=== PATIENT | female | born 1960 | race Caucasian/White ===

== ENCOUNTER → 2017-05-04 12:39 | Outpatient (CLI) | payer OTHER, SELFPAY ==
[2017-05-04 14:07] LABS: CRP 6.34 mg/L (0.0-3.0)
[2017-05-05 16:10] LABS: Endomysial Antibody IgA Negative (Negative); Immunoglobulin A 85 mg/dL (87-352)
[2017-05-06 08:13] LABS: t-Transglutaminase IgA <2 U/mL (0-3)
== END ==
PROVIDERS: Family Provider Family Medicine; PCP Family Medicine; Visit Provider Internal Medicine Gastroenterology
DX: R19.7 Diarrhea, unspecified (principal)
CPT/HCPCS: 36415; 82784; 83516; 86140; 86255

== ENCOUNTER → 2017-06-01 11:55 | Outpatient (CLI) | payer OTHER, SELFPAY ==
[2017-06-02 16:09] LABS: Endomysial Antibody IgA Negative (Negative)
[2017-06-03 11:29] LABS: Deamidated Gliadin IgA 2 units (0-19); Deamidated Gliadin IgG 2 units (0-19); Immunoglobulin A 77 mg/dL (87-352); t-Transglutaminase IgA <2 U/mL (0-3)
== END ==
PROVIDERS: Family Provider Family Medicine; PCP Family Medicine; Visit Provider Internal Medicine Gastroenterology
DX: K58.0 Irritable bowel syndrome with diarrhea (principal)
CPT/HCPCS: 36415; 82784; 83516; 86255

== ENCOUNTER → 2018-05-10 08:43 | Outpatient (CLI) | payer OTHER, SELFPAY ==
[2015-01-29 09:06] VITALS: BMI 43.9
[2018-05-10 10:11] LABS: Absolute Lymphocyte Count 1.01 X10^3/ul (0.83-4.51); Absolute Neutrophil Count 2.1 X10^3/uL (2.0-7.7); Basophil# 0.02 X10^3/uL; Basophil% 0.6 % (0-1); Eosinophil# 0.09 X10^3/uL; Eosinophils% 2.5 % (0-5); Hematocrit 44.6 % (37-47); Hemoglobin 14.2 g/dl (12.0-15.0); Lymphocyte # 1.01 X10^3/ul (4.0); Lymphocyte % 28.6 % (19-41); Mean Corp Hgb Conc 31.8 g/gl (32-36); Mean Corpuscular Hgb 26.7 pg (27.0-32.0); Mean Platelet Vol. 9.7 fl (6.2-12.0); Monocyte# 0.28 X10^3/uL; Monocyte% 7.9 % (0-10); Neutrophil # 2.13 X10^3/uL (2.7-7.7); Neutrophil % 60.4 % (47-70); Platelet Count 165 K/mm3 (150-450); RBC Distribution Width CV 13.2 % (11.6-14.6); RBC Distribution Width SD 39.8 fl (35.1-43.9); Red Blood Count 5.31 M/mm3 (4.2-5.4); White Blood Count 3.5 K/mm3 (4.4-11.0)
[2018-05-10 10:13] LABS: POSITIVE COUNT NO; POSITIVE DIFFERENTIAL NO; POSITIVE MORPHOLOGY NO
[2018-05-10 10:33] LABS: ALB/GLOB Ratio 1.2 RATIO (0.9-2.4); AST(SGOT) 28 U/L (15-37); Alanine Aminotransfer ALT/SGPT 20 U/L (13-56); Albumin, Serum 3.6 g/dL (3.2-5.0); Alkaline Phosphatase 111 U/L (45-117); Anion Gap 6 (5-15); BUN 13 mg/dL (7-18); BUN/Creat Ratio 17.9 RATIO (10-20); Calcium,Total 9.1 mg/dL (8.5-10.1); Chloride 105 mmol/L (98-107); Creatinine, Serum 0.73 mg/dL (0.55-1.02); EST Glomerular Filtration Rate 88 mL/min (>60); Est Glom Filt Rate - Afr Amer 107 mL/min (>60); Globulin 3.1 g/dL (2.2-4.2); Glucose 91 mg/dL (74-106); Potassium 4.1 mmol/L (3.5-5.1); Protein, Total 6.7 g/dL (6.4-8.2); Sodium Level 140 mmol/L (136-145)
== END ==
PROVIDERS: Family Provider Family Medicine; PCP Family Medicine; Referring Provider Internal Medicine Rheumatology; Visit Provider Internal Medicine Rheumatology
DX: M06.4 Inflammatory polyarthropathy (principal); M19.049 Primary osteoarthritis, unspecified hand; M47.897 Other spondylosis, lumbosacral region; K58.0 Irritable bowel syndrome with diarrhea; M79.7 Fibromyalgia; G47.00 Insomnia, unspecified; Z79.899 Other long term (current) drug therapy
CPT/HCPCS: 36415; 80053; 85025

== ENCOUNTER → 2018-09-20 07:23 | Outpatient (CLI) | payer OTHER, SELFPAY ==
[2018-09-05 07:35] VITALS: BMI 38.8
--- NOTE | 2018-09-20 07:25 | ECHOD_ITS ---
Reason For Study: Dyspnea/SOB Procedure This was a 2D Doppler, Color Flow transthoracic echocardiogram. Contrast injection was performed. Exam performed in department. Left Ventricle Normal size and thickness. The estimated ejection fraction is 65 %. Stage 1 diastolic dysfunction. No regional wall motion abnormalities noted. Right Ventricle Normal size and thickness. Normal systolic function. Atria Normal left atrium. Normal right atrium. Normal atrial septum. Mitral Valve The mitral valve is structurally normal. No prolapse or stenosis seen. Trivial mitral valve insufficiency. Tricuspid Valve Normal tricuspid valve. Trivial tricuspid valve insufficiency. Right ventricular systolic pressure estimated to be 25 mmHg. Aortic Valve Trisinus/trileaflet aortic valve. Pulmonic Valve Normal pulmonic valve. Trivial pulmonic valve insufficiency. Great Vessels Normal aortic root. Normal arch. Normal inferior vena cava. Inferior vena cava collapse with sniff. Pericardium/Pleural No pericardial effusion. Medication 22 gauge I.V. with prn adaptor inserted into right arm. Performed a rapid injection of agitated mix of 9 cc saline and 1cc air to assess for atrial septal defect. MMode/2D Measurements & Calculations LVIDd: 4.2 cm IVSd: 1.1 cm Ao root diam: 3.1 cm LVIDs: 2.7 cm LVPWd: 1.2 cm LA dimension: 3.8 cm FS: 36.5 % LAV(MOD-bp): 51.1 ml LA A4 area: 18.6 cm2 RA A4 area: 10.9 cm2 LAV(MOD-bp) Indexed: 24.2 ml/m2 LAV(MOD-sp2): 51.4 ml LAV(MOD-sp4): 51.7 ml Time Measurements MV dec time: 0.24 sec Doppler Measurements & Calculations MV E max walter: 77.1 cm/sec Lat Peak E' Walter: 11.3 cm/sec Med Peak E' Walter: 7.6 cm/sec MV A max walter: 92.7 cm/sec E/E' lat: 6.8 E/E' med: 10.1 MV E/A: 0.83 MV V2 max: 89.9 cm/sec MV P1/2t max walter: 71.2 cm/sec Ao V2 max: 140.2 cm/sec MV max P.2 mmHg MV P1/2t: 101.6 msec Ao max P.9 mmHg MV V2 mean: 46.2 cm/sec MV dec slope: 205.2 cm/sec2 Ao V2 mean: 87.9 cm/sec MV mean P.99 mmHg Ao mean P.6 mmHg MV V2 VTI: 26.5 cm MVA(P1/2t): 2.2 cm2 Ao V2 VTI: 30.8 cm LV V1 max: 94.6 cm/sec PA V2 max: 99.2 cm/sec PI dec slope: 199.3 cm/sec2 LV V1 max P.6 mmHg LV V1 mean P.5 mmHg LV V1 mean: 54.9 cm/sec LV V1 VTI: 22.7 cm TR max walter: 225.1 cm/sec TR max P.3 mmHg Interpretation Summary The estimated ejection fraction is 65 %. Stage 1 diastolic dysfunction. Trivial mitral valve insufficiency. Trivial tricuspid valve insufficiency. Right ventricular systolic pressure estimated to be 25 mmHg. There is no comparison study available. Ordering Physician: Carlos Chan Referring Physician: Carlos Chan Performed By: Abdirizak Garg RCS
[2018-09-20 09:35] VITALS: PULSE 103; PULSE 106; PULSE 61; PULSE 68; PULSE 93; PULSE 96; O2SAT 97; O2SAT 98
--- NOTE | 2018-09-20 12:46 | PCM.PSN.6M ---
PSN 6 Minute Walk Test - 6 Minute Walk Test 6 Minute Walk Test: 6 Minute Walk Test PSN:6-Minute Walk Test Start: 09/20/18 09:34 Freq: Status: Active Protocol: [id number].6MINW Document 09/20/18 09:35 SARITHA (Rec: 09/20/18 09:36 SARITHA [id number]) 6 Minute Walk Test Date Performed 09/20/18 Time Performed 09:00 Height 5 ft 5 in Weight: 232 lb Weight in Pounds 232.[address]: Carlos Chan Assistive device used: None Pre-test Oxygen Delivery Method Room Air Pulse Ox (%) 98 Pulse Rate (60-100 beats/min) 61 Dyspnea Noris Scale (0-10) 0 Exertion Noris Scale (6-20) 6 1st minute Oxygen Delivery Method Room Air Pulse Ox (%) 98 Pulse Rate (60-100 beats/min) 93 2nd minute Oxygen Delivery Method Room Air Pulse Ox (%) 97 Pulse Rate (60-100 beats/min) 96 3rd minute Oxygen Delivery Method Room Air Pulse Ox (%) 97 Pulse Rate (60-100 beats/min) 96 4th minute Oxygen Delivery Method Room Air Pulse Ox (%) 97 Pulse Rate (60-100 beats/min) 96 5th minute Oxygen Delivery Method Room Air Pulse Ox (%) 98 Pulse Rate (60-100 beats/min) 106 H 6th minute Oxygen Delivery Method Room Air Pulse Ox (%) 98 Pulse Rate (60-100 beats/min) 103 H Dyspnea Noris Scale (0-10) 2 Exertion Noris Scale (6-20) 12 Post-test Oxygen Delivery Method Room Air Pulse Ox (%) 98 Pulse Rate (60-100 beats/min) 68 Full Laps Walked 17 Partial Lap, Number of Tiles Walked 12 Total Distance Walked (ft) 1015 - Interpretation Interpretation: The patient ambulated 1015 feet over the course of 6 minutes beginning on room air without assistive devices or breaks. Pretesting oxygen saturation was noted to be 98% on room air. With ambulation, the horacio oxygen saturation was 97%. There was no significant exertional oxygen desaturation. - Recommendations Recommendations: There is no indication for the use of supplemental oxygen at this time.
== END ==
PROVIDERS: Family Provider Family Medicine; PCP Family Medicine; Referring Provider Internal Medicine Critical Care Medicine; Visit Provider Internal Medicine Critical Care Medicine
DX: R06.09 Other forms of dyspnea (principal)
CPT/HCPCS: 93306; 94618; A4216

== ENCOUNTER → 2018-10-24 06:47 | Outpatient (CLI) | payer OTHER, SELFPAY ==
[2018-09-05 07:35] VITALS: BMI 38.8
[2018-10-24 07:36] LABS: Absolute Lymphocyte Count 1.44 X10^3/uL (0.83-4.51); Basophil# 0.03 X10^3/uL; Basophil% 0.7 % (0-1); Eosinophils% 4.9 % (0-5); Hematocrit 43.5 % (37-47); Hemoglobin 14.4 g/dL (12.0-15.0); Lymphocyte # 1.44 X10^3/ul (4.0); Lymphocyte % 35.5 % (19-41); Mean Corp Hgb Conc 33.1 g/dL (32-36); Mean Corpuscular Hgb 27.6 pg (27.0-32.0); Mean Corpuscular Volume 83.5 fL (81-99); Monocyte# 0.37 X10^3/uL; Monocyte% 9.1 % (0-10); NRBC Flagged by Analyzer 0 % (0-5); Neutrophil # 2.01 X10^3/uL (2.7-7.7); Neutrophil % 49.6 % (47-70); Platelet Count 167 K/mm3 (150-450); RBC Distribution Width CV 13.2 % (11.6-14.6); RBC Distribution Width SD 39.8 fl (35.1-43.9); Red Blood Count 5.21 M/mm3 (4.2-5.4); White Blood Count 4.1 K/mm3 (4.4-11.0)
[2018-10-24 08:12] LABS: ALB/GLOB Ratio 1.1 RATIO (0.9-2.4); AST(SGOT) 27 U/L (15-37); Alanine Aminotransfer ALT/SGPT 28 U/L (13-56); Albumin, Serum 3.3 g/dL (3.2-5.0); Alkaline Phosphatase 92 U/L (45-117); Anion Gap 5 (5-15); BUN 14 mg/dL (7-18); BUN/Creat Ratio 21.7 RATIO (10-20); Calcium,Total 8.8 mg/dL (8.5-10.1); Chloride 108 mmol/L (98-107); Creatinine, Serum 0.64 mg/dL (0.55-1.02); EST Glomerular Filtration Rate 101 mL/min (>60); Est Glom Filt Rate - Afr Amer 122 mL/min (>60); Glucose 94 mg/dL (74-106); Potassium 3.8 mmol/L (3.5-5.1); Protein, Total 6.3 g/dL (6.4-8.2); Sodium Level 144 mmol/L (136-145)
--- NOTE | 2018-10-24 13:45 | BRONCHALL ---
Bronchoprovocation Challenge - Bronchoprovocation Challenge Bronchoprovocation Challenge: BRONCHOPROVOCATION STUDY INTERPRETATION Brief HPI: Patient is a 58 year old female, currently under the care of myself, who presents to [facility] for a bronchoprovocation study secondary to diagnosis of cough and dyspnea. Respiratory therapist reports good effort and reproducible results. Interpretation: Initial spirometry showed no large airways obstructive ventilatory defect. The patient was then given increasingly concentrated doses of methacholine in a stepwise fashion, using a modified ATS protocol. The patient?s maximum reduction in FEV1 was 11 percent predicted. Impression: Negative Bronchoprovocation study. This is NOT consistent with the diagnosis of asthma.
== END ==
PROVIDERS: Internal Medicine Rheumatology; Family Provider Family Medicine; PCP Family Medicine; Referring Provider Internal Medicine Critical Care Medicine; Visit Provider Internal Medicine Critical Care Medicine
DX: M06.4 Inflammatory polyarthropathy (principal); M79.7 Fibromyalgia; M19.049 Primary osteoarthritis, unspecified hand; M47.897 Other spondylosis, lumbosacral region; R06.09 Other forms of dyspnea; G47.00 Insomnia, unspecified; K58.0 Irritable bowel syndrome with diarrhea; Z79.899 Other long term (current) drug therapy
CPT/HCPCS: 36415; 80053; 85025; 94070; 95070; J3490; J7674

== ENCOUNTER → 2019-01-02 20:00 | Outpatient (CLI) | payer OTHER, SELFPAY ==
[2018-11-29 05:58] VITALS: BMI 40.1
[2019-01-02] MEDS: Zolpidem Tartrate 5 MG Tablet PO (21:20)
== END ==
PROVIDERS: Family Provider Family Medicine; PCP Family Medicine; Referring Provider Internal Medicine Critical Care Medicine; Visit Provider Internal Medicine Critical Care Medicine
DX: G47.10 Hypersomnia, unspecified (principal)
CPT/HCPCS: 95810

== ENCOUNTER → 2019-01-24 09:16 | Outpatient (CLI) | payer OTHER, SELFPAY ==
[2019-01-24 07:44] VITALS: BMI 39.7
== END ==
PROVIDERS: Family Provider Family Medicine; PCP Family Medicine; Referring Provider Nurse Practitioner Acute Care; Visit Provider Nurse Practitioner Acute Care
DX: R05 Cough (principal)
CPT/HCPCS: 87070; 87205

== ENCOUNTER → 2019-04-11 10:04 | Outpatient (CLI) | payer OTHER, SELFPAY ==
[2019-03-07 07:45] VITALS: BMI 39.7
[2019-04-13 14:08] LABS: Red Blood Cell Count Test/G6PD 5.07 x10E6/uL (3.77-5.28)
[2019-04-13 15:20] LABS: G6PD Quant Test 296 (146-376)
== END ==
PROVIDERS: PCP Family Medicine; Referring Provider Internal Medicine Rheumatology; Visit Provider Internal Medicine Rheumatology
DX: M06.4 Inflammatory polyarthropathy (principal); Z79.899 Other long term (current) drug therapy; M79.7 Fibromyalgia; M19.042 Primary osteoarthritis, left hand; M19.041 Primary osteoarthritis, right hand; M47.897 Other spondylosis, lumbosacral region; G47.00 Insomnia, unspecified; K58.0 Irritable bowel syndrome with diarrhea
CPT/HCPCS: 36415; 82955

== ENCOUNTER → 2019-08-15 10:32 | Outpatient (CLI) | payer OTHER, SELFPAY ==
[2019-03-07 07:45] VITALS: BMI 39.7
[2019-08-17 20:07] LABS: Red Blood Cell Count Test/G6PD 4.66 x10E6/uL (3.77-5.28)
[2019-08-17 21:50] LABS: G6PD Quant Test 271 (146-376)
== END ==
PROVIDERS: PCP Family Medicine; Referring Provider Internal Medicine Rheumatology; Visit Provider Internal Medicine Rheumatology
DX: M06.4 Inflammatory polyarthropathy (principal); M79.7 Fibromyalgia; M19.049 Primary osteoarthritis, unspecified hand; M47.897 Other spondylosis, lumbosacral region; G47.00 Insomnia, unspecified; K58.0 Irritable bowel syndrome with diarrhea; Z79.899 Other long term (current) drug therapy
CPT/HCPCS: 36415; 82955

== ENCOUNTER → 2020-11-26 09:35 | Outpatient (CLI) | payer OTHER, SELFPAY ==
[2020-11-26 10:12] LABS: Absolute Lymphocyte Count 1.09 X10^3/uL (0.83-4.51); Absolute Neutrophil Count 1.8 X10^3/uL (2.0-7.7); Basophil# 0.03 X10^3/uL; Basophil% 0.9 % (0-1); Hematocrit 42.1 % (37-47); Hemoglobin 13.8 g/dL (12.0-15.0); Lymphocyte # 1.09 X10^3/ul (0.83-4.51); Lymphocyte % 32.8 % (19-41); Mean Corp Hgb Conc 32.8 g/dL (32-36); Mean Corpuscular Hgb 27.7 pg (27.0-32.0); Mean Corpuscular Volume 84.4 fL (81-99); Mean Platelet Vol. 9.8 fl (6.2-12.0); NRBC Flagged by Analyzer 0 % (0-5); Neutrophil % 54.3 % (47-70); Platelet Count 156 K/mm3 (150-450); RBC Distribution Width CV 13.3 % (11.6-14.6); RBC Distribution Width SD 41.1 fl (35.1-43.9); Red Blood Count 4.99 M/mm3 (4.2-5.4); White Blood Count 3.3 K/mm3 (4.4-11.0)
[2020-11-26 11:01] LABS: ALB/GLOB Ratio 1.1 RATIO (0.9-2.4); AST(SGOT) 18 U/L (15-37); Alanine Aminotransfer ALT/SGPT 22 U/L (13-56); Albumin, Serum 3.4 g/dL (3.2-5.0); Alkaline Phosphatase 68 U/L (45-117); Anion Gap 6 (5-15); BUN 16 mg/dL (7-18); BUN/Creat Ratio 26.7 RATIO (10-20); Chloride 107 mmol/L (98-107); EST Glomerular Filtration Rate 109 mL/min (>60); Est Glom Filt Rate - Afr Amer 132 mL/min (>60); Globulin 3.1 g/dL (2.2-4.2); Glucose 99 mg/dL (74-106); Potassium 4.1 mmol/L (3.5-5.1); Protein, Total 6.5 g/dL (6.4-8.2); Sodium Level 143 mmol/L (136-145)
== END ==
PROVIDERS: PCP Family Medicine; Referring Provider Internal Medicine Rheumatology; Visit Provider Internal Medicine Rheumatology
DX: M06.4 Inflammatory polyarthropathy (principal); M79.7 Fibromyalgia; M19.049 Primary osteoarthritis, unspecified hand; M47.897 Other spondylosis, lumbosacral region; G47.00 Insomnia, unspecified; K58.0 Irritable bowel syndrome with diarrhea; Z79.899 Other long term (current) drug therapy
CPT/HCPCS: 36415; 80053; 85025

== ENCOUNTER 2021-03-24 09:19 | Outpatient (CLI) | payer MEDICAID, SELFPAY ==
[2021-03-24 12:25] LABS: Absolute Lymphocyte Count 1.16 X10^3/uL (0.83-4.51); Basophil# 0.02 X10^3/uL; Basophil% 0.5 % (0-1); Eosinophil# 0.12 X10^3/uL; Eosinophils% 3.2 % (0-5); Hematocrit 39.7 % (37-47); Hemoglobin 13.1 g/dL (12.0-15.0); Lymphocyte # 1.16 X10^3/ul (0.83-4.51); Lymphocyte % 31.4 % (19-41); Mean Corpuscular Hgb 27.7 pg (27.0-32.0); Mean Corpuscular Volume 83.9 fL (81-99); Mean Platelet Vol. 9.5 fl (6.2-12.0); Monocyte# 0.36 X10^3/uL; Monocyte% 9.7 % (0-10); NRBC Flagged by Analyzer 0 % (0-5); Neutrophil # 2.03 X10^3/uL (2.7-7.7); Neutrophil % 54.9 % (47-70); Platelet Count 171 K/mm3 (150-450); RBC Distribution Width CV 13.2 % (11.6-14.6); RBC Distribution Width SD 40.6 fl (35.1-43.9); Red Blood Count 4.73 M/mm3 (4.2-5.4); White Blood Count 3.7 K/mm3 (4.4-11.0)
[2021-03-24 13:00] LABS: ALB/GLOB Ratio 1.2 RATIO (0.9-2.4); AST(SGOT) 20 U/L (15-37); Alanine Aminotransfer ALT/SGPT 32 U/L (13-56); Albumin, Serum 3.5 g/dL (3.2-5.0); Alkaline Phosphatase 71 U/L (45-117); Anion Gap 3 (5-15); BUN 20 mg/dL (7-18); BUN/Creat Ratio 31.4 RATIO (10-20); Calcium,Total 8.8 mg/dL (8.5-10.1); Chloride 109 mmol/L (98-107); Cholesterol 221 mg/dL (200); Creatinine, Serum 0.64 mg/dL (0.55-1.02); EST Glomerular Filtration Rate 102 mL/min (>60); Est Glom Filt Rate - Afr Amer 123 mL/min (>60); Glucose 83 mg/dL (74-106); High Density Lipoprotein 73 mg/dL; Potassium 3.7 mmol/L (3.5-5.1); Protein, Total 6.5 g/dL (6.4-8.2); Sodium Level 141 mmol/L (136-145); Triglycerides 91 mg/dL; Very Low Density Lipoprotein 18 mg/dL (5-40)
[2021-03-24 18:18] LABS: Vitamin B12 1109 pg/mL (211-911)
[2021-03-27 16:15] LABS: Vitamin D 1,25-Dihydroxy 39.4 pg/mL (19.9-79.3)
== END 2021-03-24 23:59 | disposition short-term general hospital (02) ==
PROVIDERS: Nurse Practitioner Adult Health; PCP Family Medicine; Referring Provider Internal Medicine Rheumatology; Visit Provider Internal Medicine Rheumatology
DX: M06.4 Inflammatory polyarthropathy (principal); M79.7 Fibromyalgia; M19.049 Primary osteoarthritis, unspecified hand; M47.897 Other spondylosis, lumbosacral region; G47.00 Insomnia, unspecified; K58.0 Irritable bowel syndrome with diarrhea; Z79.899 Other long term (current) drug therapy; I10 Essential (primary) hypertension; E53.9 Vitamin B deficiency, unspecified
CPT/HCPCS: 36415; 80053; 80061; 82607; 82652; 84443; 85025

== ENCOUNTER → 2021-09-07 | Outpatient (CLI) | payer MEDICAID, SELFPAY ==
[2021-09-07 17:32] LABS: Absolute Lymphocyte Count 1.21 X10^3/uL (0.83-4.51); Absolute Neutrophil Count 1.6 X10^3/uL (2.0-7.7); Basophil# 0.02 X10^3/uL; Basophil% 0.6 % (0-1); Eosinophil# 0.09 X10^3/uL; Eosinophils% 2.8 % (0-5); Hematocrit 38.8 % (37-47); Hemoglobin 12.7 g/dL (12.0-15.0); Lymphocyte # 1.21 X10^3/ul (0.83-4.51); Lymphocyte % 37.3 % (19-41); Mean Corp Hgb Conc 32.7 g/dL (32-36); Mean Corpuscular Hgb 27.3 pg (27.0-32.0); Mean Corpuscular Volume 83.3 fL (81-99); Mean Platelet Vol. 9.5 fl (6.2-12.0); Monocyte# 0.29 X10^3/uL; NRBC Flagged by Analyzer 0 % (0-5); Neutrophil # 1.63 X10^3/uL (2.7-7.7); Neutrophil % 50.3 % (47-70); Platelet Count 142 K/mm3 (150-450); RBC Distribution Width CV 13.2 % (11.6-14.6); Red Blood Count 4.66 M/mm3 (4.2-5.4); White Blood Count 3.2 K/mm3 (4.4-11.0)
[2021-09-07 18:01] LABS: ALB/GLOB Ratio 1.4 RATIO (0.9-2.4); AST(SGOT) 24 U/L (15-37); Alanine Aminotransfer ALT/SGPT 27 U/L (13-56); Albumin, Serum 3.4 g/dL (3.2-5.0); Alkaline Phosphatase 69 U/L (45-117); Anion Gap 8 (5-15); BUN 14 mg/dL (7-18); BUN/Creat Ratio 14.2 RATIO (10-20); Calcium,Total 9.2 mg/dL (8.5-10.1); Chloride 105 mmol/L (98-107); Creatinine, Serum 0.98 mg/dL (0.55-1.02); EST Glomerular Filtration Rate 61 mL/min (>60); Est Glom Filt Rate - Afr Amer 74 mL/min (>60); Globulin 2.5 g/dL (2.2-4.2); Glucose 107 mg/dL (74-106); Protein, Total 5.9 g/dL (6.4-8.2); Sodium Level 140 mmol/L (136-145)
== END | disposition home or self-care (01) ==
LOC: MTLAB 15:12
PROVIDERS: PCP Physician Assistant; Referring Provider Internal Medicine Rheumatology; Visit Provider Internal Medicine Rheumatology
DX: M06.4 Inflammatory polyarthropathy (principal); M79.7 Fibromyalgia; M19.049 Primary osteoarthritis, unspecified hand; M47.897 Other spondylosis, lumbosacral region; G47.00 Insomnia, unspecified; K58.0 Irritable bowel syndrome with diarrhea; Z79.899 Other long term (current) drug therapy
CPT/HCPCS: 36415; 80053; 85025

== ENCOUNTER → 2022-01-11 | Outpatient (CLI) | payer MEDICAID, SELFPAY ==
[2022-01-11 12:49] LABS: Vitamin B12 489 pg/mL (211-911)
[2022-01-11 12:58] LABS: Cholesterol 231 mg/dL (200); High Density Lipoprotein 72 mg/dL; Triglycerides 118 mg/dL; Very Low Density Lipoprotein 24 mg/dL (5-40)
== END | disposition home or self-care (01) ==
PROVIDERS: PCP Physician Assistant; Referring Provider Physician Assistant; Visit Provider Physician Assistant
DX: E78.5 Hyperlipidemia, unspecified (principal); E53.8 Deficiency of other specified B group vitamins
CPT/HCPCS: 36415; 80061; 82607

== ENCOUNTER → 2022-01-11 | Outpatient (CLI) | payer MEDICAID, SELFPAY ==
--- NOTE | 2022-01-11 12:14 | BI_ITS ---
MAMMOGRAPHY - BILATERAL SCREENING REASON FOR EXAM: Female, 61 years old. Routine annual screening examination. PERTINENT HISTORY: Non-contributory. TECHNIQUE: Digital bilateral breast kari (3D mammographic acquisition) in the CC and MLO projections. 2-D mediolateral oblique (MLO) and craniocaudad (CC) views of both breasts were obtained. CAD: Full Field Digital Mammography with Computer Added Detection was performed. COMPARISON: Comparison mammogram from outside hospital from 10/29/2020, 07/13/2019, 06/08/2018. FINDINGS: Breast Composition: There are scattered areas of fibroglandular density. There are no dominant masses or suspicious calcifications. No other significant abnormalities are identified. There has been no significant change since the prior study. BI/SCRN MAMM (CAD)W/KARI BILAT IMPRESSION: Stable bilateral screening mammogram. Yearly follow-up mammogram recommended. (A) ASSESSMENT CATEGORY: BIRADS Category 1: Negative. A letter regarding these results will be sent to the patient by the facility within 30 days. Approximately 10% of breast cancers are not detected by mammography. A normal mammogram should not delay biopsy of a clinically suspicious abnormality. Electronically Signed: Mathew Carlson, at 10:17 EST ,
== END | disposition home or self-care (01) ==
LOC: OPBI 12:12
PROVIDERS: PCP Physician Assistant; Referring Provider Physician Assistant; Visit Provider Physician Assistant
DX: Z12.31 Encounter for screening mammogram for malignant neoplasm of breast (principal)
CPT/HCPCS: 77063; 77067

== ENCOUNTER → 2022-03-09 | Outpatient (CLI) | payer OTHER, SELFPAY ==
[2022-03-09 12:09] LABS: Absolute Lymphocyte Count 1.21 X10^3/uL (0.83-4.51); Absolute Neutrophil Count 1.9 X10^3/uL (2.0-7.7); Basophil# 0.02 X10^3/uL; Basophil% 0.6 % (0-1); Eosinophils% 2.8 % (0-5); Hematocrit 42.9 % (37-47); Hemoglobin 13.8 g/dL (12.0-15.0); Lymphocyte # 1.21 X10^3/ul (0.83-4.51); Lymphocyte % 33.5 % (19-41); Mean Corp Hgb Conc 32.2 g/dL (32-36); Mean Corpuscular Hgb 26.8 pg (27.0-32.0); Mean Corpuscular Volume 83.5 fL (81-99); Mean Platelet Vol. 9.8 fl (6.2-12.0); Monocyte# 0.34 X10^3/uL; Monocyte% 9.4 % (0-10); NRBC Flagged by Analyzer 0 % (0-5); Neutrophil # 1.93 X10^3/uL (2.7-7.7); Neutrophil % 53.4 % (47-70); Platelet Count 155 K/mm3 (150-450); RBC Distribution Width CV 13.1 % (11.6-14.6); RBC Distribution Width SD 39.8 fl (35.1-43.9); Red Blood Count 5.14 M/mm3 (4.2-5.4); White Blood Count 3.6 K/mm3 (4.4-11.0)
[2022-03-09 12:47] LABS: ALB/GLOB Ratio 1.5 RATIO (0.9-2.4); AST(SGOT) 23 U/L (15-37); Alanine Aminotransfer ALT/SGPT 23 U/L (13-56); Albumin, Serum 3.7 g/dL (3.2-5.0); Alkaline Phosphatase 76 U/L (45-117); Anion Gap 5 (5-15); BUN 19 mg/dL (7-18); BUN/Creat Ratio 31.4 RATIO (10-20); Calcium,Total 8.8 mg/dL (8.5-10.1); Chloride 107 mmol/L (98-107); Creatinine, Serum 0.61 mg/dL (0.55-1.02); EST Glomerular Filtration Rate 107 mL/min (>60); Est Glom Filt Rate - Afr Amer 130 mL/min (>60); Globulin 2.4 g/dL (2.2-4.2); Glucose 102 mg/dL (74-106); Potassium 4.3 mmol/L (3.5-5.1); Protein, Total 6.1 g/dL (6.4-8.2); Sodium Level 140 mmol/L (136-145)
== END | disposition home or self-care (01) ==
LOC: MTLAB 09:59
PROVIDERS: PCP Physician Assistant; Referring Provider Internal Medicine Rheumatology; Visit Provider Internal Medicine Rheumatology
DX: M06.4 Inflammatory polyarthropathy (principal); M79.7 Fibromyalgia; M19.049 Primary osteoarthritis, unspecified hand; M47.897 Other spondylosis, lumbosacral region; G47.00 Insomnia, unspecified; K58.0 Irritable bowel syndrome with diarrhea; Z79.899 Other long term (current) drug therapy
CPT/HCPCS: 36415; 80053; 85025

== ENCOUNTER → 2022-08-28 | Outpatient (CLI) | payer OTHER, SELFPAY ==
[2022-08-28 09:45] LABS: Absolute Lymphocyte Count 1.31 X10^3/uL (0.83-4.51); Absolute Neutrophil Count 2.2 X10^3/uL (2.0-7.7); Basophil# 0.02 X10^3/uL; Basophil% 0.5 % (0-1); Eosinophil# 0.15 X10^3/uL; Eosinophils% 3.7 % (0-5); Hematocrit 43.7 % (37-47); Hemoglobin 14.5 g/dL (12.0-15.0); Lymphocyte # 1.31 X10^3/ul (0.83-4.51); Lymphocyte % 32.4 % (19-41); Mean Corp Hgb Conc 33.2 g/dL (32-36); Mean Corpuscular Hgb 27.7 pg (27.0-32.0); Mean Corpuscular Volume 83.4 fL (81-99); Mean Platelet Vol. 8.9 fl (6.2-12.0); Monocyte# 0.36 X10^3/uL; Monocyte% 8.9 % (0-10); NRBC Flagged by Analyzer 0 % (0-5); Neutrophil % 54.5 % (47-70); Platelet Count 168 K/mm3 (150-450); RBC Distribution Width CV 13.4 % (11.6-14.6); RBC Distribution Width SD 40.9 fl (35.1-43.9); Red Blood Count 5.24 M/mm3 (4.2-5.4)
[2022-08-28 10:37] LABS: ALB/GLOB Ratio 1.2 RATIO (0.9-2.4); AST(SGOT) 23 U/L (15-37); Alanine Aminotransfer ALT/SGPT 28 U/L (13-56); Albumin, Serum 3.6 g/dL (3.2-5.0); Alkaline Phosphatase 81 U/L (45-117); Anion Gap 3 (5-15); BUN 14 mg/dL (7-18); BUN/Creat Ratio 20.2 RATIO (10-20); Calcium,Total 9.2 mg/dL (8.5-10.1); Chloride 109 mmol/L (98-107); Creatinine, Serum 0.69 mg/dL (0.55-1.02); EST Glomerular Filtration Rate 92 mL/min (>60); Est Glom Filt Rate - Afr Amer 111 mL/min (>60); Globulin 3.1 g/dL (2.2-4.2); Glucose 98 mg/dL (74-106); Potassium 4.2 mmol/L (3.5-5.1); Protein, Total 6.7 g/dL (6.4-8.2); Sodium Level 140 mmol/L (136-145)
== END | disposition home or self-care (01) ==
PROVIDERS: PCP Family Medicine; Referring Provider Internal Medicine Rheumatology; Visit Provider Internal Medicine Rheumatology
DX: M06.4 Inflammatory polyarthropathy (principal); M79.7 Fibromyalgia; M18.11 Unilateral primary osteoarthritis of first carpometacarpal joint, right hand; M47.897 Other spondylosis, lumbosacral region; G47.00 Insomnia, unspecified; K58.0 Irritable bowel syndrome with diarrhea; Z79.899 Other long term (current) drug therapy
CPT/HCPCS: 36415; 80053; 85025

== ENCOUNTER → 2022-10-04 | Outpatient (CLI) | payer OTHER, SELFPAY ==
--- NOTE | 2022-10-04 11:10 | RAD_ITS ---
INDICATION: FALL AT HOME, INITIAL ENCOUNTER, RT SIDED CHEST PAIN EXAMINATION/TECHNIQUE: X-RAY - XR Ribs 4 Views W/ PA Chest Bilateral COMPARISON: None. FINDINGS: LINES/DEVICES: Bilateral humeral tendon anchor.. LUNGS: No consolidation, edema or effusion. No pneumothorax. MEDIASTINUM AND CARDIOVASCULAR STRUCTURES: Cardiac silhouette not enlarged. Central airways and mediastinal contour are unremarkable. RIBS AND OSSEOUS STRUCTURES: Minimally displaced right anterolateral third and fourth rib fractures. Widened right acromioclavicular space without elevation. RAD/Ribs Rk Min 4V w/PA Chest IMPRESSION: Minimally displaced right anterolateral third and fourth rib fractures. Widened right acromioclavicular space without elevation which can be due to chronic osteolysis or age-indeterminate grade 1 shoulder separation. Electronically Signed: Calos Meyer MD at 6:53 EDT ,
--- NOTE | 2022-10-04 11:10 | RAD_ITS ---
INDICATION: PAIN EXAMINATION/TECHNIQUE: X-RAY - RIGHT XR Scapula : 2 view COMPARISON: ]Right rib radiograph on same day FINDINGS: SOFT TISSUES: No soft tissue swelling or gas. No radiopaque foreign body. Right humeral tendon anchor noted. BONES/JOINTS: No acute fracture.. Normal alignment. Normal glenohumeral alignment. Mild right acromioclavicular space widening without abnormal elevation. No sclerotic or destructive changes observed. RAD/Scapula IMPRESSION: No acute osseous finding. Widened right acromioclavicular space without abnormal elevation which could represent osteolysis or age-indeterminate grade 1 acromioclavicular shoulder separation. Prior right humeral tendon anchor. Electronically Signed: Calos Meyer MD at 6:47 EDT ,
--- NOTE | 2022-10-04 11:10 | RAD_ITS ---
STUDY: X-RAY - RIGHT SHOULDER REASON FOR EXAM: Female, 62 years old. Pain after fall at home. TECHNIQUE: 5 view(s) of the shoulder. COMPARISON: None. FINDINGS: Osteopenia. Mild arthrosis of the glenohumeral joint. Widening of the AC joint, likely secondary to resection of the distal clavicle. Normal acromion. Postsurgical changes in the humeral head with minimal sclerosis and cystic changes. Normal soft tissues. Normal visualized pulmonary apex. RAD/Shoulder min 2 Views IMPRESSION: Osteopenia with osteoarthritic and postsurgical changes. No acute abnormality or erosive changes. Electronically Signed: Saud Fitzgerald MD at 9:22 EDT ,
== END | disposition home or self-care (01) ==
LOC: RAD 11:02
PROVIDERS: PCP Family Medicine; Referring Provider Family Medicine; Visit Provider Family Medicine
DX: M89.8X1 Other specified disorders of bone, shoulder (principal); M25.511 Pain in right shoulder; R07.89 Other chest pain; W19.XXXA Unspecified fall, initial encounter
CPT/HCPCS: 71111; 73010; 73030

== ENCOUNTER 2022-10-29 15:51 | Emergency (ER) | payer OTHER, SELFPAY ==
[2022-10-29 15:52] VITALS: BP 165/68; PULSE 72; RESP 18; TEMP 35.9; O2SAT 100; BMI 37.5
--- NOTE | 2022-10-29 16:58 | CT_ITS ---
STUDY: CT BRAIN WITHOUT CONTRAST REASON FOR EXAM: Female, 62 years old. headache RADIATION DOSAGE (If Supplied By Facility): CTDIvol = ( 44.99 ) mGy, DLP = ( 796.11 ) mGycm TECHNIQUE: Transaxial CT imaging of the brain was performed without administration of intravenous contrast material. Individualized dose optimization techniques were used for this CT. COMPARISON: No relevant priors. FINDINGS: Normal soft tissue structures. Normal calvarium. Normal size ventricles and extra-axial spaces for the patient''s age. Normal white matter tracts of the cerebral hemispheres. Normal basal ganglia and thalami. Normal brainstem. Normal cerebellum. There is no intracranial hemorrhage. There are no findings of an acute ischemic infarction. Normal visualized paranasal sinuses. CT/Brain/Head without Contrast IMPRESSION: Normal unenhanced CT scan of the brain. Electronically Signed: Jalen Ulrich MD at 17:27 EDT ,
[2022-10-29] MEDS: Acetaminophen 500 MG Tablet 1000 MG PO (17:06)
[2022-10-29] MEDS: Ondansetron 4 MG/2 ML Vial IV (17:06)
[2022-10-29 18:18] VITALS: RESP 16
--- NOTE | 2022-10-29 21:14 | EX.ED.GENINJ ---
HPI History of Present Illness Chief Complaint: Head Injury Narrative Narrative: 62-year-old female presenting with headache and nausea. Patient states that she stood up a couple of days ago and hit her head on the underside of a counter and hit the right side of her forehead. She did not get knocked out but she did develop nausea and then vomited. She states that over the course the next day she started feeling better she was nauseous and having a little bit of dizziness. Today she states she was hanging a mirror and it fell and struck her in the head right in the same place where she was hit the last time and she still complains of headache and nausea. No neck pain. No LOC. Patient not on blood thinners [facility] Medical History Acute bronchitis Anxiety Asthma BMI 39.0-39.9,adult Chronic diarrhea Chronic headaches Cough, persistent Essential (primary) hypertension GERD (gastroesophageal reflux disease) Hyperlipidemia Hypersomnia Insomnia MABEL (obstructive sleep apnea) Reactive airway disease SOB (shortness of breath) Home Medications alprazolam 0.5 mg tablet (Xanax) 0.5 mg PO BID 09/04/18 [History Last Taken Unknown] metoprolol succinate 50 mg tablet,extended release 24 hr (Toprol XL) 50 mg PO DAILY #90 tabs 02/28/19 [Rx Last Taken Unknown] tramadol 50 mg tablet 50 mg PO DAILY PRN pain 02/28/19 [History Last Taken Unknown] ropinirole 0.5 mg tablet 0.5 mg PO DAILY #60 tabs 03/07/19 [Rx Last Taken Unknown] ondansetron 4 mg disintegrating tablet 4 mg PO Q8H PRN PRN Nausea #20 tabs 10/29/22 [Rx Last Taken Unknown] Allergy/AdvReac Type Severity Reaction Status Date / Time moxifloxacin HCl Allergy Swelling Verified 10/29/22 15:52 [From Avelox] morphine AdvReac Severe Nausea/VOMI Verified 10/29/22 15:52 TTING Family History Mother , metastasis to brain Lung cancer Father CAD (coronary artery disease) Grandfather CAD (coronary artery disease) Asthma Grandfather CAD (coronary artery disease) Sister Cystic fibrosis Surgical History H/O: hysterectomy History of cholecystectomy History of left heart catheterization (05/25/10) History of tonsillectomy Social History Smoking Status: Never smoker ROS ROS ED Constitutional Constitutional ED: Denies chills, fever(s) or sweats Eyes Eyes: Denies blurry vision or change in vision ENT ENT ED: Denies ear pain or sore throat Cardiovascular Cardiovascular: Denies chest pain, palpitations or racing heartbeat Respiratory/Chest Respiratory/Chest: Denies cough, dyspnea or sputum Gastrointestinal Gastrointestinal: Reports nausea and vomiting; Denies abdominal pain, constipation or diarrhea Genitourinary Genitourinary ED: Denies dysuria, hematuria or urinary frequency Musculoskeletal Musculoskeletal: Denies arthralgias, myalgias or neck pain Integumentary Denies abscess, Abrasions or rash Neurologic Neurologic: Reports headache(s); Denies paresthesias or weakness Psychiatric Psychiatric: Denies anxiety, depression, suicidal ideation or suicidal thoughts Endocrine Endocrinology: Denies polydipsia or polyuria EXAM Physical Exam Const Vital Signs: 10/29/22 15:52 10/29/22 16:19 10/29/22 18:18 Temperature 96.6 F L Temperature Source Temporal Pulse Rate 72 Respiratory Rate 18 16 Respiratory Effort Normal Respiratory Depth Normal Respiratory Pattern Normal Blood Pressure 165/68 H Blood Pressure Mean 100 Pulse Ox 100 Oxygen Delivery Method Room Air Room Air Positive well nourished General Appearance ED: NAD HEENT Reports TM's clear atraumatic Tympanic Membrane ED: Yes TM's clear bilateral Eyes PERRL and EOMs intact bilaterally Resp normal respiratory effort Cardio regular rhythm Rate: regular rate Extremity normal to inspection Neuro oriented x3, CN's II-XII intact bilaterally, moves all extremities, no focal motor deficits and no sensory deficits noted Sensorium / Orientation: alert Motor Exam: strength 5/5 throughout Psych mental status grossly normal Skin no rashes or lesions noted and no wounds MDM MDM MDM Narrative Medical decision making narrative: Patient with headache and nausea and vomiting after head injury. She had an incidental second head injury and this is now worse. I obtained a CT of the brain and this is negative for acute findings. Patient medicated with Tylenol and Zofran and feels improved. Patient likely has a concussion. She was given concussion instructions. Return precautions were discussed. I gave her prescription for Zofran for home. Impression: 1. Closed head injury 2. Concussion 3. Nausea/vomiting Radiography Diagnostic Testing: Clinical Impression(s) from Imaging Studies Brain CT 10/29/22 16:58 IMPRESSION: Normal unenhanced CT scan of the brain. Electronically Signed: Jalen Ulrich MD at 17:27 EDT , Discharge Plan Triage Chief Complaint: Head Injury ED Provider: Benjamin Romero Dx/Rx/DC Orders Instructions: ED Concussion Prescriptions: New ondansetron 4 mg tablet,disintegrating 4 mg PO Q8H PRN PRN (Reason: Nausea) Qty: 20 0RF No Action alprazolam [Xanax] 0.5 mg tablet 0.5 mg PO BID ropinirole 0.5 mg tablet 0.5 mg PO DAILY Qty: 60 11RF Rx Instructions: 1 tab 1-3 hours before bed, on 4th night may increase to 2 tabs tramadol 50 mg tablet 50 mg PO DAILY PRN (Reason: pain) Patient Comments: TAKE 1 TABLET BY MOUTH THREE TIMES DAILY NEEDED metoprolol succinate [Toprol XL] 50 mg tablet extended release 24 hr 50 mg PO DAILY Qty: 90 3RF Primary Care Provider: Charla Armstrong Referrals: Charla Armstrong PA-C [Primary Care Provider] - Disposition Disposition: Home, Self Care Discharge Date/Time: 10/29/22 18:19
== END 2022-10-29 18:19 | disposition home or self-care (01) ==
PROVIDERS: Emergency Provider Student in an Organized Health Care Education/Training Program; PCP Family Medicine; Visit Provider Student in an Organized Health Care Education/Training Program
DX: S06.0X0A Concussion without loss of consciousness, initial encounter (principal); W22.09XA Striking against other stationary object, initial encounter; I10 Essential (primary) hypertension; E78.5 Hyperlipidemia, unspecified; G47.33 Obstructive sleep apnea (adult) (pediatric); Z79.899 Other long term (current) drug therapy
CPT/HCPCS: 70450; 96374; 99283; A4216; J2405

== ENCOUNTER → 2023-01-20 | Outpatient (CLI) | payer OTHER, SELFPAY ==
--- NOTE | 2023-01-20 08:46 | BI_ITS ---
MAMMOGRAPHY - BILATERAL SCREENING REASON FOR EXAM: Female, 62 years old. Routine annual screening examination. PERTINENT HISTORY: Non-contributory. TECHNIQUE: Digital bilateral breast kari (3D mammographic acquisition) in the CC and MLO projections. 2-D mediolateral oblique (MLO) and craniocaudad (CC) views of both breasts were obtained. CAD: Full Field Digital Mammography with Computer Added Detection was performed. COMPARISON: Comparison is made with prior study in January 11, 2022. FINDINGS: Breast Composition: The breasts are almost entirely fatty. There are no dominant masses or suspicious calcifications. Stable benign-appearing bilateral axillary lymph nodes. No other significant abnormalities are identified. There has been no significant change since the prior study. BI/SCRN MAMM (CAD)W/KARI BILAT IMPRESSION: Stable bilateral screening mammogram. Yearly follow-up mammogram recommended. (A) ASSESSMENT CATEGORY: BIRADS Category 2: Benign. A letter regarding these results will be sent to the patient by the facility within 30 days. Approximately 10% of breast cancers are not detected by mammography. A normal mammogram should not delay biopsy of a clinically suspicious abnormality. [id number] Electronically Signed: Augustin Mott MD at 12:27 EST ,
== END | disposition home or self-care (01) ==
LOC: OPBI 08:45
PROVIDERS: PCP Family Medicine; Referring Provider Family Medicine; Visit Provider Family Medicine
DX: Z12.31 Encounter for screening mammogram for malignant neoplasm of breast (principal)
CPT/HCPCS: 77063; 77067

== ENCOUNTER → 2023-02-22 | Outpatient (CLI) | payer OTHER, SELFPAY ==
--- OUTSIDE RECORDS SUMMARY | 2023-02-22 10:52 | XMS RPT_ITS | CCD ---
Author Name Unknown Address [address] [place] [address] Organization [facility] Care Team Providers Care Breakdown Mill Operator Name Role Phone COLLEEN FRY Unavailable Unavailable DALLAS, RICCARDO Admitting Unavailable DALLAS, RICCARDO Attending Unavailable DALLAS, RICCARDO Primary Care Unavailable HAETHER QUINTERO Consulting Unavailable PROVIDER, UNKNOWN Consulting Unavailable DALLAS, RICCARDO Admitting Unavailable DALLAS, RICCARDO Attending Unavailable DALLAS, RICCARDO Primary Care Unavailable HEATHER QUINTERO Consulting Unavailable PROVIDER, UNKNOWN Consulting Unavailable Allergies Allergy Classification Reported Allergen(s) Allergy Type Date of Onset Reaction(s) Facility (1 source) Amoxicillin Drug Allergy [facility] Repository (1 source) Morphine Drug Allergy [facility] Repository (1 source) moxifloxacin Drug Allergy [facility] Repository Problems Problem Classification Problem Date Documented Da te Episodic/Chronic Cardiac dysrhythmias (1 source) Palpitations; Translations: [Palpitations] Onset: 04-05-2022 Episodic Other gastrointestinal disorders (2 sources) Diarrhea, unspecified; Translations: [Diarrhea, unspecified] Onset: 05-17-2017 Episodic Results Test Name Value Interpretation Reference Range Facil ity Encounters Encounter Date Encounter Type Care Provider Facility Start: 04-07-2022 ambulatory [facility] Start: 04-05-2022 End: 04-05-2022 ambulatory [facility] Start: 05-17-2017 End: 05-22-2017 Ambulatory COLLEEN FRY Facility:[facility] Payers Date Payer Category Payer Unknown [id number] 1960 Unknown [id number] Unknown [id number] Progress note 10-29-2020 Note Date & Type Note Facility 10-29-2020 Note HNO ID: [id number] Author: Mira Akhtar Service: ? Author Type: Tail Board Man Type: Progress Notes Filed: 10/29/2020 10:43 AM Note Text: Radiology Service Progress Note PATIENT NAME: Chloe Choudhary DATE OF SERVICE: October 29, 2020 TIME: 10:43 AM PATIENT IDENTITY VERIFICATION COMPLETED USING TWO (2) IDENTIFIERS: Name and Date of confirmed by patient verbally. FALL SCREENING: Has the patient had 2 falls in the last year or 1 fall with injury or currently using an Ambulatory Assistive Device (Walker, Cane, Wheelchair, Crutches, etc.)? No PATIENT GENDER DATA: Female. status: : No status: NO. PATIENT RELEVANT IMPLANT DATA REVIEWED: Not Applicable RADIOLOGY DEPARTMENT: Mammography PERIPHERAL IV DATA: Not applicable SIGNED BY: Mira Akhtar October 29, 2020 10:43 AM [facility] Progress note 10-29-2020 Note Date & Type Note Facility 10-29-2020 Note HNO ID: [id number] Author: Lorna Smith APRN.POUCH MAKING MACHINE OPERATOR Service: ? Author Type: Nurse Practitioner Type: Progress Notes Filed: 10/29/2020 11:04 AM Note Text: Theresa is a 60 year old who presents for an annual gynecologic exam without complaints. Retired 11/2019 and loving it - working outside and gardening. Has lost 10 lbs. 18 grandchildren ages to 17 yo. Postmenopausal:?TVH 2007, removal of ovaries in 2004 HRT use:?Yes,?oral estradiol??How lon years - discontinued use 2017 Last Pap:?2010?normal??vag vault HPV:?2010?negative Last mammogram:?today History of abnormal mammogram:?No Sexually active:?Yes Patient concerns for STD exposure:?No. Time with current partner:?7?years Pain with intercourse:?No Postcoital bleeding:?No Hot flashes:?occasional Night sweats:?occasional Vaginal dryness:?Yes, occasional uses lubricant Documentation from previous visit of 07/13/2019 was copied and pasted, documentation has been reviewed and edited as necessary for today's visit. OB History T4 L4 SAB1 TAB0 Ectopic0 Multiple0 Live Births0 Comment: Pt also has 4 Grandchildren. PAST MEDICAL HISTORY Diagnosis Date - Osteoarthritis inflammatory - Osteoarthrosis, unspecified whether generalized or localized, other specified sites back AND several area's throughout her body - Other specified gastritis PAST SURGICAL HISTORY Procedure Laterality Date - COLONOSCOP W/ OR W/O BRSH SPEC 01/25/13 05/10/2017 Colonoscopy - L'SCOPE REM ADNEX W/PART/TOT OOPH/SALP 02/20/09 RSO w/ DENNY - LAPAROSCOPIC CHOLEYCYSTECTOMY 01/29/15 normal IOC - LIGATE FALLOPIAN TUBE 03/1988 Tubal ligation - LIGATE FALLOPIAN TUBE 08/1988 Tubal ligation - PAST SURGICAL HISTORY OF 2002 thermachoice - REMOVAL OF OVARY(S) 2004 Oophorectomy, left - REPAIR ROTATOR CUFF,ACUTE 07/2012 Rotator cuff repair left - REPAIR ROTATOR CUFF,ACUTE Left 11/05/2016 - VAGINAL HYSTERECTOMY 02/07/07 TVH w/ modified Marcelina's FAMILY HISTORY Problem Relation Age of Onset - Cancer Mother lung-smoker - Arthritis Mother - Lipids Mother - Coronary Artery Disease Father - Diabetes Father - Arthritis Father - Hypertension Father - Lipids Father - Stroke Father - Arthritis Maternal Grandmother - Hypertension Maternal Grandmother - Stroke Maternal Grandmother - Diabetes Maternal Grandfather - Hypertension Paternal Grandmother - Stroke Paternal Grandmother - Arthritis Paternal Grandmother Rheumatoid-Greatgrandmother - Diabetes Paternal Grandfather - Cancer Paternal Aunt liver - Arthritis Paternal Aunt SOCIAL HISTORY Social History Tobacco Use - Smoking status: Never Smoker - Smokeless tobacco: Never Used Vaping Use - Vaping Use: Never used Substance Use Topics - Alcohol use: Yes Comment: rare - Drug use: No REVIEW OF SYSTEMS Abdomen: No abdominal pain, nausea, vomiting, diarrhea, or constipation. No bloating, early satiety, indigestion, or increased flatulence. Bladder: No dysuria, gross hematuria, urinary frequency, urinary urgency, or incontinence Breast: No breast lumps, nipple d/c, overlying skin changes, redness or skin retraction Allergies and current medication updated:Yes EXAM: BP 100/66 Ht 5' 4.96 (1.65m) Wt 217 lb (98.4kg) LMP 12/18/2006 BMI 36.15 kg/(m2). GENERAL: pleasant, female in no apparent distress HEENT: Normocephalic, atraumatic, mucus membranes moist and no lesions NECK: Supple, full range of motion, no adenopathy and thyroid normal DERMATOLOGY: Normal, without lesions, non-icteric and non-hirsute BREAST: soft, non-tender, symmetric, no dominant mass, normal nipple-areolar complex, no lymphadenopathy and no nipple discharge CHEST: Normal inspiratory effort ABDOMEN: soft, non-tender and no masses PELVIC: external genitalia normal, normal Bartholin's glands, urethra, [place]'s glands, no vulvar lesions, physiologic discharge present, normal appearing perineal body and perianal region, cervix surgically absent BIMANUAL: no adnexal masses, non-tender and uterus surgically absent RECTOVAGINAL: deferred. NEURO: alert and oriented x3,exam grossly non-focal EXTREMITIES: normal ASSESSMENT/PLAN: 1) Health maintenance: Pap/HPV screening no longer needed Mammogram ordered Mammogram up to date Nutrition, exercise and routine health maintenance exams reviewed. Calcium/Vitamin D supplementation information provided. Colon cancer screening: up to date with screening 2) Follow up one year or sooner as needed Lorna Smith APRN.[facility] Summary Purpose Family History No Family History Records FoundNo Family History Records FoundNo Family History Records FoundNo Family History Records FoundNo Family History Records Found Advance Directives No Advanced Directives Records FoundNo Advanced Directives Records FoundNo Advanced Directives Records FoundNo Advanced Directives Records FoundNo Advanced Directives Records Found Additional Source Comments INFORMATION SOURCE (unrecogn ized section and content) DATE CREATED AUTHOR AUTHOR'S ORGANIZ ATION 05/21/[address] [facility] DATE CREATED AUTHOR AUTHOR'S ORGANIZ ATION 01/31/2021 [facility] DATE CREATED AUTHOR AUTHOR'S ORGANIZ ATION 03/20/2021 [facility] DATE CREATED AUTHOR AUTHOR'S ORGANIZ ATION 04/12/2022 [facility] FOR RECORDS PERTAINING TO PATIENTS WHO ARE OR HAVE BEEN ENROLLED IN A CHEMICAL DEPENDENCY/SUBSTANCEABUSE PROGRAM, SOME INFORMATION MAY BE OMITTED. This clinical summary was aggregated from multiple sources. Caution should be exercised in using it in the provision of clinical care. This summary normalizes information from multiple sources, and as a consequence, information in this document may materially change the coding, format and clinical context of patient data. In addition, data may be omitted in some cases. CLINICAL DECISIONS SHOULD BE BASED ON THE PRIMARY CLINICAL RECORDS. [employer] [facility] provides no warranty or guarantee of the accuracy or completeness of information in this document.
[2023-02-22 12:20] LABS: Absolute Lymphocyte Count 1.13 X10^3/uL (0.83-4.51); Absolute Neutrophil Count 1.7 X10^3/uL (2.0-7.7); Basophil# 0.02 X10^3/uL; Basophil% 0.6 % (0-1); Eosinophil# 0.13 X10^3/uL; Hematocrit 41.8 % (37-47); Hemoglobin 13.4 g/dL (12.0-15.0); Lymphocyte # 1.13 X10^3/ul (0.83-4.51); Lymphocyte % 34.3 % (19-41); Mean Corp Hgb Conc 32.1 g/dL (32-36); Mean Corpuscular Hgb 27.1 pg (27.0-32.0); Mean Corpuscular Volume 84.6 fL (81-99); Mean Platelet Vol. 9.1 fl (6.2-12.0); Monocyte# 0.31 X10^3/uL; Monocyte% 9.4 % (0-10); NRBC Flagged by Analyzer 0 % (0-5); Neutrophil % 51.7 % (47-70); Platelet Count 155 K/mm3 (150-450); RBC Distribution Width CV 13.2 % (11.6-14.6); RBC Distribution Width SD 40.5 fl (35.1-43.9); Red Blood Count 4.94 M/mm3 (4.2-5.4); White Blood Count 3.3 K/mm3 (4.4-11.0)
[2023-02-22 12:45] LABS: ALB/GLOB Ratio 1.1 RATIO (0.9-2.4); AST(SGOT) 20 U/L (15-37); Alanine Aminotransfer ALT/SGPT 25 U/L (13-56); Albumin, Serum 3.2 g/dL (3.2-5.0); Alkaline Phosphatase 67 U/L (45-117); Anion Gap 3 (5-15); BUN 16 mg/dL (7-18); BUN/Creat Ratio 25.1 RATIO (10-20); Calcium,Total 9.3 mg/dL (8.5-10.1); Chloride 111 mmol/L (98-107); Creatinine, Serum 0.64 mg/dL (0.55-1.02); EST Glomerular Filtration Rate 101 mL/min (>60); Est Glom Filt Rate - Afr Amer 122 mL/min (>60); Globulin 2.9 g/dL (2.2-4.2); Glucose 76 mg/dL (74-106); Protein, Total 6.1 g/dL (6.4-8.2); Sodium Level 143 mmol/L (136-145)
== END | disposition home or self-care (01) ==
LOC: MTLAB 10:03
PROVIDERS: PCP Family Medicine; Referring Provider Internal Medicine Rheumatology; Visit Provider Internal Medicine Rheumatology
DX: M06.4 Inflammatory polyarthropathy (principal); M79.7 Fibromyalgia; Z79.899 Other long term (current) drug therapy
CPT/HCPCS: 36415; 80053; 85025

== ENCOUNTER → 2023-05-10 | Outpatient (CLI) | payer OTHER, SELFPAY ==
--- NOTE | 2023-05-10 09:15 | RAD_ITS ---
STUDY: X-RAY - LEFT KNEE REASON FOR EXAM: Female, 63 years old. Injury TECHNIQUE: 4 view(s) of the knee. COMPARISON: None. FINDINGS: Normal visualized distal femur. Normal visualized proximal tibia and fibula. Normal proximal tibiofibular articulation. Normal medial femorotibial compartment. Normal lateral femorotibial compartment. Normal patellofemoral articulation. Prepatellar soft tissue swelling. RAD/Knee 4 or More Views IMPRESSION: Prepatellar soft tissue swelling. Electronically Signed: Augustin Mott MD at 9:48 EDT ,
== END | disposition home or self-care (01) ==
LOC: MTRAD 09:15
PROVIDERS: PCP Family Medicine; Referring Provider Physician Assistant; Visit Provider Physician Assistant
DX: S89.82XA Other specified injuries of left lower leg, initial encounter (principal); X58.XXXA Exposure to other specified factors, initial encounter
CPT/HCPCS: 73564

== ENCOUNTER 2023-05-11 08:03 | Outpatient (RCR) | payer OTHER, SELFPAY ==
--- NOTE | 2023-05-11 15:02 | HP.PTEVAL_ITS ---
Patient's Visit Information Visit Information Visit Information: CHLOE RODRIGUEZ is a 63 year old F referred to Physical Therapy by SUSHIL Hutson with a diagnosis of CONTUSION OF L KNEE. Date of Evaluation: 05/11/23 Physical Therapist: Candida Stern, PT, Cert MDT Visit Plan Frequency: 2-3x /Week Duration: 4-6 Weeks Plan: AQUATIC AND LAND PT TO DECREASE L KNEE PAIN AND SWELLING. CHECK AUTH FOR APPROVED # OF VISITS AND CODES. FOCUS ON REDUCING SWELLING AND RESTORING ROM. ES AND CP. LLE ROM, STRETCHING AND STRENGTHENING. GAIT TRAINING. HEP. ENCOURAGE ORTHO CONSULT IN 10 TO 14 DAYS IF SYMPTOMS AREN'T RESOLVING OR ED SOONER IF SYMPTOMS WORSEN OR CONCERNS ARISE. Subjective Subjective: Work/Leisure: RETIRED. ACTIVE WITH ADOPTED 2 1/2 YEAR OLD LITTLE GIRL Disability: NO Present symptoms: L KNEE PAIN Present since: 05/04/23 Pain Scale: WORST 5/10, LEAST 2/10 Currently: 2/10 Is it getting better, worse or staying the same: GETTING BETTER Commenced as a result of: FELL ON KNEES WHEN TRIPPED ON RUG GOING INTO A [employer] STORE IN [place] - [facility] SHE HIT BOTH KNEES BUT L KNEE IS MUCH WORSE. SHE REPORTS HER R KNEE IS FINE EXCEPT FOR THE SCAB. DENIES ANY OTHER INJURIES IN THE FALL. Worse: MOVEMENT. BENDING IT, GOING UP STEPS, STANDING, WALKING. UNABLE TO PUT IT UP ON OTHER KNEE OR PUT OTHER FOOT UP ON IT. Better: ICE, TRAMADOL BUT HAS NOT NEEDED IT FOR ABOUT 3 DAYS, TYLONOL. SITTING DOWN. LYING DOWN WITH IT PROPPED IT UP. Disturbed sleep: YES Previous history/Previous treatment: PATIENT REPORTS SHE FELL TWO BAIRD AGO AND HIT HER L KNEE ON A ROCK AND WENT TO ORTHO. THEY SAW A CHIP HAD BROKE OFF AT THAT TIME. SHE REPORTS IT BRUISED AND SWELLED AND REALLY HURT. SHE REPORTS BEING GIVEN THE OPTIONS OF SURGERY TO REMOVE THE CHIP, AN INJECTION OR JUST GIVING IT TIME SO SHE JUST GAVE IT TIME AND SHE REPORTS FULL RECOVERY WITH TIME. Treatment this episode: PT CONSULT AND PATIENT REPORTS SHE WAS ALSO GIVEN A CONSULT FOR ORTHO IF PT DOESN'T HELP. Gait: PATIENT REPORTS HER L KNEE IS CAUSING HER TO LIMP. NO USING ANY ASSISTIVE DEVICES. CAN PUSH THROUGH THE PAIN TO WALK FAR NEEDED. Accidents: NO Unexplained weight loss: NO Imaging: RECENT L KNEE X-RAY: IMPRESSION: Prepatellar soft tissue swelling. PMH/Recent major surgery: INFLAMMATORY ARTHRITIS. CHUCK SHLD ROTATOR CUFF REPAIRS. Objective Objective: THIS PATIENT AMBULATES INDEP'LY INTO PT LIMPING ON HER L LE AND NOT USING ANY ASSISTIVE DEVICES. NO LOB. SHE IS WEARING AN GOOD WRAP ON HER L KNEE. CHUCK LE LIGHT TOUCH SENSATION IS GROSSLY INTACT AND SYMMETICAL. SHE HAS A LARGE AMOUNT OF ECCHYMOSIS AND SWELLING IN THE LEFT KNEE REGION AND HER KNEE IS TENDER THROUGHOUT. IN SITTING SHE HAS AN EXTENSOR LAG OF 28 DEGREES. IN SUPINE HER LEFT KNEE ROM WITH A HEEL SLIDE IS -5 DEG EXT TO 84 DEG FLEXION WITH PAIN DURING MVMT AND END RANGE PAIN. R KNEE ROM FOR COMPARISON IS 0-137 DEG FLEXION. SHE HAS A SCAB ON HER R KNEE AND SOME BRUISING OF THE R LEG BUT DENIES R LE PAIN. STRENGTH: R HIP 5/5, KNEE 5/5, ANKLE 5/5. L HIP 3+/5, KNEE EXT 2+/5, KNEE FLEX 2+/5, ANKLE 3+/5. CIRCUMFERENCE MEASUREMENTS: MID PATELLA: L 43 CM, R 39 CM 6 PROX MID PATELLA: L 63.5 CM, R 64.5 CM 6 DIST MID PATELLA: L 38.5 CM, R 39 CM Special Tests L Knee Christie - Meniscus: Negative L Knee Anterior Drawer - ACL: Negative L Knee Posterior Drawer - PCL: Negative L Knee Valgus - MCL: Negative L Knee Varus - LCL: Negative Balance/Special Test Scores Lower Extremity Functional Score: 56 Goals Goal 1:: DECREASE C/O LEFT KNEE PAIN TO 0-2/10 WITH ALL ADL'S. Goal Time Frame: 4-6 Weeks Goal 2:: INCREASE L KNEE ROM TO 0-130 DEG FLEXION TO IMPROVE ADL'S. Goal Time Frame: 4-6 Weeks Goal 3:: INCREASE L LE STRENGTH TO AT LEAST 4/5 THROUGHOUT TO IMPROVE ADL'S Goal Time Frame: 4-6 Weeks Goal 4:: NORMALIZE GAIT ON LEVEL SURFACES Goal Time Frame: 4-6 Weeks Goal 5:: PATIENT WILL BE ABLE TO GO UP AND DOWN STEPS WITH ONE HR RECIP WITHOUT LIMITATION Goal Time Frame: 4-6 Weeks Goal 6:: HEP Goal Time Frame: 4-6 Weeks Rehabilitation Potential Physical Therapy Diagnosis: THIS PATIENT PRESENTS TO PHYSICAL THERPAY WITH LLE SWELLING, WEAKNESS, STIFFNESS AND DIFFICULTY WALKING S/P FALL ~05/05/23 Rehabilitation Potential: Good Anticipated Interventions Patient/Client Instruction: Educate patient on: Condition, Plan of Care and Risk Factors For the Purpose of:: To improve self management Therapeutic Exercise to Include: Strength training, Flexibilty training, Gait and locomotor training and In an aquatic setting For the Purpose of:: To decrease pain, To decrease swelling/inflammation, To increase ROM, To improve muscle performance and motor function, To increase tolerance to activity/condition/position, To improve ability of physical actions for home/community/work/leisure, To improve gait and locomotor functions and To increase flexibility/ROM IF ES: Yes Other electric stimulation: Yes Cryotherapy (ice pack, ice massage): Yes For the Purpose of:: To decrease pain and To decrease swelling/inflammation Text: Thank you for the opportunity to evaluate your patient. For Medicare and Medicare HMO plans, please review the plan of care and approve it. It will need to be FAXED BACK to us at [phone] for Medicare purposes. For Medicare only, by signing this I certify the plan of care. Please let me know if there are questions or concerns regarding this plan of care. Physician Signature: Date:
== END 2023-05-11 19:00 | disposition home or self-care (01) ==
LOC: PT 08:03
PROVIDERS: Referring Provider Physician Assistant; Visit Provider Physician Assistant
DX: S83.92XD Sprain of unspecified site of left knee, subsequent encounter (principal)
CPT/HCPCS: 97162

== ENCOUNTER → 2023-05-23 | Outpatient (CLI) | payer OTHER, SELFPAY ==
[2023-05-23 10:09] LABS: Absolute Lymphocyte Count 1.36 X10^3/uL (0.83-4.51); Basophil# 0.05 X10^3/uL; Basophil% 1.3 % (0-1); Eosinophil# 0.14 X10^3/uL; Eosinophils% 3.6 % (0-5); Hematocrit 40.1 % (37-47); Hemoglobin 12.9 g/dL (12.0-15.0); Lymphocyte # 1.36 X10^3/ul (0.83-4.51); Lymphocyte % 34.9 % (19-41); Mean Corp Hgb Conc 32.2 g/dL (32-36); Mean Corpuscular Hgb 27.4 pg (27.0-32.0); Mean Corpuscular Volume 85.3 fL (81-99); Mean Platelet Vol. 9.5 fl (6.2-12.0); Monocyte# 0.37 X10^3/uL; Monocyte% 9.5 % (0-10); NRBC Flagged by Analyzer 0 % (0-5); Neutrophil # 1.97 X10^3/uL (2.7-7.7); Neutrophil % 50.4 % (47-70); Platelet Count 165 K/mm3 (150-450); RBC Distribution Width CV 13.9 % (11.6-14.6); RBC Distribution Width SD 43.3 fl (35.1-43.9); White Blood Count 3.9 K/mm3 (4.4-11.0)
[2023-05-23 10:28] LABS: ALB/GLOB Ratio 1.2 RATIO (0.9-2.4); AST(SGOT) 29 U/L (15-37); Alanine Aminotransfer ALT/SGPT 31 U/L (13-56); Albumin, Serum 3.4 g/dL (3.2-5.0); Alkaline Phosphatase 65 U/L (45-117); Anion Gap 3 (5-15); BUN 15 mg/dL (7-18); BUN/Creat Ratio 22.8 RATIO (10-20); Calcium,Total 9.2 mg/dL (8.5-10.1); Chloride 110 mmol/L (98-107); Creatinine, Serum 0.66 mg/dL (0.55-1.02); EST Glomerular Filtration Rate 97 mL/min (>60); Est Glom Filt Rate - Afr Amer 117 mL/min (>60); Globulin 2.9 g/dL (2.2-4.2); Glucose 83 mg/dL (74-106); Potassium 4.8 mmol/L (3.5-5.1); Protein, Total 6.3 g/dL (6.4-8.2); Sodium Level 143 mmol/L (136-145)
== END | disposition home or self-care (01) ==
PROVIDERS: Referring Provider Internal Medicine Rheumatology; Visit Provider Internal Medicine Rheumatology
DX: M06.4 Inflammatory polyarthropathy (principal); M79.7 Fibromyalgia; Z79.899 Other long term (current) drug therapy
CPT/HCPCS: 36415; 80053; 85025

== ENCOUNTER → 2023-07-27 | Outpatient (CLI) | payer OTHER, SELFPAY ==
[2023-07-27 13:40] LABS: Color, Urine Yellow (Yellow); Glucose, Dipstick Normal (Normal); Ketone-Dipstick 15 mg/dl (Negative); Leukocyte Esterase-Dipstick 25 /ul (Negative); Nitrite-Dipstick Negative (Negative); Occult Blood-Urine Negative /ul (Negative); Protein-Dipstick 15 mg/dl (Negative); Specific Gravity, Urine 1.025 (1.002-1.030); Urine Bilirubin Dipstick Negative (Negative); Urine Clarity Clear (Clear); Urine Urobilinogen Normal (Normal)
[2023-07-27 13:41] LABS: Absolute Neutrophil Count 3.6 X10^3/uL (2.0-7.7); Basophil# 0.03 X10^3/uL; Basophil% 0.6 % (0-1); Eosinophil# 0.06 X10^3/uL; Eosinophils% 1.2 % (0-5); Hematocrit 45.1 % (37-47); Hemoglobin 14.6 g/dL (12.0-15.0); Lymphocyte % 21.4 % (19-41); Mean Corp Hgb Conc 32.4 g/dL (32-36); Mean Corpuscular Hgb 26.8 pg (27.0-32.0); Mean Corpuscular Volume 82.9 fL (81-99); Mean Platelet Vol. 9.2 fl (6.2-12.0); Monocyte# 0.35 X10^3/uL; Monocyte% 6.8 % (0-10); NRBC Flagged by Analyzer 0 % (0-5); Neutrophil # 3.57 X10^3/uL (2.7-7.7); Neutrophil % 69.6 % (47-70); Platelet Count 130 K/mm3 (150-450); RBC Distribution Width CV 13.4 % (11.6-14.6); RBC Distribution Width SD 39.3 fl (35.1-43.9); Red Blood Count 5.44 M/mm3 (4.2-5.4); White Blood Count 5.1 K/mm3 (4.4-11.0)
[2023-07-27 14:19] LABS: ALB/GLOB Ratio 1.2 RATIO (0.9-2.4); AST(SGOT) 22 U/L (15-37); Alanine Aminotransfer ALT/SGPT 28 U/L (13-56); Albumin, Serum 3.8 g/dL (3.2-5.0); Alkaline Phosphatase 73 U/L (45-117); Anion Gap 6 (5-15); BUN 14 mg/dL (7-18); BUN/Creat Ratio 21.4 RATIO (10-20); Calcium,Total 9.5 mg/dL (8.5-10.1); Chloride 107 mmol/L (98-107); Creatinine, Serum 0.65 mg/dL (0.55-1.02); EST Glomerular Filtration Rate 98 mL/min (>60); Est Glom Filt Rate - Afr Amer 118 mL/min (>60); Globulin 3.1 g/dL (2.2-4.2); Glucose 99 mg/dL (74-106); Lipase 16 U/L (13-75); Protein, Total 6.9 g/dL (6.4-8.2); Sodium Level 139 mmol/L (136-145)
== END | disposition home or self-care (01) ==
LOC: LAB 13:10
PROVIDERS: Referring Provider Physician Assistant; Visit Provider Physician Assistant
DX: R10.9 Unspecified abdominal pain (principal); R19.7 Diarrhea, unspecified
CPT/HCPCS: 36415; 80053; 81002; 83690; 85025

== ENCOUNTER → 2023-07-29 | Outpatient (CLI) | payer OTHER, SELFPAY | END | disposition home or self-care (01) | LOC: MTLAB 14:54 | PROVIDERS: PCP Physician Assistant; Referring Provider Physician Assistant; Visit Provider Physician Assistant | DX: R10.9 Unspecified abdominal pain (principal); R19.7 Diarrhea, unspecified | CPT/HCPCS: 83630; 87177; 87209; 87329; 87506 ==

== ENCOUNTER → 2023-08-22 | Outpatient (CLI) | payer OTHER, SELFPAY ==
[2023-08-22 10:08] LABS: Absolute Lymphocyte Count 1.52 X10^3/uL (0.83-4.51); Absolute Neutrophil Count 2.1 X10^3/uL (2.0-7.7); Basophil# 0.02 X10^3/uL; Basophil% 0.5 % (0-1); Eosinophils% 2.4 % (0-5); Hematocrit 40.5 % (37-47); Hemoglobin 13.1 g/dL (12.0-15.0); Lymphocyte # 1.52 X10^3/ul (0.83-4.51); Lymphocyte % 36.2 % (19-41); Mean Corp Hgb Conc 32.3 g/dL (32-36); Mean Corpuscular Hgb 27.1 pg (27.0-32.0); Mean Corpuscular Volume 83.9 fL (81-99); Mean Platelet Vol. 9.8 fl (6.2-12.0); Monocyte# 0.41 X10^3/uL; Monocyte% 9.8 % (0-10); NRBC Flagged by Analyzer 0 % (0-5); Neutrophil # 2.14 X10^3/uL (2.7-7.7); Neutrophil % 50.9 % (47-70); Platelet Count 155 K/mm3 (150-450); RBC Distribution Width CV 13.6 % (11.6-14.6); RBC Distribution Width SD 41.7 fl (35.1-43.9); Red Blood Count 4.83 M/mm3 (4.2-5.4); White Blood Count 4.2 K/mm3 (4.4-11.0)
[2023-08-22 10:30] LABS: ALB/GLOB Ratio 1.2 RATIO (0.9-2.4); AST(SGOT) 16 U/L (15-37); Alanine Aminotransfer ALT/SGPT 25 U/L (13-56); Albumin, Serum 3.4 g/dL (3.2-5.0); Alkaline Phosphatase 64 U/L (45-117); Anion Gap 3 (5-15); BUN 16 mg/dL (7-18); Calcium,Total 9.4 mg/dL (8.5-10.1); Chloride 108 mmol/L (98-107); Creatinine, Serum 0.64 mg/dL (0.55-1.02); EST Glomerular Filtration Rate 100 mL/min (>60); Est Glom Filt Rate - Afr Amer 121 mL/min (>60); Globulin 2.9 g/dL (2.2-4.2); Glucose 87 mg/dL (74-106); Potassium 4.1 mmol/L (3.5-5.1); Protein, Total 6.3 g/dL (6.4-8.2); Sodium Level 142 mmol/L (136-145)
== END | disposition home or self-care (01) ==
PROVIDERS: PCP Physician Assistant; Referring Provider Internal Medicine Rheumatology; Visit Provider Internal Medicine Rheumatology
DX: M06.4 Inflammatory polyarthropathy (principal); Z79.899 Other long term (current) drug therapy
CPT/HCPCS: 36415; 80053; 85025

== ENCOUNTER 2023-09-10 18:43 | Emergency (ER) | payer OTHER, SELFPAY ==
[2023-09-10 18:44] VITALS: BP 151/64; PULSE 69; RESP 18; TEMP 36.4; O2SAT 100; BMI 35.7
--- NOTE | 2023-09-10 19:06 | ED.VIS.LOWEX ---
HPI History of Present Illness Chief Complaint: Lower Extremity Injury Informant: patient Narrative Narrative: Patient presents secondary to right foot pain. She was outside trimming trees today when she fell and felt a pop on her right foot. She states it feels similar to when she broke her foot in the past. She does not have any hardware in place. She has not taken anything for pain. [facility] Medical History Contusion of right knee Contusion of left knee Strain of left knee Essential (primary) hypertension BMI 39.0-39.9,adult MABEL (obstructive sleep apnea) Hypersomnia SOB (shortness of breath) Cough, persistent Acute bronchitis Chronic headaches Chronic diarrhea GERD (gastroesophageal reflux disease) Asthma Reactive airway disease Insomnia Anxiety Hyperlipidemia Home Medications ?Medication ?Instructions ?Recorded ?Last Taken ?Type alprazolam 0.5 mg tablet (Xanax) 0.5 mg PO BID 09/04/18 Unknown History metoprolol succinate 50 mg 50 mg PO DAILY #90 tabs 02/28/19 Unknown Rx tablet,extended release 24 hr (Toprol XL) tramadol 50 mg tablet 50 mg PO DAILY PRN pain 02/28/19 Unknown History ropinirole 0.5 mg tablet 0.5 mg PO DAILY #60 tabs 03/07/19 Unknown Rx ondansetron 4 mg disintegrating 4 mg PO Q8H PRN PRN Nausea #20 tabs 10/29/22 Unknown Rx tablet hydrocodone-acetaminophen 5-325mg 1 tab PO Q6H PRN PRN Pain 3 days 09/10/23 Unknown Rx 5mg-325mg #10 TABLETS Allergy/AdvReac Type Severity Reaction Status Date / Time moxifloxacin HCl (From Allergy Swelling Verified 09/10/23 18:44 Avelox) morphine AdvReac Severe Nausea/VOMI Verified 09/10/23 18:44 TTING Family History Mother , metastasis to brain Lung cancer Father CAD (coronary artery disease) Grandfather CAD (coronary artery disease) Asthma Grandfather CAD (coronary artery disease) Sister Cystic fibrosis Surgical History History of left heart catheterization (05/25/10) History of tonsillectomy H/O: hysterectomy History of cholecystectomy Social History Smoking Status: Never smoker ROS ROS ED Constitutional Constitutional ED: Denies chills or fever(s) ENT ENT ED: Denies rhinorrhea or sore throat Cardiovascular Cardiovascular: Denies chest pain Respiratory/Chest Respiratory/Chest: Denies cough or dyspnea Gastrointestinal Gastrointestinal: Denies abdominal pain, nausea or vomiting Musculoskeletal Musculoskeletal: Reports extremity pain; Denies back pain Integumentary Denies Abrasions or rash Neurologic Neurologic: Denies headache(s) or weakness Psychiatric Psychiatric: Denies anxiety or depression Endocrine Endocrinology: Denies polydipsia or polyuria Allergic/Immunologic Allergic/Immunologic ED: Denies lip swelling or urticaria EXAM Physical Exam Const Vital Signs: 09/10/23 18:44 Temperature 97.6 F L Temperature Source Temporal Pulse Rate 69 Respiratory Rate 18 Blood Pressure 151/64 H Blood Pressure Mean 93 Pulse Ox 100 Oxygen Delivery Method Room Air Positive well nourished and well developed General Appearance ED: well developed HEENT Reports moist mucous membranes Neck full ROM Chest Wall inspection of chest normal and palpation of chest normal Resp normal respiratory effort and clear to auscultation bilaterally Cardio regular rate and regular rhythm GI non-tender Extremity Extremity Narrative: Tenderness to palpation over the distal aspect of the third, fourth, and fifth metatarsals. No edema, ecchymosis, or erythema. No tenderness over the calcaneus. Good cap refill and sensation distally. No tenderness at the ankle, proximal fibula, or knee. Neuro oriented x3 and no sensory deficits noted Skin no wounds Rashes: no rashes MDM MDM MDM Narrative Medical decision making narrative: Patient be given her normal home tramadol. Right foot x-rays will be obtained to evaluate for potential fracture. Radiography Diagnostic Testing: Clinical Impression(s) from Imaging Studies Foot X-Ray 09/10/23 19:10 IMPRESSION: 1. Transverse nondisplaced fracture of the proximal 5th metatarsal diaphysis. No joint space involvement angulation or displacement. 2. Remaining bony elements and joint spaces are normal. Electronically Signed: Misael Bashir MD at 19:48 EDT , Treatment and Re-Evaluation Narrative: Right foot x-ray per my interpretation reveals a transverse fracture across the proximal fifth metatarsal. Radiology interpretation reviewed and agrees. I spoke with Dr. Dial, on-call for podiatry. He reviewed the image. Patient was placed in a walking boot but is to be nonweightbearing. She will be given crutches. She is to be seen in the office on Tuesday or Tuesday. Dr. Dial's office will call her Tuesday with an appointment. If she does not hear from them by noon she is to call them. I will write her prescription for [place] for pain control. Discharge Plan Triage Chief Complaint: Lower Extremity Injury ED Provider: Kenzie Aden Dx/Rx/DC Orders Clinical Impression: Foot fracture, right Instructions: ED Fracture, Foot Prescriptions: New hydrocodone-acetaminophen 5-325 mg tablet 1 tab PO Q6H PRN PRN (Reason: Pain) 3 Days Qty: 10 0RF No Action alprazolam [Xanax] 0.5 mg tablet 0.5 mg PO BID ropinirole 0.5 mg tablet 0.5 mg PO DAILY Qty: 60 11RF Rx Instructions: 1 tab 1-3 hours before bed, on 4th night may increase to 2 tabs tramadol 50 mg tablet 50 mg PO DAILY PRN (Reason: pain) Patient Comments: TAKE 1 TABLET BY MOUTH THREE TIMES DAILY NEEDED metoprolol succinate [Toprol XL] 50 mg tablet extended release 24 hr 50 mg PO DAILY Qty: 90 3RF ondansetron 4 mg tablet,disintegrating 4 mg PO Q8H PRN PRN (Reason: Nausea) Qty: 20 0RF Primary Care Provider: Tenisha Akins Referrals: Neptali Dial DPM [Med Staff - Active Staff] - 2 Days Tenisha Akins PA [Primary Care Provider] - Activity Restrictions/Additional Instructions: Dr. Dial's office will call you Tuesday for an appointment. If you do not hear from them by noon, please call their office for close follow-up. Print Language: Romanian Disposition Disposition: Home, Self Care
--- NOTE | 2023-09-10 19:10 | RAD_ITS ---
INDICATION: injury EXAMINATION/TECHNIQUE: X-RAY - RIGHT XR Foot Min 3 Views 3 VIEWS COMPARISON: No relevant prior comparison study available FINDINGS: SOFT TISSUES: No soft tissue swelling or gas. No radiopaque foreign body. BONES/JOINTS: There is normal bony alignment with the exception of a transverse nondisplaced fracture of the proximal 5th metatarsal diaphysis without extending into the joint surface. No displacement or angulation. Remaining bony elements and joint spaces are normal. RAD/Foot min 3 Views IMPRESSION: 1. Transverse nondisplaced fracture of the proximal 5th metatarsal diaphysis. No joint space involvement angulation or displacement. 2. Remaining bony elements and joint spaces are normal. Electronically Signed: Misael Bashir MD at 19:48 EDT ,
[2023-09-10] MEDS: traMADol 50 MG Tablet PO (19:15)
[2023-09-10 20:18] VITALS: BP 157/97; PULSE 65; RESP 12; TEMP 36.7; O2SAT 99
== END 2023-09-10 20:44 | disposition home or self-care (01) ==
PROVIDERS: Emergency Provider Emergency Medicine; PCP Physician Assistant; Visit Provider Emergency Medicine
DX: S92.354A Nondisplaced fracture of fifth metatarsal bone, right foot, initial encounter for closed fracture (principal); W18.30XA Fall on same level, unspecified, initial encounter; Y93.H2 Activity, gardening and landscaping; I10 Essential (primary) hypertension; E78.5 Hyperlipidemia, unspecified; Z79.899 Other long term (current) drug therapy
CPT/HCPCS: 73630; 99284

== ENCOUNTER 2023-09-20 10:48 | Day surgery (SDC) | payer OTHER, SELFPAY ==
[2023-09-20] VITALS (11 sets, daily range): BP systolic 123–137; BP diastolic 51–73; PULSE 55–70; RESP 16–18; TEMP 36.3–36.9; O2SAT 93–100; BMI 36.3
[2023-09-20] MEDS: Lactated Ringers 1,000 ML 15 ML IV ×2 (11:12→14:41)
--- NOTE | 2023-09-20 12:00 | RAD_ITS ---
STUDY: X-RAY - RIGHT FOOT CLINICAL: Female, 63 years old. Fracture. TECHNIQUE: 73 intraoperative spot films of the right foot. COMPARISON: None. FINDINGS: The sequential images demonstrate a transverse fracture through the proximal fifth metatarsal, with guidewire pin initially placed through the long axis of the fifth metatarsal and subsequent cannulated threaded screw fixation. There is a nondisplaced transverse fracture through the proximal fourth metatarsal. Normal remainder of the metatarsals. The soft tissue structures are unremarkable. RAD/Foot 2 Views IMPRESSION: Intraoperative screw fixation of the previously seen proximal fifth metatarsal fracture. Nondisplaced transverse fracture through the proximal fourth metatarsal. Electronically Signed: Willian River MD at 15:30 EDT ,
--- NOTE | 2023-09-20 12:36 | PCM.PRE.AN2 ---
ASA Classification* ASA Classification ASA Classification: 2 Assessment & Plan Anesthesia* Anesthesia Assessment Anesthesia Assessment: Discussed sedation and/or anesthesia options, risks, benefits, and alternatives with patient/parents/legal guardian/POA. Questions invited. The patient/parents/legal guardian/POA seems to understand and agrees to proceed with anesthesia plan. Reviewed the physical assessment, medical history, allergy history and patient home medications list prior to surgery/procedure/anesthetic and documented any changes. Performed airway and anesthesia risk assessments. Anesthesia Type Anesthesia Type: General History Source History Obtained from:: Patient and Chart Anesthesia Focused Assessment* Temperature: 97.4 F Pulse Rate: 57 Blood Pressure: 129/66 Respiratory Rate: 16 Pulse Ox: 99 Oxygen Delivery Method: Room Air Airway Assessment Mouth opens: >3 cm Mallampati Score: II Teeth Condition: Dentures (Full dentures on top is out.) Neck Range of motion (ROM): Full ROM Pertinent Findings EKG Pertinent Findings:: September 14, 2023. Sinus rhythm. Non specific T wave abnormality. ECHO Pertinent Findings:: September 20, 2018. Ejection fraction 65%. Right ventricular systolic pressure is 25 mmHg Consults Pertinent Findings:: February 28, [address] Reece. Tachycardia will DC Norvasc and increase Toprol-XL. Hypertension controlled. Focused Labs Anesthesia Preop lab: CBC WBC 4.2 K/mm3 (4.4-11.0) L 08/22/23 08:55 RBC 4.83 M/mm3 (4.2-5.4) 08/22/23 08:55 Hgb 13.1 g/dL (12.0-15.0) 08/22/23 08:55 Hct 40.5 % (37-47) 08/22/23 08:55 Plt Count 155 K/mm3 (150-450) 08/22/23 08:55 CHEMISTRY Potassium 4.1 mmol/L (3.5-5.1) 08/22/23 08:55 Sodium 142 mmol/L (136-145) 08/22/23 08:55 BUN 16 mg/dL (7-18) 08/22/23 08:55 Creatinine 0.64 mg/dL (0.55-1.02) 08/22/23 08:55 Glucose 87 mg/dL (74-106) 08/22/23 08:55 TSH 2.70 uIU/mL (0.358-3.74) 03/24/21 09:24 COAG Pre-Assessment Diagnosis/Proposed Procedure Planned Operative Procedure(s): ORIF RIGHT FIFTH METATARSAL FX Anesthesia History Anesthesia History - it integration architect: Anesthesia History - it integration architect Hx Hospitalization No 09/16/23 13:53 Any Problems With Anesthesia No 09/16/23 13:53 Cholinesterase deficiency No 09/16/23 13:53 You/Your Family Experience No 09/16/23 13:53 fever (hyperthermia) with Relationship Recent Exposure to Contagious Yes 09/20/23 11:08 Disease Does patient have nerve No 09/16/23 13:53 stimulator Patient instructed to have device shut off --Does patient have Pacemaker No 09/20/23 11:08 or ICD? When Was Last Pacemaker Check QUESTION #4 FULL TEXT: You/Your Family Experience fever (hyperthermia) with Anesthesia Last Oral Intake Last Oral intake: Last Oral Intake NPO since 22:30 09/20/23 11:08 Meds taken in AM with sips of Yes 09/20/23 11:08 water? Meds patient instructed to take am of surgery PONV PONV - it integration architect: PONV - it integration architect Female Yes 09/16/23 13:53 HX of Motion Sickness No 09/16/23 13:53 HX of N/V After Surgery No 09/16/23 13:53 Non-Smoker Yes 09/16/23 13:53 Duration of Surgery greater Yes 09/16/23 13:53 than 60 minutes Number of Risk Factors 3 09/16/23 13:53 PONV Score Moderate Risk 09/16/23 13:53 Height & Weight Height & Weight: Anesthesia: Height & Weight Height 5 ft 4 in 09/20/23 11:08 Weight: 96 kg 09/20/23 11:08 Body Mass Index (BMI) 36.3 09/20/23 11:08 Respiratory Assessment Respiratory Assessment - it integration architect: Respiratory Tract Infection Hx - it integration architect Hx Respiratory Tract Infection No 09/16/23 13:53 STOP Sleep Apnea STOP Sleep Apnea - it integration architect: STOP Sleep Apnea - it integration architect Hx Hypertension Yes: CONTROLLED WITH MED 09/16/23 13:53 Hx Sleep Apnea No 09/16/23 13:53 CPAP No 01/29/15 14:06 BIPAP No 01/27/15 08:57 Do you snore loudly (louder No 09/16/23 13:53 than talking or can be heard Do you often feel tired/ No 09/16/23 13:53 fatigued/ sleepy during daytime? Has anyone observed you stop No 09/16/23 13:53 breathing during sleep? STOP Results Negative 09/16/23 13:53 QUESTION #5 FULL TEXT : Do you snore loudly (louder than talking or can be heard through closed doors)? 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 Specify any problems Hx of Preganancy in last 3 No 09/16/23 13:53 Months Nurse Filling Out Transfusion DSCHRIBER 09/16/23 13:53 & Questions: Date: 09/16/23 09/16/23 13:53 Time: 13:54 09/16/23 13:53 Patient unable to answer at this time (ie. confused, unrespo /Reproduction History /Reproductive History - it integration architect: /Reproductive Hx- it integration architect Hx Now No 09/16/23 13:53 Gestational Age (in weeks): EDC: Hx Hx Para Hx Section SAB No 09/16/23 13:53 Active Medications Active Medications: Current Medications Generic Name Dose Route Start Last Admin Trade Name Freq PRN Reason Stop Dose Admin Cefazolin Sodium 2 gm/ Sodium 110 mls @ 150 mls/hr 09/20/23 13:00 Chloride IV 09/20/23 13:43 PREOP ONE Lactated Ringer's 1,000 mls @ 15 mls/hr 09/20/23 11:00 09/20/23 11:12 IV 15 mls/hr .Q48H KASEY Administration PFSH Medical History Wears glasses Wears dentures Post-menopausal Arthritis Easy bruising Restless legs History of IBS Non-smoker History of pain when walking History of echocardiogram Cardiology follow-up encounter Contusion of right knee Contusion of left knee Strain of left knee Essential (primary) hypertension BMI 39.0-39.9,adult MABEL (obstructive sleep apnea) Hypersomnia SOB (shortness of breath) Cough, persistent Acute bronchitis Asthma Reactive airway disease Insomnia Hyperlipidemia Home Medications ?Medication ?Instructions ?Recorded ?Last Taken ?Type alprazolam 0.5 mg tablet (Xanax) 0.5 mg PO BID PRN anxiety 09/04/18 09/20/23 08:00 History metoprolol succinate 50 mg 50 mg PO DAILY #90 tabs 02/28/19 09/20/23 08:00 Rx tablet,extended release 24 hr (Toprol XL) tramadol 50 mg tablet 50 mg PO DAILY PRN pain 02/28/19 Unknown History hydrocodone-acetaminophen 5-325mg 1 tab PO Q6H PRN PRN Pain 3 days 09/10/23 Unknown Rx 5mg-325mg #10 TABLETS prednisone 10 mg tablet 10 mg PO DAILY PRN RA FLARE 09/16/23 Unknown History ropinirole 1 mg tablet 1 mg PO QHS 09/16/23 Unknown History Allergy/AdvReac Type Severity Reaction Status Date / Time moxifloxacin HCl (From Allergy Swelling Verified 09/20/23 11:08 Avelox) morphine AdvReac Severe Nausea/VOMI Verified 09/20/23 11:08 TTING Family History Mother , metastasis to brain Lung cancer Father CAD (coronary artery disease) Grandfather CAD (coronary artery disease) Asthma Grandfather CAD (coronary artery disease) Sister Cystic fibrosis Surgical History (Updated 09/16/23 @ 14:01 by Candelaria Conley) History of esophagogastroduodenoscopy (EGD) Hx of colonoscopy Hx of shoulder surgery Hx of shoulder surgery History of left heart catheterization (05/25/10) History of tonsillectomy H/O: hysterectomy History of cholecystectomy Social History Smoking Status: Never smoker Review of Systems (Anesthesia) ROS Narrative System reviewed and no additional complaints, except as documented.
[2023-09-20] MEDS: Cefazolin 2 GM in 0.9% Normal Saline (100mL Bag) 100 ML IV (13:11)
--- NOTE | 2023-09-20 13:15 | PCM.DC ---
Discharge Instructions Diet Discharge Diet: Light diet - advance as tolerated Activity Discharge Activity: May Not Drive Weight Bearing Status: No weight bearing (No weightbearing right foot) Keep extremity elevated above heart level: Operative Extremity and Right Leg (Keep right foot elevated for at least 50 minutes of every hour) Dressing / Incision Call your doctor if your incision/area has: Continuous Slow Oozing, Sudden Increased Bleeding and Foul Smelling Discharge Call your doctor if you observe: Fever of 101 or Higher, Shortness of breath, Chest pain, Increased palpitations (irregular heartbeat), Calf discomfort and Uncontrolled pain Change Dressing in: do not change dressing Cleanse incision/area with: Keep Dressing Clean & Dry Follow Up Care Please Follow Up With: Neptali Dial DPM When: in 1 week, sooner if needed. Call [facility] for appointment [phone] Test Results: Test results from this visit will be discussed in further detail at your follow-up appointment, if applicable. Discharge Plan Admission Attending Provider: Neptali Dial Primary Care Provider: Tenisha Akins Instructions Print Language: Tanzanian Discharge Orders/Prescriptions Prescriptions: New hydrocodone-acetaminophen 5-325 mg tablet 1 - 2 tab PO Q6H PRN (Reason: pain) 3 Days Qty: 12 0RF No Action alprazolam [Xanax] 0.5 mg tablet 0.5 mg PO BID PRN (Reason: anxiety) tramadol 50 mg tablet 50 mg PO DAILY PRN (Reason: pain) Patient Comments: TAKE 1 TABLET BY MOUTH THREE TIMES DAILY NEEDED metoprolol succinate [Toprol XL] 50 mg tablet extended release 24 hr 50 mg PO DAILY Qty: 90 3RF hydrocodone-acetaminophen 5-325 mg tablet 1 tab PO Q6H PRN PRN (Reason: Pain) 3 Days Qty: 10 0RF prednisone 10 mg tablet 10 mg PO DAILY PRN (Reason: RA FLARE) ropinirole 1 mg tablet 1 mg PO QHS Referrals / Follow Up: Tenisha Akins PA [Primary Care Provider] - Disposition Disposition (needs filled in before D/C Order can be placed): Home, Self Care
--- NOTE | 2023-09-20 13:16 | OP.PCM_ITS ---
Report of Operation Date of Procedure: 09/20/23 Pre-Operative Diagnosis: Right 5th metatarsal fracture Post-Operative Diagnosis: Right 5th metatarsal fracture Surgery/Procedure Performed:: Open reduction internal fixation right 5th metatarsal fracture Surgeon: Neptali Dial coin machine collector supervisor: Kristal Type of Anesthesia: General and Local Specimen's removed: None Description of Procedure: Indications: 63 year old female with right 5th metatarsal mancuso fracture. Discussed condition and treatment options with her - we discussed the nonsurgical and surgical options. She elected to proceed with surgical intervention of open reduction internal fixation of the fracture. This was discussed with her, reviewed procedure, possible benefits vs risks, goals, expectations and estimated healing time. Reviewed alternative options, cast, nonweightbearing without surgery, also no treatment. She elected to proceed with surgical intervention as noted above. The consent forms were reviewed with her and she freely signed them. No guarantees were given nor implied. No warranties were given nor implied. Operative Procedure: She was brought back to the operating room and was placed on the operating room table in the supine position. She was secured to the operating room table with a safety belt around her waist. A timeout was performed and she was properly identified and the surgical plan was confirmed. She received 2g of IV ancef for antibiotic prophylaxis. She received general anesthesia per the anesthesia team. A well padded pneumatic tourniquet was applied around her right ankle.The right foot was scrubbed, prepped, and draped in the usual aseptic fashion. Further attention was directed to her right foot, intraop fluoroscopy was obtained and confirmed right 5th metatarsal fracture. The right foot was elevated for 3 minutes and the pneumatic touqnieut was inflated to 250mmHg. Using intraoperative fluoroscopy a guide wire was placed across the fracture down the shaft of the 5th metatarsal from proximal to distal. Proper position was confirmed. A small linear incision was made just proximal to the base of the 5th metatarsal was careful dissection was completed down to the base of the 5th metatarsal. The fracture was fixated using rigid open reduction internal fixation technique using one 5mm Dowagiac noncannulated partially threaded screw. There was good bite and compression of the fracture site with good alignment upon placement of the screw. Proper position and reduction was confirmed. The guide wire was removed proir to placement of the screw. The site was flushed with copious amounts of normal saline solution. The skin was reapproximated using 3-0 Monocryl. A dressing was applied which consisted of cavilon to the inc ision and edges with steristrips across the sutured skin incision, then betadine soaked adaptic was applied with overlying gauze, kerlix and sj dressing. The patient tolerated the procedure well and anesthesia well with no complications. Post operative orders were placed. Post operative instructions have been reviewed with patient and her family who was with her today ( and mother). Follow up in 1 week, sooner if needed. Grafts/Implants Used: 5mm Dowagiac screw Complications None
[2023-09-20] MEDS: Bupivacaine Mpf 0.5% 30 ML VIAL (13:53)
--- NOTE | 2023-09-20 14:14 | PCM.POST.ANE ---
Anesthesia: Postop Eval I Current Vital Signs Temperature: 97.7 F Pulse Rate: 67 Blood Pressure: 128/60 Respiratory Rate: 16 Pulse Ox: 99 Assessment Airway patent: Yes Spontaneous unlabored respirations: Yes nausea: No Vomiting: No Anesthesia Complication: No Fluid Hydration Crystalloid volume administer (ml): 1 Total IV fluid infused: 1 Progress Note Anesthesia document: Postop Eval 1 completed: Yes
--- NOTE | 2023-09-20 14:15 | PCM.POSTANE2 ---
Anesthesia Postop Eval I Sum Postop Eval Completion status Anesthesia document: Postop Eval 1 completed: Yes Anesthesia Postop Eval I Summary Anesthesia Postop Eval I Summary: Anesthesia Postop Eval I: Assessment Summary Airway patent Yes 09/20/23 14:15 Spontaneous unlabored Yes 09/20/23 14:15 respirations Mental status nausea No 09/20/23 14:15 Vomiting Anesthesia Postop Eval I: Fluid Summary Crystalloid volume administer 1 09/20/23 14:15 (ml) Colloids volume administered ( ml) Blood Product volume administered (ml) Total IV fluid infused 1 09/20/23 14:15 Anesthesia Postop Eval I: Summary Notes Anesthesia Complication No 09/20/23 14:15 Anesthesia Complication Comment: Post-operative progress note Anesthesia: Postop Eval II Evaluation Mental status: Awake Pain Level: 0 nausea: No Vomiting: No
--- NOTE | 2023-09-20 14:20 | RAD_ITS ---
STUDY: X-RAY - RIGHT FOOT CLINICAL: Female, 63 years old. Post op TECHNIQUE: 3 view(s) of the foot. COMPARISON: Comparison is made with prior study dated September 10, 2023. FINDINGS: There is a plantar calcaneal spur. Normal visualized subtalar, talonavicular, calcaneocuboid, tarsal and tarsometatarsal articulations. The patient is status post screw fixation of the transverse fracture of the base of the fifth metatarsal. Normal metatarsophalangeal joint of the great toe. Normal tibial and fibular sesamoid bones. Normal interphalangeal joint of the great toe. Normal phalanges of the great toe. Normal second through fifth metatarsophalangeal joints. Normal interphalangeal joints and phalanges of the lesser toes. Soft tissue swelling. RAD/Foot min 3 Views IMPRESSION: Status post screw fixation of the proximal transverse fracture of the fifth metatarsal. There is good alignment. Postoperative soft tissue changes. Electronically Signed: Augustin Mott MD at 15:06 EDT ,
== END 2023-09-20 16:07 | disposition home or self-care (01) ==
LOC: SDC 10:49 → AC 10:51
PROVIDERS: PCP Physician Assistant; Referring Provider Podiatrist; Visit Provider Podiatrist
PROC: (CPT 28485; principal; 2023-09-20 12:45)
DX: S92.351A Displaced fracture of fifth metatarsal bone, right foot, initial encounter for closed fracture (principal); I10 Essential (primary) hypertension; G47.33 Obstructive sleep apnea (adult) (pediatric); G25.81 Restless legs syndrome; Z79.899 Other long term (current) drug therapy; X58.XXXA Exposure to other specified factors, initial encounter
CPT/HCPCS: 28485; 73620; 73630; 76000; C1713; J7120; J2405

== ENCOUNTER → 2023-12-22 | Outpatient (CLI) | payer OTHER, SELFPAY ==
[2023-12-22 12:27] LABS: Absolute Lymphocyte Count 1.06 X10^3/uL (0.83-4.51); Basophil# 0.03 X10^3/uL; Basophil% 0.9 % (0-1); Eosinophils% 2.9 % (0-5); Hematocrit 41.7 % (37-47); Hemoglobin 13.3 g/dL (12.0-15.0); Lymphocyte # 1.06 X10^3/ul (0.83-4.51); Lymphocyte % 30.3 % (19-41); Mean Corp Hgb Conc 31.9 g/dL (32-36); Mean Corpuscular Volume 84.6 fL (81-99); Mean Platelet Vol. 9.5 fl (6.2-12.0); Monocyte# 0.33 X10^3/uL; Monocyte% 9.4 % (0-10); NRBC Flagged by Analyzer 0 % (0-5); Neutrophil # 1.97 X10^3/uL (2.7-7.7); Neutrophil % 56.2 % (47-70); Platelet Count 153 K/mm3 (150-450); RBC Distribution Width CV 13.4 % (11.6-14.6); RBC Distribution Width SD 41.6 fl (35.1-43.9); Red Blood Count 4.93 M/mm3 (4.2-5.4); White Blood Count 3.5 K/mm3 (4.4-11.0)
[2023-12-22 12:32] LABS: ALB/GLOB Ratio 1.1 RATIO (0.9-2.4); AST(SGOT) 19 U/L (15-37); Alanine Aminotransfer ALT/SGPT 20 U/L (13-56); Albumin, Serum 3.4 g/dL (3.2-5.0); Alkaline Phosphatase 75 U/L (45-117); Anion Gap 8 (5-15); BUN 19 mg/dL (7-18); BUN/Creat Ratio 27.4 RATIO (10-20); Calcium,Total 9.1 mg/dL (8.5-10.1); Chloride 108 mmol/L (98-107); Creatinine, Serum 0.69 mg/dL (0.55-1.02); EST Glomerular Filtration Rate 91 mL/min (>60); Est Glom Filt Rate - Afr Amer 110 mL/min (>60); Glucose 105 mg/dL (74-106); Potassium 3.4 mmol/L (3.5-5.1); Protein, Total 6.4 g/dL (6.4-8.2); Sodium Level 140 mmol/L (136-145)
== END | disposition home or self-care (01) ==
PROVIDERS: PCP Physician Assistant; Referring Provider Internal Medicine Rheumatology; Visit Provider Internal Medicine Rheumatology
DX: M06.4 Inflammatory polyarthropathy (principal); M79.7 Fibromyalgia; M18.11 Unilateral primary osteoarthritis of first carpometacarpal joint, right hand; M47.897 Other spondylosis, lumbosacral region; G56.01 Carpal tunnel syndrome, right upper limb; K58.0 Irritable bowel syndrome with diarrhea; G47.00 Insomnia, unspecified; Z79.899 Other long term (current) drug therapy
CPT/HCPCS: 36415; 80053; 85025

== ENCOUNTER → 2024-01-25 | Outpatient (CLI) | payer OTHER, SELFPAY ==
--- NOTE | 2024-01-25 12:09 | BI_ITS ---
MAMMOGRAPHY - BILATERAL SCREENING REASON FOR EXAM: Female, 63 years old. Routine annual screening examination. PERTINENT HISTORY: Non-contributory. TECHNIQUE: Digital bilateral breast kari (3D mammographic acquisition) in the CC and MLO projections. 2-D mediolateral oblique (MLO) and craniocaudad (CC) views of both breasts were obtained. CAD: Full Field Digital Mammography with Computer Added Detection was performed. COMPARISON: Comparison is made with prior study dated January 20, 2023 and January 11, 2022. FINDINGS: Breast Composition: The breasts are almost entirely fatty. There are no dominant masses or suspicious calcifications. No other significant abnormalities are identified. There has been no significant change since the prior study. BI/SCRN MAMM (CAD)W/KARI BILAT IMPRESSION: Stable bilateral screening mammogram. Yearly follow-up mammogram recommended. (A) ASSESSMENT CATEGORY: BIRADS Category 1: Negative. A letter regarding these results will be sent to the patient by the facility within 30 days. Approximately 10% of breast cancers are not detected by mammography. A normal mammogram should not delay biopsy of a clinically suspicious abnormality. [id number] Electronically Signed: Augustin Mott MD at 13:09 EST ,
[2024-01-26 16:10] LABS: Endomysial Antibody IgA Negative (Negative); Immunoglobulin A 81 mg/dL (87-352); t-Transglutaminase IgA <2 U/mL (0-3)
[2024-01-28 12:08] LABS: Beef <0.10 kU/L (Class 0); Chocolate <0.10 kU/L (Class 0); Codfish <0.10 kU/L (Class 0); Corn <0.10 kU/L (Class 0); Egg, Whole <0.10 kU/L (Class 0); Milk (Cow) <0.10 kU/L (Class 0); Mussels <0.10 kU/L (Class 0); Peanut <0.10 kU/L (Class 0); Pork <0.10 kU/L (Class 0); Salmon <0.10 kU/L (Class 0); Shrimp <0.10 kU/L (Class 0); Soybean <0.10 kU/L (Class 0); Tuna <0.10 kU/L (Class 0); Wheat <0.10 kU/L (Class 0)
== END | disposition home or self-care (01) ==
PROVIDERS: PCP Physician Assistant; Referring Provider Nurse Practitioner Acute Care; Visit Provider Physician Assistant
DX: Z12.31 Encounter for screening mammogram for malignant neoplasm of breast (principal); R11.0 Nausea; R63.4 Abnormal weight loss; R10.9 Unspecified abdominal pain; K58.0 Irritable bowel syndrome with diarrhea
CPT/HCPCS: 36415; 77063; 77067; 82784; 83516; 84443; 86003; 86005; 86255

== ENCOUNTER 2024-01-26 09:26 | Day surgery (SDC) | payer OTHER, SELFPAY ==
--- NOTE | 2024-01-26 09:41 | HP.PCM_ITS ---
History and Physical Date of Admission: 01/26/24 She was told by DR. Guido years ago that she had IBS with diarrhea. Recently it has gotten worse and has diarrhea constantly. Thinks she saw blood in her stool a couple of times but can't be sure. Has had a lower abd ache in the last several months. Last colonoscopy was 2018. Has a lot of nausea and decreased appetite. Has to carry a change of clothes with her everywhere she goes and can't eat when she goes out because it will just come right back out. [facility] Medical History (Updated 01/25/24 @ 10:41 by Kenzie Laurent NP-C) Colicky epigastric pain Chronic diarrhea Inflammatory polyarthropathy IBS (irritable bowel syndrome) GERD (gastroesophageal reflux disease) Hypertension Vitamin D deficiency Vitamin B12 deficiency Anxiety Wears dentures Post-menopausal Arthritis Easy bruising Restless legs History of IBS Non-smoker History of pain when walking History of echocardiogram Cardiology follow-up encounter Contusion of right knee Contusion of left knee Strain of left knee Essential (primary) hypertension BMI 39.0-39.9,adult MABEL (obstructive sleep apnea) Hypersomnia Acute bronchitis Insomnia Hyperlipidemia Surgical History (Updated 09/16/23 @ 14:01 by Candelaria Conley) History of esophagogastroduodenoscopy (EGD) Hx of colonoscopy Hx of shoulder surgery Hx of shoulder surgery History of left heart catheterization (05/25/10) History of tonsillectomy H/O: hysterectomy History of cholecystectomy Family History (Updated 01/23/24 @ 19:01 by Génesis Quintero) Mother , metastasis to brain Lung cancer ArthritisFather CAD (coronary artery disease) Diabetes Myocardial infarctionGrandfather CAD (coronary artery disease) AsthmaGrandfather CAD (coronary artery disease)Sister Cystic fibrosis Social History (Updated 01/23/24 @ 18:59 by Génesis Quintero) Smoking Status: Never smoker alcohol intake: current alcohol intake frequency: other details: occasional substance use type: does not use caffeine: Yes Type: carbonated beverages HPI HPI Chief Complaint: diarrhea Details: 63y/o female presents for consultation with complaints of diarrhea. CT A&P 08/01/2023 unremarkable GIPCR, O&P, Fecal Lactoferrin 07/29/2023 negative CBC and CMP 12/22/2023: WBC 3.4, K+ 3.4 COLON 2018 - per patient this was negative Lotronex - 1/2 tablet can slow things down but a whole binds her up and makes it worse - very expensive - took once in the past month - Imodium helps briefly - reports she has never been on cholestyramine or questran - always watery diarrhea - changed over the past year - much much worse - diarrhea can keep her up at night - she denies any h/o celiac disease or pancreatitis - denies any family h/o celiac disease, IBD or colon CA - she c/o intermittent LUQ aching or lower abdominal aching with diarrhea - she will have diarrhea before she ever leaves home - nausea x6 weeks - eating smaller meals - nausea prevents her from eating - weight loss >30lbs in the past year due to limiting PO intake - lower mid abdominal aching - nausea - decreased appetite - has to carry a change of clothes with her and does not eat when she leaves home - denies any new medications or dietary changes to change stools - denies any NSAIDS - denies any HB - she reports discontinuing Plaquenil earlier this year due to diarrhea - denies any heart or lung disease - denies any kidney disease - fall 1x in past year - foot fracture ROS Const Constitutional: Positive for fatigue and weight change; No fever(s) ENT ENT: No difficulty swallowing Gastro GI: Positive for abdominal pain, bloating, diarrhea and nausea/dyspepsia; No belching, change in bowel habits, change in stool character, coffee ground emesis, constipation, cramping, heartburn, difficulty swallowing, feeling full early, excessive flatus, incontinent of stools, Vomiting blood/hematemesis, Blood in stool, loose stools, Black,tarry stools, pain with swallowing, vomiting or other Musc Musculoskeletal: Positive for joint pain, joint swelling, numbness, stiffness, tingling, Arthritis and restless legs Skin Skin: No yellowing of the eye or itchy eyes Neuro Neurology: Positive for numbness, tingling and restless legs Psych Psychiatric: Positive for anxiety and No depression Endo Endocrine: Positive for fatigue and weight change Aller/Imm Allergy/Immunologic: No itchy eyes Scott/Lymp Hematologic/Lymphatic: Positive for easy bruising; No easy bleeding Exam Const General: cooperative, healthy appearing, no acute distress and well developed Nutritional Appearance: well nourished and overweight Orientation: alert and oriented x3 HENMT Head: normocephalic Ears: hearing grossly normal bilaterally Mouth: oral mucosae normal and moist mucous membranes Teeth and gingiva: dentures Eyes Conjunctivae: conjunctivae normal Sclera: sclerae normal Neck Neck: normal visual inspection, full ROM and trachea midline Resp Effort & Inspection: normal respiratory effort, able to speak in complete sentences and symmetric chest movement Auscultation: Bilateral: Clear to Auscultation Cardio Palpation: normal PMI Rate: regular rate Rhythm: regular rhythm Heart Sounds: S1 normal and S2 normal GI Inspection: normal to inspection Auscultation: normal bowel sounds Palpation: soft and no hepatosplenomegaly Rectal Exam: deferred Skin General: no rashes or lesions noted and turgor normal Neuro General: patient alert and patient oriented x3 Cranial Nerves: other (CN's grossly intact, non-focal exam) Cognition: normal cognition Speech: speech normal Gait: normal gait Extrem General: normal to inspection (no edema noted) Psych Appearance: grossly normal and well kempt Affect: normal affect Attitude: cooperative Thought Process: normal Thought Content: normal Judgment: judgment good Assessment and Plan Assessment and Plan (1) Chronic diarrhea: Status: Chronic (2) Nausea: Status: Acute (3) Weight loss: Status: Acute (4) Abdominal cramping: Status: Acute (5) Irritable bowel syndrome with diarrhea: Status: Acute Orders: Orders Allergen, Food Profile 14 Today K52.9 - Noninfective gastroenteritis and colitis, unspecified, K58.0 - Irritable bowel syndrome with diarrhea, R10.9 - Unspecified abdominal pain, R11.0 - Nausea, R63.4 - Abnormal weight loss Celiac Disease Profile Today K52.9 - Noninfective gastroenteritis and colitis, unspecified, K58.0 - Irritable bowel syndrome with diarrhea, R10.9 - Unspecified abdominal pain, R11.0 - Nausea, R63.4 - Abnormal weight loss Calprotectin, Stool Today K52.9 - Noninfective gastroenteritis and colitis, unspecified, K58.0 - Irritable bowel syndrome with diarrhea, R10.9 - Unspecified abdominal pain, R11.0 - Nausea, R63.4 - Abnormal weight loss Pancreatic Elastase, Fecal Today K52.9 - Noninfective gastroenteritis and colitis, unspecified, K58.0 - Irritable bowel syndrome with diarrhea, R10.9 - Unspecified abdominal pain, R11.0 - Nausea, R63.4 - Abnormal weight loss CDIFF (PCR) Today K52.9 - Noninfective gastroenteritis and colitis, unspecified, K58.0 - Irritable bowel syndrome with diarrhea, R10.9 - Unspecified abdominal pain, R11.0 - Nausea, R63.4 - Abnormal weight loss Thyroid Stim Hormone (TSH) Today K52.9 - Noninfective gastroenteritis and colitis, unspecified, K58.0 - Irritable bowel syndrome with diarrhea, R10.9 - Unspecified abdominal pain, R11.0 - Nausea, R63.4 - Abnormal weight loss EGD 01/26/24 K58.0 - Irritable bowel syndrome with diarrhea, R10.9 - Unspecified abdominal pain, R63.4 - Abnormal weight loss Colonoscopy 01/26/24 K58.0 - Irritable bowel syndrome with diarrhea, R10.9 - Unspecified abdominal pain, R63.4 - Abnormal weight loss Medications: New peg 3350-electrolytes 236-22.74-6.74 -5.86 gram (Golytely) 240 mL orally take as directed for split dose bowel prep; until fecal effluent is clear 4,000 mL 0RF Plan The patient is a 63-year-old female presenting for a consultation regarding her complaints of diarrhea, weight loss, and nausea. She reports a longstanding history of irritable bowel syndrome with diarrhea (IBS-D) and has taken Lotronex sporadically, though continued treatment is not ideal due to the exorbitant cost and minimal symptomatic relief. Over the past year, the patient's diarrhea has significantly worsened, with an increase in frequency, urgency, and incon tinence, which has negatively impacted her quality of life. She also complains of nausea for the past 6 weeks without vomiting. To prevent episodes of diarrhea, the patient has been limiting her oral intake, resulting in a weight loss of over 30 pounds in the past year. Diagnostic tests, including laboratory work, stool studies, colonoscopy, and esophagogastroduodenoscopy (EGD), have been ordered, and the patient will follow up in the office in 2-4 weeks. H/O CCX - consider cholestyramine in future If w/u negative - consider SIBO and treatment with Xifaxan Plan Details Follow Up: 3 Weeks Coding Level of Care Code New Pt Off vis,new,level 4 Patient Type New Diagnoses Chronic diarrhea K52.9 Nausea R11.0 Weight loss R63.4 Abdominal cramping R10.9 Irritable bowel syndrome with diarrhea K58.0 I have examined the patient and the H&P has been reviewed. There are no clinical changes since date of exam.
[2024-01-26 09:45] VITALS: BP 133/87; PULSE 67; RESP 16; TEMP 36.1; O2SAT 100; BMI 33.9
--- NOTE | 2024-01-26 10:15 | PRE.ANES_ITS ---
ASA Classification* ASA Classification ASA Classification: 2 Assessment & Plan Anesthesia* Anesthesia Assessment Anesthesia Assessment: Discussed sedation and/or anesthesia options, risks, benefits, and alternatives with patient/parents/legal guardian/POA. Questions invited. The patient/parents/legal guardian/POA seems to understand and agrees to proceed with anesthesia plan. Reviewed the physical assessment, medical history, allergy history and patient home medications list prior to surgery/procedure/anesthetic and documented any changes. Performed airway and anesthesia risk assessments. Anesthesia Type Anesthesia Type: MAC History Source History Obtained from:: Patient and Chart Anesthesia Focused Assessment* Temperature: 97 F Pulse Rate: 67 Blood Pressure: 133/87 Respiratory Rate: 16 Pulse Ox: 100 Oxygen Delivery Method: Room Air Airway Assessment Mouth opens: >3 cm Mallampati Score: II Teeth Condition: Dentures (Patient has upper dentures. They are out.) and Missing (Several missing teeth on the lower jaw. Rest are tight.) Neck Range of motion (ROM): Full ROM Focused Labs Anesthesia Preop lab: CBC WBC 3.5 K/mm3 (4.4-11.0) L 12/22/23 10:14 RBC 4.93 M/mm3 (4.2-5.4) 12/22/23 10:14 Hgb 13.3 g/dL (12.0-15.0) 12/22/23 10:14 Hct 41.7 % (37-47) 12/22/23 10:14 Plt Count 153 K/mm3 (150-450) 12/22/23 10:14 CHEMISTRY Potassium 3.4 mmol/L (3.5-5.1) L 12/22/23 10:14 Sodium 140 mmol/L (136-145) 12/22/23 10:14 BUN 19 mg/dL (7-18) H 12/22/23 10:14 Creatinine 0.69 mg/dL (0.55-1.02) 12/22/23 10:14 Glucose 105 mg/dL (74-106) 12/22/23 10:14 TSH 1.110 uIU/mL (0.358-3.740) 01/25/24 10:57 COAG Pre-Assessment Diagnosis/Proposed Procedure Planned Operative Procedure(s): Esophagogastroduodenoscopy. 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 When Was Last Pacemaker Check QUESTION #4 FULL TEXT: You/Your Family Experience fever (hyperthermia) with Anesthesia Last Oral Intake Last Oral intake: Last Oral Intake NPO since 07:15 01/26/24 09:45 Meds taken in AM with sips of Yes 01/26/24 09:45 water? Meds patient instructed to see mar 01/26/24 09:45 take am of surgery Any additional information?: Yes NPO since: 07:15 (Patient had meds at 7:15 AM.) Meds taken in AM with sips of water?: Yes PONV PONV - supervising deputy: PONV - supervising deputy Female Yes 01/25/24 15:37 HX of Motion Sickness No 01/25/24 15:37 HX of N/V After Surgery No 01/25/24 15:37 Non-Smoker Yes 01/25/24 15:37 Duration of Surgery greater No 01/25/24 15:37 than 60 minutes Number of Risk Factors 2 01/25/24 15:37 PONV Score Moderate Risk 01/25/24 15:37 Height & Weight Height & Weight: Anesthesia: Height & Weight Height 5 ft 5 in 01/26/24 09:45 Weight: 92.533 kg 01/26/24 09:45 Body Mass Index (BMI) 33.9 01/26/24 09:45 Respiratory Assessment Respiratory Assessment - supervising deputy: Respiratory Tract Infection Hx - supervising deputy Hx Respiratory Tract Infection No 01/25/24 15:37 STOP Sleep Apnea STOP Sleep Apnea - supervising deputy: STOP Sleep Apnea - supervising deputy Hx Hypertension Yes: CONTROLLED WITH MED 01/25/24 15:37 Hx Sleep Apnea No 01/25/24 15:37 CPAP No 01/25/24 15:37 BIPAP No 01/25/24 15:37 Do you snore loudly (louder No 01/25/24 15:37 than talking or can be heard Do you often feel tired/ No 01/25/24 15:37 fatigued/ sleepy during daytime? Has anyone observed you stop No 01/25/24 15:37 breathing during sleep? STOP Results Negative 01/25/24 15:37 QUESTION #5 FULL TEXT : Do you snore loudly (louder than talking or can be heard through closed doors)? 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 Specify any problems Hx of Preganancy in last 3 No 01/25/24 15:37 Months Nurse Filling Out Transfusion VCHRISTIN 01/25/24 15:37 & Questions: Date: 01/25/24 01/25/24 15:37 Time: 15:38 01/25/24 15:37 Patient unable to answer at this time (ie. confused, unrespo /Reproduction History /Reproductive History - supervising deputy: /Reproductive Hx- supervising deputy Hx Now Gestational Age (in weeks): EDC: Hx Hx Para Hx Section SAB No 01/25/24 15:37 PFSH Medical History Colicky epigastric pain Chronic diarrhea Inflammatory polyarthropathy IBS (irritable bowel syndrome) GERD (gastroesophageal reflux disease) Hypertension Vitamin D deficiency Vitamin B12 deficiency Anxiety Wears dentures Post-menopausal Arthritis Easy bruising Restless legs History of IBS Non-smoker History of pain when walking History of echocardiogram Cardiology follow-up encounter Contusion of right knee Contusion of left knee Strain of left knee Essential (primary) hypertension BMI 39.0-39.9,adult MABEL (obstructive sleep apnea) Hypersomnia Acute bronchitis Insomnia Hyperlipidemia Home Medications ?Medication ?Instructions ?Recorded ?Last Taken ?Type metoprolol succinate 50 mg 50 mg PO DAILY #90 tabs 02/28/19 01/26/24 07:15 Rx tablet,extended release 24 hr (Toprol XL) ropinirole 1 mg tablet 1 mg PO QHS 09/16/23 Unknown History alprazolam 0.5 mg tablet (Xanax) 0.5 mg PO TID PRN anxiety 01/23/24 Unknown History peg 3350-electrolytes 236 240 ml PO .COMPLEX #4,000 mL 01/25/24 Unknown Rx gram-22.74 gram-6.74 gram-5.86 gram solution (Golytely) tramadol 50 mg tablet 50 mg PO QDAY PRN pain 01/25/24 Unknown History Allergy/AdvReac Type Severity Reaction Status Date / Time moxifloxacin HCl (From Allergy Swelling Verified 01/26/24 09:45 Avelox) morphine AdvReac Severe Nausea/VOMI Verified 01/26/24 09:45 TTING Family History Mother , metastasis to brain Lung cancer Arthritis Father CAD (coronary artery disease) Diabetes Myocardial infarction Grandfather CAD (coronary artery disease) Asthma Grandfather CAD (coronary artery disease) Sister Cystic fibrosis Surgical History Hx of surgical procedure History of esophagogastroduodenoscopy (EGD) Hx of colonoscopy Hx of shoulder surgery Hx of shoulder surgery History of left heart catheterization (05/25/10) History of tonsillectomy H/O: hysterectomy History of cholecystectomy Social History Smoking Status: Never smoker alcohol intake: current alcohol intake frequency: other details: occasional substance use type: does not use caffeine: Yes Type: carbonated beverages Review of Systems (Anesthesia) ROS Narrative System reviewed and no additional complaints, except as documented.
[2024-01-26 10:21] VITALS: BP 133/87; PULSE 67; RESP 16; TEMP 36.1; O2SAT 100
--- NOTE | 2024-01-26 10:45 | EGD_PTH ---
PATIENT: CHLOE RODRIGUEZ LOC: EN U#:[id number] AGE/SX: 63/F ROOM: RE01/26/[address]: Dr. Jerman Garner DO : 1960 BED: DIS: 01/26/2024 SPEC #: [id number] RECD: 01/26/24 11:39 STATUS: MALENA REQ #: [id number] YANELIS: 01/26/24 10:[address]: Jerman Garner DEPT: SURGICAL PATHOLOGY RECD BY: Naty Wolfe ENTERED: 01/26/24 12:21 SP TYPE: EGD BIOPSY OTHR DR: SUSHIL Crabtree Tissues: A - Duodenum, NOS B - Pancreas, NOS C - Ileum, NOS D - COLON BIOPSY Procedures: Trichrome (control) Special Stain Group I Surgery Specimen Level IV HEADER OPERATION: Colonoscopy, GED PRE-OP DIAGNOSIS: Irritable bowel syndrome with diarrhea, nausea, weight loss TISSUE SUBMITTED: A- Duodenum biopsy, B- Pancreatic rest biopsy, C- Terminal ileum biopsy, D- Random colon biopsy MICROSCOPIC DIAGNOSIS A. Duodenum, biopsy: No pathologic change. B. Pancreatic rest, biopsy: Fragments of gastric mucosa with associated mild chronic inflammation. C. Terminal ileum, biopsy: No pathologic change. D. Colon, random biopsy: Lymphocytic colitis. See comment. 01/27/2024 COMMENT D. Trichrome stain with matched control was used in the evaluation of this case. MICROSCOPIC DESCRIPTION Slides are reviewed. GROSS DESCRIPTION A. Received in fixative is one container labeled with the patient's name and designated Duodenum biopsy. The specimen consists of two irregular fragments of light teixeira soft tissue that in aggregate measure 0.8 x 0.2 x 0.1 cm. The specimen is totally submitted in one cassette. B. Received in fixative is one container labeled with the patient's name and designated Pancreatic rest biopsy. The specimen consists of multiple irregular fragments of light teixeira soft tissue that in aggregate measure 1.0 x 0.5 x 0.1 cm. The specimen is totally submitted in one cassette. C. Received in fixative is one container labeled with the patient's name and designated Terminal ileum biopsy. The specimen consists of multiple irregular fragments of light teixeira soft tissue that measures 0.7 x 0.5 x 0.1 cm. The specimen is totally submitted in one cassette. D. Received in fixative is one container labeled with the patient's name and designated Random colon biopsy. The specimen consists of multiple irregular fragments of light teixeira soft tissue that in aggregate measure 2.5 x 0.7 x 0.1 cm. The specimen is totally submitted in one cassette. 01/26/2024 TC: CPT:47391q4,40179
[2024-01-26 11:27] VITALS: BP 123/62; BP 133/87; PULSE 92; RESP 16; TEMP 36.8; O2SAT 96
[2024-01-26 11:30] VITALS: BP 116/65; BP 133/87; PULSE 72; RESP 16; O2SAT 96
--- NOTE | 2024-01-26 11:33 | OP.CCLET_ITS ---
01/26/2024 Tenisha Akins Re : Upper GI endoscopy procedure for Flores Álvarez Tashi This procedure was performed on January. My impressions and recommendations are as follows: Impressions : - Normal esophagus. 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 - Chronic duodenitis. Biopsied. Recommendations : - Discharge patient to home. - Patient has a contact number available for emergencies. The signs and symptoms of potential delayed complications were discussed with the patient. Return to normal activities tomorrow. Written discharge instructions were provided to the patient. - Resume previous diet. - Continue present medications. - Await pathology results. - Repeat upper endoscopy. My findings are described in the full procedure note, which is enclosed. If I can be of further assistance, please feel free to contact me at . Sincerely, Jerman Garner, 01/26/2024 11:33:17 AM This report has been signed electronically.
--- NOTE | 2024-01-26 11:33 | OP.EGD_ITS ---
Patient Name: Flores Choudhary Procedure Date: 01/26/2024 10:52 AM Date of : 1960 Age: 63 Procedure: Upper GI endoscopy Indications: Epigastric abdominal pain, Functional Dyspepsia, Failure to respond to medical treatment Providers: Jerman Garner DO Medicines: Monitored Anesthesia Care Patient Profile: This is a 63 year old female. Refer to note in patient chart for documentation of history and physical. Patient has symptoms of chronic epigastric abdominal pain and chronic nausea. Complications: No immediate complications. Procedure: Pre-Anesthesia Assessment: - Prior to the procedure, a History and Physical was performed, and patient medications and allergies were reviewed. The patient is competent. The risks and benefits of the procedure and the sedation options and risks were discussed with the patient. All questions were answered and informed consent was obtained. Patient identification and proposed procedure were verified by the physician in the pre-procedure area. Mental Status Examination: alert and oriented. Airway Examination: normal oropharyngeal airway and neck mobility. Respiratory Examination: clear to auscultation. CV Examination: normal. Prophylactic Antibiotics: The patient does not require prophylactic antibiotics. Prior Anticoagulants: The patient has taken no anticoagulant or antiplatelet agents. ASA Grade Assessment: II - A patient with mild systemic disease. After reviewing the risks and benefits, the patient was deemed in satisfactory condition to undergo the procedure. The anesthesia plan was to use monitored anesthesia care (MAC). Immediately prior to administration of medications, the patient was re-assessed for adequacy to receive sedatives. The heart rate, respiratory rate, oxygen saturations, blood pressure, adequacy of pulmonary ventilation, and response to care were monitored throughout the procedure. The physical status of the patient was re-assessed after the procedure. After obtaining informed consent, the endoscope was passed under direct vision. Throughout the procedure, the patient's blood pressure, pulse, and oxygen saturations were monitored continuously. The pediatric colonoscope was introduced through the mouth, and advanced to the second part of duodenum. The upper GI endoscopy was accomplished without difficulty. The patient tolerated the procedure well. Scope In: 11:04:51 AM Scope Out: 11:09:34 AM Total Procedure Duration Time 0 hours 4 minutes 43 seconds Findings: The examined esophagus was normal. A single umbilicated lesion measuring 7 mm in diameter was found in the gastric antrum. The polyp was removed with a jumbo cold forceps. Resection and retrieval were complete. Verification of patient identification for the specimen was done. Estimated blood loss was minimal. Patchy mild inflammation characterized by erythema and friability was found in the duodenal bulb and in the first portion of the duodenum. Biopsies were taken with a cold forceps for histology. Verification of patient identification for the specimen was done. Estimated blood loss was minimal. Impression: - Normal esophagus. 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 - Chronic duodenitis. Biopsied. Recommendation: - Discharge patient to home. - Patient has a contact number available for emergencies. The signs and symptoms of potential delayed complications were discussed with the patient. Return to normal activities tomorrow. Written discharge instructions were provided to the patient. - Resume previous diet. - Continue present medications. - Await pathology results. - Repeat upper endoscopy. Procedure Code(s): --- Professional --- 13840, Esophagogastroduodenoscopy, flexible, transoral; with biopsy, single or multiple CPT copyright 2021 [employer]. All rights reserved. The codes documented in this report are preliminary and upon boat carpenter review may be revised to meet current compliance requirements. Jerman Garner DO 01/26/2024 11:33:17 AM This report has been signed electronically. Number of Addenda: 0 Note Initiated On: 01/26/2024 10:52 AM
--- NOTE | 2024-01-26 11:34 | PCM.POST.ANE ---
Anesthesia: Postop Eval I Current Vital Signs Temperature: 98.1 F Pulse Rate: 76 Blood Pressure: 123/62 Respiratory Rate: 16 Pulse Ox: 98 Oxygen Delivery Method: Room Air Assessment Airway patent: Yes Spontaneous unlabored respirations: Yes Mental status: Awake nausea: No Vomiting: No Anesthesia Complication: No Fluid Hydration Crystalloid volume administer (ml): 60 Total IV fluid infused: 60 Progress Note Anesthesia document: Postop Eval 1 completed: Yes
[2024-01-26 11:35] VITALS: BP 123/62; BP 131/63; BP 133/87; PULSE 72; PULSE 76; RESP 16; TEMP 36.7; O2SAT 97; O2SAT 98
--- NOTE | 2024-01-26 11:36 | OP.COLON_ITS ---
Patient Name: Flores Choudhary Procedure Date: 01/26/2024 11:10 AM Date of : 1960 Age: 63 Procedure: Colonoscopy Indications: Chronic diarrhea Providers: Jerman Garner DO Medicines: Monitored Anesthesia Care Patient Profile: This is a 63 year old female. Refer to note in patient chart for documentation of history and physical. Patient has symptoms of chronic epigastric abdominal pain and chronic nausea. Last Colonoscopy: date unknown. Unable to locate last colonoscopy report. Complications: No immediate complications. Procedure: Pre-Anesthesia Assessment: - Prior to the procedure, a History and Physical was performed, and patient medications and allergies were reviewed. The patient is competent. The risks and benefits of the procedure and the sedation options and risks were discussed with the patient. All questions were answered and informed consent was obtained. Patient identification and proposed procedure were verified by the physician in the pre-procedure area. Mental Status Examination: alert and oriented. Airway Examination: normal oropharyngeal airway and neck mobility. Respiratory Examination: clear to auscultation. CV Examination: normal. Prophylactic Antibiotics: The patient does not require prophylactic antibiotics. Prior Anticoagulants: The patient has taken no anticoagulant or antiplatelet agents. ASA Grade Assessment: II - A patient with mild systemic disease. After reviewing the risks and benefits, the patient was deemed in satisfactory condition to undergo the procedure. The anesthesia plan was to use monitored anesthesia care (MAC). Immediately prior to administration of medications, the patient was re-assessed for adequacy to receive sedatives. The heart rate, respiratory rate, oxygen saturations, blood pressure, adequacy of pulmonary ventilation, and response to care were monitored throughout the procedure. The physical status of the patient was re-assessed after the procedure. After I obtained informed consent, the scope was passed under direct vision. Throughout the procedure, the patient's blood pressure, pulse, and oxygen saturations were monitored continuously. The pediatric colonoscope was introduced through the anus and advanced to the terminal ileum. The colonoscopy was performed without difficulty. The patient tolerated the procedure well. The quality of the bowel preparation was adequate. The terminal ileum, ileocecal valve, appendiceal orifice, and rectum were photographed. Scope In: 11:11:24 AM Scope Withdrawal Time 0 hours 7 minutes 20 seconds Scope Out: 11:23:05 AM Total Procedure Duration Time 0 hours 11 minutes 41 seconds Findings: The perianal and digital rectal examinations were normal. A few small-mouthed diverticula were found in the recto-sigmoid colon, sigmoid colon and descending colon. Diffuse moderate mucosal changes characterized by congestion (edema), erythema and granularity were found in the entire colon. Biopsies were taken with a cold forceps for histology. Verification of patient identification for the specimen was done. Estimated blood loss was minimal. The terminal ileum appeared normal. Biopsies were taken with a cold forceps for histology. Verification of patient identification for the specimen was done. Estimated blood loss was minimal. Impression: - Diverticulosis in the recto-sigmoid colon, in the sigmoid colon and in the descending colon. - Diffuse moderate mucosal changes were found in the entire examined colon secondary to colitis. Biopsied. - The examined portion of the ileum was normal. Biopsied. Recommendation: - Discharge patient to home. - Resume previous diet. - Continue present medications. - Await pathology results. - Repeat colonoscopy in 5 years for surveillance. Procedure Code(s): --- Professional --- 19046, Colonoscopy, flexible; with biopsy, single or multiple CPT copyright 2021 [employer]. All rights reserved. The codes documented in this report are preliminary and upon warehouse administrative assistant review may be revised to meet current compliance requirements. Jerman Garner DO 01/26/2024 11:36:23 AM This report has been signed electronically. Number of Addenda: 0 Note Initiated On: 01/26/2024 11:10 AM
--- NOTE | 2024-01-26 11:37 | OP.CCLET_ITS ---
01/26/2024 Tenisha Akins Re : Colonoscopy procedure for Flores Choudhary Dear Tashi This procedure was performed on January. My impressions and recommendations are as follows: Impressions : - Diverticulosis in the recto-sigmoid colon, in the sigmoid colon and in the descending colon. - Diffuse moderate mucosal changes were found in the entire examined colon secondary to colitis. Biopsied. - The examined portion of the ileum was normal. Biopsied. Recommendations : - Discharge patient to home. - Resume previous diet. - Continue present medications. - Await pathology results. - Repeat colonoscopy in 5 years for surveillance. My findings are described in the full procedure note, which is enclosed. If I can be of further assistance, please feel free to contact me at . Sincerely, Jerman Friend, 01/26/2024 11:36:23 AM This report has been signed electronically.
[2024-01-26 11:40] VITALS: BP 127/67; BP 133/87; PULSE 70; RESP 16; TEMP 36.3; O2SAT 100
--- NOTE | 2024-01-27 07:48 | PCM.POSTANE2 ---
Anesthesia Postop Eval I Sum Postop Eval Completion status Anesthesia document: Postop Eval 1 completed: Yes Anesthesia Postop Eval I Summary Anesthesia Postop Eval I Summary: Anesthesia Postop Eval I: Assessment Summary Airway patent Yes 01/26/24 11:35 [email or web address] Spontaneous unlabored Yes 01/26/24 11:35 [email or web address] respirations Mental status Awake 01/26/24 11:35 [email or web address] nausea No 01/26/24 11:35 [email or web address] Vomiting No 01/26/24 11:35 [email or web address] Anesthesia Postop Eval I: Fluid Summary Crystalloid volume administer 60 01/26/24 11:35 [email or web address] (ml) Colloids volume administered ( ml) Blood Product volume administered (ml) Total IV fluid infused 60 01/26/24 11:35 [email or web address] Anesthesia Postop Eval I: Summary Notes Anesthesia Complication No 01/26/24 11:35 [email or web address] Anesthesia Complication Comment: Post-operative progress note Anesthesia: Postop Eval II Evaluation Mental status: Awake Pain Level: 0 nausea: No Vomiting: No
== END 2024-01-26 12:30 | disposition home or self-care (01) ==
LOC: EN 09:27 → AC 09:31
PROVIDERS: PCP Physician Assistant; Referring Provider Physician Assistant; Visit Provider Internal Medicine Gastroenterology
PROC: 0DJD8ZZ Inspection of Lower Intestinal Tract, Via Natural or Artificial Opening Endoscopic (ICD-10-PCS; CPT 45378; principal; 2024-01-26 10:40)
DX: K86.1 Other chronic pancreatitis (principal); K57.30 Diverticulosis of large intestine without perforation or abscess without bleeding; I10 Essential (primary) hypertension; K29.80 Duodenitis without bleeding; E78.5 Hyperlipidemia, unspecified; K21.9 Gastro-esophageal reflux disease without esophagitis; Q45.3 Other congenital malformations of pancreas and pancreatic duct; K52.832 Lymphocytic colitis; Z79.899 Other long term (current) drug therapy
CPT/HCPCS: 45380; 43239; 88305; 88312; A4216; J2405

== ENCOUNTER → 2024-02-01 | Outpatient (CLI) | payer OTHER, SELFPAY ==
[2024-02-06 09:22] LABS: Calprotectin, Stool 45 ug/g (0-120)
== END | disposition home or self-care (01) ==
LOC: LAB 12:30
PROVIDERS: PCP Physician Assistant; Referring Provider Nurse Practitioner Acute Care; Visit Provider Nurse Practitioner Acute Care
DX: K58.0 Irritable bowel syndrome with diarrhea (principal); R11.0 Nausea; R63.4 Abnormal weight loss; R10.9 Unspecified abdominal pain
CPT/HCPCS: 83993; 87493

== ENCOUNTER → 2024-02-20 | Outpatient (CLI) | payer OTHER, SELFPAY ==
--- NOTE | 2024-02-20 09:09 | NM_ITS ---
CLINICAL: 64-year-old female with history of chronic nausea. SOLID PHASE 99m Tc SULFUR COLLOID GASTRIC EMPTYING STUDY COMPARISON: None available FINDINGS: The patient was administered 1.2 mCi of 99m Tc sulfur colloid mixed with egg and consumed per os. Image acquisitions in the anterior-posterior projections for a total of 239 minutes following meal consumption. There is prompt visualization of the stomach. There is no gastroesophageal reflux identified. First order kinetics are maintained throughout the duration of the acquisitions. The T ? raw data emptying was calculated to be 83.16 minutes, (Normal 65-110 minutes). 99.0 % emptying and 1.0 % retention are defined at 4 hours post meal ingestion. NM/Gastric Emptying Study - 4 HR IMPRESSION: 1. NORMAL 99m Tc sulfur colloid solid phase gastric emptying imaging examination. A. There is normal and preserved solid phase gastric emptying compared to normal controls with maintained first order kinetics throughout all components of the examination. (Harlan et al, Gastroenterology 77: 75, 1979 Laron et al, Semin Nucl Med 12: 116, 1981 Kwabena et al, SNM Procedure Guidelines Adult Solid Meal Gastric Emptying Study 3.0 [email or web address]). B. Greater than 90% emptying of the initial gastric contents at 4 hours post dose is consistent with normal solid phase gastric emptying which correlates with the results of the T ? emptying calculation. (Dave et al, J Nucl Med 48: 568, 2007). Electronically Signed: Misael Crockett DO at 8:45 EST ,
== END | disposition home or self-care (01) ==
LOC: NM 09:05
PROVIDERS: PCP Physician Assistant; Referring Provider Nurse Practitioner Acute Care; Visit Provider Nurse Practitioner Acute Care
DX: R11.0 Nausea (principal); R68.81 Early satiety
CPT/HCPCS: 78264; A9541

== ENCOUNTER → 2024-03-15 | Outpatient (CLI) | payer BC, SELFPAY ==
--- NOTE | 2024-03-15 15:35 | RAD_ITS ---
INDICATION: PAIN EXAMINATION/TECHNIQUE: X-RAY - XR Spine Lumbar Min 4 Views COMPARISON: None. FINDINGS: VERTEBRAE: Preserved vertebral body height. No fracture. No spondylolisthesis. Preservation of the normal lumbar lordosis. Moderate multilevel facet arthropathy. DISCS: Moderate multilevel degenerative disc disease and spondylosis. No critical stenosis. INCLUDED ABDOMEN: Included bowel gas pattern is non-obstructive. RAD/L/S Spine Min 4 Views IMPRESSION: No evidence of lumbar spinal fracture or spondylolisthesis. Moderate multilevel degenerative disc disease and spondylosis. Electronically Signed: Tello Ching MD at 16:29 EST ,
--- NOTE | 2024-03-15 15:35 | RAD_ITS ---
INDICATION: PAIN EXAMINATION/TECHNIQUE: X-RAY - LEFT XR Hip Unilateral with Pelvis when performed; 2-3 Views COMPARISON: None. FINDINGS: No acute fracture or malalignment. No blastic or lytic lesions. Moderate degenerative changes of the bilateral hips. The soft tissues are unremarkable. RAD/HIP, UNI W/ Pelvis 2-3 Views IMPRESSION: No acute radiographic abnormalities. Electronically Signed: Tello Ching MD at 16:30 EST ,
== END | disposition home or self-care (01) ==
LOC: MTRAD 15:28
PROVIDERS: PCP Physician Assistant; Referring Provider Physician Assistant; Visit Provider Physician Assistant
DX: M54.50 Low back pain, unspecified (principal)
CPT/HCPCS: 72110; 73502

== ENCOUNTER → 2024-03-26 | Outpatient (CLI) | payer BC, SELFPAY ==
[2024-03-26 12:19] LABS: Absolute Lymphocyte Count 1.64 X10^3/uL (0.83-4.51); Absolute Neutrophil Count 3.8 X10^3/uL (2.0-7.7); Basophil# 0.04 X10^3/uL; Basophil% 0.6 % (0-1); Eosinophil# 0.06 X10^3/uL; Hemoglobin 15.4 g/dL (12.0-15.0); Lymphocyte # 1.64 X10^3/ul (0.83-4.51); Lymphocyte % 26.2 % (19-41); Mean Corp Hgb Conc 33.5 g/dL (32-36); Mean Corpuscular Hgb 28.2 pg (27.0-32.0); Mean Corpuscular Volume 84.1 fL (81-99); Mean Platelet Vol. 9.1 fl (6.2-12.0); Monocyte# 0.74 X10^3/uL; Monocyte% 11.8 % (0-10); NRBC Flagged by Analyzer 0 % (0-5); Neutrophil # 3.76 X10^3/uL (2.7-7.7); Neutrophil % 60.1 % (47-70); Platelet Count 193 K/mm3 (150-450); RBC Distribution Width CV 13.6 % (11.6-14.6); RBC Distribution Width SD 41.9 fl (35.1-43.9); Red Blood Count 5.47 M/mm3 (4.2-5.4); White Blood Count 6.3 K/mm3 (4.4-11.0)
[2024-03-26 12:29] LABS: ALB/GLOB Ratio 1.2 RATIO (0.9-2.4); AST(SGOT) 17 U/L (15-37); Alanine Aminotransfer ALT/SGPT 29 U/L (13-56); Albumin, Serum 3.7 g/dL (3.2-5.0); Alkaline Phosphatase 67 U/L (45-117); Anion Gap 5 (5-15); BUN 18 mg/dL (7-18); BUN/Creat Ratio 26.1 RATIO (10-20); Calcium,Total 9.2 mg/dL (8.5-10.1); Chloride 105 mmol/L (98-107); Creatinine, Serum 0.69 mg/dL (0.55-1.02); EST Glomerular Filtration Rate 92 mL/min (>60); Est Glom Filt Rate - Afr Amer 111 mL/min (>60); Globulin 3.1 g/dL (2.2-4.2); Glucose 74 mg/dL (74-106); Potassium 3.8 mmol/L (3.5-5.1); Protein, Total 6.8 g/dL (6.4-8.2); Sodium Level 141 mmol/L (136-145)
== END | disposition home or self-care (01) ==
LOC: MTLAB 10:55
PROVIDERS: PCP Physician Assistant; Referring Provider Internal Medicine Rheumatology; Visit Provider Internal Medicine Rheumatology
DX: M06.4 Inflammatory polyarthropathy (principal); M79.7 Fibromyalgia; M18.11 Unilateral primary osteoarthritis of first carpometacarpal joint, right hand; Z79.899 Other long term (current) drug therapy
CPT/HCPCS: 36415; 80053; 85025

== ENCOUNTER 2024-04-10 15:00 | Outpatient (RCR) | payer BC, SELFPAY ==
--- NOTE | 2024-03-28 09:35 | HP.PTEVAL_ITS ---
Patient's Visit Information Visit Information Visit Information: CHLOE RODRIGUEZ is a 64 year old F referred to Physical Therapy by Dr. Boogie Millard MD with a diagnosis of BACK AND LEG PAIN. Date of Evaluation: 03/28/24 Physical Therapist: Candida Stern PT, Cert MDT Visit Plan Frequency: 2-3x /Week Duration: 4-6 Weeks Plan: AQUATIC THERAPY FOR PAIN RELIEF, POSTURE CORRECTION/STRENGTHENING, INSTRUCTION IN APPROPRIATE BODY MECHANICS AND ACTIVITY MODIFICATIONS. DLS STARTING WITH A NEUTRAL SPINE PROGRESSING ROM TOLERATED. CHUCK LE ROM, STRETCHING AND STRENGTHENING. HEP INSTRUCTION. Subjective Subjective: Work/Leisure: RETIRED. . 3 YEAR OLD ADOPTED DAUGHTER Disability: NO Present symptoms: CENTRAL LOW BACK PAIN, L THIGH AND L LEG PAIN TO ANKLE. PATIENT DENIES L LE NUMBNESS AND TINGLING. DENIES R LE SX'S. 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 Worse: TWISTING, SITTING IN REGUALAR CHAIRS, STANDING AT ALL WHEN IN FLARE UPS, WALKING TOO LONG AND LIFTING WRONG Better: NOTHING WHEN IT IS FLARED UP NOTHING BUT IN GENERAL BETTER ON THE MOVE, SOME TEMPORARY RELIEF IN ZERO GRAVITY CHAIR 30 TO 60 MIN. SOMETIMES TRAMADOL TAKES THE EDGE OFF Disturbed sleep: YES Previous history/Previous treatment: H/O SCIATICA 20 TO 25 YEARS AGO AND REMEMBERS GETTING A SHOT FOR THE PAIN. 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 EPISODES OF BACK PAIN OFF AND ON THROUGH THE YEARS BUT STATES I DON'T LET IT STOP ME. CHIROPRACTIC OFF AND ON OVER THE YEARS - 10 TO 12 VISITS IN 2022. NO BACK SURGERY. NO SIGNIFICANT AMOUNT OF PHYSICAL THERAPY. Treatment this episode: ONE MASSAGE SESSION WITH SOME BENEFIT. ONE CONSULT WITH HER [employer] CONSULTANT AND ONE CONSULT WITH DR. MILLARD. NO CHIROPRACTIC YET BUT PLANS TO CONSULT ONE. Coughing/sneezing/straining: POSITIVE AT TIMES FOR INCREASING PAIN. Gait: L LE DRAGS NOW AND MORE DIFFICULTY ON STEPS WITH LLE. Bowel or Bladder Dysfunction: NOT INCONTINENT. NO CHANGES WITH THIS BACK FLARE UP. ON MEDICATION FOR BOWELS - LYMPHOCYTIC COLITIS. Accidents: NO Unexplained weight loss: NO Imagin03/15/24 LUMBAR X-RAYS: FINDINGS: VERTEBRAE: Preserved vertebral body height. No fracture. No spondylolisthesis. Preservation of the normal lumbar lordosis. Moderate multilevel facet arthropathy. DISCS: Moderate multilevel degenerative disc disease and spondylosis. No critical stenosis. INCLUDED ABDOMEN: Included bowel gas pattern is non-obstructive. RAD/L/S Spine Min 4 Views IMPRESSION: No evidence of lumbar spinal fracture or spondylolisthesis. Moderate multilevel degenerative disc disease and spondylosis. 03/15/24: X-RAY - LEFT XR Hip Unilateral with Pelvis when performed; 2-3 Views: IMPRESSION: No acute radiographic abnormalitiy Objective Objective: Sitting/Standing Posture: ANTERIOR PELVIC TILT. INCREASED LORDOSIS. NO RELEVANT LATERAL LUMBAR SHIFT. Active Correction of posture: ABLE TO PARTIALLY CORRECT. INCREASES LBP Other Observations: THIS PATIENT AMBULATES INDEP'LY INTO PT WITHOUT ANY AD'S WITH A TRENDELENBURG TYPE GAIT PATTURN LURCHING FROM SIDE TO SIDE. NO LOB. DECREASED CADANCE. SHE ALSO HAS A MILD LIMP ON THE LLE. Sensory deficit: CHUCK LE LIGHT TOUCH SENSATION IS GROSSLY INTACT AND SYMMETRICAL ROM deficit: CHUCK HIP FLEXOR AND CALF TIGHTNESS. Motor deficit: R HIP 4/5, KNEE 5/5, ANKLE 5/5. L HIP 4-/5, KNEE EXT 4/5, KNEE FLEX 5/5, ANKLE 5/5. Reflexes: CHUCK QUADS AND ACHILLES 2+ Dural Signs: POSITIVE LLE Lumbar mvmt loss: flex - MIN - NE ext - WAYNE - INCREASES LBP - NW R SG - MOD - NE L SG - MOD - INCREASES LBP - NW Core strength: POOR Palpation: NO ACUTE LUMBAR, SACRAL OR HIP TENDERNESS STEPS: PATIENT ABLE TO GO UP AND DOWN STEPS RECIPROCALLY WITH 1 TO 2 HR'S WITH SIGNIFICANT DEPENDENCE ON HR'S ESPECIALLY ASCENDING STEPS AND WHEN LEADING UP WITH LLE AND DOWN WITH R LE. WIDE BASE OF SUPPORT ON STEPS. Balance/Special Test Scores Oswestry Low Back Score: 9 Goals Goal 1:: DECREASE C/O BACK AND LEG PAIN BY AT LEAST 50% TO EASE ADL'S. Goal Time Frame: 4-6 Weeks Goal 2:: IMPROVE SITTING, STANDING, WALKING, LIFTING, CHILDCARE, SOCIAL LIFE, TRAVEL AND HOMEMAKING FUNCTION WITH IMPROVED BACK OSWESTRY SCORE Goal Time Frame: 4-6 Weeks Goal 3:: PATIENT WILL DEMONSTRATED PROPER BODY MECHANICS FOR BENDING AND LIFTING. Goal Time Frame: 4-6 Weeks Goal 4:: PATIENT WILL DEMONSTRATE THE ABILITY TO MAINTAIN PROPER POSTURE CONTROL WITHOUT C/O INCREASED PAIN. Goal Time Frame: 4-6 Weeks Goal 5:: INDEP HEP Goal Time Frame: 4-6 Weeks Rehabilitation Potential Physical Therapy Diagnosis: LOW BACK/LLE PAIN, CORE WEAKNESS, AND L>R LE WEAKNESS. Rehabilitation Potential: Good Anticipated Interventions Patient/Client Instruction: Educate patient on: Condition, Plan of Care and Risk Factors For the Purpose of:: To improve self management Therapeutic Exercise to Include: Strength training, Body mechanics, Postural training, Flexibilty training, Neuromotor development, In an aquatic setting and Dynamic Lumbar Stabilization For the Purpose of:: To decrease pain, To improve muscle performance and motor function, To increase tolerance to activity/condition/position, To improve ability of physical actions for home/community/work/leisure and To increase flexibility/ROM Text: Thank you for the opportunity to evaluate your patient. For Medicare and Medicare HMO plans, please review the plan of care and approve it. It will need to be FAXED BACK to us at [phone] for Medicare purposes. For Medicare only, by signing this I certify the plan of care. Please let me know if there are questions or concerns regarding this plan of care. Physician Signature: Date:
== END 2024-09-21 15:54 | disposition home or self-care (01) ==
LOC: PT 15:00
PROVIDERS: PCP Physician Assistant; Referring Provider Anesthesiology; Visit Provider Anesthesiology
DX: M54.50 Low back pain, unspecified (principal); M79.606 Pain in leg, unspecified
CPT/HCPCS: 97113; 97162

== ENCOUNTER → 2024-04-18 | Outpatient (CLI) | payer BC, SELFPAY ==
--- NOTE | 2024-04-18 10:04 | MRI_ITS ---
PROCEDURE: Noncontrast MRI of the lumbar spine. REASON FOR EXAM: Low back and left leg pain. TECHNIQUE: Multiplanar, multisequence MRI images of the lumbar spine were obtained without IV contrast. COMPARISON: None. FINDINGS: The study assumes a presence of 5 lumbar type, [id number] vertebral bodies. 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 The conus terminates at L1. The included lower spinal cord and lower thoracic intervertebral disc spaces are unremarkable. The lumbar vertebral bodies are normal in height, alignment, and marrow signal. No acute fracture, focal subluxation, or abnormal marrow replacement process. The included portions of the sacrum and SI joints are intact. Included retroperitoneal and paraspinal soft tissues show no specific abnormality. L1-2: Mild disc bulge, without focal disc herniation or significant central spinal canal narrowing. Mild bilateral neural foraminal narrowing, greatest on the right. Mild degenerative facet changes. L2-3: Mild lobulated disc bulge, without focal disc herniation or significant central spinal canal narrowing. Moderate bilateral neural foraminal narrowing, greatest on the right. Mild degenerative facet changes. L3-4: Mild disc bulge flattens the ventral thecal sac, without focal disc herniation or significant central spinal canal narrowing. Moderate bilateral neural foraminal narrowing and moderate degenerative facet changes. L4-5: Mild asymmetric left disc bulge causes a mild degree of central spinal canal narrowing. No focal disc herniation. Mild right and severe left neural foraminal narrowing. Moderate degenerative facet changes are demonstrated. L5-S1: Mild disc bulge flattens the ventral thecal sac, without focal disc herniation or significant central spinal canal narrowing. Moderate right and severe left neural foraminal narrowing. Moderate degenerative facet changes. MRI/Spine Lumbar (Routine) IMPRESSION: No acute bony abnormality of the lumbar spine. Mild multilevel degenerative disc and facet disease in the lumbar spine as desc ribed level by level above. A few mild disc bulges as above, without large focal disc herniation or significant central spi nal canal narrowing. Multilevel neural foraminal narrowing, to a severe degree on the left at the L4 -5 and L5-S1 levels. Reading [facility]
== END | disposition home or self-care (01) ==
LOC: MRI 10:02
PROVIDERS: PCP Physician Assistant; Referring Provider Anesthesiology; Visit Provider Anesthesiology
DX: M54.16 Radiculopathy, lumbar region (principal)
CPT/HCPCS: 72148

== ENCOUNTER → 2024-06-04 | Outpatient (CLI) | payer BC, SELFPAY ==
--- NOTE | 2024-06-04 08:55 | RAD_ITS ---
PROCEDURE: SHOULDER MIN 2 VIEWS 06/04/2024 REASON FOR EXAM: SHOULDER PAIN Patient fell 12 days ago. Bruising right shoulder. TECHNIQUE: Four views of the right shoulder COMPARISON: None FINDINGS: Four views of the right shoulder demonstrate the acromioclavicular joint to be widened measuring approximately 12 mm. The remaining joint spaces are well preserved. Lucencies in the right humeral head are noted, near the insertion site of the rotator cuff tendon. These are most compatible with benign bony cysts. A radiopaque anchoring device is project over the humeral head. There are no fractures. The visualized right ribs are clear. The visualized right lung is clear. RAD/Shoulder min 2 Views IMPRESSION: There is widening of the right acromioclavicular joint. Reading Location: [id number]
== END | disposition home or self-care (01) ==
LOC: RAD 08:50
PROVIDERS: PCP Physician Assistant; Referring Provider Anesthesiology; Visit Provider Anesthesiology
DX: M25.511 Pain in right shoulder (principal)
CPT/HCPCS: 73030

== ENCOUNTER → 2024-12-14 | Outpatient (CLI) | payer BC, SELFPAY | END | disposition home or self-care (01) | LOC: MTRAD 12:40 | PROVIDERS: PCP Physician Assistant; Referring Provider Physician Assistant; Visit Provider Physician Assistant | DX: R07.89 Other chest pain (principal); R50.9 Fever, unspecified | CPT/HCPCS: 71046 ==

== ENCOUNTER → 2024-12-15 | Outpatient (CLI) | payer BC, SELFPAY ==
--- NOTE | 2024-12-15 10:45 | RAD_ITS ---
PROCEDURE: RIBS UNI MIN 3V W/PA CHEST 12/15/2024 REASON FOR EXAM: PAIN IN LEFT RIBS Fall 4 weeks ago. TECHNIQUE: Procedure Code: RADRIB Modality: DX Procedure: RIBS UNI MIN 3V W/PA CHEST COMPARISON: Prior chest radiograph dated December 14, 2024. FINDINGS: Findings: Lungs are clear. No evidence of pneumothorax. No acute or fracture is seen. Other: Evidence of prior bilateral rotator cuff surgery. RAD/Ribs Uni Min 3V w/PA Chest IMPRESSION: No acute rib fracture is seen. The lungs are clear. Reading Location: [facility]
--- OUTSIDE RECORDS SUMMARY | 2024-12-15 10:45 | XMS RPT_ITS | CCD ---
Author Organization [facility] Care Team Providers Care Catalyst Supervisor Name Role Phone J LUIS FRY Unavailable Unavailable CALI Jarquin Primary Care Provider [phone] CALI Jarquin Referring Provider SUSHIL Rouse Attending Provider Tenisha Akins PA-C Unavailable Tenisha Akins PA-C Unavailable Sleep Disorder Provider Unavailable Unavaila tara Reece MD, Dr. Brooklyn Muir Unavailable Pulmonary Provider Unavailable Unavailable [facility] Unavailable Farhad GARZON MD, Dr. Palomino Unavailable Unavailable Physical Therapy, Michelet Ca Unavailable [facility], [facility] office Unavailable Melvin HWANG, Dr. Peralta Unavailable Gastroenterology Provider Unavailable Unavai molly Smith GRAIN II FARMWORKER, Yajaira Unavailable Dionicio Sifuentes MD Unavailable Day GRAIN II FARMWORKER, Karen Unavailable Unavailable Irving GRAIN II FARMWORKER, Jaycee E Unavailable Unavailable Nipomo GRAIN II FARMWORKER, Rosalind C Unavailable Unavailable Eulogio GRAIN II FARMWORKER, Harika Unavailable Unavailable Jose Tellez MD Unavailable Charla Armstrong PA-C Unavailable [phone] Petey ANTONIO, Shannon Unavailable Unavailable Charla Dubois RN Unavailable Unavailnathaniel Wade MA, Cheryl Unavailable Unavailable Tio WELCHN, Cherelle Unavailable Unavailable Tamra CONTRERAS, Charito Rosario Unavailable Unavailable Bill WELCHN, Debra Unavailable Unavailable Mutersbaugh GRAIN II FARMWORKER, Beulah K Unavailable Unavai lable Chinchilla, Renee R Unavailable Unavailable Sirena MOSAIC WORKER, Emi Unavailable Unavailable Richert GRAIN II FARMWORKER, Berenice L Unavailable Unavailab le Chiki GRAIN II FARMWORKER, Génesis M Unavailable Unavailab le Nya GRAIN II FARMWORKER, Yari Jones Unavailable Unavailab le Kamran MA, Shannon Unavailable Unavailable Vess GRAIN II FARMWORKER, Neilee L Unavailable Unavailable Wengerd GRAIN II FARMWORKER, Kenzie Unavailable Unavailabl e Isleton GRAIN II FARMWORKER, Jennifer N Unavailable Unavaila ble Zaugg GRAIN II FARMWORKER, Renee Unavailable Unavailable Unavailable Unavailable TENISHA AKINS Consulting Unavailable TENISHA AKINS Attending Unavailable TENISHA AKINS Admitting Unavailable TENISHA AKINS Primary Care Unavailable PROVIDER, UNKNOWN Consulting Unavailable Kenzie Lau RN Unavailable Unavailable Kenzie Lau Unavailable Unavailable [facility] Unavailable Katherine Guaman Unavailable Unavailable Physical Therapy Provider Unavailable Unavai lable Pain Management Provider Unavailable Unavail able [facility] Attending Unavailable Katherine Mari Unavailable Unavailable Tenisha Kitchen Primary Care Provider Tenisha Kitchen Referring Provider Mehran POOLE-CKenzie Attending Provider Tenisha Kitchen Attending Provider [phone] Mehran DUAL RATE SUPERVISOR-CKenzie Referring Provider Dr. Jerman Garner DO Attending Provider Dr. Jerman Garner DO Other Provider [phone] Sea HWANG, Dr. Lundy Attending Provider Dr. Nikkie Osei MD Referring Provider Dr. Boogie Millard MD Attending Provider [phone] Dr. Boogie Millard MD Referring Provider [phone] Tenisha Kitchen Referring Provider Mehran DUAL RATE SUPERVISOR-CKenzie Attending Provider Mehran DUAL RATE SUPERVISOR-C, Kenzie Referring Provider Akins PA, Tenisha Primary Care Provider Akins PA, Tenisha Attending Provider Saulo KEENAN Sammie Unavailable Unavailable Akins PA, Tenisha Primary Care Provider Akins PA, Tenisah Referring Provider Mehran DUAL RATE SUPERVISOR-C, Kenzie Attending Provider Freeman HWANG, Dr. Hyman Attending Provider Dr. Boogie Millard MD Referring Provider Dionicio Carey MD Attending Provider Akins PA, Tenisha Primary Care Provider Akins PA, Tenisha Referring Provider Mehran DUAL RATE SUPERVISOR-C, Kenzie Attending Provider Akins PA, Tenisha Attending Unavailable Akins PA, Tenisha Primary Care Unavailable Akins PA, Tenisha Referring Unavailable Pascual Jerman Attending Unavailable FriendJerman Consulting Unavailable Akins PA, Tenisha Primary Care Unavailable Akins PA, Tenisha Referring Unavailable Akins PA, Tenisha Referring Unavailable MehranTriniKenzie Attending Unavailable Akins PA, Tenisha Referring Unavailable Akins PA, Tenisha Primary Care Unavailable MehranKenzie Attending Unavailable Akins PA, Tenisha Primary Care Unavailable Akins PA, Tenisha Referring Unavailable Dionicio Carey Attending Unavailable Akins PA, Tenisha Primary Care Unavailable Akins PA, Tenisha Referring Unavailable MehranKenzie Attending Unavailable Akins PA, Tenisha Primary Care Unavailable MehranTriniKenzie Attending Unavailable Akins PA, Tenisha Referring Unavailable Akins PA, Tenisha Primary Care Unavailable Mehran, Kenzie Referring Unavailable Mehran Kenzie Attending Unavailable Vellanki, Nikkie Attending Unavailable Akins PA, Tenisha Primary Care Unavailable Vellanki, Nikkie Referring Unavailable Akins PA, Tenisha Primary Care Unavailable Mehran Kenzie Attending Unavailable Mehran, Kenzie Referring Unavailable Akins PA, Tenisha Primary Care Unavailable Akins PA, Tenisha Referring Unavailable Mehran, Kenzie Attending Unavailable Akins PA, Tenisha Attending Unavailable Akins PA, Tenisha Primary Care Unavailable Mehran, Kenzie Referring Unavailable Jerman Garner Attending Unavailable Akins PA, Tenisha Primary Care Unavailable Akins PA, Tenisha Referring Unavailable Akins PA, Tenisha Primary Care Unavailable Tyler Millardolas Referring Unavailable Tyler Millardolas Attending Unavailable Nikkie Osei Attending Unavailable Akins PA, Tenisha Primary Care Unavailable Vellanellen, Nikkie Referring Unavailable Akins PA, Tenisha Primary Care Unavailable Prayson, Boogie Referring Unavailable Freeman Boogie Attending Unavailable Akins PA, Tenisha Primary Care Unavailable Prayson Boogie Referring Unavailable Tyler Millardolas Attending Unavailable Allergies Allergy Classification Reported Allergen(s) Allergy Type Date of Onset Reaction(s) Facility [facility] (2 sources) [facility] Quinolones (antibiotic) (2 sources) [facility]loxacin [facility] (20 sources) Morphine Drug Allergy 0 Nausea/VOMITTIN G [facility] (15 sources) moxifloxacin; Translations: [moxifloxacin HCl] Drug Allergy 0 Swelling [facility] (20 sources) moxifloxacin Drug Allergy [place] [facility] [employer] [facility]. (1 source) Amoxicillin Drug Allergy [facility] (1 source) Morphine Drug Allergy [facility] (1 source) moxifloxacin Drug Allergy [facility] (1 source) Morphine Drug Allergy 5 [facility] Medications Current Medications Medication Drug Class(es) Dates Sig (Normalized) Sig (Original) ALPRAZolam 0.5 mg oral tablet (20 sources) Benzodiazepine Start: 08-17-2024 Start: 01-05-2024 End: 06-15-2024 take 1 tablet by mouth three times daily as needed for anxiety Alprazolam (Xanax) 0.5 mg tablet Active 0.5 mg PO THREE TIMES A DAY as needed for anxiety January 23, 2024 7:49pm Start: 09-23-2023 End: 10-23-2023 Start: 07-14-2023 End: 08-13-2023 Start: 09-04-2018 End: 01-23-2024 take 1 tablet by mouth twice daily as needed for anxiety Alprazolam (Xanax) 0.5 mg tablet Discontinued 0.5 mg PO TWICE A DAY as needed for anxiety September 04, 2018 12:00am January 23, 2024 7:52pm Start: 01-27-2015 End: 09-04-2018 take 0.125 mg by mouth twice daily as needed for anxiety Alprazolam 0.25 MG tablet Discontinued 0.125 mg PO TWICE DAILY NEEDED as needed for Anxiety January 27, 2015 1:00am September 04, 2018 3:21pm Start: 01-27-2015 End: 09-04-2018 atorvastatin 10 mg oral tablet (2 sources) HMG-CoA Reductase Inhibitor Start: 07-09-2024 budesonide 3 mg delayed release oral capsule (20 sources) Corticosteroid Start: 05-17-2024 take 3 capsules by mouth once daily in the morning, then take 2 capsules by mouth once daily, then take 1 capsule by mouth once daily Budesonide 3 mg capsule,delayed,e xtend.release Active 9 mg PO EVERY MORNING 315 0 May 17, 2024 12:00am microscopic colitis 9mg QD x12 weeks, then 6mg QD x3 weeks and then 3mg QD x3 weeks Start: 05-11-2024 End: 05-17-2024 take 2 capsules by mouth once daily in the morning Budesonide 3 mg capsule,delayed,extend.release Discontinued 6 mg PO EVERY MORNING 60 30 0 May 11, 2024 12:00am June 09, 2024 12:00am May 17, 2024 8:33am Start: 01-31-2024 End: 05-11-2024 take 3 capsules by mouth once daily, then take 2 capsules by mouth once daily, then take 1 capsule by mouth once daily Budesonide 3 mg capsule,delayed,extend.release Discontinued 3 mg PO .COMPLEX 210 0 January 31, 2024 1:00am May 11, 2024 9:31am microscopic colitis Take 3 capsules (9mg) once daily x8 weeks, then two capsules (6mg) once daily x2 weeks, then one capsule (3mg) once daily x2 weeks. cholestyramine resin 4000 mg powder for oral suspension (2 sources) Bile Acid Sequestrant Start: 08-30-2024 take 1 dose by mouth twice daily Cholestyramine (With Sugar) (Questran) 4 gram powder in packet Active 4 g PO TWICE A DAY 60 August 30, 2024 12:00am administer w/meal; avoid other meds within 1hr before or 4-6hr after dose cyclobenzaprine hydrochloride 10 mg oral tablet (20 sources) Muscle Relaxant Start: 03-15-2024 Start: 10-04-2016 End: 12-01-2016 famotidine 40 mg oral tablet (20 sources) Histamine-2 Receptor Antagonist Start: 01-31-2024 End: 07-29-2024 take 1 tablet by mouth once daily Famotidine (Pepcid) 40 mg tablet Active 40 mg PO daily 90 July 29, 2024 8:00pm Start: 12-10-2021 End: 07-14-2023 24 hr metoprolol succinate 50 mg extended release oral tablet (20 sources) beta-Adrenergic Reggie Start: 02-28-2019 take 1 tablet by mouth once daily Metoprolol Succinate (Toprol Xl) 50 mg tablet extended release 24 hr Active 50 mg PO DAILY 90 February 28, 2019 1:00am Start: 09-04-2018 End: 02-28-2019 take 1 capsule by mouth once daily Metoprolol Succinate 25 mg capsule,sprinkle,ER 24hr Discontinued 25 mg PO DAILY September 04, 2018 12:00am February 28, 2019 12:30pm rOPINIRole 1 mg oral tablet (20 sources) Nonergot Dopamine Agonist Start: 06-14-2024 Start: 09-16-2023 take 1 tablet by alonso th at bedtime Ropinirole 1 mg tablet Active 1 mg PO AT BEDTIME September 16, 2023 12:00am Start: 07-14-2023 Start: 06-10-2021 Start: 03-07-2019 End: 09-16-2023 Ropinirole 0.5 mg tablet Discontinued 0.5 mg PO DAILY 60 March 07, 2019 1:00am September 16, 2023 1:50pm 1 tab 1-3 hours before bed, on night may increase to 2 tabs traMADol hydrochloride 50 mg oral tablet (20 sources) Opioid Agonist Start: 01-25-2024 take 3 tablets by mouth once daily as needed for pain Tramadol 50 mg tablet Active 50 mg PO daily as needed for pain January 25, 2024 1:00am up to three tablets a day Start: 02-28-2019 End: 01-23-2024 take 1 tablet by mouth once daily as needed for pain Tramadol 50 mg tablet Discontinued 50 mg PO DAILY as needed for pain February 28, 2019 1:00am January 23, 2024 7:51pm Start: 01-27-2015 End: 09-04-2018 take 1 tablet by mouth every six hours as needed for pain Tramadol 50 MG tablet Discontinued 50 mg PO EVERY 6 HOURS NEEDED as needed for Pain January 27, 2015 1:00am September 04, 2018 3:29pm Completed/Discontinued Medications Medication Drug Class(es) Dates Sig (Normalized) Sig (Original) 1 ml abatacept 125 mg/ml prefilled syringe (20 sources) Selective T Cell Costimulation Modulator acetaminophen 325 mg / HYDROcodone bitartrate 5 mg oral tablet (20 sources) Opioid Agonist Start: 09-10-2023 End: 01-23-2024 Hydrocodone-Acetam inophen 5-325 mg tablet Discontinued 1 - 2 {tbl} PO EVERY 6 HOURS as needed for pain 12 3 0 September 20, 2023 January 23, 2024 7:51pm Right foot pain Pain in right foot Start: 08-31-2013 End: 05-09-2014 Start: 08-21-2012 End: 05-07-2013 acetaminophen 325 mg / oxyCODONE hydrochloride 5 mg oral tablet (20 sources) Opioid Agonist Start: 01-29-2015 End: 09-04-2018 Oxycodone-Acetaminophen 1 TABLET tablet Discontinued 1 - 2 {tbl} PO EVERY 6 HOURS NEEDED as needed for Moderate-Severe Pain (4-10/10) 30 0 January 29, 2015 1:00am September 04, 2018 3:29pm Start: 01-29-2015 End: 09-04-2018 take 1 tablet by mouth every six hours as needed Oxycodone-Acetaminophen Discontinued 1 - 2 TABLET PO EVERY 6 HOURS NEEDED January 29, 2015 1:00am September 04, 2018 3:29pm Start: 11-15-2011 End: 02-01-2012 [id number] 200 actuat albuterol 0.09 mg/actuat metered dose inhaler (20 sources) beta2-Adrenergic Agonist Start: 01-24-2019 End: 02-28-2019 Albuterol Sulfate (Ventolin Hfa) 90 mcg/actuation HFA aerosol inhaler Discontinued 2 NMA INHALATION Q4H as needed for shortness of breath or wheezing January 24, 2019 1:00am February 28, 2019 12:28pm Start: 01-24-2019 End: 02-28-2019 take 1 puff(s) by inhalation every four hours Albuterol Sulfate (Ventolin Hfa) 90 mcg/actuation HFA aerosol inhaler Discontinued 2 PUFF INHALATION Q4H January 24, 2019 1:00am February 28, 2019 12:28pm Start: 01-15-2019 End: 11-07-2019 alosetron 1 mg oral tablet (14 sources) Serotonin-3 Receptor Antagonist Start: 02-28-2019 End: 10-29-2022 Alosetron 1 mg tablet Discontinued mg PO February 28, 2019 1:00am October 29, 2022 4:22pm amLODIPine 5 mg oral tablet (20 sources) Dihydropyridine Calcium Channel Reggie Start: 08-23-2018 End: 11-07-2019 take 1 tablet by mouth once daily Amlodipine (Norvasc) 5 mg tablet Discontinued 5 mg PO DAILY September 04, 2018 12:00am February 28, 2019 12:29pm amoxicillin 875 mg / clavulanate 125 mg oral tablet (20 sources) Penicillin-class Antibacterial Start: 10-20-2015 End: 10-30-2015 Azithromycin (20 sources) Macrolide Antimicrobial Start: 01-15-2019 End: 02-19-2019 baclofen 10 mg oral tablet (20 sources) gamma-Aminobutyric Acid-ergic Agonist Start: 12-16-2016 End: 08-23-2018 benzonatate 100 mg oral capsule (20 sources) Non-narcotic Antitussive Start: 01-04-2018 End: 2018 cefdinir 300 mg oral capsule (20 sources) Cephalosporin Antibacterial Start: 06-10-2021 End: 06-20-2021 cephalexin 500 mg oral tablet (20 sources) Cephalosporin Antibacterial Start: 01-11-2020 End: 01-18-2020 cetirizine hydrochloride 10 mg oral tablet (20 sources) Histamine-1 Receptor Antagonist Start: 12-01-2016 End: 12-30-2016 cholecalciferol 1.25 mg oral capsule (14 sources) Vitamin D Start: 01-24-2019 End: 10-29-2022 take 1 capsule by mouth every week Cholecalciferol (Vitamin D3) 50,000 unit capsule Discontinued 17913 U PO EVERY WEEK January 24, 2019 1:00am October 29, 2022 4:22pm codeine phosphate 2 mg/ml / promethazine hydrochloride 1.25 mg/ml oral solution (20 sources) Opioid Agonist, Phenothiazine Start: 2018 End: 08-23-2018 ergocalciferol 1.25 mg oral capsule (20 sources) Provitamin D2 Compound Start: 03-26-2019 End: 11-07-2019 estradiol 2 mg oral tablet (20 sources) Estrogen Start: 01-27-2015 End: 09-04-2018 take 1 tablet by mouth once daily Estradiol 2 MG tablet Discontinued 2 mg PO DAILY January 27, 2015 1:00am September 04, 2018 3:21pm Etanercept (20 sources) Tumor Necrosis Factor Reggie fluconazole 150 mg oral tablet (20 sources) Azole Antifungal Start: 06-10-2021 End: 12-10-2021 Start: 02-12-2016 End: 04-12-2016 FLUoxetine 40 mg oral capsule (20 sources) Serotonin Reuptake Inhibitor Start: 08-23-2018 End: 11-07-2019 take 1 capsule by mouth once daily Fluoxetine 40 mg capsule Discontinued 40 mg PO DAILY September 04, 2018 12:00am February 28, 2019 12:15pm Start: 01-27-2015 End: 09-04-2018 take 1 capsule by mouth once daily Fluoxetine 20 MG capsule Discontinued 20 mg PO DAILY January 27, 2015 1:00am September 04, 2018 3:22pm Start: 05-14-2013 End: 05-31-2013 120 actuat fluticasone propi sage 0.11 mg/actuat metered dose inhaler (20 sources) Corticosteroid Start: 04-10-2018 End: 08-23-2018 Start: 02-12-2016 End: 12-30-2016 folic acid 1 mg oral tablet (20 sources) furosemide 20 mg oral tablet (20 sources) Loop Diuretic Start: 2013 End: 2013 12 hr guaiFENesin 1200 mg extended release oral tablet (14 sources) Start: 2018 End: 2019 take 1 tablet by mouth every twelve hours Guaifenesin 1,200 mg tablet extended release 12hr Discontinued 1200 mg PO Q12H 60 6 January 24, 2019 1:00am February 28, 2019 12:15pm hydroxychloroquine sulfate 200 mg oral tablet (20 sources) Antimalarial, Antirheumatic Agent Start: 2014 End: 2018 take 1 tablet by mouth twice daily at mealtime Hydroxychloroquine 200 MG tablet Discontinued 200 mg PO TWICE DAILY WITH MEALS January 27, 2015 1:00am September 04, 2018 3:22pm hydrOXYzine hydrochloride 25 mg oral tablet (20 sources) Antihistamine Start: 2016 End: 2016 12 hr hyoscyamine sulfate 0.375 mg extended release oral tablet (20 sources) Start: 2021 End: 2023 Start: 09-05-2018 End: 02-28-2019 take 1 tablet by mouth every twelve hours Hyoscyamine Sulfate 0.375 mg tablet extended release 12 hr Discontinued 0.375 mg PO Q12H September 05, 2018 12:00am February 28, 2019 12:15pm ibuprofen 600 mg oral tablet (20 sources) Nonsteroidal Anti-inflammatory Drug Start: 08-21-2012 End: 05-07-2013 leucovorin 5 mg oral tablet (20 sources) Folate Analog metaxalone 800 mg oral tablet (20 sources) Start: 01-27-2015 End: 09-04-2018 take 1 tablet by mouth three times daily Metaxalone 800 MG tablet Discontinued 800 mg PO THREE TIMES A DAY January 27, 2015 1:00am September 04, 2018 3:22pm Methotrexate (20 sources) Folate Analog Metabolic Inhibitor methylPREDNISolone (20 sources) Corticosteroid Start: 09-03-2020 End: 09-09-2020 Start: 06-03-2020 End: 06-09-2020 omeprazole 20 mg delayed rel ease oral capsule (20 sources) Proton Pump Inhibitor Start: 06-10-2021 End: 12-10-2021 Start: 09-04-2018 End: 10-29-2022 take 1 capsule by mouth once daily Omeprazole 40 mg capsule,delayed release(DR/EC) Discontinued 40 mg PO DAILY September 04, 2018 12:00am October 29, 2022 4:22pm ondansetron 4 mg oral tablet (16 sources) Serotonin-3 Receptor Antagonist Start: 02-13-2024 End: 06-11-2024 take 1 tablet by mouth every eight hours as needed Ondansetron Hcl 4 mg tablet Discontinued 4 mg PO Q8H as needed May 17, 2024 8:10am June 11, 2024 8:24am Start: 10-29-2022 End: 09-16-2023 take 1 tablet by mouth every eight hours as needed for nausea Ondansetron 4 mg tablet,disintegrating Discontinued 4 mg PO EVERY 8 HOURS NEEDED as needed for Nausea 20 0 October 29, 2022 12:00am September 16, 2023 1:49pm oxaprozin 600 mg oral tablet (20 sources) Nonsteroidal Anti-inflammatory Drug Start: 01-27-2015 End: 09-04-2018 take 1 tablet by mouth twice daily as needed Oxaprozin 600 MG tablet Discontinued 600 mg PO TWICE A DAY as needed for INFLAMATION January 27, 2015 1:00am September 04, 2018 3:29pm polyethylene glycol 3350 688870 mg / potassium chloride 2970 mg / sodium bicarbonate 6740 mg / sodium chloride 5860 mg / sodium sulfate 97886 mg powder for oral solution (4 sources) Osmotic Laxative Start: 01-25-2024 End: 02-13-2024 Peg 3350-Electrolytes (Golytely) 236-22.74-6.74 -5.86 gram recon soln Discontinued 240 mL PO .COMPLEX 4000 0 January 25, 2024 1:00am February 13, 2024 11:35am 240 mL orally take as directed for split dose bowel prep; until fecal effluent is clear potassium chloride 10 meq extended release oral tablet (20 sources) Start: 10-17-2012 End: 05-07-2013 predniSONE 10 mg oral tablet (20 sources) Start: 09-16-2023 End: 01-23-2024 take 1 tablet by mouth once daily as needed Prednisone 10 mg tablet Discontinued 10 mg PO DAILY as needed for RA FLARE September 16, 2023 12:00am January 23, 2024 7:52pm Start: 08-08-2012 End: 05-07-2013 promethazine hydrochloride 2 5 mg oral tablet (20 sources) Phenothiazine Start: 12-17-2015 End: 04-12-2016 sulfamethoxazole 800 mg / trimethoprim 160 mg oral tablet (20 sources) Dihydrofolate Reductase Inhibitor Antibacterial, Sulfonamide Antimicrobial Start: 02-12-2016 End: 02-22-2016 Start: 12-15-2009 End: 12-18-2009 SUMAtriptan 50 mg oral tablet (20 sources) Serotonin-1b and Serotonin-1d Receptor Agonist Start: 09-04-2018 End: 02-28-2019 take 1 tablet by mouth once Sumatriptan Succinate (Imitrex) 50 mg tablet Discontinued 50 mg PO ONCE September 04, 2018 12:00am February 28, 2019 12:15pm Start: 08-23-2018 End: 06-10-2021 traZODone hydrochloride 50 mg oral tablet (20 sources) Serotonin Reuptake Inhibitor Start: 07-14-2023 End: 01-25-2024 take 1 tablet by mouth at bedtime Trazodone 50 mg tablet Discontinued 50 mg PO AT BEDTIME January 23, 2024 1:00am January 25, 2024 11:15am Start: 09-04-2018 End: 09-05-2018 take 1 tablet by mouth once daily Trazodone 50 mg tablet Discontinued 50 mg PO DAILY September 04, 2018 12:00am September 05, 2018 7:45am Start: 08-23-2018 End: 08-29-2018 triamcinolone acetonide 1 mg/ml topical cream (20 sources) Corticosteroid Start: 01-11-2020 End: 08-26-2020 vitamin b12 1 mg/ml injectable solution (14 sources) Vitamin B12 Start: 01-24-2019 End: 10-29-2022 inject 100 ug by intramuscular injection every month Cyanocobalamin (Vitamin B-12) (B-12 Compliance) 1,000 mcg/mL kit Discontinued 100 ug IM EVERY MONTH January 24, 2019 1:00am October 29, 2022 4:22pm zaleplon 5 mg oral capsule (20 sources) gamma-Aminobutyric Acid A Receptor Agonist Start: 09-25-2018 End: 11-27-2018 zolpidem tartrate 5 mg oral tablet (20 sources) gamma-Aminobutyric Acid-ergic Agonist Start: 09-03-2020 End: 06-10-2021 Start: 02-28-2019 End: 10-29-2022 take 1 tablet by mouth at bedtime Zolpidem 5 mg tablet Discontinued 5 mg PO AT BEDTIME February 28, 2019 1:00am October 29, 2022 4:22pm Start: 09-04-2018 End: 09-05-2018 take 1 tablet by mouth at bedtime Zolpidem (Ambien) 5 mg tablet Discontinued 5 mg PO AT BEDTIME September 04, 2018 12:00am September 05, 2018 7:46am Start: 03-21-2012 End: 03-01-2014 Start: 02-24-2011 End: 09-07-2011 Problems Active Problems Problem Classification Problem Date Documented Da te Episodic/Chronic Acute bronchitis (20 sources) Acute bronchitis; Translations: [Acute bronchitis, unspecified] 02-24-2019 Episodic Administrative/social admission (20 sources) Repeated prescription; Translations: [Encounter for issue of repeat prescription] 01-25-2017 Episodic Allergic reactions (20 sources) Contact dermatitis; Translations: [Unspecified contact dermatitis, unspecified cause] 12-07-2016 Episodic Anxiety disorders (20 sources) Anxiety; Translations: [Anxiety disorder, unspecified] 02-10-2022 Chronic Asthma (20 sources) Reactive airway disease; Translations: [Unspecified asthma, uncomplicated] 01-24-2019 Chronic Cardiac dysrhythmias (20 sources) Tachycardia; Translations: [Tachycardia, unspecified] 02-28-2019 Episodic Conditions associated with dizziness or vertigo (20 sources) Dizziness; Translations: [Dizziness and giddiness] 12-20-2018 Episodic Disorders of lipid metabolism (20 sources) Hyperlipidemia; Translations: [Hyperlipidemia, unspecified] 01-24-2019 Chronic Esophageal disorders (20 sources) Gastroesophageal reflux disease; Translations: [Gastro-esophageal reflux disease without esophagitis] 12-10-2021 Chronic Essential hypertension (20 sources) Essential hypertension; Translations: [Essential (primary) hypertension] 02-24-2019 Chronic Comment on above: CONTROLLED WITH MED CONTROLLED ON MED Fluid and electrolyte disorders (20 sources) Hypokalemia; Translations: [Hypokalemia] 10-17-2012 Episodic Fracture of lower limb (20 sources) Unspecified fracture of right foot, initial encounter for closed fracture; Translations: [Closed fracture of unspecified bone(s) of foot [except toes]] 09-14-2023 Episodic Genitourinary symptoms and ill-defined conditions (20 sources) Increased frequency of urination; Translations: [Frequency of micturition] 06-10-2021 Episodic Headache; including migraine (20 sources) Chronic headache disorder; Translations: [Headache] 12-20-2018 Episodic Malaise and fatigue (20 sources) Fatigue; Translations: [Other fatigue] 06-10-2021 Episodic Mood disorders (20 sources) Depressive disorder; Translations: [Depressive disorder, not elsewhere classified] 09-29-2011 Chronic Mycoses (20 sources) Candidiasis of vagina; Translations: [Candidiasis of vulva and vagina] 2018 Episodic Noninfectious gastroenteritis (11 sources) Lymphocytic colitis; Translations: [Lymphocytic colitis] 03-15-2024 Chronic Comment on above: Colonoscopy 4 - lymphocytic colitis, duodenal biopsies negative for celiac sprue, fecal calprotectin normal Budesonide 12 week taper started 02/13/2024 Nonspecific chest pain (20 sources) Chest pain; Translations: [Chest pain, unspecified] 05-07-2014 Episodic Nutritional deficiencies (20 sources) Vitamin D deficiency; Translations: [Vitamin D deficiency, unspecified] 12-10-2021 Chronic Nutritional deficiencies (20 sources) Cobalamin deficiency; Translations: [Deficiency of other specified B group vitamins] 12-10-2021 Episodic Other aftercare (20 sources) Patient encounter status; Translations: [Other [place] [facility] [place]current[facility] drug therapy] 08-23-2018 Episodic Other aftercare (20 sources) Long-term (current) use of other medications 02-24-2011 Episodic Other aftercare (20 sources) Long-term current use of drug therapy; Translations: [Other [place] [facility] (current) drug therapy] 08-23-2018 Episodic Other connective tissue disease (20 sources) Muscle pain; Translations: [Myalgia, unspecified site] 06-10-2021 Episodic Other connective tissue disease (20 sources) Spasm; Translations: [Other muscle spasm] 10-26-2016 Episodic Other connective tissue disease (20 sources) Other symptoms and signs involving the musculoskeletal system; Translations: [Other musculoskeletal symptoms referable to limbs] 12-12-2014 Episodic Other connective tissue disease (20 sources) Pain in left lower limb; Translations: [Pain in left leg] 08-31-2013 Episodic Other connective tissue disease (20 sources) Swelling of lower limb; Translations: [Other specified soft tissue disorders] 08-31-2013 Episodic Other connective tissue disease (4 sources) Foot pain; Translations: [Pain in right foot] 09-20-2023 Episodic Other gastrointestinal disorders (20 sources) Irritable bowel syndrome; Translations: [Irritable bowel syndrome without diarrhea] 12-10-2021 Chronic Other gastrointestinal disorders (5 sources) Irritable bowel syndrome with diarrhea; Translations: [Irritable bowel syndrome with diarrhea] 01-25-2024 Chronic Other gastrointestinal disorders (1 source) Irritable bowel syndrome with diarrhea; Translations: [Irritable bowel syndrome with diarrhea] Onset: 5 Chronic Other gastrointestinal disorders (2 sources) Diarrhea, unspecified; Translations: [Diarrhea, unspecified] Onset: 8 Episodic Other gastrointestinal disorders (20 sources) Diarrhea; Translations: [Diarrhea, unspecified] 12-17-2015 Episodic Other hereditary and degenerative nervous system conditions (20 sources) Restless legs; Translations: [Restless legs syndrome] 12-10-2021 Chronic Other inflammatory condition of skin (20 sources) Erythematous condition; Translations: [Erythematous condition, unspecified] 08-31-2013 Episodic Other injuries and conditions due to external causes (20 sources) Knee, leg, ankle, and foot injury 08-31-2011 Episodic Other liver diseases (4 sources) Elevated liver enzymes level; Translations: [Abnormal levels of other serum enzymes] 01-31-2024 Episodic Other lower respiratory disease (20 sources) Dyspnea on exertion; Translations: [Other forms of dyspnea] 09-05-2018 Episodic Other lower respiratory disease (20 sources) Dyspnea; Translations: [Shortness of breath] 02-24-2019 Episodic Other lower respiratory disease (20 sources) Persistent cough; Translations: [Persistent cough] 02-24-2019 Episodic Other lower respiratory disease (20 sources) Cough; Translations: [Cough] 2018 Episodic Other non-traumatic joint disorders (20 sources) Pain in left knee; Translations: [Pain in joint, lower leg] 12-10-2021 Episodic Other non-traumatic joint disorders (20 sources) Hip pain; Translations: [Pain in unspecified hip] 11-07-2012 Episodic Other non-traumatic joint disorders (20 sources) Shoulder pain; Translations: [Pain in left shoulder] 08-10-2012 Episodic Other nutritional; endocrine; and metabolic disorders (14 sources) Body mass index 30+ - obesity; Translations: [Body mass index (BMI) 39.0-39.9, adult] 03-07-2019 Chronic Other nutritional; endocrine; and metabolic disorders (20 sources) Body mass index 40+ - severely obese; Translations: [Body mass index (BMI) 40.0-44.9, adult] 08-23-2018 Chronic Other nutritional; endocrine; and metabolic disorders (5 sources) Weight decreased; Translations: [Abnormal weight loss] 01-25-2024 Episodic Other upper respiratory infections (20 sources) Sinusitis; Translations: [Chronic sinusitis, unspecified] 06-10-2021 Chronic Other upper respiratory infections (20 sources) Viral upper respiratory tract infection; Translations: [Acute upper respiratory infection, unspecified] 01-02-2018 Episodic Phlebitis; thrombophlebitis and thromboembolism (20 sources) Phlebitis and thrombophlebitis of unspecified site 02-01-2012 Episodic Residual codes; unclassified (14 sources) Obstructive sleep apnea syndrome; Translations: [Obstructive sleep apnea (adult) (pediatric)] 02-24-2019 Chronic Comment on above: Overall AHI 5.7, 20 events per hour and REM stage of sleep Residual codes; unclassified (14 sources) Hypersomnia; Translations: [Hypersomnia, unspecified] 02-24-2019 Chronic Residual codes; unclassified (20 sources) Insomnia; Translations: [Insomnia, unspecified] 12-10-2021 Episodic Residual codes; unclassified (6 sources) Early satiety; Translations: [Early satiety] 02-13-2024 Episodic Rheumatoid arthritis and related disease (20 sources) Inflammatory polyarthropathy; Translations: [Inflammatory polyarthropathy] Onset: 5 12-10-2021 Chronic Skin and subcutaneous tissue infections (20 sources) Cellulitis; Translations: [Cellulitis, unspecified] 10-05-2013 Episodic Sprains and strains (20 sources) Strain of knee; Translations: [Strain of unspecified muscle(s) and tendon(s) at lower leg level, left leg, initial encounter] 05-10-2023 Episodic Superficial injury; contusion (16 sources) Contusion of left knee; Translations: [Contusion of left knee, initial encounter] 05-10-2023 Episodic Unclassified (1 source) Low back pain, unspecified; Translations: [Low back pain, unspecified] Onset: 5 Urinary tract infections (20 sources) Urinary tract infection, site not specified 12-15-2009 Episodic Past or Other Problems Problem Classification Problem Date Documented Date Episodic/Chronic Abdominal pain (20 sources) Abdominal pain; Translations: [Unspecified abdominal pain] Onset: 08-01-2023 06-10-2021 Episodic Nausea and vomiting (8 sources) Nausea; Translations: [Nausea] Onset: 03-15-2024 01-25-2024 Episodic Noninfectious gastroenteritis (20 sources) Chronic diarrhea; Translations: [Noninfective gastroenteritis and colitis, unspecified] Onset: 03-12-2024 12-20-2018 Episodic Other non-traumatic joint disorders (5 sources) Pain in right shoulder; Translations: [Right shoulder pain] Onset: 06-11-2024 06-11-2024 Episodic Other nutritional; endocrine; and metabolic disorders (1 source) Abnormal weight loss; Translations: [Abnormal weight loss] Onset: 01-26-2024 Episodic Other screening for suspected conditions (not mental disorders or infectious disease) (20 sources) Screening status; Translations: [Encounter for screening for diabetes mellitus] Onset: 02-23-2024 06-28-2017 Episodic Residual codes; unclassified (1 source) Early satiety; Translations: [Early satiety] Onset: 02-13-2024 Episodic Spondylosis; intervertebral disc disorders; other back problems (20 sources) Radicular syndrome of lower limbs; Translations: [Radiculopathy, site unspecified] Onset: 04-30-2024 12-12-2014 Episodic Results Test Name Value Interpretation Reference Range Facility Gastroenterology Visit Repor ton 08-30-2024 Gastroenterology Visit Report [facility] [address] [place] [address] OFFICE VISIT Date of Service: 08/30/24 MR#: [id number] Acct: [id number] Name: MICHAELCHLOE NATALYA Rep #: [id number] : 1960 Provider: GAYATHRI lacy Age/Sex: 64/F Location: [facility] Status: Signed Intake Vital Signs 05/17/24 08:14 06/11/24 08:22 08/30/24 08:13 Height 5 ft 5 in 5 ft 5 in 5 ft 5 in Weight: 209 lb 8 oz 217 lb 2 oz BMI 34.8 36.1 BP 117/70 126/72 H Respiration 18 18 Pulse 51 L 68 Temp 97.6 F L Pulse Oximetry (%) 98 98 Oxygen Delivery Method room air room air Intake Visit Reasons: 4 M FU Chief Complaint: follow-up 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 Required: No Accompanied by: Self Is patient in pain?: No Allergies moxifloxacin HCl (From Avelox) Allergy (Verified 08/30/24 08:05) Swelling morphine Adverse Reaction (Severe, Verified 08/30/24 08:05) Nausea/VOMITTING Medications ???Medication ???Instructions ???Recorded ???Confirmed ???Type metoprolol succinate 50 mg 50 mg PO DAILY #90 tabs 02/28/19 0 08/30/24 Rx tablet,extended release 24 hr (Toprol XL) ropinirole 1 mg tablet 1 mg PO QHS 09/16/23 08/30/24 Hist ory alprazolam 0.5 mg tablet (Xanax) 0.5 mg PO TID PRN anxiety 01/23/24 08/30/24 History tramadol 50 mg tablet 50 mg PO QDAY PRN pain 01/25/24 History budesonide 3 mg 9 mg (3 x 3 mg) PO QAM microscopic 05/17/24 08/30/24 Rx capsule,delayed,extended release colitis #315 ea famotidine 40 mg tablet (Pepcid) 40 mg PO QDAY #90 tabs 07/29/24 Rx cholestyramine (with sugar) 4 gram 4 g PO BID #60 ea 08/30/2408/30 Rx powder for susp in a packet ([facility]) Nurse's Note: On the one a day Budesonide right now and the diarrhea seems to be better. [facility] Medical History Right shoulder pain Colicky epigastric pain Chronic diarrhea Inflammatory polyarthropathy IBS (irritable bowel syndrome) GERD (gastroesophageal reflux disease) Hypertension Vitamin D deficiency Vitamin B12 deficiency Anxiety Wears dentures Post-menopausal Arthritis Easy bruising Restless legs History of IBS Non-smoker History of pain when walking History of echocardiogram Cardiology follow-up encounter Contusion of right knee Contusion of left knee Strain of left knee Essential (primary) hypertension BMI 39.0-39.9,adult MABEL (obstructive sleep apnea) Hypersomnia Acute bronchitis Insomnia Hyperlipidemia Surgical History Hx of surgical procedure History of esophagogastroduodenoscopy (EGD) Hx of colonoscopy Hx of shoulder surgery Hx of shoulder surgery History of left heart catheterization (05/25/10) History of tonsillectomy H/O: hysterectomy History of cholecystectomy Family History Mother , metastasis to brain Lung cancer Arthritis Father CAD (coronary artery disease) Diabetes Myocardial infarction Grandfather CAD (coronary artery disease) Asthma Grandfather CAD (coronary artery disease) Sister Cystic fibrosis Social History Smoking Status: Never smoker alcohol intake: current alcohol intake frequency: other details: occasional substance use type: does not use caffeine: Yes Type: carbonated beverages HPI HPI Chief Complaint: follow-up Details: CHLOE CHOUDHARY, is a 64 F who presents to the office today for OV 05/17/2024 64-year-old female presents for follow-up of microscopic colitis. She was initially started on Budesonide on 02/13/2024 and had reported resolution of diarrhea. However, with tapering dose frequency of stools increased and upon starting 3 mg/day she had recurrence of diarrhea, urgency, and episodes of fecal incontinence. I have recommended increasing budesonide dose to 9 mg daily and continue for 12 weeks before resuming taper. We have reviewed potential side effects of budesonide and she understands long-term use of steroids is not ideal; with goal to taper her off of the budesonide. I have recommended she start a daily fiber supplement and probiotic. I have also encouraged use of Imodium as needed. She will follow-up in 4 months. She has a history of cholecystectomy many years ago and does endorse increase in postprandial diarrhea, much worse when dining out. If she has recurrent diarrhea with budesonide taper I recommend adding a bile acid sequestrant for management of symptoms. Patient Instructions: - Budesonide taper for management of microscopic colitis - Imodium as needed for diarrhea - Fibercon 2 tablets once daily with 8 ounces of water after a meal. May take up to 3 weeks for symptom impro (more content not included)... Normal [facility] COMPREHENSIVE METABOLIC PANE Nikhil 05-17-2025 Albumin [Mass/Vol] 3.8 g/dL Normal 3.6-5.1 [facility] Comment on above: Performed By: #### 1 023, 7600 #### [facility] of [address], [address] [place] [address] [facility] Nurse: Nicolas Sumner MD Albumin/Globulin [Mass ratio] 2.1 {ratio} Normal 1.0-2.5 [facility] Comment on above: Performed By: #### 1 023, 7600 #### [facility] of [address], [address] [place] [address] [facility] Nurse: Nicolas Sumner MD ALP [Catalytic activity/Vol] 40 U/L Normal 37-153 [facility] Comment on above: Performed By: #### 1 023, 7600 #### [facility] [address], [address] [place] [address] [facility] Nurse: Nicolas Sumner MD ALT [Catalytic activity/Vol] 30 U/L High 6-29 [facility] Comment on above: Performed By: #### 1 023, 7600 #### [facility] of [address], [address] [place] [address] [facility] Nurse: Nicolas Sumner MD AST [Catalytic activity/Vol] 22 U/L Normal 10-35 [facility] Comment on above: Performed By: #### 1 023, 7600 #### [facility] of [place] [address] [facility] Nurse: Nicolas Sumner MD Bilirubin [Mass/Vol] 0.6 mg/dL Normal 0.2-1.2 [facility] Comment on above: Performed By: #### 1 023, 7600 #### [facility] of [place] [address] [facility] Nurse: Nicolas Sumner MD BUN/CREATININE RATIO SEE NOTE: Normal 6-22 [facility] Comment on above: Result Comment: Not Reported: BUN and Creatinine are within reference range. Performed By: #### 1 023, 7600 #### [facility] of [address], [address] [place] [address] [facility] Nurse: Nicolas Sumner MD Calcium [Mass/Vol] 8.8 mg/dL Normal 8.6-10.4 [facility] Comment on above: Performed By: #### 1 0231, 7600 #### [facility] of [address], [address] [place] [address] [facility] Nurse: Nicolas Sumner MD Chloride [Moles/Vol] 106 mmol/L Normal 98-110 [facility] Comment on above: Performed By: #### 1 023, 7600 #### [facility] of [address], [address] [place] [address] [facility] Nurse: Nicolas Sumner MD CO2 [Moles/Vol] 29 mmol/L Normal 20-32 [facility] Comment on above: Performed By: #### 1 023, 7600 #### [facility] of [address], [address] [place] [address] [facility] Nurse: Nicolas Sumner MD Creatinine [Mass/Vol] 0.62 mg/dL Normal 0.50-1.[address] [facility] Comment on above: Performed By: #### 1 023, 7600 #### [facility] of [place] [address] [facility] Nurse: Nicolas Sumner MD GFR/1.73 sq M.predicted among non-blacks MDRD (S/P/Bld) [Vol rate/Area] 101 mL/min/{1.73_m2} Normal > OR = 60 [facility] Comment on above: Performed By: #### 1 0231, 7600 #### [facility] of [address], [address] [place] [address] [facility] Nurse: Nicolas Sumner MD Globulin (S) [Mass/Vol] 1.8 g/dL Low 1.9-3.7 [facility] Comment on above: Performed By: #### 1 0231, 7600 #### [facility] of [address], [address] [place] [address] [facility] Nurse: Nicolas Sumner MD Glucose [Mass/Vol] 87 mg/dL Normal 65-99 [facility] Comment on above: Result Comment: Fasting reference interval Performed By: #### 1 0231, 7600 #### [facility] of [place] [address] [facility] Nurse: Nicolas Sumner MD Potassium [Moles/Vol] 4.3 mmol/L Normal 3.5-5.[address] [facility] [address] [facility] Comment on above: Performed By: #### 1 023, 7600 #### [facility] of [place] [address] [facility] Nurse: Nicolas Sumner MD Protein [Mass/Vol] 5.6 g/dL Low 6.1-8.1 [facility] Comment on above: Performed By: #### 1 023, 7600 #### [facility] of [place] [address] [facility] Nurse: Nicolas Sumner MD Sodium [Moles/Vol] 142 mmol/L Normal 135-146 [facility] Comment on above: Performed By: #### 1 023, 7600 #### [facility] of [place] [address] [facility] Nurse: Nicolas Sumner MD Urea nitrogen [Mass/Vol] 18 mg/dL Normal 7-25 [facility] Comment on above: Performed By: #### 1 023, 7600 #### [facility] of [place] [address] [facility] Nurse: Nicolas Sumner MD LIPID PANEL, [facility] 06-21 Cholesterol [Mass/Vol] 235 mg/dL High <200 [facility] Comment on above: Performed By: #### 1 0231, 7600 #### [facility] of [place] [address] [facility] Nurse: Nicolas Sumner MD Cholesterol in HDL [Mass/Vol] 80 mg/dL Normal > OR = 50 [facility] Comment on above: Performed By: #### 1 023, 0 #### [facility] [address], [address] [place] [address] [facility] Nurse: Nicolas Sumner MD Cholesterol in LDL [Mass/Vol] 137 mg/dL High [facility] Comment on above: Result Comment: Refe rence range: <100 Desirable range <100 mg/dL for primary prevention; <70 mg/dL for patients with CHD or diabetic patients with > or = 2 CHD risk factors. LDL-C is now calculated using the Rayne calculation, which is a validated novel method providing better accuracy than the Friedewald equation in the estimation of LDL-C. Darryl SS et al. HILDA. 2013;310(19): 4288-8795 (http://education.[employer].Enertiv/faq/WHT634) Performed By: #### 1 0231, 7600 #### [facility] [address], [address] [place] [address] [facility] Nurse: Nicolas Sumner MD Cholesterol.total/Cho lesterol in HDL [Mass ratio] 2.9 {ratio} Normal <5.0 [facility] Comment on above: Performed By: #### 1 0231, 7600 #### [facility] [address], [address] [place] [address] [facility] Nurse: Nicolas Sumner MD NON HDL CHOLESTEROL 155 mg/dL (calc) High <130 [facility] Comment on above: Result Comment: For patients with diabetes plus 1 major ASCVD risk factor, treating to a non-HDL-C goal of <100 mg/dL (LDL-C of <70 mg/dL) is considered a therapeutic option. Performed By: #### 1 0231, 7600 #### [facility] [address], [address] [place] [address] [facility] Nurse: Nicolas Sumner MD Triglyceride [Mass/Vol] 81 mg/dL Normal <150 [facility] Comment on above: Performed By: #### 1 0231, 7600 #### [facility] [address], [address] [place] [address] [facility] Nurse: Nicolas Sumner MD No Panel Informationon 07-06 235 mg/dL Abnormal [facility] 80 mg/dL Normal [facility] 81 mg/dL Normal [facility] 137 Abnormal [facility] 2.9 Normal [employer] [facility] 155 Abnormal [facility] 87 mg/dL Normal 65 - 99 mg/dL [facility] 18 mg/dL Normal 7 - 25 mg/dL [employer] [facility] 0.62 mg/dL Normal 0.50 - 1.05 mg/dL [facility] 101 Normal [employer] SEE NOTE: Normal 6 - 22 [facility] 142 mmol/L Normal 135 - 146 mmol/L [facility] 4.3 mmol/L Normal 3.5 - 5.3 mmol/L [employer] [facility] 106 mmol/L Normal 98 - 110 mmol/L [facility] 29 mmol/L Normal 20 - 32 mmol/L [employer] [facility] 8.8 mg/dL Normal 8.6 - 10.4 mg/dL [employer] [facility] 5.6 g/dL Abnormal 6.1 - 8.1 g/dL [facility] [employer] 3.8 g/dL Normal 3.6 - 5.1 g/dL [facility] 1.8 Abnormal 1.9 - 3.7 [facility] 2.1 Normal 1.0 - 2.5 [employer] 0.6 mg/dL Normal 0.2 - 1.2 mg/dL [facility] [employer] 40 U/L Normal 37 - 153 U/L [facility] 22 U/L Normal 10 - 35 U/L [facility] [employer] 30 U/L Abnormal 6 - 29 U/L [facility] [employer] Orthopedic Visit Reporton Orthopedic Visit Report [facility] [address] [place] [address] OFFICE VISIT Date of Service: 06/11/24 MR#: [id number] Acct: [id number] Name: CHLOE CHOUDHARY Rep #: [id number] : 1960 Provider: Dr. Dionicio harris MD Age/Sex: 64/F Location: [facility] [place] Status: Signed with Addenda ADDENDUM by REE Root on 06/11/24 at 0844 Office Procedure Documentation entered by Sarkis Root MA 06/11/24 08:44: Ortho Injections Injections Yes Subacromial Injection Right Is this a patient provided medication?: No Details: Obtained consent for injection. Under sterile conditions, injected the patients right shoulder with 2cc Kenalog, 4cc Bupivacaine. The patient tolerated the injection well without any noted complication. Patient should call our office if redness develops, pain worsens or if they have any concerns. Office Meds Kenalog 40 mg/mL suspension for injection Performing Provider: Dionicio Carey MD Performing Location: [facility] Administered by: Dionicio Carey MD on 06/11/24 08:42 Dose Route Admin Location Dispensed Lot Number Expiration Date NDC Man ufacturer 40 mg intra-articular Right shoulder 1 mL [id number] 06/21/25 8523-1791-93 [facility] Date cc: * Signed Intake Vital Signs 05/17/24 08:14 06/11/24 08:22 Height 5 ft 5 in 5 ft 5 in Weight: 209 lb 8 oz 210 lb 6 oz BMI 34.8 34.9 BP 117/70 Respiration 18 Pulse 51 L Pulse Oximetry (%) 98 Oxygen Delivery Method room air Intake Visit Reasons: RIGHT SHOULDER Chief Complaint: Right Shoulder Pain Accompanied by: Self Is patient in pain?: Yes Pain scale (1-10): 8 Allergies moxifloxacin HCl (From Avelox) Allergy (Verified 06/11/24 08:23) Swelling morphine Adverse Reaction (Severe, Verified 06/11/24 08:23) Nausea/VOMITTING Medications ???Medication ???Instructions ???Recorded ???Confirmed ???Type metoprolol succinate 50 mg 50 mg PO DAILY #90 tabs 02/28/19 0 06/11/24 Rx tablet,extended release 24 hr (Toprol XL) ropinirole 1 mg tablet 1 mg PO QHS 09/16/23 06/11/24 Hist ory alprazolam 0.5 mg tablet (Xanax) 0.5 mg PO TID PRN anxiety 01/23/24 06/11/24 History tramadol 50 mg tablet 50 mg PO QDAY PRN pain 01/25/24 History famotidine 40 mg tablet (Pepcid) 40 mg PO QDAY #90 tabs 01/31/24 Rx budesonide 3 mg 9 mg (3 x 3 mg) PO QAM microscopic 05/17/24 06/11/24 Rx capsule,delayed,extended release colitis #315 ea [facility] Medical History Right shoulder pain Colicky epigastric pain Chronic diarrhea Inflammatory polyarthropathy IBS (irritable bowel syndrome) GERD (gastroesophageal reflux disease) Hypertension Vitamin D deficiency Vitamin B12 deficiency Anxiety Wears dentures Post-menopausal Arthritis Easy bruising Restless legs History of IBS Non-smoker History of pain when walking History of echocardiogram Cardiology follow-up encounter Contusion of right knee Contusion of left knee Strain of left knee Essential (primary) hypertension BMI 39.0-39.9,adult MABEL (obstructive sleep apnea) Hypersomnia Acute bronchitis Insomnia Hyperlipidemia Surgical History Hx of surgical procedure History of esophagogastroduodenoscopy (EGD) Hx of colonoscopy Hx of shoulder surgery Hx of shoulder surgery History of left heart catheterization (05/25/10) History of tonsillectomy H/O: hysterectomy History of cholecystectomy Family History Mother , metastasis to brain Lung cancer Arthritis Father CAD (coronary artery disease) Diabetes Myocardial infarction Grandfather CAD (coronary artery disease) Asthma Grandfather CAD (coronary artery disease) Sister Cystic fibrosis Social History Smoking Status: Never smoker alcohol intake: current alcohol intake frequency: other details: occasional substance use type: does not use caffeine: Yes Type: carbonated beverages HPI RIGHT SHOULDER Details: This documentation accurately reflects the service provided and the decisions made by me, Dr. Dionicio Carey MD 06/11/24 0816. Part of today???s visit was documented by [ ], acting as scribe. CHLOE CHOUDHARY is a 64 year old F here today for right shoulder pain. Patient fell down 12 steps. This happened about 10 days ago. The patient had a rotator cuff repair on the right side about 10 years ago. Has been doing well no pain good strength until then. The patient had a fall the patient is dwqv-sdmf-qizsmtzt. Having little bit of p (more content not included)... Normal [facility] Shoulder min 2 Viewson 06-04 Shoulder min 2 Views [facility] Imaging Services [address] [place] [place], [place] [address] Shoulder min 2 Views MR#: [id number] Acct: [id number] Name: CHLOE CHOUDHARY Rep #: [id number] : 1960 F 64 From: Tanja Pat PCP: SUSHIL Crabtree Status: REG CLI Study: Shoulder min 2 Views Date of Exam: 06/04/24 Exam# [id number] Ordering Dr: Boogie Millard MD PROCEDURE: SHOULDER MIN 2 VIEWS 06/04/2024 REASON FOR EXAM: SHOULDER PAIN Patient fell 12 days ago. Bruising right shoulder. TECHNIQUE: Four views of the right shoulder COMPARISON: None FINDINGS: Four views of the right shoulder demonstrate the acromioclavicular joint to be widened measuring approximately 12 mm. The remaining joint spaces are well preserved. Lucencies in the right humeral head are noted, near the insertion site of the rotator cuff tendon. These are most compatible with benign bony cysts. A radiopaque anchoring device is project over the humeral head. There are no fractures. The visualized right ribs are clear. The visualized right lung is clear. RAD/Shoulder min 2 Views IMPRESSION: There is widening of the right acromioclavicular joint. Reading Location: [id number] CC: Dr. 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 Required: No Is patient in pain?: No Allergies moxifloxacin HCl (From Avelox) Allergy (Verified 03/15/24 11:09) Swelling morphine Adverse Reaction (Severe, Verified 03/15/24 11:09) Nausea/VOMITTING Medications ???Medication ???Instructions ???Recorded ???Confirmed ???Type metoprolol succinate 50 mg 50 mg PO DAILY #90 tabs 02/28/19 0 05/17/24 Rx tablet,extended release 24 hr (Toprol XL) ropinirole 1 mg tablet 1 mg PO QHS 09/16/23 05/17/24 Hist ory alprazolam 0.5 mg tablet (Xanax) 0.5 mg PO TID PRN anxiety 01/23/24 05/17/24 History tramadol 50 mg tablet 50 mg PO QDAY PRN pain 01/25/24 History famotidine 40 mg tablet (Pepcid) 40 mg PO QDAY #90 tabs 01/31/24 Rx budesonide 3 mg 9 mg (3 x 3 mg) PO QAM microscopic 05/17/24 05/17/24 Rx capsule,delayed,extended release colitis #315 ea ondansetron HCl 4 mg tablet 4 mg PO Q8H PRN 05/17/24 05/17/24 History PFSH Medical History Colicky epigastric pain Chronic diarrhea Inflammatory polyarthropathy IBS (irritable bowel syndrome) GERD (gastroesophageal reflux disease) Hypertension Vitamin D deficiency Vitamin B12 deficiency Anxiety Wears dentures Post-menopausal Arthritis Easy bruising Restless legs History of IBS Non-smoker History of pain when walking History of echocardiogram Cardiology follow-up encounter Contusion of right knee Contusion of left knee Strain of left knee Essential (primary) hypertension BMI 39.0-39.9,adult MABEL (obstructive sleep apnea) Hypersomnia Acute bronchitis Insomnia Hyperlipidemia Surgical History Hx of surgical procedure History of esophagogastroduodenoscopy (EGD) Hx of colonoscopy Hx of shoulder surgery Hx of shoulder surgery History of left heart catheterization (05/25/10) History of tonsillectomy H/O: hysterectomy History of cholecystectomy Family History Mother , metastasis to brain Lung cancer Arthritis Father CAD (coronary artery disease) Diabetes Myocardial infarction Grandfather CAD (coronary artery disease) Asthma Grandfather CAD (coronary artery disease) Sister Cystic fibrosis Social History Smoking Status: Never smoker alcohol intake: current alcohol intake frequency: other details: occasional substance use type: does not use caffeine: Yes Type: carbonated beverages HPI HPI Chief Complaint: diarrhea Details: CHLOE CHOUDHARY, is a 64 F who presents to the office today for OV 03/15/2024 64y/o female presents for follow-up of lymphocytic colitis and nausea. In terms of LC she reports a resolution in diarrhea and fecal incontinence with Budesonide. She also reports resolution in nausea and upper abdominal pain with daily famotidine. She is now having 0-6 formed stools daily. She reports two days after starting Budesonide she developed sciatic nerve pain, with left lower back pain that radiates down her left leg. She reports pain has been severe enough that she has had to use a walker for ambulation at times. I believe starting oral budesonide and sudden onset of sciatic nerve pain is coincidental. Budesonide is gut specific with little systemic absorption. I have recommended she follow-up with PCP and avoid use of non-steroidal medications. She will follow-up in three months, sooner for symptoms. Patient Instructions: Continue Budesonide taper Continue Famotidine F/U with PCP for back and leg pain May use Imodium as needed Avoid use of non-steroidal medications 05/10/2024 patient contacted office with complaints of increase in diarrhea with decreasing dose of Budesonide. She increased to 6mg daily and presents today for follow-up. - reports dropping dose to 6mg she started having more loose stools - dropping dose to 3mg daily she had all loose stools, 6+ a day - was having accidents - denies any pain - she reports for the past 18 months it has been mostly diarrhea - can remember back >5 years ago she would have formed stools but would have inte (more content not included)... Normal [facility] Magnetic resonance imaging r eportOrdered By: Gus Esparza on 04-18-2024 Study report [facility] Imaging Services [address] [place] [address] Spine Lumbar (Routine) MR#: [id number] Acct: [id number] Name: CHLOE CHOUDHARY Rep #: [id number] : 1960 F 64 From: Nat Esparza DO PCP: SUSHIL Crabtree Status: REG CLI Study:Spine Lumbar (Routine) Date of Exam: 04/18/24 Exam# [id number] Ordering Dr: Boogie Millard MD PROCEDURE: Noncontrast MRI of the lumbar spine. REASON FOR EXAM: Low back and left leg pain. TECHNIQUE: Multiplanar, multisequence MRI images of the lumbar spine were obtained without IV contrast. COMPARISON: None. FINDINGS: The study assumes a presence of 5 lumbar type, qsp-alk-gkzslga vertebral bodies. 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 The conus terminates at L1. The included lower spinal cord and lower thoracic intervertebral disc spaces are unremarkable. The lumbar vertebral bodies are normal in height, alignment, and marrow signal. No acute fracture, focal subluxation, or abnormal marrow replacement process. The included portions of the sacrum and SIjoints are intact. Included retroperitoneal and paraspinal soft tissues show no specific abnormality. L1-2: Mild disc bulge, without focal disc herniation or significant central spinal canal narrowing. Mild bilateral neural foraminal narrowing, greatest on the right. Mild degenerative facet changes. L2-3: Mild lobulated disc bulge, without focal disc herniation or significant central spinal canal narrowing. Moderate bilateral neural foraminal narrowing, greatest on the right. Mild degenerative facet changes. L3-4: Mild disc bulge flattens the ventral thecal sac, without focal disc herniation or significant central spinal canal narrowing. Moderate bilateral neural foraminal narrowing and moderate degenerative facet changes. L4-5: Mild asymmetric left disc bulge causes a mild degree of central spinal canal narrowing. No focal disc herniation. Mild right and severe left neural foraminal narrowing. Moderate degenerative facet changes are demonstrated. L5-S1: Mild disc bulge flattens the ventral thecal sac, without focal disc herniation or significant central spinal canal narrowing. Moderate right and severe left neural foraminal narrowing. Moderatedegenerative facet changes. MRI/Spine Lumbar (Routine) IMPRESSION: No acute bony abnormality of the lumbar spine. Mild multilevel degenerative disc and facet disease in the lumbar spine as described level by level above. A few mild disc bulges as above, without large focal disc herniation or significant central spinal canal narrowing. Multilevel neural foraminal narrowing, to a severe degree on the left at the L4-5 and L5-S1 levels. Reading Location[facility] CC: Dr. Boogie Millard MD; SUSHIL Crabtree ~ Lens Mold Setter: Signed [facility] Spine Lumbar (Routine)on Spine Lumbar (Routine) [facility] Imaging Services [address] [place] [address] Spine Lumbar (Routine) MR#: [id number] Acct: [id number] Name: CHLOE CHOUDHARY Rep #: [id number] : 1960 F 64 From: Gus Riley i DO PCP: SUSHIL Crabtree Status: REG CLI Study: Spine Lumbar (Routine) Date of Exam: 04/18/24 Exam# [id number] Ordering Dr: Boogie Millard MD PROCEDURE: Noncontrast MRI of the lumbar spine. REASON FOR EXAM: Low back and left leg pain. TECHNIQUE: Multiplanar, multisequence MRI images of the lumbar spine were obtained without IV contrast. COMPARISON: None. FINDINGS: The study assumes a presence of 5 lumbar type, afb-szy-mbtzeqs vertebral bodies. 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 The conus terminates at L1. The included lower spinal cord and lower thoracic intervertebral disc spaces are unremarkable. The lumbar vertebral bodies are normal in height, alignment, and marrow signal. No acute fracture, focal subluxation, or abnormal marrow replacement process. The included portions of the sacrum and SI joints are intact. Included retroperitoneal and paraspinal soft tissues show no specific abnormality. L1-2: Mild disc bulge, without focal disc herniation or significant central spinal canal narrowing. Mild bilateral neural foraminal narrowing, greatest on the right. Mild degenerative facet changes. L2-3: Mild lobulated disc bulge, without focal disc herniation or significant central spinal canal narrowing. Moderate bilateral neural foraminal narrowing, greatest on the right. Mild degenerative facet changes. L3-4: Mild disc bulge flattens the ventral thecal sac, without focal disc herniation or significant central spinal canal narrowing. Moderate bilateral neural foraminal narrowing and moderate degenerative facet changes. L4-5: Mild asymmetric left disc bulge causes a mild degree of central spinal canal narrowing. No focal disc herniation. Mild right and severe left neural foraminal narrowing. Moderate degenerative facet changes are demonstrated. L5-S1: Mild disc bulge flattens the ventral thecal sac, without focal disc herniation or significant central spinal canal narrowing. Moderate right and severe left neural foraminal narrowing. Moderate degenerative facet changes. MRI/Spine Lumbar (Routine) IMPRESSION: No acute bony abnormality of the lumbar spine. Mild multilevel degenerative disc and facet disease in the lumbar spine as described level by level above. A few mild disc bulges as above, without large focal disc herniation or significant central spinal canal narrowing. Multilevel neural foraminal narrowing, to a severe degree on the left at the L4-5 and L5-S1 levels. Reading Location: [facility] CC: Dr. Booige Millard MD; SUSHIL Crabtree Lens Mold Setter: Signed Normal [facility] Inital Evaluation (1) - PTon 03-28-2024 Inital Evaluation (1) - PT [facility] Physical Therapy [facility] [address] [place] [address]. [address] [place] [address] / REHABILITATION SERVICES INITIAL EVALUATION MR#: [id number] Acct: [id number] Name: CHLOE CHOUDHARY Rep #: [id number] : 1960 64 From: Candida Stern PT Cert. MDT Referring Dr.: Dr. Boogie Millard MD Status: REG R Insurance: [facility] S[employer]Y INSURANCE Patient's Visit Information Visit Information Visit Information: CHLOE CHOUDHARY is a 64 year old F referred to Physical Therapy by Dr. Boogie Millard MD with a diagnosis of BACK AND LEG PAIN. Date of Evaluation: 03/28/24 Physical Therapist: Candida Stern PT, Cert MDT Visit Plan Frequency: 2-3x /Week Duration: 4-6 Weeks Plan: AQUATIC THERAPY FOR PAIN RELIEF, POSTURE CORRECTION/STRENGTHENING, INSTRUCTION IN APPROPRIATE BODY MECHANICS AND ACTIVITY MODIFICATIONS. DLS STARTING WITH A NEUTRAL SPINE PROGRESSING ROM TOLERATED. CHUCK LE ROM, STRETCHING AND STRENGTHENING. HEP INSTRUCTION. Subjective Subjective: Work/Leisure: RETIRED. . 3 YEAR OLD ADOPTED DAUGHTER Disability: NO Present symptoms: CENTRAL LOW BACK PAIN, L THIGH AND L LEG PAIN TO ANKLE. PATIENT DENIES L LE NUMBNESS AND TINGLING. DENIES R LE SX'S. 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 Worse: TWISTING, SITTING IN REGUALAR CHAIRS, STANDING AT ALL WHEN IN FLARE UPS, WALKING TOO LONG AND LIFTING WRONG Better: NOTHING WHEN IT IS FLARED UP NOTHING BUT IN GENERAL BETTER ON THE MOVE, SOME TEMPORARY RELIEF IN ZERO GRAVITY CHAIR 30 TO 60 MIN. SOMETIMES TRAMADOL TAKES THE EDGE OFF Disturbed sleep: YES Previous history/Previous treatment: H/O SCIATICA 20 TO 25 YEARS AGO AND REMEMBERS GETTING A SHOT FOR THE PAIN. 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 EPISODES OF BACK PAIN OFF AND ON THROUGH THE YEARS BUT STATES I DON'T LET IT STOP ME. CHIROPRACTIC OFF AND ON OVER THE YEARS - 10 TO 12 VISITS IN 2022. NO BACK SURGERY. NO SIGNIFICANT AMOUNT OF PHYSICAL THERAPY. Treatment this episode: ONE MASSAGE SESSION WITH SOME BENEFIT. ONE CONSULT WITH HER DUAL RATE SUPERVISOR AND ONE CONSULT WITH DR. MILLARD. NO CHIROPRACTIC YET BUT PLANS TO CONSULT ONE. Coughing/sneezing/straining : POSITIVE AT TIMES FOR INCREASING PAIN. Gait: L LE DRAGS NOW AND MORE DIFFICULTY ON STEPS WITH LLE. Bowel or Bladder Dysfunction: NOT INCONTINENT. NO CHANGES WITH THIS BACK FLARE UP. ON MEDICATION FOR BOWELS - LYMPHOCYTIC COLITIS. Accidents: NO Unexplained weight loss: NO Imagin03/15/24 LUMBAR X-RAYS: FINDINGS: VERTEBRAE: Preserved vertebral body height. No fracture. No spondylolisthesis. Preservation of the normal lumbar lordosis. Moderate multilevel facet arthropathy. DISCS: Moderate multilevel degenerative disc disease and spondylosis. No critical stenosis. INCLUDED ABDOMEN: Included bowel gas pattern is non-obstructive. RAD/L/S Spine Min 4 Views IMPRESSION: No evidence of lumbar spinal fracture or spondylolisthesis. Moderate multilevel degenerative disc disease and spondylosis. 03/15/24: X-RAY - LEFT XR Hip Unilateral with Pelvis when performed; 2-3 Views: IMPRESSION: No acute radiographic abnormalitiy Objective Objective: Sitting/Standing Posture: ANTERIOR PELVIC TILT. INCREASED LORDOSIS. NO RELEVANT LATERAL LUMBAR SHIFT. Active Correction of posture: ABLE TO PARTIALLY CORRECT. INCREASES LBP Other Observations: THIS PATIENT AMBULATES INDEP'LY INTO PT WITHOUT ANY AD'S WITH A TRENDELENBURG TYPE GAIT PATTURN LURCHING FROM SIDE TO SIDE. NO LOB. DECREASED CADANCE. SHE ALSO HAS A MILD LIMP ON THE LLE. Sensory deficit: CHUCK LE LIGHT TOUCH SENSATION IS GROSSLY INTACT AND SYMMETRICAL ROM deficit: CHUCK HIP FLEXOR AND CALF TIGHTNESS. Motor deficit: R HIP 4/5, KNEE 5/5, ANKLE 5/5. L HIP 4-/5, KNEE EXT 4/5, KNEE FLEX 5/5, ANKLE 5/5. Reflexes: CHUCK QUADS AND ACHILLES 2+ Dural Signs: POSITIVE LLE Lumbar mvmt loss: flex - MIN - NE ext - WAYNE - INCREASES LBP - NW R SG - MOD - NE L SG - MOD - INCREASES LBP - NW Core strength: POOR Palpation: NO ACUTE LUMBAR, SACRAL OR HIP TENDERNESS STEPS: PATIENT ABLE TO GO UP AND DOWN STEPS RECIPROCALLY WITH 1 TO 2 HR'S WITH SIGNIFICANT DEPENDENCE ON HR'S ESPECIALLY ASCENDING STEPS AND WHEN LEADING UP WITH LLE AND DOWN WITH R LE. WIDE BASE OF SUPPORT ON STEPS. Balance/Special Test Scores Oswestry Low Back Score: 9 Goals Goal 1:: DECREASE C/O BACK AND LEG PAIN BY AT LEAST 50% TO EASE ADL'S. Goal Time Frame: 4-6 Weeks Goal 2:: IMPROVE SITTING, STANDING, WALKIN (more content not included)... Normal [facility] Absolute neutrophil countOrd ered By: Nikkie Osei on 03-26-2024 Neutrophils (Bld) [#/Vol] 3.8 10*3/uL 2.0-7.7 [facility] Albumin to globulin ratioOrd ered By: Nikkie Osei on 03-26-2024 Albumin/Globulin [Mass ratio] 1.2 {ratio} 0.9-2.4 [facility] Basophil percentageOrdered B y: Nikkie Osei on 03-26-2024 Basophils/100 WBC (Bld) 0.6 % 0-1 [facility] Bilirubin, totalOrdered By: Nikkie Osei on 03-26-2024 Bilirubin [Mass/Vol] 0.50 mg/dL 0.20-1.00 [facility] Comment on above: For patients on eltr ombopag therapy, use of Dimension [place] TBIL is not recommended. Blood urea nitrogen (BUN)/cr eatinine ratioOrdered By: Nikkie Osei on 03-26-2024 Urea nitrogen/Creatinine [Mass ratio] 26.1 mg/mg High 10-20 [facility] CBC W/Diff, Automatedon Absolute Lymph 1.64 X10 3/uL Normal 0.83-4.51 [facility] Comment on above: Performed By: #### L 500.4050, L100.0100 #### [facility] [address] [place], [address] Absolute Neut 3.8 X10 3/uL Normal 2.0-7.7 [facility] Comment on above: Performed By: #### L 500.4050, L100.0100 #### [facility] [address] [facility] [place], [address] Basophils/100 WBC (Bld) 0.6 % Normal 0-1 [facility] Comment on above: Performed By: #### L 500.4050, L100.0100 #### [facility] [address] [place], [address] Eosinophils/100 WBC (Bld) 1.0 % Normal 0-5 [facility] Comment on above: Performed By: #### L 500.4050, L100.0100 #### [facility] [address] [place], [address] Erythrocyte distribution width (RBC) [Ratio] 13.6 % Normal 11.6-14.6 [facility] Comment on above: Performed By: #### L 500.4050, L100.0100 #### [facility] [address] [place], [address] Hematocrit (Bld) [Volume fraction] 46.0 % Normal 37-47 [facility] Comment on above: Performed By: #### L 500.4050, L100.0100 #### [facility] [address] [place], [address] Hemoglobin (Bld) [Mass/Vol] 15.4 g/dL High 12.0-15.0 [facility] Comment on above: Performed By: #### L 500.4050, L100.0100 #### [facility] [address] [place], [address] IG% 0.300 Normal 0.0-0.9 [facility] Comment on above: Result Comment: IG% - Immature Granulocytes (promyelocytes, myelocytes and metamyelocytes) > 1% indicates that a LEFT SHIFT is Present. Performed By: #### L 500.4050, L100.0100 #### [facility] [address] [place], [address] Lymphocytes/100 WBC (Bld) 26.2 % Normal 19-41 [facility] Comment on above: Performed By: #### L 500.4050, L100.0100 #### [facility] [address] [place], [address] MCH (RBC) [Entitic mass] 28.2 pg Normal 27.0-32.0 [facility] Comment on above: Performed By: #### L 500.4050, L100.0100 #### [facility] [address] [place], [address] MCHC (RBC) [Mass/Vol] 33.5 g/dL Normal 32-36 [facility] Comment on above: Performed By: #### L 500.4050, L100.0100 #### [facility] [address] [place], [address] MCV (RBC) [Entitic vol] 84.1 fL Normal 81-99 [facility] Comment on above: Performed By: #### L 500.4050, L100.0100 #### [facility] [address] [place], [address] Monocytes/100 WBC (Bld) 11.8 % High 0-10 [facility] Comment on above: Performed By: #### L 500.4050, L100.0100 #### [facility] [address] [place], [address] Neutrophils/100 WBC (Bld) 60.1 % Normal 47-70 [facility] Comment on above: Performed By: #### L 500.4050, L100.0100 #### [facility] [address] [place], [address] Nucleated RBC (Bld) [#/Vol] 0 10*3/uL Normal 0-5 [facility] Comment on above: Performed By: #### L 500.4050, L100.0100 #### [facility] [address] [place], [address] Platelet mean volume (Bld) [Entitic vol] 9.1 fL Normal 6.2-12.0 [facility] Comment on above: Performed By: #### L 500.4050, L100.0100 #### [facility] [address] [place], [address] Platelets (Bld) [#/Vol] 193 10*3/uL Normal 150-450 [facility] Comment on above: Performed By: #### L 500.4050, L100.0100 #### [facility] [address] [place], [address] RBC (Bld) [#/Vol] 5.47 10*6/uL High 4.2-5.4 [facility] Comment on above: Performed By: #### L 500.4050, L100.0100 #### [facility] [address] [place], [address] RDW SD 41.9 fl Normal 35.1-43.9 [facility] Comment on above: Performed By: #### L 500.4050, L100.0100 #### [facility] [address] [place], [address] WBC (Bld) [#/Vol] 6.3 10*3/uL Normal 4.4-11.0 [facility] Comment on above: Performed By: #### L 500.4050, L100.0100 #### [facility] [address] [place], [address] Carbon dioxide measurementOr dered By: Nikkie Osei on 03-26-2024 CO2 [Moles/Vol] 31.0 mmol/L 21.0-32.0 [facility] Chloride measurementOrdered By: Nikkie Osei on 03-26-2024 Chloride [Moles/Vol] 105 mmol/L 98-107 [facility] Comprehensive Metabolic Prof ilon 03-26-2024 Albumin [Mass/Vol] 3.7 g/dL Normal 3.2-5.0 [facility] Comment on above: Performed By: #### L 500.4050, L100.0100 #### [facility] [address] [place], [address] Albumin/Globulin [Mass ratio] 1.2 {ratio} Normal 0.9-2.4 [facility] Comment on above: Performed By: #### L 500.4050, L100.0100 #### [facility] [address] [place], [address] ALK P 67 U/L Normal 45-117 [facility] Comment on above: Performed By: #### L 500.4050, L100.0100 #### [facility] [address] [place], [address] ALT [Catalytic activity/Vol] 29 U/L Normal 13-56 [facility] Comment on above: Performed By: #### L 500.4050, L100.0100 #### [facility] [address] [place], [address] AST [Catalytic activity/Vol] 17 U/L Normal 15-37 [facility] Comment on above: Performed By: #### L 500.4050, L100.0100 #### [facility] [address] [place], [address] Bilirubin [Mass/Vol] 0.50 mg/dL Normal 0.20-1.00 [facility] Comment on above: Result Comment: For patients on eltrombopag therapy, use of Dimension [place] TBIL is not recommended. Performed By: #### L 500.4050, L100.0100 #### [facility] [address] [place], [address] BUN/CRE 26.1 RATIO High 10-20 [facility] Comment on above: Performed By: #### L 500.4050, L100.0100 #### [facility] [address] [place], [address] CA,Total 9.2 mg/dL Normal 8.5-10.1 [facility] Comment on above: Performed By: #### L 500.4050, L100.0100 #### [facility] [address] [place], [address] Chloride [Moles/Vol] 105 mmol/L Normal 98-107 [facility] Comment on above: Performed By: #### L 500.4050, L100.0100 #### [facility] [address] [place], [address] CO2 [Moles/Vol] 31.0 mmol/L Normal 21.0-32.0 [facility] Comment on above: Performed By: #### L 500.4050, L100.0100 #### [facility] [address] [place], [address] Creatinine [Mass/Vol] 0.69 mg/dL Normal 0.55-1.02 [facility] Comment on above: Result Comment: The validity of the calculated GFR GFRAA in patients over 70 years has not been determined. Clinical correlation is essential. Performed By: #### L 500.4050, L100.0100 #### [facility] [address] [place], [address] EST GFR - AA 111 mL/min Normal >60 [facility] Comment on above: Result Comment: Afri can Nepalese GFR Calc Performed By: #### L 500.4050, L100.0100 #### [facility] [address] [place], [address] GAP 5 Normal 5-15 [facility] Comment on above: Performed By: #### L 500.4050, L100.0100 #### [facility] [address] [place], [address] GFR/1.73 sq M.predicted among non-blacks MDRD (S/P/Bld) [Vol rate/Area] 92 mL/min/{1.73_m2} Normal >60 [facility] Comment on above: Result Comment: Non- GFR Calc Performed By: #### L 500.4050, L100.0100 #### [facility] [address] [place], [address] Globulin (S) [Mass/Vol] 3.1 g/dL Normal 2.2-4.2 [facility] Comment on above: Performed By: #### L 500.4050, L100.0100 #### [facility] [address] [place], [address] Glucose [Mass/Vol] 74 mg/dL Normal 74-106 [facility] Comment on above: Performed By: #### L 500.4050, L100.0100 #### [facility] [address] [place], [address] Potassium [Moles/Vol] 3.8 mmol/L Normal 3.5-5.1 [facility] Comment on above: Performed By: #### L 500.4050, L100.0100 #### [facility] [address] [place], [address] Sodium [Moles/Vol] 141 mmol/L Normal 136-145 [facility] Comment on above: Performed By: #### L 500.4050, L100.0100 #### [facility] [address] [place], [address] T PROT 6.8 g/dL Normal 6.4-8.2 [facility] Comment on above: Performed By: #### L 500.4050, L100.0100 #### [facility] [address] [place], [address] Urea nitrogen [Mass/Vol] 18 mg/dL Normal 7-18 [facility] Comment on above: Performed By: #### L 500.4050, L100.0100 #### [facility] [address] [place], [address] Eosinophil percentageOrdered By: Nikkie Osei on 03-26-2024 Eosinophils/100 WBC (Bld) 1.0 % 0-5 [facility] Erythrocyte distribution wid th ratioOrdered By: Nikkie Osei on 03-26-2024 Erythrocyte distribution width (RBC) [Ratio] 13.6 % 11.6-14.6 [facility] Erythrocyte distribution wid th standard deviationOrdered By: Nikkie Osei on 03-26-2024 Erythrocyte distribution width (RBC) [Entitic vol] 41.9 fL 35.1-43.9 [facility] Estimated glomerular filtrat ion rate (GFR) AmericanOrdered By: Nikkie Osei on 03-26-2024 Estimated GFR (MDRD) Amer 111 mL/min >60 [facility] Comment on above: GFR Calc Glomerular filtration rate ( GFR) estimationOrdered By: Nikkie Osei on 03-26-2024 Estimated GFR (MDRD) Non-Af Amer 92 mL/min >60 [facility] Comment on above: Non- GFR Calc Glucose measurementOrdered B y: Nikkie Osei on 03-26-2024 Glucose [Mass/Vol] 74 mg/dL 74-106 [facility] Hematocrit Auto (Bld) [Volum e fraction]Ordered By: Nikkie Osei on 03-26-2024 Hematocrit (Bld) [Volume fraction] 46.0 % 37-47 [facility] Hemoglobin measurementOrdere d By: Nikkie Osei on 03-26-2024 Hemoglobin (Bld) [Mass/Vol] 15.4 g/dL High 12.0-15.0 [facility] Immature granulocytes/100 WB C Auto (Bld)Ordered By: Nikkie Osei on 03-26-2024 Immature granulocytes/100 WBC (Bld) 0.300 % 0.0-0.9 [facility] Comment on above: IG% - Immature Granu locytes (promyelocytes, myelocytes and metamyelocytes) > 1% indicates that a LEFT SHIFT is Present. Laboratory - Chemistry and C hemistry - challengeOrdered By: Nikkie Osei on 03-26-2024 AST [Catalytic activity/Vol] 17 U/L 15-37 [facility] Lymphocytes Auto (Unsp spec) [#/Vol]Ordered By: Nikkie Osei on 03-26-2024 Lymphocytes (Bld) [#/Vol] 1.64 10*3/uL 0.83-4.51 [facility] Lymphocytes/100 WBC Auto (Un sp spec)Ordered By: Nikkie Osei on 03-26-2024 Lymphocytes/100 WBC (Bld) 26.2 % 19-41 [facility] MCV (mean corpuscular volume ) determinationOrdered By: Nikkie Osei on 03-26-2024 MCV (RBC) [Entitic vol] 84.1 fL 81-99 [facility] Mean corpuscular hemoglobin (MCH) determinationOrdered By: Nikkie Osei on 03-26-2024 MCH (RBC) [Entitic mass] 28.2 pg 27.0-32.0 [facility] Mean corpuscular hemoglobin concentration (MCHC) determinationOrdered By: Nikkie Osei on 03-26-2024 MCHC (RBC) [Mass/Vol] 33.5 g/dL 32-36 [facility] Mean platelet volume determi nationOrdered By: Nikkie Osei on 03-26-2024 Platelet mean volume (Bld) [Entitic vol] 9.1 fL 6.2-12.0 [facility] Monocyte percentageOrdered B y: Nikkie Osei on 03-26-2024 Monocytes/100 WBC (Bld) 11.8 % High 0-10 [facility] Neutrophil percentageOrdered By: Nikkie Osei on 03-26-2024 Neutrophils/100 WBC (Bld) 60.1 % 47-70 [facility] Nucleated red blood cell per centageOrdered By: Nikkie Osei on 03-26-2024 Nucleated RBC/100 WBC (Bld) [Ratio] 0 % 0-5 [facility] Platelet countOrdered By: Sushil Osei on 03-26-2024 Platelets (Bld) [#/Vol] 193 10*3/uL 150-450 [facility] Potassium measurementOrdered By: Nikkie Osei on 03-26-2024 Potassium [Moles/Vol] 3.8 mmol/L 3.5-5.1 [facility] RBC Auto (Bld) [#/Vol]Ordere d By: Nikkie Osei on 03-26-2024 RBC (Bld) [#/Vol] 5.47 10*6/uL High 4.2-5.4 [facility] Serum anion gap measurementO rdered By: Nikkie Osei on 03-26-2024 Anion gap [Moles/Vol] 5 mmol/L 5-15 [facility] Serum globulin measurementOr dered By: Nikkie Osei on 03-26-2024 Globulin (S) [Mass/Vol] 3.1 g/dL 2.2-4.2 [facility] Serum or plasma alanine bonds otransferase (ALT) measurementOrdered By: Nikkie Osei on 03-26-2024 ALT [Catalytic activity/Vol] 29 U/L 13-56 [facility] Serum or plasma albumin larisa urement (mass/volume)Ordered By: Nikkie Osei on 03-26-2024 Albumin [Mass/Vol] 3.7 g/dL 3.2-5.0 [facility] Serum or plasma alkaline michael sphatase measurementOrdered By: Nikkie Osei on 03-26-2024 ALP [Catalytic activity/Vol] 67 U/L 45-117 [facility] Serum or plasma calcium larisa urement (mass/volume)Ordered By: Nikkie Osei on 03-26-2024 Calcium [Mass/Vol] 9.2 mg/dL 8.5-10.1 [facility] Serum or plasma creatinine m easurement (mass/volume)Ordered By: Nikkie Osei on 03-26-2024 Creatinine [Mass/Vol] 0.69 mg/dL 0.55-1.02 [facility] Comment on above: The validity of the calculated GFR & GFRAA in patients over 70 years has not been determined. Clinical correlation is essential. Serum or plasma urea nitroge n measurement (mass/volume)Ordered By: Nikkie Osei on 03-26-2024 Urea nitrogen [Mass/Vol] 18 mg/dL 7-18 [facility] Sodium levelOrdered By: Eliseo Osei on 03-26-2024 Sodium [Moles/Vol] 141 mmol/L 136-145 [facility] Total proteinOrdered By: [place] Osei on 03-26-2024 Protein [Mass/Vol] 6.8 g/dL 6.4-8.2 [facility] White blood cell (WBC) count Ordered By: Nikkie Osei on 03-26-2024 WBC (Bld) [#/Vol] 6.3 10*3/uL 4.4-11.0 [facility] Gastroenterology Visit Repor ton 03-15-2024 Gastroenterology Visit Report [facility] [address] [place] [address] OFFICE VISIT Date of Service: 03/15/24 MR#: [id number] Acct: [id number] Name: CHLOE CHOUDHARY Rep #: [id number] : 1960 Provider: GAYATHRI lacy Age/Sex: 64/F Location: [facility] Status: Signed Intake Vital Signs 02/13/24 10:35 03/15/24 11:12 Height 5 ft 5 in 5 ft 5 in Weight: 203 lb 8 oz 206 lb 6 oz BMI 33.8 34.3 BP 130/78 H 159/80 H Respiration 16 18 Pulse 72 56 L Pulse Oximetry (%) 97 99 Oxygen Delivery Method room air room air Intake Visit Reasons: 1 M FU Chief Complaint: diarrhea 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 Required: No Is patient in pain?: No Allergies moxifloxacin HCl (From Avelox) Allergy (Verified 03/15/24 11:09) Swelling morphine Adverse Reaction (Severe, Verified 03/15/24 11:09) Nausea/VOMITTING Medications ???Medication ???Instructions ???Recorded ???Confirmed ???Type metoprolol succinate 50 mg 50 mg PO DAILY #90 tabs 02/28/19 03/15/24 Rx tablet,extended release 24 hr (Toprol XL) ropinirole 1 mg tablet 1 mg PO QHS 09/16/23 03/15/24 History alprazolam 0.5 mg tablet (Xanax) 0.5 mg PO TID PRN anxiety 01/23/24 03/15/24 History tramadol 50 mg tablet 50 mg PO QDAY PRN pain 01/25/24 03/15/24 History budesonide 3 mg 3 mg PO .COMPLEX microscopic 01/31/24 03/15/24 Rx capsule,delayed,extended release colitis #210 ea famotidine 40 mg tablet (Pepcid) 40 mg PO QDAY #90 tabs 01/31/24 03/15/24 Rx ondansetron HCl 4 mg tablet 4 mg PO Q8H #30 tabs 02/13/24 03/15/24 Rx Nurse's Note: Diarrhea has gotten better. Sciatica started two days after she started budesonide. She feels like she is getting her life back and doesn't want to stop taking the budesonide. [facility] Medical History Colicky epigastric pain Chronic diarrhea Inflammatory polyarthropathy IBS (irritable bowel syndrome) GERD (gastroesophageal reflux disease) Hypertension Vitamin D deficiency Vitamin B12 deficiency Anxiety Wears dentures Post-menopausal Arthritis Easy bruising Restless legs History of IBS Non-smoker History of pain when walking History of echocardiogram Cardiology follow-up encounter Contusion of right knee Contusion of left knee Strain of left knee Essential (primary) hypertension BMI 39.0-39.9,adult MABEL (obstructive sleep apnea) Hypersomnia Acute bronchitis Insomnia Hyperlipidemia Surgical History Hx of surgical procedure History of esophagogastroduodenoscopy (EGD) Hx of colonoscopy Hx of shoulder surgery Hx of shoulder surgery History of left heart catheterization (05/25/10) History of tonsillectomy H/O: hysterectomy History of cholecystectomy Family History Mother , metastasis to brain Lung cancer Arthritis Father CAD (coronary artery disease) Diabetes Myocardial infarction Grandfather CAD (coronary artery disease) Asthma Grandfather CAD (coronary artery disease) Sister Cystic fibrosis Social History Smoking Status: Never smoker alcohol intake: current alcohol intake frequency: other details: occasional substance use type: does not use caffeine: Yes Type: carbonated beverages HPI HPI Chief Complaint: diarrhea Details: CHLOE CHOUDHARY, is a 64 F who presents to the office today for OV 02/13/2024 64y/o female presents for follow-up post colonoscopy and EGD performed for c/o diarrhea, weight loss, and nausea. Colonoscopy and EGD were completed 01/26/2024; biopsies were negative for celiac sprue, but did reveal lymphocytic colitis. We have reviewed pathology findings and she will start budesonide 9mg daily. She continues to complains of intractable nausea without emesis. She also complains of a tight squeezing pain across upper abdomen. H/O CCX. CT completed July 2023 was unremarkable for acute findings. I have started her on pepcid 40mg daily and scheduled a GES. She will follow-up in one month. Patient Instructions: 1. Start Budesonide as prescribed 2. Start Pepcid as prescribed 3. Complete GES 4. Follow-up in 1 month Task Note Pathology: Colon biopsies were consistent with lymphocytic colitis. However, the colonoscopy revealed diffuse moderate mucosal changes characterized by congestion (edema), erythema and granularity were found in the entire colon. Typically microscopic colitis has a normal appearing colon without visible inflammation. Biopsies were negative for H. pylori and celiac sprue. Lymphocytic colitis is a form of microscopic colitis; this affects men and women and does not increase risk of colon cancer or decrease life expectancy. I a (more content not included)... Normal [facility] HIP, UNI W/ Pelvis 2-3 Views on 03-15-2024 HIP, UNI W/ Pelvis 2-3 Views [facility] Imaging Services [address] [place] [address] HIP, UNI W/ Pelvis 2-3 Views MR#: [id number] Acct: [id number] Name: CHLOE CHOUDHARY Rep #: [id number] : 1960 F 64 From: Tello kaur MD PCP: SUSHIL Crabtree Status: REG CLI Study: HIP, UNI W/ Pelvis 2-3 Views Date of Exam: Exam# [id number] Ordering Dr: Tenisha Akins [id number] INDICATION: PAIN EXAMINATION/TECHNIQUE: X-RAY - LEFT XR Hip Unilateral with Pelvis when performed; 2-3 Views COMPARISON: None. FINDINGS: No acute fracture or malalignment. No blastic or lytic lesions. Moderate degenerative changes of the bilateral hips. The soft tissues are unremarkable. RAD/HIP, UNI W/ Pelvis 2-3 Views IMPRESSION: No acute radiographic abnormalities. Electronically Signed: Tello Ching MD at 16:30 EST , CC: SUSHIL Crabtree Lens Mold Setter: Signed Normal [facility] L/S Spine Min 4 Viewson 02-22 L/S Spine Min 4 Views [facility] Imaging Services [address] [place] [address] L/S Spine Min 4 Views MR#: [id number] Acct: [id number] Name: CHLOE CHOUDHARY Rep #: [id number] : 1960 F 64 From: Tello kaur MD PCP: SUSHIL Crabtree Status: REG CLI Study: L/S Spine Min 4 Views Date of Exam: 03/15/24 Exam# [id number] Ordering Dr: Tenisha Akins [id number] INDICATION: PAIN EXAMINATION/TECHNIQUE: X-RAY - XR Spine Lumbar Min 4 Views COMPARISON: None. FINDINGS: VERTEBRAE: Preserved vertebral body height. No fracture. No spondylolisthesis. Preservation of the normal lumbar lordosis. Moderate multilevel facet arthropathy. DISCS: Moderate multilevel degenerative disc disease and spondylosis. No critical stenosis. INCLUDED ABDOMEN: Included bowel gas pattern is non-obstructive. RAD/L/S Spine Min 4 Views IMPRESSION: No evidence of lumbar spinal fracture or spondylolisthesis. Moderate multilevel degenerative disc disease and spondylosis. Electronically Signed: Tello Ching MD at 16:29 EST , CC: SUSHIL Crabtree Lens Mold Setter: Signed Normal [facility] Gastric Emptying Study - 4 H Yoel 02-20-2024 Gastric Emptying Study - 4 HR [facility] Imaging Services [address] [place] [address] Gastric Emptying Study - 4 HR MR#: [id number] Acct: [id number] Name: CHLOE CHOUDHARY Rep #: [id number] : 1960 F 64 From: Misael Pat PCP: SUSHIL Crabtree Status: REG CLI Study: Gastric Emptying Study - 4 HR Date of Exam: Exam# [id number] Ordering Dr: Kenzie Laurent [id number] CLINICAL: 64-year-old female with history of chronic nausea. SOLID PHASE 99m Tc SULFUR COLLOID GASTRIC EMPTYING STUDY COMPARISON: None available FINDINGS: The patient was administered 1.2 mCi of 99m Tc sulfur colloid mixed with egg and consumed per os. Image acquisitions in the anterior-posterior projections for a total of 239 minutes following meal consumption. There is prompt visualization of the stomach. There is no gastroesophageal reflux identified. First order kinetics are maintained throughout the duration of the acquisitions. The T ? raw data emptying was calculated to be 83.16 minutes, (Normal 65-110 minutes). 99.0 % emptying and 1.0 % retention are defined at 4 hours post meal ingestion. NM/Gastric Emptying Study - 4 HR IMPRESSION: 1. NORMAL 99m Tc sulfur colloid solid phase gastric emptying imaging examination. A. There is normal and preserved solid phase gastric emptying compared to normal controls with maintained first order kinetics throughout all components of the examination. ( et al, Gastroenterology 77: 75, 1979 Laron et al, Semin Nucl Med 12: 116, 1981 Kwabena et al, SNM Procedure Guidelines Adult Solid Meal Gastric Emptying Study 3.0 SNM.[email or web address]). B. Greater than 90% emptying of the initial gastric contents at 4 hours post dose is consistent with normal solid phase gastric emptying which correlates with the results of the T ? emptying calculation. (Dave et al, J Nucl Med 48: 568, 2007). Electronically Signed: Misael Crockett DO at 8:45 EST , CC: GAYATHRI Laurent; SUSHIL Crabtree Lens Mold Setter: Signed Normal [facility] Gastroenterology Visit Repor ton 02-13-2024 Gastroenterology Visit Report [facility] Gastroenterology [address] [place] [address] OFFICE VISIT Date of Service: 02/13/24 MR#: [id number] Acct: [id number] Name: CHLOE CHOUDHARY Rep #: [id number] : 1960 Provider: GAYATHRI lacy Age/Sex: 64/F Location: [facility] [place] Status: Signed Intake Vital Signs 09/20/23 11:08 01/26/24 09:45 02/13/24 10:35 Height 5 ft 4 in 5 ft 5 in 5 ft 5 in Weight: 203 lb 8 oz BMI 33.8 BP 130/78 H Respiration 16 Pulse 72 Pulse Oximetry (%) 97 Oxygen Delivery Method room air Intake Visit Reasons: Test Result Chief Complaint: diarrhea 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 Required: No Is patient in pain?: No Allergies moxifloxacin HCl (From Avelox) Allergy (Verified 02/13/24 10:39) Swelling morphine Adverse Reaction (Severe, Verified 02/13/24 10:39) Nausea/VOMITTING Medications ???Medication ???Instructions ???Recorded ???Confirmed ???Type metoprolol succinate 50 mg 50 mg PO DAILY #90 tabs 02/28/19 02/13/24 Rx tablet,extended release 24 hr (Toprol XL) ropinirole 1 mg tablet 1 mg PO QHS 09/16/23 02/13/24 History alprazolam 0.5 mg tablet (Xanax) 0.5 mg PO TID PRN anxiety 01/23/24 02/13/24 History tramadol 50 mg tablet 50 mg PO QDAY PRN pain 01/25/24 02/13/24 History budesonide 3 mg 3 mg PO .COMPLEX microscopic 01/31/24 02/13/24 Rx capsule,delayed,extended release colitis #210 ea famotidine 40 mg tablet (Pepcid) 40 mg PO QDAY #90 tabs 01/31/24 02/13/24 Rx ondansetron HCl 4 mg tablet 4 mg PO Q8H #30 tabs 02/13/24 02/13/24 Rx Have you fallen in the past year?: No Nurse's Note: Continues to have diarrhea, nausea and gagging. Feels like there is a band around her abdomen and a fist in her upper mid abd. Has lost 30lbs or more since summer. [facility] Medical History Colicky epigastric pain Chronic diarrhea Inflammatory polyarthropathy IBS (irritable bowel syndrome) GERD (gastroesophageal reflux disease) Hypertension Vitamin D deficiency Vitamin B12 deficiency Anxiety Wears dentures Post-menopausal Arthritis Easy bruising Restless legs History of IBS Non-smoker History of pain when walking History of echocardiogram Cardiology follow-up encounter Contusion of right knee Contusion of left knee Strain of left knee Essential (primary) hypertension BMI 39.0-39.9,adult MABEL (obstructive sleep apnea) Hypersomnia Acute bronchitis Insomnia Hyperlipidemia Surgical History Hx of surgical procedure History of esophagogastroduodenoscopy (EGD) Hx of colonoscopy Hx of shoulder surgery Hx of shoulder surgery History of left heart catheterization (05/25/10) History of tonsillectomy H/O: hysterectomy History of cholecystectomy Family History Mother , metastasis to brain Lung cancer Arthritis Father CAD (coronary artery disease) Diabetes Myocardial infarction Grandfather CAD (coronary artery disease) Asthma Grandfather CAD (coronary artery disease) Sister Cystic fibrosis Social History Smoking Status: Never smoker alcohol intake: current alcohol intake frequency: other details: occasional substance use type: does not use caffeine: Yes Type: carbonated beverages HPI HPI Chief Complaint: diarrhea Details: CHLOE CHOUDHARY, is a 64 F who presents to the office today for INITIAL CONSULT 01/25/2024 The patient is a 63-year-old female presenting for a consultation regarding her complaints of diarrhea, weight loss, and nausea. She reports a longstanding history of irritable bowel syndrome with diarrhea (IBS-D) and has taken Lotronex sporadically, though continued treatment is not ideal due to the exorbitant cost and minimal symptomatic relief. Over the past year, the patient's diarrhea has significantly worsened, with an increase in frequency, urgency, and incontinence, which has negatively impacted her quality of life. She also complains of nausea for the past 6 weeks without vomiting. To prevent episodes of diarrhea, the patient has been limiting her oral intake, resulting in a weight loss of over 30 pounds in the past year. Diagnostic tests, including laboratory work, stool studies, colonoscopy, and esophagogastroduodenoscopy (EGD), have been ordered, and the patient will follow up in the office in 2-4 weeks. H/O CCX - consider cholestyramine in future If w/u negative - consider SIBO and treatment with Xifaxan Colon 01/26/2024 The perianal and digital rectal examinations were normal. A few small-mouthed diverticula were found in the recto-sigmoid colon, sigmoid colon and descending colon. Diffuse moderate mucosal changes alicia (more content not included)... Normal [facility] Calprotectin, Stoolon [address] 45 ug/g Normal 0-120 [facility] Comment on above: Result Comment: Conc entration Interpretation Follow-Up < 5 - 50 ug/g Normal None >50 -120 ug/g Borderline Re-evaluate in 4-6 weeks >120 ug/g Abnormal Repeat as clinically indicated Performed at: [facility] [address] [id number] Ep Technologist: Jojo Caballero MD, Phone: [phone] Performed By: #### M 652.7332, L7851.0785 ####[facility] [id number] [place], [place], [id number] C. difficile DNA MOY+probe Q l (Unsp spec)Ordered By: Kenzie Laurent on 02-01-2024 Clostridioides difficile (PCR) [facility] CDIFF (PCR)on 02-01-2024 CDIFF Pending [phone] NAP1-B1 Presumptive Negative *for epidemiolologic???use C. Diff PCR Negative- No toxigenic C. Diff Detected Normal [facility] Comment on above: Performed By: #### M 100.7426, L7000.0700 ####[facility] [address] [place], [place], [id number] Calprotectin stoolOrdered By : Kenzie Laurent on 02-01-2024 Stool Calprotectin 45 ug/g 0-120 [facility] Comment on above: Concentration Interp retation Follow-Up< 5 - 50 ug/g Normal None>50 -120 ug/g Borderline Re-evaluate in 4-6 weeks >120 ug/g Abnormal Repeat as clinically indicatedPerformed at: [facility] [address] [id number] Director: Jojo Caballero MD, Phone: [phone] [id number] 01-28-2024 BEEF <0.10 Normal Class 0 [facility] Comment on above: Performed By: #### L 5500.0550, L501.9520, L3410.2400 ####[facility] [address] [place], [address] CHOCOLATE <0.10 Normal Class 0 [facility] Comment on above: Performed By: #### L 5500.0550, L501.9520, L3410.2400 ####[facility] [address] [place], [address] CODFISH <0.10 Normal Class 0 [facility] Comment on above: Performed By: #### L 5500.0550, L501.9520, L3410.2400 ####[facility] [address] [place], [address] COMMENT Comment Normal . [facility] Comment on above: Result Comment: Tiffanie lerma of Specific IgE Class Description of Class ----- < 0.10 0 Negative 0.10 - 0.31 0/I Equivocal/Low 0.32 - 0.55 I Low 0.56 - 1.40 II Moderate 1.41 - 3.90 III High 3.91 - 19.00 IV Very High 19.01 - 100.00 V Very High >100.00 Very High Performed By: #### L 5500.0550, L501.9520, L3410.2400 ####[facility] [address] [place], [address] CORN <0.10 Normal Class 0 [facility] Comment on above: Performed By: #### L 5500.0550, L501.9520, L3410.2400 ####[facility] [address] [place], [address] EGG, WHOLE <0.10 Normal Class 0 [facility] Comment on above: Result Comment: Perf ormed at: [facility] [address] [id number] Ep Technologist: Jojo Caballero MD, Phone: [phone] Performed By: #### L 5500.0550, L501.9520, L3410.2400 ####[facility] [address] [place], [address] MILK (COW) <0.10 Normal Class 0 [facility] Comment on above: Performed By: #### L 5500.0550, L501.9520, L3410.2400 ####[facility] [address] [place], [address] MUSSELS <0.10 Normal Class 0 [facility] Comment on above: Performed By: #### L 5500.0550, L501.9520, L3410.2400 ####[facility] [address] [place], [address] PEANUT <0.10 Normal Class 0 [facility] Comment on above: Performed By: #### L 5500.0550, L501.9520, L3410.2400 ####[facility] [address] [place], [address] PORK <0.10 Normal Class 0 [facility] Comment on above: Performed By: #### L 5500.0550, L501.9520, L3410.2400 ####[facility] [address] [place], [address] SALMON <0.10 Normal Class 0 [facility] Comment on above: Performed By: #### L 5500.0550, L501.9520, L3410.2400 ####[facility] [address] [place], [address] SHRIMP <0.10 Normal Class 0 [facility] Comment on above: Performed By: #### L 5500.0550, L501.9520, L3410.2400 ####[facility] [address] [place], [address] SOYBEAN <0.10 Normal Class 0 [facility] Comment on above: Performed By: #### L 5500.0550, L501.9520, L3410.2400 ####[facility] [address] [place], [address] TUNA <0.10 Normal Class 0 [facility] Comment on above: Performed By: #### L 5500.0550, L501.9520, L3410.2400 ####[facility] [address] [place], [address] WHEAT <0.10 Normal Class 0 [facility] Comment on above: Performed By: #### L 5500.0550, L501.9520, L3410.2400 ####[facility] [address] [place], [address] MR/[id number] 01-27-2024 MR/POSTOPAN2 [facility] Medical Records Department [address] [place] [address] Anesthesia Postop Eval II 01/27/24 0748 MR#: [id number] Acct: [id number] Name: CHLOE CHOUDHARY #: [id number] : 1960 63 From: Roshan Liu MD PCP: SUSHIL Crabtree Status:DEP [facility] Y Race: C Location: EN Anesthesia Postop Eval I Sum Postop Eval Completion status Anesthesia document: Postop Eval 1 completed: Yes Anesthesia Postop Eval I Summary Anesthesia Postop Eval I Summary: Anesthesia Postop Eval I: Assessment Summary Airway patent Yes 01/26/24 11:35 [email or web address] Spontaneous unlabored Yes 01/26/24 11:35 [email or web address] respirations Mental status Awake 01/26/24 11:35 [email or web address] nausea No 01/26/24 11:35 [email or web address] Vomiting No 01/26/24 11:35 [email or web address] Anesthesia Postop Eval I: Fluid Summary Crystalloid volume administer 60 01/26/24 11:35 [email or web address] (ml) Colloids volume administered ( ml) Blood Product volume administered (ml) Total IV fluid infused 60 01/26/24 11:35 [email or web address] Anesthesia Postop Eval I: Summary Notes Anesthesia Complication No 01/26/24 11:35 [email or web address] Anesthesia Complication Comment: Post-operative progress note Anesthesia: Postop Eval II Evaluation Mental status: Awake Pain Level: 0 nausea: No Vomiting: No 01/27/24 0748 Date Roshan Liu MD [facility] Signature: Date CC: Signed Normal [facility] Celiac Disease Profileon ENDOMYSIAL IGA Negative Normal Negative [facility] Comment on above: Performed By: #### L 5500.0550, L501.9520, L3410.2400 ####[facility] [address] [place], [address] IMMUNOGLOB A QN 81 mg/dL Low 87-352 [facility] Comment on above: Performed By: #### L 5500.0550, L501.9520, L3410.2400 ####[facility] [address] [place], [place], [id number] tTG IGA <2 Normal 0-3 [facility] Comment on above: Result Comment: Nega tive 0 - 3 Weak Positive 4 - 10 Positive >10 Tissue Transglutaminase (tTG) has been identified as the endomysial antigen. Studies have demonstr- ated that endomysial IgA antibodies have over 99% specificity for gluten sensitive enteropathy. Performed By: #### L 5500.0550, L5019520, L3410.2400 ####[facility] [address] [place], [place], [id number] tTG IGG <2 Normal 0-5 [facility] Comment on above: Result Comment: Nega tive 0 - 5 Weak Positive 6 - 9 Positive >9 Performed at: [address] [id number] Ep Technologist: J Luis Douglas PhD, Phone: [phone] Performed By: #### L 5500.0550, L501.9520, L3410.2406 ####[facility] [address] [place], [place], [id number] Colonoscopy Reporton 024 Colonoscopy Report [facility] Medical Records Department [address] [place] [address] [place] [address] Colonoscopy Report MR#: [id number] Acct: [id number] Name: CHLOE CHOUDHARY Rep #: [id number] : 1960 63 From: Jerman Garner DO PCP: SUSHIL Crabtree Status:REG [facility] Patient Name: Chloe Choudhary Procedure Date: 01/26/2024 11:10 AM Date of : 1960 Age: 63 Procedure: Colonoscopy Indications: Chronic diarrhea Providers: Jerman Friend, DO Medicines: Monitored Anesthesia Care Patient Profile: This is a 63 year old female. Refer to note in patient chart for documentation of history and physical. Patient has symptoms of chronic epigastric abdominal pain and chronic nausea. Last Colonoscopy: date unknown. Unable to locate last colonoscopy report. Complications: No immediate complications. Procedure: Pre-Anesthesia Assessment: - Prior to the procedure, a History and Physical was performed, and patient medications and allergies were reviewed. The patient is competent. The risks and benefits of the procedure and the sedation options and risks were discussed with the patient. All questions were answered and informed consent was obtained. Patient identification and proposed procedure were verified by the physician in the pre-procedure area. Mental Status Examination: alert and oriented. Airway Examination: normal oropharyngeal airway and neck mobility. Respiratory Examination: clear to auscultation. CV Examination: normal. Prophylactic Antibiotics: The patient does not require prophylactic antibiotics. Prior Anticoagulants: The patient has taken no anticoagulant or antiplatelet agents. ASA Grade Assessment: II - A patient with mild systemic disease. After reviewing the risks and benefits, the patient was deemed in satisfactory condition to undergo the procedure. The anesthesia plan was to use monitored anesthesia care (MAC). Immediately prior to administration of medications, the patient was re-assessed for adequacy to receive sedatives. The heart rate, respiratory rate, oxygen saturations, blood pressure, adequacy of pulmonary ventilation, and response to care were monitored throughout the procedure. The physical status of the patient was re-assessed after the procedure. After I obtained informed consent, the scope was passed under direct vision. Throughout the procedure, the patient's blood pressure, pulse, and oxygen saturations were monitored continuously. The pediatric colonoscope was introduced through the anus and advanced to the terminal ileum. The colonoscopy was performed without difficulty. The patient tolerated the procedure well. The quality of the bowel preparation was adequate. The terminal ileum, ileocecal valve, appendiceal orifice, and rectum were photographed. Scope In: 11:11:24 AM Scope Withdrawal Time 0 hours 7 minutes 20 seconds Scope Out: 11:23:05 AM Total Procedure Duration Time 0 hours 11 minutes 41 seconds Findings: The perianal and digital rectal examinations were normal. A few small-mouthed diverticula were found in the recto-sigmoid colon, sigmoid colon and descending colon. Diffuse moderate mucosal changes characterized by congestion (edema), erythema and granularity were found in the entire colon. Biopsies were taken with a cold forceps for histology. Verification of patient identification for the specimen was done. Estimated blood loss was minimal. The terminal ileum appeared normal. Biopsies were taken with a cold forceps for histology. Verification of patient identification for the specimen was done. Estimated blood loss was minimal. Impression: - Diverticulosis in the recto-sigmoid colon, in the sigmoid colon and in the descending colon. - Diffuse moderate mucosal changes were found in the entire examined colon secondary to colitis. Biopsied. - The examined portion of the ileum was normal. Biopsied. Recommendation: - Discharge patient to home. - Resume previous diet. - Continue present medications. - Await pathology results. - Repeat colonoscopy in 5 years for surveillance. Procedure Code(s): --- Professional --- 90592, Colonoscopy, flexible; with biopsy, single or multiple CPT copyright 2021 [employer]. All rights reserved. The codes documented in this report are preliminary and upon gyn physician review may be revised to meet current compliance requirements. Jerman Garner DO 01/26/2024 11:36:23 AM This report has been signed electronically. Number of Addenda: 0 Note Initiated On: 01/26/2024 11:10 AM 01/26/24 1136 Date Jerman Brooksignene Signature: Date (if indicated) CC: SUSHIL Crabtree; Jerman Garner DO Date Dictated: 01/26/24 1110 Date Transcribed: (more content not included)... Normal [facility] EGD Reporton 01-26-2024 EGD Report [facility] Medical Records Department [address] [place] [address] EGD Report MR#: [id number] Acct: [id number] Name: CHLOE CHOUDHARY Rep #: [id number] : 1960 63 From: Jerman Garner DO PCP: SUSHIL Crabtree Status:REG [facility] Patient Name: Chloe Choudhary Procedure Date: 01/26/2024 10:52 AM Date of : 1960 Age: 63 Procedure: Upper GI endoscopy Indications: Epigastric abdominal pain, Functional Dyspepsia, Failure to respond to medical treatment Providers: Jerman Garner DO Medicines: Monitored Anesthesia Care Patient Profile: This is a 63 year old female. Refer to note in patient chart for documentation of history and physical. Patient has symptoms of chronic epigastric abdominal pain and chronic nausea. Complications: No immediate complications. Procedure: Pre-Anesthesia Assessment: - Prior to the procedure, a History and Physical was performed, and patient medications and allergies were reviewed. The patient is competent. The risks and benefits of the procedure and the sedation options and risks were discussed with the patient. All questions were answered and informed consent was obtained. Patient identification and proposed procedure were verified by the physician in the pre-procedure area. Mental Status Examination: alert and oriented. Airway Examination: normal oropharyngeal airway and neck mobility. Respiratory Examination: clear to auscultation. CV Examination: normal. Prophylactic Antibiotics: The patient does not require prophylactic antibiotics. Prior Anticoagulants: The patient has taken no anticoagulant or antiplatelet agents. ASA Grade Assessment: II - A patient with mild systemic disease. After reviewing the risks and benefits, the patient was deemed in satisfactory condition to undergo the procedure. The anesthesia plan was to use monitored anesthesia care (MAC). Immediately prior to administration of medications, the patient was re-assessed for adequacy to receive sedatives. The heart rate, respiratory rate, oxygen saturations, blood pressure, adequacy of pulmonary ventilation, and response to care were monitored throughout the procedure. The physical status of the patient was re-assessed after the procedure. After obtaining informed consent, the endoscope was passed under direct vision. Throughout the procedure, the patient's blood pressure, pulse, and oxygen saturations were monitored continuously. The pediatric colonoscope was introduced through the mouth, and advanced to the second part of duodenum. The upper GI endoscopy was accomplished without difficulty. The patient tolerated the procedure well. Scope In: 11:04:51 AM Scope Out: 11:09:34 AM Total Procedure Duration Time 0 hours 4 minutes 43 seconds Findings: The examined esophagus was normal. A single umbilicated lesion measuring 7 mm in diameter was found in the gastric antrum. The polyp was removed with a jumbo cold forceps. Resection and retrieval were complete. Verification of patient identification for the specimen was done. Estimated blood loss was minimal. Patchy mild inflammation characterized by erythema and friability was found in the duodenal bulb and in the first portion of the duodenum. Biopsies were taken with a cold forceps for histology. Verification of patient identification for the specimen was done. Estimated blood loss was minimal. Impression: - Normal esophagus. 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 - Chronic duodenitis. Biopsied. Recommendation: - Discharge patient to home. - Patient has a contact number available for emergencies. The signs and symptoms of potential delayed complications were discussed with the patient. Return to normal activities tomorrow. Written discharge instructions were provided to the patient. - Resume previous diet. - Continue present medications. - Await pathology results. - Repeat upper endoscopy. Procedure Code(s): --- Professional --- 71618, Esophagogastroduodenoscopy, flexible, transoral; with biopsy, single or multiple CPT copyright 2021 [employer]. All rights reserved. The codes documented in this report are preliminary and upon gyn physician review may be revised to meet current compliance requirements. Jerman Garner DO 01/26/2024 11:33:17 AM This report has been signed electronically. Number of Addenda: 0 Note Initiated On: 01/26/2024 10:52 AM 01/26/24 1133 Date Jerman Stone Signature: Date (if indicated) CC: SUSHIL Crabtree; Jerman Garner DO Date Dictated: 01/26/24 1052 Date Transcribed: Lens Mold Setter: DENIS Signed [facility] MR/POSTOP.[place] 01-26-2024 MR/POSTOP.[facility] Medical Records Department [address] [place] [address] Anesthesia Postop Eval I 01/26/24 113 MR#: [id number] Acct: [id number] Name: CHLOE CHOUDHARY Rep #: [id number] : 1960 63 From: Saud De Anda PCP: SUSHIL Crabtree Status:REG [facility] Y Race: C Location: [place] [address] Anesthesia: Postop Eval I Current Vital Signs Temperature: 98.1 F Pulse Rate: 76 Blood Pressure: 123/62 Respiratory Rate: 16 Pulse Ox: 98 Oxygen Delivery Method: Room Air Assessment Airway patent: Yes Spontaneous unlabored respirations: Yes Mental status: Awake nausea: No Vomiting: No Anesthesia Complication: No Fluid Hydration Crystalloid volume administer (ml): 60 Total IV fluid infused: 60 Progress Note Anesthesia document: Postop Eval 1 completed: Yes 01/26/241134 Date Saud De Anda Cosignene Signature: Date CC: Signed Normal [facility] Trichrome (control)on 2023 Trichrome (control) ------- Patient Age/Sex Location Account Attending Physician MICHAELCHLOE 63/F EN [id number] Jerman Garner DO Specimen: [id number] Received: 01/26/24 Status: MALENA Lundberg Num: [id number] Spec Type: EGD BIOPSY Subm Dr: Jerman Garner DO HEADER OPERATION: Colonoscopy, GED PRE-OP DIAGNOSIS: Irritable bowel syndrome with diarrhea, nausea, weight loss TISSUE SUBMITTED: A- Duodenum biopsy, B- Pancreatic rest biopsy, C- Terminal ileum biopsy, D- Random colon biopsy MICROSCOPIC DIAGNOSIS A. Duodenum, biopsy: No pathologic change. B. Pancreatic rest, biopsy: Fragments of gastric mucosa with associated mild chronic inflammation. C. Terminal ileum, biopsy: No pathologic change. D. Colon, random biopsy: Lymphocytic colitis. See comment. 01/27/2024 COMMENT D. Trichrome stain with matched control was used in the evaluation of this case. MICROSCOPIC DESCRIPTION Slides are reviewed. GROSS DESCRIPTION A. Received in fixative is one container labeled with the patient's name and designated Duodenum biopsy. The specimen consists of two irregular fragments of light teixeira soft tissue that in aggregate measure 0.8 x 0.2 x 0.1 cm. The specimen is totally submitted in one cassette. B. Received in fixative is one container labeled with the patient's name and designated Pancreatic rest biopsy. The specimen consists of multiple irregular fragments of light teixeira soft tissue that in aggregate measure 1.0 x 0.5 x 0.1 cm. The specimen is totally submitted in one cassette. C. Received in fixative is one container labeled with the patient's name and designated Terminal ileum biopsy. The specimen consists of multiple irregular fragments of light teixeira soft tissue that measures 0.7 x 0.5 x 0.1 cm. The specimen is totally submitted in one cassette. D. Received in fixative is one container labeled with the patient's name and designated Random colon biopsy. The specimen consists of multiple irregular fragments of light teixeira soft tissue that in aggregate measure 2.5 x 0.7 x 0.1 cm. The specimen is totally submitted in one cassette. 01/26/2024 TC: Patient Age/Sex Location Account Attending Physician CHLOE CHOUDHARY 63/F EN [id number] Jerman Garner DO CPT:[id number],08543 Patient Age/Sex Location Account Attending Physician CHLOE CHOUDHARY 63/F EN [id number] Jerman Garner DO Signed (signature on file) Dr. Zhang Shaver DO 01/27/24 1423 Normal [facility] Comment on above: Performed By: #### P TRI ####[facility] [address] [place], [place], [address] Beef IgE Qn (S)Ordered By: Daphney Laurent on 01-25-2024 Beef Allergen (RAST) <0.10 kU/L Class 0 [facility] Chocolate IgE Qn (S)Ordered By: Kenzie Laurent on 01-25-2024 Chocolate Allergen (RAST) <0.10 kU/L Class 0 [facility] Codfish IgE Qn (S)Ordered By : Kenzie Laurent on 01-25-2024 Codfish Allergen (RAST) <0.10 kU/L Class 0 [facility] [place] IgE Qn (S)Ordered By: Daphney Laurent on 01-25-2024 [place] Allergen (RAST) <0.10 kU/L Class 0 [facility] Cow milk IgE Qn (S)Ordered B y: Kenzie Laurent on 01-25-2024 Cow's Milk Allergen <0.10 kU/L Class 0 [facility] Endomysial IgA antibody assa yOrdered By: Kenzie Laurent on 01-25-2024 Endomysial IgA Antibody Negative Negative [facility] Gastroenterology Visit Repor ton 01-25-2024 Gastroenterology Visit Report [facility] Gastroenterology [address] [place] [address] OFFICE VISIT Date of Service: 01/25/24 MR#: [id number] Acct: [id number] Name: CHLOE CHOUDHARY Rep #: [id number] : 1960 Provider: GAYATHRI lacy Age/Sex: 63/F Location: [facility] Status: Signed Intake Vital Signs 09/20/23 11:08 01/25/24 10:18 Height 5 ft 4 in Weight: 208 lb 8 oz BP 125/65 H Respiration 18 Pulse 60 Pulse Oximetry (%) 98 Oxygen Delivery Method room air Intake Visit Reasons: CHRONIC DIARRHEA Chief Complaint: diarrhea 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 Required: No Is patient in pain?: No Allergies moxifloxacin HCl (From Avelox) Allergy (Verified 01/25/24 10:15) Swelling morphine Adverse Reaction (Severe, Verified 01/25/24 10:15) Nausea/VOMITTING Medications ???Medication ???Instructions ???Recorded ???Confirmed ???Type metoprolol succinate 50 mg 50 mg PO DAILY #90 tabs 02/28/19 01/23/24 Rx tablet,extended release 24 hr (Toprol XL) ropinirole 1 mg tablet 1 mg PO QHS 09/16/23 01/23/24 History alprazolam 0.5 mg tablet (Xanax) 0.5 mg PO TID PRN anxiety 01/23/24 01/23/24 History peg 3350-electrolytes 236 240 ml PO .COMPLEX #4,000 mL 01/25/24 01/25/24 Rx gram-22.74 gram-6.74 gram-5.86 gram solution (Golytely) tramadol 50 mg tablet 50 mg PO QDAY PRN 01/25/24 01/25/24 History Have you fallen in the past year?: No Nurse's Note: She was told by DR. Guido years ago that she had IBS with diarrhea. Recently it has gotten worse and has diarrhea constantly. Thinks she saw blood in her stool a couple of times but can't be sure. Has had a lower abd ache in the last several months. Last colonoscopy was 2017. Has a lot of nausea and decreased appetite. Has to carry a change of clothes with her everywhere she goes and can't eat when she goes out because it will just come right back out. [facility] Medical History (Updated 01/25/24 @ 10:41 by Kenzie Laurent NP-C) Colicky epigastric pain Chronic diarrhea Inflammatory polyarthropathy IBS (irritable bowel syndrome) GERD (gastroesophageal reflux disease) Hypertension Vitamin D deficiency Vitamin B12 deficiency Anxiety Wears dentures Post-menopausal Arthritis Easy bruising Restless legs History of IBS Non-smoker History of pain when walking History of echocardiogram Cardiology follow-up encounter Contusion of right knee Contusion of left knee Strain of left knee Essential (primary) hypertension BMI 39.0-39.9,adult MABEL (obstructive sleep apnea) Hypersomnia Acute bronchitis Insomnia Hyperlipidemia Surgical History (Updated 09/16/23 @ 14:01 by Candelaria Conley) History of esophagogastroduodenoscopy (EGD) Hx of colonoscopy Hx of shoulder surgery Hx of shoulder surgery History of left heart catheterization (05/25/10) History of tonsillectomy H/O: hysterectomy History of cholecystectomy Family History (Updated 01/23/24 @ 19:01 by Génesis Quintero) Mother , metastasis to brain Lung cancer Arthritis Father CAD (coronary artery disease) Diabetes Myocardial infarction Grandfather CAD (coronary artery disease) Asthma Grandfather CAD (coronary artery disease) Sister Cystic fibrosis Social History (Updated 01/23/24 @ 18:59 by Génesis Quintero) Smoking Status: Never smoker alcohol intake: current alcohol intake frequency: other details: occasional substance use type: does not use caffeine: Yes Type: carbonated beverages HPI HPI Chief Complaint: diarrhea Details: 63y/o female presents for consultation with complaints of diarrhea. CT A P 08/01/2023 unremarkable GIPCR, O P, Fecal Lactoferrin 07/29/2023 negative CBC and CMP 12/22/2023: WBC 3.4, K+ 3.4 COLON 2018 - per patient this was negative Lotronex - 1/2 tablet can slow things down but a whole binds her up and makes it worse - very expensive - took once in the past month - Imodium helps briefly - reports she has never been on cholestyramine or questran - always watery diarrhea - changed over the past year - much much worse - diarrhea can keep her up at night - she denies any h/o celiac disease or pancreatitis - denies any family h/o celiac disease, IBD or colon CA - she c/o intermittent LUQ aching or lower abdominal aching with diarrhea - she will have diarrhea before she ever leaves home - nausea x6 weeks - eating smaller meals - nausea prevents her from eating - weight loss >30lbs in the past year due to limiting PO intake - lower mid abdominal aching - nausea - decreased appetite - has to carry a change of clothes with her and does not eat when she leaves home - denies any new medications or dietary changes to change stools - denies any NSAIDS - denies any HB - she reports discontinuing Plaquenil earlier this year due to diarrhea - de (more content not included)... Normal [facility] IgA [Mass/Vol]Ordered By: Jason Laurent on 01-25-2024 Immunoglobulin A 81 mg/dL Low 87-352 [facility] No Panel InformationOrdered By: Kenzie Laurent on 01-25-2024 Tissue Transglutaminase IgG Ab <2 U/mL 0-5 [facility] Comment on above: Negative 0 - 5 Weak Positive 6 - 9 Positive >9Performed at: [facility] [id number] Director: J Luis Douglas PhD, Phone: [phone] Peanut IgE Qn (S)Ordered By: Kenzie Laurent on 01-25-2024 Peanut Allergen (RAST) <0.10 kU/L Class 0 [facility] Pork IgE Qn (S)Ordered By: Daphney Laurent on 01-25-2024 Pork Allergen (RAST) <0.10 kU/L Class 0 [facility] SCRN MAMM (CAD)W/KARI BILATo n 01-25-2024 SCRN MAMM (CAD)W/KARI BILAT [facility] Imaging Services [address] [place] [address] SCRN MAMM (CAD)W/KARI BILAT MR#: [id number] Acct: [id number] Name: CHLOE CHOUDHARY Rep #: [id number] : 1960 F 63 From: Augustin whalen MD PCP: SUSHIL Crabtree Status: [facility] Study: SCRN MAMM (CAD)W/KARI BILAT Date of Exam: 06/14 Exam# [id number] Ordering Dr: Tenisha Akins [id number] MAMMOGRAPHY - BILATERAL SCREENING REASON FOR EXAM: Female, 63 years old. Routine annual screening examination. PERTINENT HISTORY: Non-contributory. TECHNIQUE: Digital bilateral breast kari (3D mammographic acquisition) in the CC and MLO projections. 2-D mediolateral oblique (MLO) and craniocaudad (CC) views of both breasts were obtained. CAD: Full Field Digital Mammography with Computer Added Detection was performed. COMPARISON: Comparison is made with prior study dated January 20, 2023 and January 11, 2022. FINDINGS: Breast Composition: The breasts are almost entirely fatty. There are no dominant masses or suspicious calcifications. No other significant abnormalities are identified. There has been no significant change since the prior study. BI/SCRN MAMM (CAD)W/KARI BILAT IMPRESSION: Stable bilateral screening mammogram. Yearly follow-up mammogram recommended. (A) ASSESSMENT CATEGORY: BIRADS Category 1: Negative. A letter regarding these results will be sent to the patient by the facility within 30 days. Approximately 10% of breast cancers are not detected by mammography. A normal mammogram should not delay biopsy of a clinically suspicious abnormality. [id number] Electronically Signed: Augustin Mott MD at 13:09 EST , CC: SUSHIL Crabtree Lens Mold Setter: Signed Normal [facility] [place] IgE Qn (S)Ordered By: Kenzie Laurent on 01-25-2024 [place] Allergen IgE Antibody <0.10 kU/L Class 0 [facility] Serum mussel specific IgE an tibody assayOrdered By: Kenzie Laurent on 01-25-2024 Mussel Allergen IgE Antibody <0.10 kU/L Class 0 [facility] Serum shrimp specific IgE an tibody assayOrdered By: Kenzie Laurent on 01-25-2024 Shrimp Allergen <0.10 kU/L Class 0 [facility] Service comment (Unsp spec) [Interp]Ordered By: Kenzie Laurent on 01-25-2024 RAST Comment Comment . [facility] Comment on above: Levels of Specific I gE Class Description of Class ----- < 0.10 0 Negative 0.10 - 0.31 0/I Equivocal/Low 0.32 - 0.55 I Low 0.56 - 1.40 II Moderate 1.41 - 3.90 III High 3.91 - 19.00 IV Very High 19.01 - 100.00 V Very High >100.00 Very High Soybean IgE Qn (S)Ordered By : Kenzie Laurent on 01-25-2024 Soybean Allergen (RAST) <0.10 kU/L Class 0 [facility] TSH QnOrdered By: Kenzie lacy on 01-25-2024 Thyroid Stimulating Hormone (TSH) 1.110 uIU/mL 0.358-3.74 0 [facility] Thyroid Stim Hormone (TSH)on 01-25-2024 TSH 1.110 uIU/mL Normal 0.358-3.74 0 [facility] Comment on above: Performed By: #### L 5500.0550, L501.9520, L3410.2400 ####[facility] [address] [place], [address] Tuna IgE Qn (S)Ordered By: Daphney Laurent on 01-25-2024 Tuna Allergen (RAST) <0.10 kU/L Class 0 [facility] Wheat IgE Qn (S)Ordered By: Kenzie Laurent on 01-25-2024 Wheat Allergen (RAST) <0.10 kU/L Class 0 [facility] Whole Egg IgE Qn (S)Ordered By: Kenzie Laurent on 01-25-2024 Egg Whole Allergen <0.10 kU/L Class 0 [facility] Comment on above: Performed at: [address] [id number] Director: Jojo Caballero MD, Phone: [phone] tTG IgA Qn (S)Ordered By: Jason Laurent on 01-25-2024 Tissue Transglutaminase IgA Ab <2 U/mL 0-3 [facility] Comment on above: Negative 0 - 3 Weak Positive 4 - 10 Positive >10 Tissue Transglutaminase (tTG) has been identified as the endomysial antigen. Studies have demonstr- ated that endomysial IgA antibodies have over 99% specificity for gluten sensitive enteropathy. CBC W/Diff, Automatedon 10-3 Absolute Lymph 1.06 X10 3/uL Normal 0.83-4.51 [facility] Comment on above: Performed By: #### L 100.0100, L500.4050 #### [facility] [address] [place], [address] Absolute Neut 2.0 X10 3/uL Normal 2.0-7.7 [facility] Comment on above: Performed By: #### L 100.0100, L500.4050 #### [facility] [address] [place], [address] Basophils/100 WBC (Bld) 0.9 % Normal 0-1 [facility] Comment on above: Performed By: #### L 100.0100, L500.4050 #### [facility] [address] [place], [address] Eosinophils/100 WBC (Bld) 2.9 % Normal 0-5 [facility] Comment on above: Performed By: #### L 100.0100, L500.4050 #### [facility] [address] [place], [address] Erythrocyte distribution width (RBC) [Ratio] 13.4 % Normal 11.6-14.6 [facility] Comment on above: Performed By: #### L 100.0100, L500.4050 #### [facility] [address] [place], [address] Hematocrit (Bld) [Volume fraction] 41.7 % Normal 37-47 [facility] Comment on above: Performed By: #### L 100.0100, L500.4050 #### [facility] [address] [place], [address] Hemoglobin (Bld) [Mass/Vol] 13.3 g/dL Normal 12.0-15.0 [facility] Comment on above: Performed By: #### L 100.0100, L500.4050 #### [facility] [address] [place], [address] IG% 0.300 Normal 0.0-0.9 [facility] Comment on above: Result Comment: IG% - Immature Granulocytes (promyelocytes, myelocytes and metamyelocytes) > 1% indicates that a LEFT SHIFT is Present. Performed By: #### L 100.0100, L500.4050 #### [facility] [address] [place], [address] Lymphocytes/100 WBC (Bld) 30.3 % Normal 19-41 [facility] Comment on above: Performed By: #### L 100.0100, L500.4050 #### [facility] [address] [place], [address] MCH (RBC) [Entitic mass] 27.0 pg Normal 27.0-32.0 [facility] Comment on above: Performed By: #### L 100.0100, L500.4050 #### [facility] [address] [place], [address] MCHC (RBC) [Mass/Vol] 31.9 g/dL Low 32-36 [facility] Comment on above: Performed By: #### L 100.0100, L500.4050 #### [facility] [address] [place], [address] MCV (RBC) [Entitic vol] 84.6 fL Normal 81-99 [facility] Comment on above: Performed By: #### L 100.0100, L500.4050 #### [facility] [address] [place], [address] Monocytes/100 WBC (Bld) 9.4 % Normal 0-10 [facility] Comment on above: Performed By: #### L 100.0100, L500.4050 #### [facility] [address] [place], [address] Neutrophils/100 WBC (Bld) 56.2 % Normal 47-70 [facility] Comment on above: Performed By: #### L 100.0100, L500.4050 #### [facility] [address] [place], [address] Nucleated RBC (Bld) [#/Vol] 0 10*3/uL Normal 0-5 [facility] Comment on above: Performed By: #### L 100.0100, L500.4050 #### [facility] [address] [place], [address] Platelet mean volume (Bld) [Entitic vol] 9.5 fL Normal 6.2-12.0 [facility] Comment on above: Performed By: #### L 100.0100, L500.4050 #### [facility] [address] [place], [address] Platelets (Bld) [#/Vol] 153 10*3/uL Normal 150-450 [facility] Comment on above: Performed By: #### L 100.0100, L500.4050 #### [facility] [address] [place], [address] RBC (Bld) [#/Vol] 4.93 10*6/uL Normal 4.2-5.4 [facility] Comment on above: Performed By: #### L 100.0100, L500.4050 #### [facility] [address] [place], [address] RDW SD 41.6 fl Normal 35.1-43.9 [facility] Comment on above: Performed By: #### L 100.0100, L500.4050 #### [facility] [address] [place], [address] WBC (Bld) [#/Vol] 3.5 10*3/uL Low 4.4-11.0 [facility] Comment on above: Performed By: #### L 100.0100, L500.4050 #### [facility] [address] [place], [address] Comprehensive Metabolic Prof ilon 12-22-2023 Albumin [Mass/Vol] 3.4 g/dL Normal 3.2-5.0 [facility] Comment on above: Performed By: #### L 100.0100, L500.4050 ####[facility] [address] [place], [address] Albumin/Globulin [Mass ratio] 1.1 {ratio} Normal 0.9-2.4 [facility] Comment on above: Performed By: #### L 100.0100, L500.4050 ####[facility] [address] [place], [address] ALK P 75 U/L Normal 45-117 [facility] Comment on above: Performed By: #### L 100.0100, L500.4050 ####[facility] [address] [place], [address] ALT [Catalytic activity/Vol] 20 U/L Normal 13-56 [facility] Comment on above: Performed By: #### L 100.0100, L500.4050 ####[facility] [address] [place], [address] AST [Catalytic activity/Vol] 19 U/L Normal 15-37 [facility] Comment on above: Performed By: #### L 100.0100, L500.4050 ####[facility] [address] [place], [address] Bilirubin [Mass/Vol] 0.70 mg/dL Normal 0.20-1.00 [facility] Comment on above: Result Comment: For patients on eltrombopag therapy, use of Dimension [place] TBIL is not recommended. Performed By: #### L 100.0100, L500.4050 ####[facility] [address] [place], [address] BUN/CRE 27.4 RATIO High 10-20 [facility] Comment on above: Performed By: #### L 100.0100, L500.4050 ####[facility] [address] [place], [address] CA,Total 9.1 mg/dL Normal 8.5-10.1 [facility] Comment on above: Performed By: #### L 100.0100, L500.4050 ####[facility] [address] [place], [address] Chloride [Moles/Vol] 108 mmol/L High 98-107 [facility] Comment on above: Performed By: #### L 100.0100, L500.4050 ####[facility] [address] [place], [address] CO2 [Moles/Vol] 25.0 mmol/L Normal 21.0-32.0 [facility] Comment on above: Performed By: #### L 100.0100, L500.4050 ####[facility] [address] [place], [address] Creatinine [Mass/Vol] 0.69 mg/dL Normal 0.55-1.02 [facility] Comment on above: Result Comment: The validity of the calculated GFR GFRAA in patients over 70 years has not been determined. Clinical correlation is essential. Performed By: #### L 100.0100, L500.4050 ####[facility] [address] [place], [address] EST GFR - AA 110 mL/min Normal >60 [facility] Comment on above: Result Comment: Afri can [place]e GFR Calc Performed By: #### L 100.0100, L500.4050 ####[facility] [address] [place], [address] GAP 8 Normal 5-15 [facility] Comment on above: Performed By: #### L 100.0100, L500.4050 ####[facility] [address] [place], [address] GFR/1.73 sq M.predicted among non-blacks MDRD (S/P/Bld) [Vol rate/Area] 91 mL/min/{1.73_m2} Normal >60 [facility] Comment on above: Result Comment: Non- GFR Calc Performed By: #### L 100.0100, L500.4050 ####[facility] [address] [place], [address] Globulin (S) [Mass/Vol] 3.0 g/dL Normal 2.2-4.2 [facility] Comment on above: Performed By: #### L 100.0100, L500.4050 ####[facility] [address] [place], [address] Glucose [Mass/Vol] 105 mg/dL Normal 74-106 [facility] Comment on above: Result Comment: Fast ing Glucose result from 100 to 125 mg/dL suggests IMPAIRED HOMEOSTASIS per A.D.A. criteria. Performed By: #### L 100.0100, L500.4050 ####[facility] [address] [place], [address] Potassium [Moles/Vol] 3.4 mmol/L Low 3.5-5.1 [facility] Comment on above: Performed By: #### L 100.0100, L500.4050 ####[facility] [address] [place], [address] Sodium [Moles/Vol] 140 mmol/L Normal 136-145 [facility] Comment on above: Performed By: #### L 100.0100, L500.4050 ####[facility] [address] [place], [address] T PROT 6.4 g/dL Normal 6.4-8.2 [facility] Comment on above: Performed By: #### L 100.0100, L500.4050 ####[facility] [address] [place], [place], [address] Urea nitrogen [Mass/Vol] 19 mg/dL High 7-18 [facility] Comment on above: Performed By: #### L 100.0100, L500.4050 ####[facility] [address] [place], [place], [address] CBC (INCLUDES DIFF/PLT)on Basophils (Bld) [#/Vol] 0.021 10*3/uL Normal 0-200 [facility] Comment on above: Performed By: #### 6 399, 95755 #### [facility] [place] [address] [employer] Nurse: Nicolas Sumner MD Basophils/100 WBC (Bld) 0.6 % Normal [facility] Comment on above: Performed By: #### 6 399, 34885 #### [facility] [place] [address] [employer] Nurse: Nicolas Sumner MD Eosinophils (Bld) [#/Vol] 0.07 10*3/uL Normal 15-500 [facility] Comment on above: Performed By: #### 6 399, 39073 #### [facility] [place] [address] [employer] Nurse: Nicolas Sumner MD Eosinophils/100 WBC (Bld) 2.0 % Normal [facility] Comment on above: Performed By: #### 6 399, 77483 #### [facility] [place] [address] [employer] Nurse: Nicolas Sumner MD Erythrocyte distribution width (RBC) [Ratio] 13.8 % Normal 11.0-15.0 [facility] Comment on above: Performed By: #### 6 399, 48584 #### [facility] of [address], [address] [place] [address] [employer] Nurse: Nicolas Sumner MD Hematocrit (Bld) [Volume fraction] 42.0 % Normal 35.0-45.0 [facility] Comment on above: Performed By: #### 6 399, 74444 #### [facility] of [address], [address] [place] [address] [employer] Nurse: Nicolas Sumner MD Hemoglobin (Bld) [Mass/Vol] 13.9 g/dL Normal 11.7-15.5 [facility] Comment on above: Performed By: #### 6 399, 06987 #### [facility] of [place] [address] [employer] Nurse: Nicolas Sumner MD Lymphocytes (Bld) [#/Vol] 0.942 10*3/uL Normal 850-3900 [facility] Comment on above: Performed By: #### 6 399, 08663 #### [facility] of [address], [address] [place] [address] [employer] Nurse: Nicolas Sumner MD Lymphocytes/100 WBC (Bld) 26.9 % Normal [facility] Comment on above: Performed By: #### 6 399, 06627 #### [facility] of [place] [address] [employer] Nurse: Nicolas Sumner MD MCH (RBC) [Entitic mass] 27.8 pg Normal 27.0-33.0 [facility] Comment on above: Performed By: #### 6 399, 43771 #### [facility] of [place] [address] [employer] Nurse: Nicolas Sumner MD MCHC (RBC) [Mass/Vol] 33.1 g/dL Normal 32.0-36.[address] [facility] Comment on above: Performed By: #### 6 399, 21964 #### [facility] of [place] [address] [employer] Nurse: Nicolas Sumner MD MCV (RBC) [Entitic vol] 84.0 fL Normal 80.0-100.0 [facility] Comment on above: Performed By: #### 6 399, 63684 #### [facility] of [place] [address] [employer] Nurse: Nicolas Sumner MD Monocytes (Bld) [#/Vol] 0.249 10*3/uL Normal 200-950 [facility] Comment on above: Performed By: #### 6 399, 17469 #### [facility] of [place] [address] [employer] Nurse: Nicolas Sumner MD Monocytes/100 WBC (Bld) 7.1 % Normal [facility] Comment on above: Performed By: #### 6 399, 07707 #### [facility] [place] [address] [employer] Nurse: Nicolas Sumner MD Neutrophils (Bld) [#/Vol] 2.219 10*3/uL Normal 1749-4474 [facility] Comment on above: Performed By: #### 6 399, 47099 #### [facility] of [place] [address] [employer] Nurse: Nicolas Sumner MD Neutrophils/100 WBC (Bld) 63.4 % Normal [facility] Comment on above: Performed By: #### 6 399, 90332 #### [facility] of [place] [address] [employer] Nurse: Nicolas Sumner MD Platelet mean volume (Bld) [Entitic vol] 9.6 fL Normal 7.5-12.5 [facility] Comment on above: Performed By: #### 6 399, 58955 #### [facility] of [place] [address] [employer] Nurse: Nicolas Sumner MD Platelets (Bld) [#/Vol] 155 10*3/uL Normal 140-400 [facility] Comment on above: Performed By: #### 6 399, 86578 #### [facility] of [place] [address] [place] [address] [employer] Nurse: Nicolas Sumner MD RBC (Bld) [#/Vol] 5.00 10*6/uL Normal 3.80-5.10 [facility] Comment on above: Performed By: #### 6 399, 53526 #### [facility] of [address], [address] [place] [address] [employer] Nurse: Nicolas Sumner MD WBC (Bld) [#/Vol] 3.5 10*3/uL Low 3.8-10.8 [facility] Comment on above: Performed By: #### 6 399, 73873 #### [facility] of [address], [address] [place] [address] [employer] Nurse: Nicolas Sumner MD [facility]AB[facility] 09-15-2023 Albumin [Mass/Vol] 4.2 g/dL Normal 3.6-5.1 [facility] Comment on above: Performed By: #### 6 399, 04934 #### [facility] of [address], [address] [place] [address] [employer] Nurse: Nicolas Sumner MD Albumin/Globulin [Mass ratio] 2.1 {ratio} Normal 1.0-2.5 [facility] Comment on above: Performed By: #### 6 399, 55322 #### [facility] of [address], [address] [place] [address] [employer] Nurse: Nicolas Sumner MD ALP [Catalytic activity/Vol] 58 U/L Normal 37-153 [facility] Comment on above: Performed By: #### 6 399, 23849 #### [facility] of [address], [address] [place] [address] [employer] Nurse: Nicolas Sumner MD ALT [Catalytic activity/Vol] 18 U/L Normal 6-29 [facility] Comment on above: Performed By: #### 6 399, 35437 #### [facility] of [address], [address] [place] [address] [employer] Nurse: Nicolas Sumner MD AST [Catalytic activity/Vol] 21 U/L Normal 10-35 [facility] Comment on above: Performed By: #### 6 399, 45086 #### [facility] [place] [address] [employer] Nurse: Nicolas Sumner MD Bilirubin [Mass/Vol] 0.6 mg/dL Normal 0.2-1.2 [facility] Comment on above: Performed By: #### 6 399, 20766 #### [facility] [place] [address] [employer] Nurse: Nicolas Sumner MD Calcium [Mass/Vol] 9.6 mg/dL Normal 8.6-10.4 [facility] Comment on above: Performed By: #### 6 399, 90741 #### [facility] [place] [address] [employer] Nurse: Nicolas Sumner MD Chloride [Moles/Vol] 106 mmol/L Normal 98-110 [facility] Comment on above: Performed By: #### 6 399, 55373 #### [facility] [place] [address] [employer] Nurse: Nicolas Sumner MD CO2 [Moles/Vol] 28 mmol/L Normal 20-32 [facility] Comment on above: Performed By: #### 6 399, 20598 #### [facility] [place] [address] [employer] Nurse: Nicolas Sumner MD Creatinine [Mass/Vol] 0.49 mg/dL Low 0.50-1.[address] [facility] Comment on above: Performed By: #### 6 399, 65054 #### [facility] of [place] [address] [employer] Nurse: Nicolas Sumner MD GFR/1.73 sq M.predicted among non-blacks MDRD (S/P/Bld) [Vol rate/Area] 107 mL/min/{1.73_m2} Normal > OR = 60 [facility] Comment on above: Performed By: #### 6 399, 54804 #### [facility] [place] [address] [employer] Nurse: Nicolas Sumner MD Globulin (S) [Mass/Vol] 2.0 g/dL Normal 1.9-3.7 [facility] Comment on above: Performed By: #### 6 399, 74175 #### [facility] [place] [address] [employer] Nurse: Nicolas Sumner MD Glucose [Mass/Vol] 101 mg/dL High 65-99 [facility] Comment on above: Result Comment: Fasting reference interval For someone without known diabetes, a glucose value between 100 and 125 mg/dL is consistent with prediabetes and should be confirmed with a follow-up test. Performed By: #### 6 399, 94598 #### [facility] [place] [address] [employer] Nurse: Nicolas Sumner MD Potassium [Moles/Vol] 4.2 mmol/L Normal 3.5-5.[address] [facility] Comment on above: Performed By: #### 6 399, 64445 #### [facility] [place] [address] [employer] Nurse: Nicolas Sumner MD Protein [Mass/Vol] 6.2 g/dL Normal 6.1-8.1 [facility] Comment on above: Performed By: #### 6 [id number], [id number] #### [facility] [place] [address] [facility] Nurse: Nicolas Sumner MD Sodium [Moles/Vol] 142 mmol/L Normal 135-146 [facility] Comment on above: Performed By: #### 6 [id number], [id number] #### [facility] [place] [address] [facility] Nurse: Nicolas Sumner MD Urea nitrogen [Mass/Vol] 10 mg/dL Normal 7-25 [facility] Comment on above: Performed By: #### 6 [id number], [id number] #### [facility] [place] [address] [place] [address] [facility] Nurse: Nicolas Sumner MD Urea nitrogen/Creatinine [Mass ratio] 20 mg/mg Normal 6-22 [facility] Comment on above: Performed By: #### 6 [id number], [id number] #### [facility] [address], [address] [place] [address] [facility] Nurse: Nicolas Sumner MD No Panel Informationon 09-13 101 mg/dL Abnormal 65 - 99 mg/dL [facility] 10 mg/dL Normal 7 - 25 mg/dL [facility] 0.49 mg/dL Abnormal 0.50 - 1.05 mg/dL [facility] 107 Normal [facility] 20 Normal 6 - 22 [facility] 142 mmol/L Normal 135 - 146 mmol/L [facility] 4.2 mmol/L Normal 3.5 - 5.3 mmol/L [facility] 106 mmol/L Normal 98 - 110 mmol/L [facility] 28 mmol/L Normal 20 - 32 mmol/L [facility] 9.6 mg/dL Normal 8.6 - 10.4 mg/dL [facility] 6.2 g/dL Normal 6.1 - 8.1 g/dL [facility] 4.2 g/dL Normal 3.6 - 5.1 g/dL [facility] 2.0 Normal 1.9 - 3.7 [facility] 2.1 Normal 1.0 - 2.5 [facility] 0.6 mg/dL Normal 0.2 - 1.2 mg/dL [facility] 58 U/L Normal 37 - 153 U/L [facility] 21 U/L Normal 10 - 35 U/L [facility], [facility].; [place] [employer] [facility] 18 U/L Normal 6 - 29 U/L [facility] 3.5 Abnormal 3.8 - 10.8 [facility] [place] [employer] 5.00 {Million/uL} Normal 3.80 - 5.10 {Million/u L} [facility] [place] [employer] [facility] 13.9 g/dL Normal 11.7 - 15.5 g/dL [facility] [place] [employer] 42.0 % Normal 35.0 - 45.0 % [place] [employer] [employer] [place] [employer] 84.0 fL Normal 80.0 - 100.0 fL [facility] [place] [employer] 27.8 pg Normal 27.0 - 33.0 pg [place] [employer] [employer] [employer] [facility] [employer] 33.1 g/dL Normal 32.0 - 36.0 g/dL [facility], [facility].; [place] [employer] 13.8 % Normal 11.0 - 15.0 % [place] [employer] [employer] [employer] 155 Normal 140 - 400 [facility] [employer] [employer] [place] [employer] 9.6 fL Normal 7.5 - 12.5 fL [place] [employer] [employer] 2219 {cells/uL} Normal 1500 - 7800 {cells/uL} [employer] [employer] 942 {cells/uL} Normal 850 - 3900 {cells/uL} [facility] [employer] [employer] [facility] [employer] 249 {cells/uL} Normal 200 - 950 {cells/uL} [facility] [employer] [employer] [employer] 70 {cells/uL} Normal 15 - 500 {cells/uL} [facility] [employer] [employer] 21 {cells/uL} Normal 0 - 200 {cells/uL} [employer] 63.4 % Normal [employer] 26.9 % Normal [employer] 7.1 % Normal [employer] 2.0 % Normal [employer] 0.6 % Normal [employer] CT ABDOMEN/PELVIS Won 2023 CT ABDOMEN/PELVIS W [place] [address] Patient: CHLOE CHOUDHARY Phone#: : 1960 Age: 63 Gender: F Pt. Type: Out Account: [id number] Location: [facility] Ordering: [facility] Exam Date: 08/01/2023/8:31 Family Phys: Charge Code: [id number] Physician: Pickett Order #: [id number] Dose#: 25.8 mGy PROCEDURE: CT ABDOMEN/PELVIS WITH CONTRAST COMPARISON: [facility], CT, ABDOMEN/PELVIS W CON, 01/30/2021, 14:27. INDICATIONS: Abdomen pain. TECHNIQUE: After obtaining the patient's consent, CT images were created with non-ionic intravenous contrast and oral contrast material. All CT scans at this facility use dose modulation, iterative reconstruction, and/or weight based dosing when appropriate to reduce radiation dose to as low as reasonably achievable. IV CONTRAST: Omnipaque 350,80-ml TOTAL DOSE: 25.8 CTDIvol(mGy) FINDINGS: LIVER: Normal. No enlargement, atrophy, abnormal density, or significant focal lesion. BILIARY: The gallbladder is absent. There is no evidence of biliary dilatation. PANCREAS: Normal. No lesion, fluid collection, ductal dilatation, or atrophy. SPLEEN: Normal. No enlargement or focal lesion. KIDNEYS: Normal. No mass, obstruction, or calcification. ADRENALS: Normal. No mass or enlargement. AORTA/VASCULAR: Normal. No aneurysm or dissection. RETROPERITONEUM: Normal. No mass or adenopathy. BOWEL/MESENTERY: Normal. No visible mass, obstruction, or bowel wall thickening. ABDOMINAL WALL: Normal. No mass or hernia. URINARY BLADDER: Normal. No visible focal wall thickening, lesion, or calculus. PELVIC NODES: Normal. No adenopathy. PELVIC ORGANS: The uterus is absent. BONES: Changes of the spine are present. No bony lesion or fracture. LUNG BASES: Normal. No visible pulmonary or pleural disease. OTHER: Negative. CONCLUSION: 1. There is no evidence of acute abdominal or pelvic abnormality. [place] [address] Patient: CHLOE CHOUDHARY Phone#: : 1960 Age: 63 Gender: F Pt. Type: Out Account: [id number] Location: [facility] Ordering: TENISHA AKINS Exam Date: 08/01/2023/8:31 Family Phys: Charge Code: [id number] Physician: Pickett Order #: [id number] Dose#: 25.8 mGy Dictated by: Clair Quintana MD on 08/01/2023 at 13:26 Approved by: Clair Quintana MD on 08/01/2023 at 13:35 Normal [facility] No Panel Informationon 07-28 See Note Normal [facility] [employer] [facility] [employer] [employer] No Panel Informationon 07-26 Yellow Normal [employer] [facility] [employer] [facility] [employer] Clear Normal [employer] Normal Normal [facility] [employer] [facility] [employer] [employer] [facility] [employer] Negative Normal [facility] [employer] [facility] [employer] [employer] [employer] 15 mg/dL Abnormal [employer] [employer] 1.025 Normal 1.002 - 1.030 [employer] [facility] [employer] [employer] [employer] 5.0 Normal 5.0 - 8.0 [facility] [employer] [facility] [employer] 25 /ul Abnormal [employer] [facility] [employer] [facility] [employer] 5.1 K/mm3 Normal 4.4 - 11.0 K/mm3 [facility] [facility] [employer] 5.44 {M/mm3} Abnormal 4.2 - 5.4 {M/mm3} [place] [employer] [facility] [employer] [facility] [employer] 14.6 g/dL Normal 12.0 - 15.0 g/dL [facility] [employer] [facility] [employer] 45.1 Normal 37 - 47 [place] [employer] [facility] [employer] [employer] 82.9 fL Normal 81 - 99 fL [place] [employer] [facility] [employer] 26.8 pg Abnormal 27.0 - 32.0 pg [place] [employer] [facility], [facility].; [employer] [facility] 32.4 g/dL Normal 32 - 36 g/dL [place] [employer] [facility] [facility], [facility].; [facility] [employer] [facility] [employer] 13.4 Normal 11.6 - 14.6 [place] [employer] [facility] [facility], [facility].; [employer] [facility] [employer] 39.3 fL Normal 35.1 - 43.9 fL [place] [employer] [facility] [employer] 130 K/mm3 Abnormal 150 - 450 K/mm3 [place] [employer] [facility] [employer] 9.2 fL Normal 6.2 - 12.0 fL [place] [employer] [facility] [employer] 69.6 Normal 47 - 70 [facility] [employer] [facility] [employer] [employer] [facility] [employer] 21.4 Normal 19 - 41 [employer] [facility] [facility] [employer] 6.8 Normal 0 - 10 [facility] [employer] [facility] [facility] [employer] [employer] 1.2 Normal 0 - 5 [employer] [facility] 0.6 Normal 0 - 1 [employer] 0.400 Normal 0.0 - 0.9 [facility] [employer] 3.6 {X10_3/uL} Normal 2.0 - 7.7 {X10_3/uL} [employer] 1.10 {X10_3/uL} Normal 0.83 - 4.51 {X10_3/uL} [facility], [facility] [employer] 0 Normal 0 - 5 [facility], [facility] [place] [employer] 99 mg/dL Normal 74 - 106 mg/dL [facility], [facility].; [employer] 14 mg/dL Normal 7 - 18 mg/dL [place] [facility] [facility] [employer] 0.65 mg/dL Normal 0.55 - 1.02 mg/dL [facility], [facility] [employer] 98 mL/min Normal [place] [employer] [place] [employer] 118 mL/min Normal [place] [facility] [facility] [facility] [place] [employer] 21.4 {RATIO} Abnormal 10 - 20 {RATIO} [place] [facility] [facility] [employer] 6.9 g/dL Normal 6.4 - 8.2 g/dL [facility], [facility] [employer] 3.8 g/dL Normal 3.2 - 5.0 g/dL [place] [facility] [facility] [employer] 3.1 g/dL Normal 2.2 - 4.2 g/dL [place] [employer] 1.2 {RATIO} Normal 0.9 - 2.4 {RATIO} [employer] 9.5 mg/dL Normal 8.5 - 10.1 mg/dL [place] [employer] 22 U/L Normal 15 - 37 U/L [place] [employer] 73 U/L Normal 45 - 117 U/L [employer] 28 U/L Normal 13 - 56 U/L [place] [employer] 1.00 mg/dL Normal 0.20 - 1.00 mg/dL [place] [employer] 139 mmol/L Normal 136 - 145 mmol/L [facility] 4.0 mmol/L Normal 3.5 - 5.1 mmol/L [facility], [facility].; [facility] 107 mmol/L Normal 98 - 107 mmol/L [facility], Inc.; [facility] 26.0 mmol/L Normal 21.0 - 32.0 mmol/L [facility], [facility].; [place] [employer] 6 Normal 5 - 15 [facility], [facility].; [place] [employer] [facility], [facility] 16 U/L Normal 13 - 75 U/L [facility], [facility].; [place] [employer] [facility], [facility] LIPID PANEL, STANDARD 05- Cholesterol [Mass/Vol] 223 mg/dL High <200 [facility] Comment on above: Performed By: #### 7 600 #### [facility] [address], [address] [place], [place] [id number] [facility] Nurse: Nicolas Sumner MD Cholesterol in HDL [Mass/Vol] 72 mg/dL Normal > OR = 50 [facility] Comment on above: Performed By: #### 7 600 #### [facility] [address], [address] [place] [address] [facility] Nurse: Nicolas Sumner MD Cholesterol in LDL [Mass/Vol] 127 mg/dL High [facility] Comment on above: Result Comment: Refe rence range: <100 Desirable range <100 mg/dL for primary prevention; <70 mg/dL for patients with CHD or diabetic patients with > or = 2 CHD risk factors. LDL-C is now calculated using the Darryl-Joanna calculation, which is a validated novel method providing better accuracy than the Friedewald equation in the estimation of LDL-C. Darryl GRAVES et al. HILDA. 2013;310(19): 9446-5559 (http://education.[employer].Enertiv/faq/XVH868) Performed By: #### 7 600 #### [facility] [address], [address] [place], [place] [id number] [facility] Nurse: Nicolas Sumner MD Cholesterol.total/Cho lesterol in HDL [Mass ratio] 3.1 {ratio} Normal <5.0 [facility] Comment on above: Performed By: #### 7 600 #### [facility] [address], [address] [place] [address] [facility] Nurse: Nicolas Sumner MD NON HDL CHOLESTEROL 151 mg/dL (calc) High <130 [facility] Comment on above: Result Comment: For patients with diabetes plus 1 major ASCVD risk factor, treating to a non-HDL-C goal of <100 mg/dL (LDL-C of <70 mg/dL) is considered a therapeutic option. Performed By: #### 7 600 #### [facility] [address], [address] [place] [address] [facility] Nurse: Nicolas Sumner MD Triglyceride [Mass/Vol] 128 mg/dL Normal <150 [facility] Comment on above: Performed By: #### 7 600 #### [facility] [address], [address] [place] [address] [facility] Nurse: Nicolas Sumner MD No Panel Informationon 07-13 223 mg/dL Abnormal [facility] [employer] [facility] [employer] [employer] [facility] [employer] 72 mg/dL Normal [facility] [employer] [facility] [employer] [facility] [employer]. 128 mg/dL Normal [facility] [employer] [employer] [facility] [employer] 127 Abnormal [facility] [employer] [facility] [employer] [employer] [facility] [employer] 3.1 Normal [facility] [employer] 151 Abnormal [employer] Absolute lymphocyte countOrd ered By: Nikkie Osei on 05-23-2023 Lymphocytes Auto (Unsp spec) [#/Vol] 1.36 10*3/uL 0.83-4.51 [facility] Automated lymphocyte count a s percentage of total leukocytesOrdered By: Nikkie Osei on 05-23-2023 Lymphocytes/100 WBC Auto (Unsp spec) 34.9 % 19-41 [facility] Basophil percentageOrdered B y: Nikkie Osei on 05-23-2023 Basophils/100 WBC (Bld) 1.3 % 0-1 [facility] Bilirubin [Mass/Vol] 0.50 mg/dL 0.20-1.00 [facility] Comment on above: For patients on eltr ombopag therapy, use of Dimension [place] TBIL is not recommended. Chloride [Moles/Vol] 110 mmol/L 98-107 [facility] Eosinophils/100 WBC (Bld) 3.6 % 0-5 [facility] Glucose [Mass/Vol] 83 mg/dL 74-106 [facility] Hemoglobin (Bld) [Mass/Vol] 12.9 g/dL 12.0-15.0 [facility] Monocytes/100 WBC (Bld) 9.5 % 0-10 [facility] Neutrophils (Bld) [#/Vol] 2.0 10*3/uL 2.0-7.7 [facility] Neutrophils/100 WBC (Bld) 50.4 % 47-70 [facility] Potassium [Moles/Vol] 4.8 mmol/L 3.5-5.1 [facility] Protein [Mass/Vol] 6.3 g/dL 6.4-8.2 [facility] Sodium [Moles/Vol] 143 mmol/L 136-145 [facility] WBC (Bld) [#/Vol] 3.9 10*3/uL 4.4-11.0 [facility] Determination of erythrocyte mean corpuscular volume (MCV)Ordered By: Nikkie Osei on 05-23-2023 MCV (RBC) [Entitic vol] 85.3 fL 81-99 [facility] Erythrocyte distribution wid th ratioOrdered By: Nikkie Osei on 05-23-2023 Erythrocyte distribution width (RBC) [Ratio] 13.9 % 11.6-14.6 [facility] Erythrocyte distribution wid th standard deviationOrdered By: Nikkie Osei on 05-23-2023 Erythrocyte distribution width (RBC) [Entitic vol] 43.3 fL 35.1-43.9 [facility] Hematocrit Auto (Bld) [Volum e fraction]Ordered By: Nikkie Osei on 05-23-2023 Hematocrit (Bld) [Volume fraction] 40.1 % 37-47 [facility] Immature granulocytes/100 WB C Auto (Bld)Ordered By: Nikkie Osei on 05-23-2023 Immature granulocytes/100 WBC (Bld) 0.300 % 0.0-0.9 [facility] Comment on above: IG% - Immature Granu locytes (promyelocytes, myelocytes and metamyelocytes) > 1% indicates that a LEFT SHIFT is Present. Laboratory - Chemistry and C hemistry - challengeOrdered By: Nikkie Osei on 05-23-2023 Albumin/Globulin [Mass ratio] 1.2 {ratio} 0.9-2.4 [facility] ALP [Catalytic activity/Vol] 65 U/L 45-117 [facility] ALT [Catalytic activity/Vol] 31 U/L 13-56 [facility] CO2 [Moles/Vol] 30.0 mmol/L 21.0-32.0 [facility] Globulin (S) [Mass/Vol] 2.9 g/dL 2.2-4.2 [facility] Urea nitrogen/Creatinine [Mass ratio] 22.8 mg/mg 10-20 [facility] Laboratory - Hematology and Cell countsOrdered By: Nikkie Osei on 05-23-2023 MCH (RBC) [Entitic mass] 27.4 pg 27.0-32.0 [facility] MCHC (RBC) [Mass/Vol] 32.2 g/dL 32-36 [facility] Nucleated RBC/100 WBC (Bld) [Ratio] 0 % 0-5 [facility] Platelet mean volume (Bld) [Entitic vol] 9.5 fL 6.2-12.0 [facility] Platelets (Bld) [#/Vol] 165 10*3/uL 150-450 [facility] No Panel InformationOrdered By: Nikkie Osei on 05-23-2023 Estimated GFR (MDRD) Amer 117 mL/min >60 [facility] Comment on above: GFR Calc Estimated GFR (MDRD) Non-Af Amer 97 mL/min >60 [facility] Comment on above: Non- GFR Calc RBC Auto (Bld) [#/Vol]Ordere d By: Nikkie Osei on 05-23-2023 RBC (Bld) [#/Vol] 4.70 10*6/uL 4.2-5.4 [facility] Serum or plasma calcium larisa urement (mass/volume)Ordered By: Nikkie Osei on 05-23-2023 Calcium [Mass/Vol] 9.2 mg/dL 8.5-10.1 [facility] Serum or plasma creatinine m easurement (mass/volume)Ordered By: Nikkie Osei on 05-23-2023 Creatinine [Mass/Vol] 0.66 mg/dL 0.55-1.02 [facility] Comment on above: The validity of the calculated GFR & GFRAA in patients over 70 years has not been determined. Clinical correlation is essential. Serum or plasma urea nitroge n measurement (mass/volume)Ordered By: Nikkie Osei on 05-23-2023 Urea nitrogen [Mass/Vol] 15 mg/dL 7-18 [facility] Thin prep Papanicolaou smear with manual screeningOrdered By: Nikkie Osei on 05-23-2023 Thin prep Papanicolaou smear with manual screening 3.4 g/dL 3.2-5.0 [facility] Thin prep Papanicolaou smear with manual screening 29 U/L 15-37 [facility] Thin prep Papanicolaou smear with manual screening 3 5-15 [facility] Absolute lymphocyte countOrd ered By: Nikkie Osei on 02-22-2023 Lymphocytes Auto (Unsp spec) [#/Vol] 1.13 10*3/uL 0.83-4.51 [facility] Basophil percentageOrdered B y: Nikkie Osei on 02-22-2023 Basophils/100 WBC (Bld) 0.6 % 0-1 [facility] Bilirubin [Mass/Vol] 0.50 mg/dL 0.20-1.00 [facility] Comment on above: For patients on eltr ombopag therapy, use of Dimension [place] TBIL is not recommended. Chloride [Moles/Vol] 111 mmol/L 98-107 [facility] Eosinophils/100 WBC (Bld) 4.0 % 0-5 [facility] Glucose [Mass/Vol] 76 mg/dL 74-106 [facility] Neutrophils (Bld) [#/Vol] 1.7 10*3/uL 2.0-7.7 [facility] Neutrophils/100 WBC (Bld) 51.7 % 47-70 [facility] Potassium [Moles/Vol] 4.0 mmol/L 3.5-5.1 [facility] Protein [Mass/Vol] 6.1 g/dL 6.4-8.2 [facility] Sodium [Moles/Vol] 143 mmol/L 136-145 [facility] WBC (Bld) [#/Vol] 3.3 10*3/uL 4.4-11.0 [facility] Blood erythrocytes count (nu mber/volume)Ordered By: Nikkie Osei on 02-22-2023 RBC (Bld) [#/Vol] 4.94 10*6/uL 4.2-5.4 [facility] Blood hemoglobin measurement (mass/volume)Ordered By: Nikkie Osei on 02-22-2023 Hemoglobin (Bld) [Mass/Vol] 13.4 g/dL 12.0-15.0 [facility] Blood lymphocytes/100 leukoc ytesOrdered By: Nikkie Osei on 02-22-2023 Lymphocytes/100 WBC (Bld) 34.3 % 19-41 [facility] Blood monocytes/100 leukocyt esOrdered By: Nikkie Osei on 02-22-2023 Monocytes/100 WBC (Bld) 9.4 % 0-10 [facility] Blood platelet mean volumeOr dered By: Nikkie Osei on 02-22-2023 Platelet mean volume (Bld) [Entitic vol] 9.1 fL 6.2-12.0 [facility] Determination of erythrocyte mean corpuscular volume (MCV)Ordered By: Nikkie Osei on 02-22-2023 MCV (RBC) [Entitic vol] 84.6 fL 81-99 [facility] Hematocrit Auto (Bld) [Volum e fraction]Ordered By: Nikkie Osei on 02-22-2023 Hematocrit (Bld) [Volume fraction] 41.8 % 37-47 [facility] Laboratory - Chemistry and C hemistry - challengeOrdered By: Nikkie Osei on 02-22-2023 ALP [Catalytic activity/Vol] 67 U/L 45-117 [facility] ALT [Catalytic activity/Vol] 25 U/L 13-56 [facility] CO2 [Moles/Vol] 29.0 mmol/L 21.0-32.0 [facility] Globulin (S) [Mass/Vol] 2.9 g/dL 2.2-4.2 [facility] Urea nitrogen/Creatinine [Mass ratio] 25.1 mg/mg 10-20 [facility] Laboratory - Hematology and Cell countsOrdered By: Nikkie Osei on 02-22-2023 Erythrocyte distribution width (RBC) [Entitic vol] 40.5 fL 35.1-43.9 [facility] Erythrocyte distribution width (RBC) [Ratio] 13.2 % 11.6-14.6 [facility] Immature granulocytes/100 WBC (Bld) 0.000 % 0.0-0.9 [facility] Comment on above: IG% - Immature Granu locytes (promyelocytes, myelocytes and metamyelocytes) > 1% indicates that a LEFT SHIFT is Present. MCH (RBC) [Entitic mass] 27.1 pg 27.0-32.0 [facility] Nucleated RBC/100 WBC (Bld) [Ratio] 0 % 0-5 [facility] MCHC Auto (RBC) [Mass/Vol]Or dered By: Nikkie Osei on 02-22-2023 MCHC (RBC) [Mass/Vol] 32.1 g/dL 32-36 [facility] No Panel InformationOrdered By: Nikkie Osei on 02-22-2023 Estimated GFR (MDRD) Amer 122 mL/min >60 [facility] Comment on above: GFR Calc Estimated GFR (MDRD) Non-Af Amer 101 mL/min >60 [facility] Comment on above: Non- GFR Calc Platelets bldOrdered By: [place] Osei on 02-22-2023 Platelets (Bld) [#/Vol] 155 10*3/uL 150-450 [facility] Serum or plasma albumin larisa urement (mass/volume)Ordered By: Nikkie Osei on 02-22-2023 Albumin [Mass/Vol] 3.2 g/dL 3.2-5.0 [facility] Serum or plasma albumin/glob ulin mass ratioOrdered By: Nikkie Osei on 02-22-2023 Albumin/Globulin [Mass ratio] 1.1 {ratio} 0.9-2.4 [facility] Serum or plasma calcium larisa urement (mass/volume)Ordered By: Nikkie Osei on 02-22-2023 Calcium [Mass/Vol] 9.3 mg/dL 8.5-10.1 [facility] Serum or plasma creatinine m easurement (mass/volume)Ordered By: Nikkie Osei on 02-22-2023 Creatinine [Mass/Vol] 0.64 mg/dL 0.55-1.02 [facility] Comment on above: The validity of the calculated GFR & GFRAA in patients over 70 years has not been determined. Clinical correlation is essential. Serum or plasma urea nitroge n measurement (mass/volume)Ordered By: Nikkie Osei on 02-22-2023 Urea nitrogen [Mass/Vol] 16 mg/dL 7-18 [facility] Thin prep Papanicolaou smear with manual screeningOrdered By: Nikkie Osei on 02-22-2023 Thin prep Papanicolaou smear with manual screening 20 U/L 15-37 [facility] Thin prep Papanicolaou smear with manual screening 3 5-15 [facility] Absolute lymphocyte countOrd ered By: Nikkie Osei on 08-28-2022 Lymphocytes Auto (Unsp spec) [#/Vol] 1.31 10*3/uL 0.83-4.51 [facility] Basophil percentageOrdered B y: Nikkie Osei on 08-28-2022 Basophils/100 WBC (Bld) 0.5 % 0-1 [facility] Bilirubin [Mass/Vol] 0.80 mg/dL 0.20-1.00 [facility] Comment on above: For patients on eltr ombopag therapy, use of Dimension [place] TBIL is not recommended. Chloride [Moles/Vol] 109 mmol/L 98-107 [facility] Eosinophils/100 WBC (Bld) 3.7 % 0-5 [facility] Glucose [Mass/Vol] 98 mg/dL 74-106 [facility] Neutrophils (Bld) [#/Vol] 2.2 10*3/uL 2.0-7.7 [facility] Neutrophils/100 WBC (Bld) 54.5 % 47-70 [facility] Potassium [Moles/Vol] 4.2 mmol/L 3.5-5.1 [facility] Protein [Mass/Vol] 6.7 g/dL 6.4-8.2 [facility] Sodium [Moles/Vol] 140 mmol/L 136-145 [facility] WBC (Bld) [#/Vol] 4.0 10*3/uL 4.4-11.0 [facility] Blood erythrocytes count (nu mber/volume)Ordered By: Nikkie Osei on 08-28-2022 RBC (Bld) [#/Vol] 5.24 10*6/uL 4.2-5.4 [facility] Blood hemoglobin measurement (mass/volume)Ordered By: Nikkie Osei on 08-28-2022 Hemoglobin (Bld) [Mass/Vol] 14.5 g/dL 12.0-15.0 [facility] Blood lymphocytes/100 leukoc ytesOrdered By: Nikkie Osei on 08-28-2022 Lymphocytes/100 WBC (Bld) 32.4 % 19-41 [facility] Blood monocytes/100 leukocyt esOrdered By: Nikkie Osei on 08-28-2022 Monocytes/100 WBC (Bld) 8.9 % 0-10 [facility] Blood platelet mean volumeOr dered By: Nikkie Osei on 08-28-2022 Platelet mean volume (Bld) [Entitic vol] 8.9 fL 6.2-12.0 [facility] Determination of erythrocyte mean corpuscular volume (MCV)Ordered By: Nikkie Osei on 08-28-2022 MCV (RBC) [Entitic vol] 83.4 fL 81-99 [facility] Hematocrit Auto (Bld) [Volum e fraction]Ordered By: Nikkie Osei on 08-28-2022 Hematocrit (Bld) [Volume fraction] 43.7 % 37-47 [facility] Laboratory - Chemistry and C hemistry - challengeOrdered By: Nikkie Osei on 08-28-2022 ALP [Catalytic activity/Vol] 81 U/L 45-117 [facility] ALT [Catalytic activity/Vol] 28 U/L 13-56 [facility] CO2 [Moles/Vol] 28.0 mmol/L 21.0-32.0 [facility] Globulin (S) [Mass/Vol] 3.1 g/dL 2.2-4.2 [facility] Urea nitrogen/Creatinine [Mass ratio] 20.2 mg/mg 10-20 [facility] Laboratory - Hematology and Cell countsOrdered By: Nikkie Osei on 08-28-2022 Erythrocyte distribution width (RBC) [Entitic vol] 40.9 fL 35.1-43.9 [facility] Erythrocyte distribution width (RBC) [Ratio] 13.4 % 11.6-14.6 [facility] Immature granulocytes/100 WBC (Bld) 0.000 % 0.0-0.9 [facility] Comment on above: IG% - Immature Granu locytes (promyelocytes, myelocytes and metamyelocytes) > 1% indicates that a LEFT SHIFT is Present. MCH (RBC) [Entitic mass] 27.7 pg 27.0-32.0 [facility] Nucleated RBC/100 WBC (Bld) [Ratio] 0 % 0-5 [facility] MCHC Auto (RBC) [Mass/Vol]Or dered By: Nikkie Osei on 08-28-2022 MCHC (RBC) [Mass/Vol] 33.2 g/dL 32-36 [facility] No Panel InformationOrdered By: Nikkie Osei on 08-28-2022 Estimated GFR (MDRD) Amer 111 mL/min >60 [facility] Comment on above: GFR Calc Estimated GFR (MDRD) Non-Af Amer 92 mL/min >60 [facility] Comment on above: Non- GFR Calc Platelets bldOrdered By: [place] Osei on 08-28-2022 Platelets (Bld) [#/Vol] 168 10*3/uL 150-450 [facility] Serum or plasma albumin larisa urement (mass/volume)Ordered By: Nikkie Osei on 08-28-2022 Albumin [Mass/Vol] 3.6 g/dL 3.2-5.0 [facility] Serum or plasma albumin/glob ulin mass ratioOrdered By: Nikkie Osei on 08-28-2022 Albumin/Globulin [Mass ratio] 1.2 {ratio} 0.9-2.4 [facility] Serum or plasma calcium larisa urement (mass/volume)Ordered By: Nikkie Osei on 08-28-2022 Calcium [Mass/Vol] 9.2 mg/dL 8.5-10.1 [facility] Serum or plasma creatinine m easurement (mass/volume)Ordered By: Nikkie Osei on 08-28-2022 Creatinine [Mass/Vol] 0.69 mg/dL 0.55-1.02 [facility] Comment on above: The validity of the calculated GFR & GFRAA in patients over 70 years has not been determined. Clinical correlation is essential. Serum or plasma urea nitroge n measurement (mass/volume)Ordered By: Nikkie Osei on 08-28-2022 Urea nitrogen [Mass/Vol] 14 mg/dL 7-18 [facility] Thin prep Papanicolaou smear with manual screeningOrdered By: Nikkie Osei on 08-28-2022 Thin prep Papanicolaou smear with manual screening 23 U/L 15-37 [facility] Thin prep Papanicolaou smear with manual screening 3 5-15 [facility] Absolute lymphocyte countOrd ered By: Dr. Osei on 03-09-2022 Lymphocytes Auto (Unsp spec) [#/Vol] 1.21 10*3/uL 0.83-4.51 [facility] Basophil percentageOrdered B y: Dr. Osei on 03-09-2022 Basophils/100 WBC (Bld) 0.6 % 0-1 [facility] Bilirubin [Mass/Vol] 0.70 mg/dL 0.20-1.00 [facility] Comment on above: For patients on eltr ombopag therapy, use of Dimension [place] TBIL is not recommended. Chloride [Moles/Vol] 107 mmol/L 98-107 [facility] Eosinophils/100 WBC (Bld) 2.8 % 0-5 [facility] Glucose [Mass/Vol] 102 mg/dL 74-106 [facility] Comment on above: Fasting Glucose resu lt from 100 to 125 mg/dL suggests IMPAIRED HOMEOSTASIS per A.D.A. criteria. Neutrophils (Bld) [#/Vol] 1.9 10*3/uL 2.0-7.7 [facility] Neutrophils/100 WBC (Bld) 53.4 % 47-70 [facility] Potassium [Moles/Vol] 4.3 mmol/L 3.5-5.1 [facility] Protein [Mass/Vol] 6.1 g/dL 6.4-8.2 [facility] Sodium [Moles/Vol] 140 mmol/L 136-145 [facility] WBC (Bld) [#/Vol] 3.6 10*3/uL 4.4-11.0 [facility] Blood erythrocytes count (nu mber/volume)Ordered By: Dr. Osei on 03-09-2022 RBC (Bld) [#/Vol] 5.14 10*6/uL 4.2-5.4 [facility] Blood hemoglobin measurement (mass/volume)Ordered By: Dr. Osei on 03-09-2022 Hemoglobin (Bld) [Mass/Vol] 13.8 g/dL 12.0-15.0 [facility] Blood lymphocytes/100 leukoc ytesOrdered By: Dr. Osei on 03-09-2022 Lymphocytes/100 WBC (Bld) 33.5 % 19-41 [facility] Blood monocytes/100 leukocyt esOrdered By: Dr. Osei on 03-09-2022 Monocytes/100 WBC (Bld) 9.4 % 0-10 [facility] Blood platelet mean volumeOr dered By: Dr. Osei on 03-09-2022 Platelet mean volume (Bld) [Entitic vol] 9.8 fL 6.2-12.0 [facility] Determination of erythrocyte mean corpuscular volume (MCV)Ordered By: Dr. Osei on 03-09-2022 MCV (RBC) [Entitic vol] 83.5 fL 81-99 [facility] Hematocrit Auto (Bld) [Volum e fraction]Ordered By: Dr. Osei on 03-09-2022 Hematocrit (Bld) [Volume fraction] 42.9 % 37-47 [facility] Laboratory - Chemistry and C hemistry - challengeOrdered By: Dr. Osei on 03-09-2022 ALP [Catalytic activity/Vol] 76 U/L 45-117 [facility] ALT [Catalytic activity/Vol] 23 U/L 13-56 [facility] CO2 [Moles/Vol] 28.0 mmol/L 21.0-32.0 [facility] Globulin (S) [Mass/Vol] 2.4 g/dL 2.2-4.2 [facility] Urea nitrogen/Creatinine [Mass ratio] 31.4 mg/mg 10-20 [facility] Laboratory - Hematology and Cell countsOrdered By: Dr. Osei on 03-09-2022 Erythrocyte distribution width (RBC) [Entitic vol] 39.8 fL 35.1-43.9 [facility] Erythrocyte distribution width (RBC) [Ratio] 13.1 % 11.6-14.6 [facility] Immature granulocytes/100 WBC (Bld) 0.300 % 0.0-0.9 [facility] Comment on above: IG% - Immature Granu locytes (promyelocytes, myelocytes and metamyelocytes) > 1% indicates that a LEFT SHIFT is Present. MCH (RBC) [Entitic mass] 26.8 pg 27.0-32.0 [facility] Nucleated RBC/100 WBC (Bld) [Ratio] 0 % 0-5 [facility] MCHC Auto (RBC) [Mass/Vol]Or dered By: Dr. Osei on 03-09-2022 MCHC (RBC) [Mass/Vol] 32.2 g/dL 32-36 [facility] No Panel InformationOrdered By: Dr. Osei on 03-09-2022 Estimated GFR (MDRD) Amer 130 mL/min >60 [facility] Comment on above: GFR Calc Estimated GFR (MDRD) Non-Af Amer 107 mL/min >60 [facility] Comment on above: Non- GFR Calc Platelets bldOrdered By: Dr. Osei on 03-09-2022 Platelets (Bld) [#/Vol] 155 10*3/uL 150-450 [facility] Serum or plasma albumin larisa urement (mass/volume)Ordered By: Dr. Osei on 03-09-2022 Albumin [Mass/Vol] 3.7 g/dL 3.2-5.0 [facility] Serum or plasma albumin/glob ulin mass ratioOrdered By: Dr. Osei on 03-09-2022 Albumin/Globulin [Mass ratio] 1.5 {ratio} 0.9-2.4 [facility] Serum or plasma calcium larisa urement (mass/volume)Ordered By: Dr. Osei on 03-09-2022 Calcium [Mass/Vol] 8.8 mg/dL 8.5-10.1 [facility] Serum or plasma creatinine m easurement (mass/volume)Ordered By: Dr. Osei on 03-09-2022 Creatinine [Mass/Vol] 0.61 mg/dL 0.55-1.02 [facility] Comment on above: The validity of the calculated GFR & GFRAA in patients over 70 years has not been determined. Clinical correlation is essential. Serum or plasma urea nitroge n measurement (mass/volume)Ordered By: Dr. Osei on 03-09-2022 Urea nitrogen [Mass/Vol] 19 mg/dL 7-18 [facility] Thin prep Papanicolaou smear with manual screeningOrdered By: Dr. Osei on 03-09-2022 Thin prep Papanicolaou smear with manual screening 23 U/L 15- [facility] Thin prep Papanicolaou smear with manual screening 5 5-15 [facility] Basophil percentageOrdered B y: Tenisha Akins on 01-11-2022 Cholesterol [Mass/Vol] 231 mg/dL <200 [facility] Comment on above: <200 mg/dL Desirable 200-240 mg/dL Borderline >240 mg/dL High Risk Triglyceride [Mass/Vol] 118 mg/dL <199 [facility] Comment on above: The drugs N-Acetylcy steine and Metamizole may falsely depress this assay.Serum Triglycerides Reference Interval Normal <150 mg/dL Borderline high 150 - 199 mg/dL High 200 - 499 mg/dL Very High > or = 500 mg/dL Laboratory - Chemistry and C hemistry - challengeOrdered By: Tenisha Akins on 01-11-2022 Cobalamin (Vitamin B12) [Mass/Vol] 489 pg/mL 211-911 [facility] No Panel Informationon 01-11 231 mg/dL Abnormal [facility] 118 mg/dL Normal [facility]. 72 mg/dL Normal [facility].; [facility]. 135 mg/dL Abnormal 0 - 130 mg/dL [facility].; [facility] 24 mg/dL Normal 5 - 40 mg/dL [facility].; [facility] 489 pg/mL Normal 211 - 911 pg/mL [facility].; [facility]. Serum or plasma cholesterol in HDL measurement (mass/volume)Ordered By: Tenisha Akins on 01-11-2022 Cholesterol in HDL [Mass/Vol] 72 mg/dL >40 [facility] Comment on above: The drugs N-Acetylcy steine and Metamizole may falsely depress this assay. Reference Range HDL <40 mg/dL Low HDL Cholesterol HDL >or= 60 mg/dL High HDL Cholesterol Serum or plasma cholesterol in VLDL measurement (mass/volume)Ordered By: Tenishamirtha Akins on 01-11-2022 Cholesterol in VLDL [Mass/Vol] 24 mg/dL 5-40 [facility] Serum or plasma low density lipoprotein (LDL) cholesterol measurement (mass/volume)Ordered By: Tenishamirtha Akins on 01-11-2022 Cholesterol in LDL [Mass/Vol] 135 mg/dL 0-130 [facility] Absolute lymphocyte counton 09-07-2021 Lymphocytes Auto (Unsp spec) [#/Vol] 1.21 10*3/uL 0.83-4.51 [facility] Work Phone: Basophil percentageon 2021 Basophils/100 WBC (Bld) 0.6 % 0-1 [facility] Work Phone: Bilirubin [Mass/Vol] 0.40 mg/dL 0.20-1.00 [facility] Work Phone: Comment on above: For patients on eltr ombopag therapy, use of Dimension [place] TBIL is not recommended. Chloride [Moles/Vol] 105 mmol/L 98-107 [facility] Work Phone: Eosinophils/100 WBC (Bld) 2.8 % 0-5 [facility] Work Phone: Glucose [Mass/Vol] 107 mg/dL 74-106 [facility] Work Phone: Comment on above: Fasting Glucose resu lt from 100 to 125 mg/dL suggests IMPAIRED HOMEOSTASIS per A.D.A. criteria. Neutrophils (Bld) [#/Vol] 1.6 10*3/uL 2.0-7.7 [facility] Work Phone: Neutrophils/100 WBC (Bld) 50.3 % 47-70 [facility] Work Phone: Potassium [Moles/Vol] 4.0 mmol/L 3.5-5.1 [facility] Work Phone: Protein [Mass/Vol] 5.9 g/dL 6.4-8.2 [facility] Work Phone: Sodium [Moles/Vol] 140 mmol/L 136-145 [facility] Work Phone: WBC (Bld) [#/Vol] 3.2 10*3/uL 4.4-11.0 [facility] Work Phone: Blood erythrocytes count (nu mber/volume)on 09-07-2021 RBC (Bld) [#/Vol] 4.66 10*6/uL 4.2-5.4 [facility] Work Phone: Blood hemoglobin measurement (mass/volume)on 09-07-2021 Hemoglobin (Bld) [Mass/Vol] 12.7 g/dL 12.0-15.0 [facility] Work Phone: Blood lymphocytes/100 leukoc yteson 09-07-2021 Lymphocytes/100 WBC (Bld) 37.3 % 19-41 [facility] Work Phone: Blood monocytes/100 leukocyt eson 09-07-2021 Monocytes/100 WBC (Bld) 9.0 % 0-10 [facility] Work Phone: Blood platelet mean volumeon 09-07-2021 Platelet mean volume (Bld) [Entitic vol] 9.5 fL 6.2-12.0 [facility] Work Phone: [phone] Determination of erythrocyte mean corpuscular volume (MCV)on 09-07-2021 MCV (RBC) [Entitic vol] 83.3 fL 81-99 [facility] Work Phone: [phone] Hematocrit Auto (Bld) [Volum e fraction]on 09-07-2021 Hematocrit (Bld) [Volume fraction] 38.8 % 37-47 [facility] Work Phone: [phone] Laboratory - Chemistry and C hemistry - challengeon 09-07-2021 ALP [Catalytic activity/Vol] 69 U/L 45-117 [facility] Work Phone: [phone] ALT [Catalytic activity/Vol] 27 U/L 13-56 [facility] Work Phone: [phone] CO2 [Moles/Vol] 27.0 mmol/L 21.0-32.0 [facility] Work Phone: [phone] Globulin (S) [Mass/Vol] 2.5 g/dL 2.2-4.2 [facility] Work Phone: [phone] Urea nitrogen/Creatinine [Mass ratio] 14.2 mg/mg 10-20 [facility] Work Phone: [phone] Laboratory - Hematology and Cell countson 09-07-2021 Erythrocyte distribution width (RBC) [Entitic vol] 40.0 fL 35.1-43.9 [facility] Work Phone: [phone] Erythrocyte distribution width (RBC) [Ratio] 13.2 % 11.6-14.6 [facility] Work Phone: [phone] Immature granulocytes/100 WBC (Bld) 0.000 % 0.0-0.9 [facility] Work Phone: [phone] Comment on above: IG% - Immature Granu locytes (promyelocytes, myelocytes and metamyelocytes) > 1% indicates that a LEFT SHIFT is Present. MCH (RBC) [Entitic mass] 27.3 pg 27.0-32.0 [facility] Work Phone: [phone] Nucleated RBC/100 WBC (Bld) [Ratio] 0 % 0-5 [facility] Work Phone: MCHC Auto (RBC) [Mass/Vol]on 09-07-2021 MCHC (RBC) [Mass/Vol] 32.7 g/dL 32-36 [facility] Work Phone: No Panel Informationon 09-07 Estimated GFR (MDRD) Amer 74 mL/min >60 [facility] Work Phone: Comment on above: GFR Calc Estimated GFR (MDRD) Non-Af Amer 61 mL/min >60 [facility] Work Phone: Comment on above: Non- GFR Calc Platelets bldon 09-07-2021 Platelets (Bld) [#/Vol] 142 10*3/uL 150-450 [facility] Work Phone: Serum or plasma albumin larisa urement (mass/volume)on 09-07-2021 Albumin [Mass/Vol] 3.4 g/dL 3.2-5.0 [facility] Work Phone: Serum or plasma albumin/glob ulin mass ratioon 09-07-2021 Albumin/Globulin [Mass ratio] 1.4 {ratio} 0.9-2.4 [facility] Work Phone: Serum or plasma calcium larisa urement (mass/volume)on 09-07-2021 Calcium [Mass/Vol] 9.2 mg/dL 8.5-10.1 [facility] Work Phone: [phone] Serum or plasma creatinine m easurement (mass/volume)on 09-07-2021 Creatinine [Mass/Vol] 0.98 mg/dL 0.55-1.02 [facility] Work Phone: Comment on above: The validity of the calculated GFR & GFRAA in patients over 70 years has not been determined. Clinical correlation is essential. Serum or plasma urea nitroge n measurement (mass/volume)on 09-07-2021 Urea nitrogen [Mass/Vol] 14 mg/dL -18 [facility] Work Phone: Thin prep Papanicolaou smear with manual screeningon 09-07-2021 Thin prep Papanicolaou smear with manual screening 24 U/L 15-37 [facility] Work Phone: Thin prep Papanicolaou smear with manual screening 8 5-15 [facility] Work Phone: Laboratory - Chemistry and C hemistry - challengeon 01-28-2021 Albumin [Mass/Vol] 3.5 g/dL Normal 3.4 - 5.0 g/dL [facility]; [facility] Albumin [Mass/Vol] 1.3 g/dL Normal 0.9 - 1.6 [facility].; [facility]. ALP [Catalytic activity/Vol] 65 U/L Normal 46 - 116 U/L [facility].; [place] [employer] [facility], [facility]. ALT [Catalytic activity/Vol] 33 U/L Normal 14 - 59 U/L [facility].; [facility], [employer]. AST [Catalytic activity/Vol] 27 U/L Normal 13 - 39 U/L [facility].; [place] [employer] [facility]. Bilirubin [Mass/Vol] 0.5 mg/dL Normal 0.2 - 1 .0 mg/dL [facility].; [place] [employer] [facility], [facility]. Bilirubin Ql (U) Negative Normal [facility] [employer] [facility]; [place] [employer] [facility], [facility]. Calcium [Mass/Vol] 8.7 mg/dL Normal 8.5 - 10. 1 mg/dL [facility].; [place] [employer], [facility]. Chloride [Moles/Vol] 105 mmol/L Normal 98 - 10 7 mmol/L [facility].; [place] [employer] [facility], [facility]. CO2 [Moles/Vol] 28.2 mmol/L Normal 21.0 - 32.0 mmol/L [facility].; [place] [employer] [facility], [facility]. Comprehensive metabolic 2000 panel CMP with eGFR Normal [facility].; [place] [employer] [facility], [place] [facility] [employer] Creatinine [Mass/Vol] 0.56 mg/dL Normal 0.55 - 1.02 mg/dL [facility].; [place] [employer] [facility], [facility]. GFR/1.73 sq M.predicted among blacks MDRD (S/P/Bld) [Vol rate/Area] mL/min/{1.73_m2} Normal 60 - 999 {ML/MINUTE } [facility].; [place] [employer] [facility]. GFR/1.73 sq M.predicted MDRD (S/P/Bld) [Vol rate/Area] mL/min/{1.73_m2} Normal 60 - 999 {ML/MINUTE } [facility].; [place] [employer] [facility] HospitalOphth[facility]. Globulin (S) [Mass/Vol] 2.7 g/dL Normal 1.5 - 3.8 g/dL [facility].; [place] [employer] [facility], [facility]. Glucose [Mass/Vol] 70 mg/dL Abnormal 74 - 106 mg/dL [facility].; [place] [employer] [facility], [facility]. Glucose Glucometer (BldC) [Moles/Vol] 83 Normal 60 - 120 [facility].; [employer] Ketones Ql (U) Negative Normal [facility].; [employer]. Lipase [Catalytic activity/Vol] 38.0 U/L Abnormal 73.0 - 393 U/L [facility].; [employer], [employer]. pH (U) 5.0 [pH] Abnormal [facility].; [employer], [employer]. Potassium [Moles/Vol] 3.8 mmol/L Normal 3.5 - 5.1 mmol/L [facility].; [employer], [employer] Protein [Mass/Vol] 6.2 g/dL Abnormal 6.4 - 8.2 g/dL [place] [employer] [facility].; [employer], [employer]. Sodium [Moles/Vol] 140 mmol/L Normal 136 - 145 mmol/L [facility].; [employer], [employer]. Specific gravity (U) [Rel density] 1.025 Normal [place] [employer] [facility].; [employer], [employer]. Urea nitrogen [Mass/Vol] 16 mg/dL Normal 7 - 18 mg/dL [facility].; [employer], [employer]. Urea nitrogen/Creatinine [Mass ratio] 29 {ratio} Normal 0 - 30 {ratio} [employer].; [employer] [facility] Urobilinogen Qn (U) 0.2 mg/dL Normal [facility].; [facility] [employer] [facility] Laboratory - Hematology and Cell countson 01-28-2021 Basophils (Bld) [#/Vol] 0.00 {3/UL} Normal 0.00 - 0.10 {3/UL} [facility].; [place] [employer] [facility] [employer] Basophils/100 WBC (Bld) 0.7 % Normal 0.0 - 2.0 % [facility].; [place] [employer] [facility] [employer] [facility] CBC W Auto Differential panel (Bld) CBC + DIFF Normal [place] [employer] [facility] [facility]; [place] [employer] [facility] [place] [facility] Eosinophils (Bld) [#/Vol] 0.20 {3/UL} Normal 0.00 - 0.50 {3/UL} [facility].; [employer] [place] [facility] Eosinophils/100 WBC (Bld) 4.7 % Normal 0.0 - 7.0 % [facility].; [employer] [place] [facility] Erythrocyte distribution width (RBC) [Ratio] 13.3 % Normal 12.0 - 15.6 % [place] [employer] [facility].; [employer] [place] [facility] HbA1c (Bld) [Mass fraction] 5.2 % Normal 4.6 - 7.1 % [facility].; [place] [employer], [place] [facility] Hematocrit (Bld) [Volume fraction] 38.7 % Normal 34.0 - 46.0 % [facility].; [place] [employer], [place] [employer] [facility] Hemoglobin (Bld) [Mass/Vol] 12.8 g/dL Normal 12.0 - 16.0 g/dL [facility].; [employer] [place] [facility] Hemoglobin Ql (U) Negative Normal [place] [employer] [facility].; [place] [employer] [place] [facility] [employer] [facility] Lymphocytes (Bld) [#/Vol] 1.10 {3/UL} Normal 0.80 - 2.80 {3/UL} [place] [employer], [facility].; [employer], [place] [employer] [facility] Lymphocytes/100 WBC (Bld) 30.3 % Normal 20.0 - 45.0 % [facility].; [employer]. MCH (RBC) [Entitic mass] 27 pg Normal 27 - 33 pg [employer].; [employer], [employer]. MCHC (RBC) [Mass/Vol] 33 {X10_3} Normal 32 - 3 6 {X10_3} [employer] MCV (RBC) [Entitic vol] 82 fL Normal 80 - 99 fL [employer].; [employer], [employer]. Monocytes (Bld) [#/Vol] 0.30 {3/UL} Normal 0.20 - 1.00 {3/UL} [employer].; [employer], [employer]. Monocytes/100 WBC (Bld) 8.2 % Normal 0.0 - 10.0 % [employer].; [employer], [employer]. Neutrophils (Bld) [#/Vol] 1.90 {3/UL} Normal 1.50 - 7.10 {3/UL} [employer].; [employer], [employer]. Neutrophils/100 WBC (Bld) 56.1 % Normal 46.0 - 76.0 % [employer].; [employer], [employer]. Platelet mean volume (Bld) [Entitic vol] 8.1 fL Normal 6.6 - 10.5 fL [employer].; [employer] Platelets (Bld) [#/Vol] 148 {3/UL} Abnormal 150 - 450 {3/UL} [employer].; [employer] RBC (Bld) [#/Vol] 4.75 {6/UL} Normal 4.10 - 5.30 {6/UL} [employer].; [employer], [employer]. WBC (Bld) [#/Vol] 3.5 {3/UL} Abnormal 4.5 - 10.8 {3/UL} [employer]. Laboratory - Specimen inform [facility] 01-28-2021 Appearance (U) clear Normal [employer].; [employer], [employer]. Color (U) yellow Normal [employer].; [employer], [employer]. Laboratory - Urinalysison Glucose Test strip (U) [Mass/Vol] Negative Normal [employer].; [employer] Leukocyte esterase Test strip Ql (U) Negative Normal [employer].; [employer] Nitrite Ql (U) Negative Normal [employer].; [employer] Protein Ql (U) Negative Normal [employer].; [employer] No Panel Informationon 01-28 SEE NOTE Normal [employer] N/A Normal [employer].; [employer], [employer]. 11 mmol/L Normal 10 - 20 mmol/L [employer].; [employer]. 58 {years} Normal [employer].; [employer], [employer]. CNCOon 10-29-2020 CNCO HNO ID: [id number] Author: Mammography Coordinator Service: ? Author Type: Physician Type: Letter Filed: 10/30/2020 11:33 PM Note Text: October 29, 2020 PID: [id number] Chloe Choudhary [address] [place] [address] Dear Ms. Choudhary, We are pleased to inform you that the results of your recent breast imaging exam on 10/29/2020 are normal. Early detection of cancer is very important. We also understand recommendations regarding breast cancer screening are controversial. Please discuss with your primary care provider which strategy is best for you and whether a mammogram is right for you. Your imaging studies and report will be kept on file at [facility] as part of your permanent medical record and are available for your continuing care. Thank you for allowing us to help in meeting your health care needs. Sincerely, Dr. Jordan Interpreting Radiologist [facility] (Normal over 40) Normal [facility] CNOVon 10-29-2020 CNOV Office Visit (OBGYWM ) CHLOE CHOUDHARY ([id number]) 1960 F Date Time Provider Department 10/29/20 10:00 AM LORNA YA During your visit today, we recorded the following information about you: Blood pressure Weight Height 100/66 98.4 kg 1.65 m Lorna Ya APRN.MOLDED GOODS CONTROLS OPERATOR 10/29/2020 11:04 AM Signed Theresa is a 60 year old who presents for an annual gynecologic exam without complaints. Retired 11/2019 and loving it - working outside and gardening. Has lost 10 lbs. 18 grandchildren ages to 17 yo. Postmenopausal:?TVH 2006, removal of ovaries in 2004 HRT use:?Yes,?oral estradiol??How lon years - discontinued use 2016 Last Pap:?2010?normal??vag vault HPV:?2010?negative Last mammogram:?today History [...] Laterality Date - COLONOSCOP W/ OR W/O [facility] SPEC 01/25/13 05/10/2017 Colonoscopy - L'SCOPE REM [...] external genitalia normal, normal Bartholin's glands, urethra, Crestwood's glands, no vulvar lesions, physiologic discharge present, [...] one year or sooner as needed Lorna Ya APRN.MOLDED GOODS CONTROLS OPERATOR Referring Provider: SELF [[id number]] Allergies As of Date: 10/29/2020 Noted Allergy Reaction MORPHINE 03/21/2007 11 - Vomiting AVELOX (MOXIFLOXACIN HCL) 08/ (more content not included)... Normal [facility] SCREENINGon 10-29-2020 [facility] SCREENING * * *Final Report* * * DATE OF EXAM: Oct 29 2020 11:01AM [id number] [id number] - [facility] SCREENING / PROCEDURE REASON: Encounter for screening mammogram for malignant neoplasm of breast * * * * Physician Interpretation * * * * RESULT: #[id number] - [facility] SCREENING BILATERAL DIGITAL SCREENING MAMMOGRAM WITH CAD: 10/29/2020 HISTORY: Screening Mammogram - patient reports NO breast symptoms /priors available for comparison. RESULT: TECHNIQUE: The study was acquired using full field digital technology and interpreted from soft copy. Current study was also evaluated with a Computer Aided Detection (CAD). Comparison is made to exams dated: 07/13/2019 mammogram - [facility], 06/08/2018 mammogram, 04/06/2017 mammogram, and 02/25/2016 mammogram - [facility]. There are scattered fibroglandular elements in both breasts. No significant masses, calcifications, or other findings are seen in either breast. There has been no significant interval change. IMPRESSION: NEGATIVE There is no mammographic evidence of malignancy. A 1 year screening mammogram is recommended. Margareth Jordan M.D. tr/linda:10/29/2020 11:44:11 [employer]arry Supervisor(s): RT Rogelio(R)(M), [facility] letter sent: Normal over 40 Mammogram BI-RADS: 1 Negative Multiple national specialty organizations have released breast cancer screening guidelines for women at average risk for developing breast cancer - guidelines that are based on both evidence and opinion, yet differ on when to start and how often to screen for breast cancer. With representation from Breast Imaging, Internal Medicine, Women's Health, Family Medicine, and Medical/Surgical Oncology, the [facility] has carefully reviewed the data and reached the following consensus: 1) All women should engage in shared decision-making with their providers to decide when to start and how often to screen; 2) All women should have the opportunity to start screening mammography at age 40; 3) For women ages 45-55, we recommend annual screening mammograms; 4) For women ages 55 and over, we support both the transition from an annual to a biennial interval if this aligns more with patient's values and preferences, or continuation with annual screening; 5) All women should discuss with their providers when to stop screening mammograms. Lens Mold Setter: Linda Transcribe Date/Time: Oct 29 2020 10:43A Dictated by: MARGARETH JORDAN MD This examination was interpreted and the report reviewed and electronically signed by: MARGARETH JORDAN MD on Oct 29 2020 11:44AM EST [id number] Normal [facility] No Panel Informationon 09-03 702 pg/mL Normal 200 - 1100 pg/mL [facility], [facility].; [facility], [facility]. 49 ng/mL Normal 30 - 100 ng/mL [facility], [facility].; [facility], [facility]. Lyme Ab Panel WBloton 2020 Lyme IgG Bands None Normal [facility] Comment on above: Performed By: #### L YMEWB #### [facility] [address] [phone] Lyme IgG WBlot NEGAT Normal Negative [facility] Comment on above: Performed By: #### L YMEWB #### [facility] [employer] [facility] [address] [address] Lyme IgM Bands p39 Normal [facility] Comment on above: Performed By: #### L YMEWB #### [facility] [address] [address] Lyme IgM WBlot NEGAT Normal Negative [facility] Comment on above: Performed By: #### L DAVID #### [facility] [address] [place], [place] [address] Lyme Interp LMNOBB Normal [facility] Comment on above: Performed By: #### L DAVID #### [facility] [address] [place], [place] [address] No Panel Informationon 01-10 Not detected Normal [employer] No Panel Informationon 11-06 85 mg/dL Normal 65 - 99 mg/dL [employer] 13 mg/dL Normal 7 - 25 mg/dL [employer].; [employer] 0.66 mg/dL Normal 0.50 - 1.05 mg/dL [employer].; [employer] 98 Normal [employer].; [employer] 114 Normal [employer].; [employer] NOT APPLICABLE Normal 6 - 22 [employer].; [employer] 142 mmol/L Normal 135 - 146 mmol/L [employer].; [employer] 4.3 mmol/L Normal 3.5 - 5.3 mmol/L [employer].; [employer] 105 mmol/L Normal 98 - 110 mmol/L [employer].; [employer] 30 mmol/L Normal 20 - 32 mmol/L [employer].; [employer] 9.3 mg/dL Normal 8.6 - 10.4 mg/dL [employer].; [employer] 5.8 g/dL Abnormal 6.1 - 8.1 g/dL [employer].; [employer] 4.0 g/dL Normal 3.6 - 5.1 g/dL [employer].; [employer] 1.8 Abnormal 1.9 - 3.7 [employer] 2.2 Normal 1.0 - 2.5 [facility].; [facility] [employer] [place] [facility] 0.7 mg/dL Normal 0.2 - 1.2 mg/dL [facility] HospitalKey[facility].; [facility]Key[facility]. 56 U/L Normal 37 - 153 U/L [facility] HospitalKey[facility].; [facility], [facility]. 25 U/L Normal 10 - 35 U/L [facility] HospitalKey[facility].; [facility]Key[facility]. 22 U/L Normal 6 - 29 U/L [facility] HospitalKey[facility].; [facility]Key[facility]. Laboratory - Chemistry and C hemistry - challengeon 04-06-2019 25-hydroxyvitamin D3 [Mass/Vol] 41.67 ng/mL Normal 30.00 - 100 ng/mL [facility] Hospital[facility].; [facility], [facility]. Cobalamin (Vitamin B12) [Mass/Vol] 455 pg/mL Normal 180 - 914 pg/mL [facility] HospitalKey[facility].; [facility]Key[facility] [employer] [place] [facility] Laboratory - Chemistry and C hemistry - challengeon 12-20-2018 25-hydroxyvitamin D3 [Mass/Vol] 22 ng/mL Abnormal 30 - 100 ng/mL [facility] Hospital[facility].; [facility]Key[facility]. Cobalamin (Vitamin B12) [Mass/Vol] 273 pg/mL Normal 200 - 1100 pg/mL [facility] HospitalKey[facility].; [place] [employer] [facility], [facility]. Free T3 [Mass/Vol] 3.6 pg/mL Normal 2.3 - 4.2 pg/mL [facility] HospitalKey[facility].; [place] [employer] [facility] HospitalKey[facility]. Free T4 [Mass/Vol] 1.2 ng/dL Normal 0.8 - 1.8 ng/dL [facility] HospitalKey[facility].; [place] [employer] [facility] HospitalKey[facility]. TSH Qn 2.07 m[IU]/L Normal 0.40 - 4.50 {mIU/L} [facility] HospitalKey[facility].; [place] [employer] [facility] HospitalKey[facility]. Laboratory - Hematology and Cell countson 12-20-2018 Basophils (Bld) [#/Vol] 30 {Cells}/uL Normal 0 - 200 {Cells}/uL [facility] HospitalKey[facility].; [place] [employer] [facility] HospitalKey[facility] [employer] [place] [facility] Basophils/100 WBC (Bld) 0.7 % Normal 0 - 1 % [facility].; [facility], [facility]. Eosinophils (Bld) [#/Vol] 140 {Cells}/uL Normal 15 - 500 {Cells}/uL [facility] HospitalKey[facility].; [facility], [facility]. Eosinophils/100 WBC (Bld) 3.1 % Normal 0 - 4 % [facility], [facility].; [facility], [facility]. Erythrocyte distribution width (RBC) [Ratio] 13.0 % Normal 11.0 - 15.0 % [facility], [facility].; [facility], [place] [facility] Hematocrit (Bld) [Volume fraction] 38.5 % Normal 35.0 - 45.0 % [facility], [facility].; [facility], [place] [facility] Hemoglobin (Bld) [Mass/Vol] 13.2 g/dL Normal 11.7 - 15.5 g/dL [facility], [facility].; [facility], [place] [facility] Lymphocytes (Bld) [#/Vol] 1290 {Cells}/uL Normal 850 - 3900 {Cells}/uL [facility], [facility].; [facility], [facility]. Lymphocytes/100 WBC (Bld) 28.6 % Normal 12 - 47 % [facility], [facility].; [facility], [facility]. MCH (RBC) [Entitic mass] 27.7 pg Normal 27.0 - 33.0 PG [facility], [facility].; [facility], [facility]. MCHC (RBC) [Mass/Vol] 34.3 g/dL Normal 32.0 - 36.0 g/dL [facility], [facility].; [place] [employer], [facility]. MCV (RBC) [Entitic vol] 80.7 fL Normal 80.0 - 100.0 fL [facility] HospitalKey[facility].; [facility], [facility]. Monocytes (Bld) [#/Vol] 370 {Cells}/uL Normal 200 - 950 {Cells}/uL [facility] HospitalKey[facility].; [facility], [facility]. Monocytes/100 WBC (Bld) 8.2 % Normal 4 - 12 % [facility], [facility].; [facility], [facility]. Neutrophils (Bld) [#/Vol] 2660 {Cells}/uL Normal 1500 - 7800 {Cells}/uL [facility] HospitalKey[facility].; [employer]. Neutrophils/100 WBC (Bld) 59.4 % Normal 40 - 75 % [facility] [employer] [facility].; [place] [employer] Platelet mean volume (Bld) [Entitic vol] 10.2 fL Normal 7.5 - 12.5 fL [facility] HospitalKey[facility].; [place] [employer], [employer] Platelets (Bld) [#/Vol] 172 10*3/uL Normal 140 - 400 10*3/uL [facility] HospitalKey[facility].; [place] [employer] [facility] HospitalOphthotech. RBC (Bld) [#/Vol] 4.77 10*6/uL Normal 3.80 - 5.10 10*6/uL [facility] [employer].; [place] [employer]. WBC (Bld) [#/Vol] 4.5 10*3/uL Normal 3.8 - 10.8 10*3/uL [place] [employer].; [employer]. Laboratory - Serology - non- microon 12-20-2018 TPO Ab Qn [IU]/mL Normal [facility] HospitalKey[facility] [employer] [place] [facility]; [employer]. Laboratory - Chemistry and C hemistry - challengeon 08-23-2018 Albumin [Mass/Vol] 4.2 g/dL Normal 3.6 - 5.1 g/dL [facility] HospitalKey[facility].; [place] [employer], [employer]. Albumin/Globulin [Mass ratio] 2.3 {ratio} Normal 1.0 - 2.5 [facility] HospitalKey[facility].; [place] [employer]. ALP [Catalytic activity/Vol] 89 U/L Normal 33 - 130 U/L [facility] HospitalKey[facility].; [place] [employer]. ALT [Catalytic activity/Vol] 16 U/L Normal 6 - 29 U/L [place] [employer] [facility].; [place] [employer]. Amylase [Catalytic activity/Vol] 25 U/L Normal 21 - 101 U/L [place] [employer] [facility].; [place] [employer]. AST [Catalytic activity/Vol] 19 U/L Normal 10 - 35 U/L [place] [employer] [facility].; [employer]. Bilirubin [Mass/Vol] 0.6 mg/dL Normal 0.2 - 1 .2 mg/dL [employer].; [facility], [facility]. Calcium [Mass/Vol] 9.1 mg/dL Normal 8.6 - 10. 4 mg/dL [facility] HospitalKey[facility].; [place] [employer] [facility] HospitalKey[facility]. Chloride [Moles/Vol] 107 mmol/L Normal 98 - 11 0 mmol/L [facility].; [facility], [facility]. Cholesterol [Mass/Vol] 241 mg/dL Abnormal [facility] HospitalKey[facility].; [facility] HospitalKey[facility]. Cholesterol in HDL [Mass/Vol] 71 mg/dL Normal [facility].; [facility], [facility]. Cholesterol in LDL [Mass/Vol] 148 mg/dL Abnormal 0 - 100 mg/dL [facility] HospitalKey[facility].; [facility], [facility]. Cholesterol non HDL [Mass/Vol] 169 mg/dL Abnormal [facility] HospitalKey[facility].; [facility], [facility]. Cholesterol.total/Cho lesterol in HDL [Mass ratio] 3.4 {ratio} Normal [facility] HospitalKey[facility].; [place] [employer]. CO2 [Moles/Vol] 24 mmol/L Normal 20 - 32 mmol/L [facility] HospitalKey[facility].; [place] [employer] [facility] HospitalKey[facility]. Creatinine [Mass/Vol] 0.55 mg/dL Normal 0.50 - 1.05 mg/dL [facility] HospitalKey[facility].; [place] [employer] HospitalKey[facility] [employer] [place] [facility] [employer] Fat.microscopic observation Philip IV stain Nom (Stl) NORMAL Normal [facility]Key[facility].; [place] [employer] [facility], [facility]. GFR/1.73 sq M.predicted among blacks MDRD (S/P/Bld) [Vol rate/Area] 122 {ML/MIN/1.73M2} Normal [facility].; [place] [employer] [facility], [facility]. GFR/1.73 sq M.predicted MDRD (S/P/Bld) [Vol rate/Area] 105 {ML/MIN/1.73M2} Normal [facility].; [facility], [facility]. Globulin (S) [Mass/Vol] 1.8 g/dL Abnormal 1.9 - 3.7 g/dL [facility], [facility].; [place] [employer] [facility], [facility]. Glucose [Mass/Vol] 95 mg/dL Normal 65 - 99 mg/dL [facility] HospitalKey[facility].; [facility]Key[facility]. Lipase [Catalytic activity/Vol] 11 U/L Normal 7 - 60 U/L [facility] HospitalKey[facility].; [facility]Key[facility]. Potassium [Moles/Vol] 4.0 mmol/L Normal 3.5 - 5.3 mmol/L [facility].; [facility]Key[facility] [employer] [place] [facility] Protein [Mass/Vol] 6.0 g/dL Abnormal 6.1 - 8.1 g/dL [facility].; [facility]Key[facility]. Sodium [Moles/Vol] 141 mmol/L Normal 135 - 146 mmol/L [facility].; [facility]Key[facility] [employer] [place] [facility] Triglyceride [Mass/Vol] 107 mg/dL Normal [facility]Key[facility] [employer] [place] [facility]; [facility]Key[facility]. Urea nitrogen [Mass/Vol] 15 mg/dL Normal 7 - 25 mg/dL [facility].; [place] [employer] [facility] HospitalKey[facility] [employer] [place] [facility] Urea nitrogen/Creatinine [Mass ratio] 27.3 mg/mg Abnormal 6 - 22 [facility]Key[facility] [employer] [place] [facility]; [place] [employer] HospitalKey[facility]. Laboratory - Chemistry and C hemistry - challengeon 09-15-2017 Bilirubin Ql (U) Negative Normal [facility]Key[facility] [employer] [place] [facility]; [place] [employer] [facility] HospitalKey[facility] [employer] [place] [facility] Ketones Ql (U) Negative Normal [facility]Key[facility].; [place] [employer] [facility], [facility]. pH (U) 7.0 [pH] Normal [facility]Key[facility].; [place] [employer] [facility]. Specific gravity (U) [Rel density] 1.015 Normal [facility] [facility].; [facility] [place] [facility] Urobilinogen Qn (U) 0.2 mg/dL Normal [facility].; [facility] Hospital[facility]. Laboratory - Hematology and Cell countson 09-15-2017 Hemoglobin Ql (U) Negative Normal [facility].; [place] [employer] [facility] Laboratory - Specimen inform ationon 09-15-2017 Appearance (U) clear Normal [facility].; [employer] Color (U) yellow Normal [facility].; [employer] Laboratory - Urinalysison Glucose Test strip (U) [Mass/Vol] Negative Normal [facility].; [facility] [place] [facility] Leukocyte esterase Test strip Ql (U) Negative Normal [facility].; [facility]. Nitrite Ql (U) Negative Normal [facility].; [facility], [facility]. Protein Ql (U) Negative Normal [facility].; [place] [employer] [facility], [employer]. Laboratory - Chemistry and C hemistry - challengeon 07-06-2017 Albumin [Mass/Vol] 4.0 g/dL Normal 3.4 - 4.8 g/dL [facility]; [facility] [place] [facility] Albumin [Mass/Vol] 1.8 g/dL Abnormal 0.9 - 1.6 [facility].; [facility]. ALP [Catalytic activity/Vol] 89 U/L Normal 38 - 126 U/L [facility].; [facility], [facility]. ALT [Catalytic activity/Vol] 16 U/L Normal 8 - 35 U/L [facility].; [facility], [facility]. AST [Catalytic activity/Vol] 22 U/L Normal 13 - 39 U/L [facility].; [place] [employer] [facility], [facility]. Bilirubin [Mass/Vol] 0.7 mg/dL Normal 0.0 - 1 .5 mg/dL [facility].; [place] [employer] [facility], [facility]. Calcium [Mass/Vol] 9.5 mg/dL Normal 8.6 - 10. 2 mg/dL [facility].; [facility]. Chloride [Moles/Vol] 103 mmol/L Normal 98 - 10 7 mmol/L [facility].; [place] [employer] [facility] Hospital[facility]. Cholesterol [Mass/Vol] 239 mg/dL Abnormal 0 - 200 mg/dL [facility].; [facility], [facility]. Cholesterol in HDL [Mass or moles/Vol] 67 mg/dL Abnormal 40 - 60 mg/dL [facility].; [facility], [facility]. Cholesterol in LDL [Mass/Vol] 152 mg/dL Abnormal 0 - 129 mg/dL [facility].; [facility], [facility]. Cholesterol.total/Cho lesterol in HDL [Mass ratio] 3.6 {ratio} Normal 0.0 - 5.0 [facility].; [facility], [place] [facility] CO2 [Moles/Vol] 31.4 mmol/L Abnormal 21.0 - 31.0 mmol/L [facility].; [facility], [facility]. Comprehensive metabolic 2000 panel CMP with eGFR Normal [facility]; [facility], [place] [facility] Creatinine [Mass/Vol] 0.7 mg/dL Normal 0.6 - 1.2 mg/dL [facility].; [facility], [facility]. GFR/1.73 sq M.predicted among blacks MDRD (S/P/Bld) [Vol rate/Area] mL/min/{1.73_m2} Normal 60 - 999 {ML/MINUTE } [facility], [facility].; [facility], [facility]. GFR/1.73 sq M.predicted MDRD (S/P/Bld) [Vol rate/Area] mL/min/{1.73_m2} Normal 60 - 999 {ML/MINUTE } [facility].; [facility], [facility]. Globulin (S) [Mass/Vol] 2.2 g/dL Normal 1.5 - 3.8 g/dL [facility], [facility].; [facility], [facility]. Glucose [Mass/Vol] 100 mg/dL Normal 74 - 106 mg/dL [facility], [facility].; [facility], [facility]. Lipid 1996 panel LIPID PROFILE Normal [facility]; [facility], [place] [facility] Potassium [Moles/Vol] 4.0 mmol/L Normal 3.5 - 5.1 mmol/L [facility].; [facility], [place] [facility] Protein [Mass/Vol] 6.2 g/dL Abnormal 6.4 - 8.3 g/dL [facility], [facility].; [facility], [facility]. Sodium [Moles/Vol] 141 mmol/L Normal 136 - 145 mmol/L [facility], [facility].; [facility], [facility]. Triglyceride [Mass/Vol] 102 mg/dL Normal 0 - 150 mg/dL [facility], [facility].; [facility], [facility]. Urea nitrogen [Mass/Vol] 16 mg/dL Normal 6 - 20 mg/dL [employer].; [employer]. Urea nitrogen/Creatinine [Mass ratio] 23 {ratio} Normal 0 - 30 {ratio} [employer].; [employer], [employer]. No Panel Informationon 07-06 11 mmol/L Normal 10 - 20 mmol/L [employer].; [employer]. 57 {years} Normal [employer].; [employer]. Final Surgical Pathology Rep [facility] 05-19-2017 Final Surgical Pathology Report . Pathology ReportsAccession: Collected Date/Time: Received Date/Time: Pathologist:[id number] 05/17/2017 14:11 EDT 05/17/2017 14:11 EDT MD NGHIA SOSA Final Surgical Pathology ReportDIAGNOSIS:COLON, BIOPSIES -- COLONIC EPITHELIUM WITH NO HISTOPATHOLOGIC CHANGES. NO EVIDENCE OF LYMPHOCYTIC COLITIS, COLLAGENOUS COLITIS, ACUTE COLITIS, OR INFLAMMATORY BOWEL DISEASE.CLINICAL INFORMATION:DIARRHEASPECIME N:A COLON, BX - R/O MICROSCOPIC COLITISGROSS DESCRIPTION:_Received in formalin labeled right and left colon biopsies are several teixeira glistening soft tissues ranging from 0.2-0.4 cm. TS -1Dictated by CHIKA LING ([facility])MICROSCOPIC DESCRIPTION:Slides reviewed.Electronically Signed byPathology Report verified by [facility] HospitalElectronically signed by NGHIA SOSA MDSign out Date: 05/19/2017 08:58Performing Lab: [facility], [address] [place] [address] ([place]) Comment on above: Performed By: #### S PFR ####[facility] [place] [address] Laboratory - Chemistry and C hemistry - challengeon 01-10-2017 Creatinine [Mass/Vol] 0.6 mg/dL Normal 0.6 - 1.2 mg/dL [employer].; [employer], [employer]. Urea nitrogen [Mass/Vol] 18 mg/dL Normal 6 - 20 mg/dL [employer].; [employer], [employer]. Laboratory - Chemistry and C hemistry - challengeon 12-30-2016 Albumin [Mass/Vol] 3.8 g/dL Normal 3.4 - 4.8 g/dL [facility], [facility].; [facility], [facility] Albumin [Mass/Vol] 1.8 g/dL Abnormal 0.9 - 1.6 [facility].; [facility], [facility]. ALP [Catalytic activity/Vol] 67 U/L Normal 38 - 126 U/L [facility].; [facility], [facility]. ALT [Catalytic activity/Vol] 19 U/L Normal 8 - 35 U/L [facility], [facility].; [facility], [facility]. Amylase [Catalytic activity/Vol] 27 U/L Abnormal 29 - 103 U/L [facility].; [facility], [facility]. AST [Catalytic activity/Vol] 22 U/L Normal 13 - 39 U/L [facility], [facility].; [facility], [facility] Bilirubin [Mass/Vol] 0.5 mg/dL Normal 0.0 - 1 .5 mg/dL [facility].; [facility], [facility]. Calcium [Mass/Vol] 8.9 mg/dL Normal 8.6 - 10. 2 mg/dL [facility], [facility].; [facility], [facility]. Chloride [Moles/Vol] 104 mmol/L Normal 98 - 10 7 mmol/L [facility].; [facility], [facility]. CO2 [Moles/Vol] 28.8 mmol/L Normal 21.0 - 31.0 mmol/L [facility], [facility].; [facility], [facility]. Comprehensive metabolic 2000 panel CMP with eGFR Normal [facility] [place] [facility]; [facility], [place] [facility] Creatinine [Mass/Vol] 0.7 mg/dL Normal 0.6 - 1.2 mg/dL [facility], [facility].; [facility], [facility]. GFR/1.73 sq M.predicted among blacks MDRD (S/P/Bld) [Vol rate/Area] mL/min/{1.73_m2} Normal 60 - 999 {ML/MINUTE } [facility], [facility].; [facility], [facility]. GFR/1.73 sq M.predicted MDRD (S/P/Bld) [Vol rate/Area] mL/min/{1.73_m2} Normal 60 - 999 {ML/MINUTE } [facility] Hospital[facility].; [facility] [place] [facility] Globulin (S) [Mass/Vol] 2.1 g/dL Normal 1.5 - 3.8 g/dL [facility] Hospital[facility].; [place] [employer] [facility] HospitalKey[facility]. Glucose [Mass/Vol] 70 mg/dL Abnormal 74 - 106 mg/dL [facility] Hospital[facility].; [place] [employer] [facility] HospitalKey[facility]. Lipase [Catalytic activity/Vol] 16.0 U/L Abnormal 18.0 - 51.0 U/L [facility].; [place] [employer] [facility] HospitalKey[facility]. Potassium [Moles/Vol] 4.3 mmol/L Normal 3.5 - 5.1 mmol/L [facility].; [place] [employer] [facility] HospitalKey[facility]. Protein [Mass/Vol] 5.9 g/dL Abnormal 6.4 - 8.3 g/dL [facility].; [place] [employer] [facility] HospitalKey[facility]. Sodium [Moles/Vol] 138 mmol/L Normal 136 - 145 mmol/L [facility].; [place] [employer] [facility]. Urea nitrogen [Mass/Vol] 16 mg/dL Normal 6 - 20 mg/dL [facility].; [place] [employer] [facility]. Urea nitrogen/Creatinine [Mass ratio] 23 {ratio} Normal 0 - 30 {ratio} [facility].; [place] [employer] [place] [facility] Laboratory - Hematology and Cell countson 12-30-2016 Basophils (Bld) [#/Vol] 0.00 {3/UL} Normal 0.00 - 0.10 {3/UL} [facility].; [place] [employer] [facility]. Basophils/100 WBC (Bld) 0.9 % Normal 0.0 - 2.0 % [facility].; [place] [employer] [facility]. CBC W Auto Differential panel (Bld) CBC Normal [facility].; [place] [employer], [place] [facility] Eosinophils (Bld) [#/Vol] 0.10 {3/UL} Normal 0.00 - 0.50 {3/UL} [facility].; [place] [employer]. Eosinophils/100 WBC (Bld) 3.1 % Normal 0.0 - 7.0 % [facility].; [facility], [facility]. Erythrocyte distribution width (RBC) [Ratio] 13.4 % Normal 12.0 - 15.6 % [facility], [facility].; [facility], [facility]. Hematocrit (Bld) [Volume fraction] 40.7 % Normal 34.0 - 46.0 % [facility], [facility].; [facility], [place] [facility] Hemoglobin (Bld) [Mass/Vol] 13.5 g/dL Normal 12.0 - 16.0 g/dL [facility].; [facility], [facility]. Lymphocytes (Bld) [#/Vol] 1.10 {3/UL} Normal 0.80 - 2.80 {3/UL} [facility], [facility].; [place] [employer], [facility]. Lymphocytes/100 WBC (Bld) 24.6 % Normal 20.0 - 45.0 % [facility], [facility].; [place] [employer] [facility], [facility]. MCH (RBC) [Entitic mass] 27 pg Normal 27 - 33 pg [place] [employer] [facility].; [place] [employer], [facility]. MCHC (RBC) [Mass/Vol] 33 {X10_3} Normal 32 - 3 6 {X10_3} [facility].; [place] [employer] MCV (RBC) [Entitic vol] 81 fL Normal 80 - 99 fL [facility], [facility].; [place] [employer], [facility]. Monocytes (Bld) [#/Vol] 0.50 {3/UL} Normal 0.20 - 1.00 {3/UL} [place] [employer], [facility].; [place] [employer] Monocytes/100 WBC (Bld) 10.8 % Abnormal 0.0 - 10.0 % [facility] [employer], [facility].; [place] [employer], [facility]. Neutrophils (Bld) [#/Vol] 2.70 {3/UL} Normal 1.50 - 7.10 {3/UL} [place] [employer], [facility].; [place] [employer] Neutrophils/100 WBC (Bld) 60.6 % Normal 46.0 - 76.0 % [facility] [employer], [facility].; [place] [employer] Platelet mean volume (Bld) [Entitic vol] 8.5 fL Normal 6.6 - 10.5 fL [employer].; [employer]. Platelets (Bld) [#/Vol] 155 {3/UL} Normal 150 - 450 {3/UL} [employer].; [employer], [employer]. RBC (Bld) [#/Vol] 5.00 {6/UL} Normal 4.10 - 5.30 {6/UL} [employer].; [employer], [employer]. WBC (Bld) [#/Vol] 4.5 {3/UL} Normal 4.5 - 10.8 {3/UL} [employer].; [employer]. No Panel Informationon 12-30 N/A Normal [employer].; [employer]. 10 mmol/L Normal 10 - 20 mmol/L [employer].; [employer]. 54 {years} Normal [employer].; [employer]. Laboratory - Chemistry and C hemistry - challengeon 04-13-2016 Albumin [Mass/Vol] 3.4 g/dL Normal 3.4 - 4.8 g/dL [employer].; [employer], [employer]. Albumin [Mass/Vol] 1.4 g/dL Normal 0.9 - 1.6 [employer], [employer].; [employer], [employer]. ALP [Catalytic activity/Vol] 45 U/L Normal 38 - 126 U/L [employer].; [employer], [employer]. ALT [Catalytic activity/Vol] 20 U/L Normal 8 - 35 U/L [employer].; [employer], [employer]. AST [Catalytic activity/Vol] 21 U/L Normal 13 - 39 U/L [employer].; [employer], [employer]. Bilirubin [Mass/Vol] 0.5 mg/dL Normal 0.0 - 1 .5 mg/dL [employer], [employer].; [employer], [employer]. Calcium [Mass/Vol] 8.9 mg/dL Normal 8.6 - 10. 2 mg/dL [employer].; [facility] [employer] Chloride [Moles/Vol] 103 mmol/L Normal 98 - 10 7 mmol/L [facility].; [facility], [facility] Cholesterol [Mass/Vol] 221 mg/dL Abnormal 0 - 200 mg/dL [facility].; [facility], [place] [facility] Cholesterol in HDL [Mass or moles/Vol] 79 mg/dL Abnormal 40 - 60 mg/dL [facility].; [facility], [place] [facility] Cholesterol in LDL [Mass/Vol] 104 mg/dL Normal 0 - 129 mg/dL [facility].; [facility], [place] [facility] Cholesterol.total/Cho lesterol in HDL [Mass ratio] 2.8 {ratio} Normal 0.0 - 5.0 [facility]; [facility], [facility] CO2 [Moles/Vol] 33.0 mmol/L Abnormal 21.0 - 31.0 mmol/L [facility].; [facility], [facility] Comprehensive metabolic 2000 panel CMP with eGFR Normal [facility]; [facility], [place] [facility] Creatinine [Mass/Vol] 0.7 mg/dL Normal 0.6 - 1.2 mg/dL [facility], [facility].; [facility], [facility]. GFR/1.73 sq M.predicted among blacks MDRD (S/P/Bld) [Vol rate/Area] mL/min/{1.73_m2} Normal 60 - 999 {ML/MINUTE } [facility], [facility].; [facility], [facility]. GFR/1.73 sq M.predicted MDRD (S/P/Bld) [Vol rate/Area] mL/min/{1.73_m2} Normal 60 - 999 {ML/MINUTE } [facility], [facility].; [facility], [facility]. Globulin (S) [Mass/Vol] 2.4 g/dL Normal 1.5 - 3.8 g/dL [facility], [facility].; [facility], [facility]. Glucose [Mass/Vol] 82 mg/dL Normal 74 - 106 mg/dL [facility], [facility].; [facility], [place] [facility] Lipid 1996 panel LIPID PROFILE Normal [facility].; [facility] HospitalOphthotech. Natriuretic peptide B (Bld) [Mass/Vol] 71 pg/mL Normal 1 - 100 pg/mL [facility] HospitalKey[facility].; [employer] Potassium [Moles/Vol] 3.7 mmol/L Normal 3.5 - 5.1 mmol/L [place] [employer] [facility] HospitalKey[facility].; [employer] Protein [Mass/Vol] 5.8 g/dL Abnormal 6.4 - 8.3 g/dL [place] [employer] [facility].; [employer]. Sodium [Moles/Vol] 141 mmol/L Normal 136 - 145 mmol/L [place] [employer] [facility] HospitalKey[facility].; [employer]. Triglyceride [Mass/Vol] 191 mg/dL Abnormal 0 - 150 mg/dL [place] [employer] [facility].; [employer]. Urea nitrogen [Mass/Vol] 20 mg/dL Normal 6 - 20 mg/dL [place] [employer].; [employer]. Urea nitrogen/Creatinine [Mass ratio] 29 {ratio} Normal 0 - 30 {ratio} [place] [employer].; [employer]. No Panel Informationon 04-13 9 mmol/L Abnormal 10 - 20 mmol/L [place] [employer].; [employer]. 56 {years} Normal [place] [employer]; [employer]. Laboratory - Chemistry and C hemistry - challengeon 12-20-2015 Hemoglobin.gastrointe stinal Ql (Stl) See Note Normal [place] [employer]; [employer] Laboratory - Microbiology an d Antimicrobial susceptibilityon 12-20-2015 C. difficile toxin A+B IA Ql (Stl) C DIFF COMPLETE Normal [place] [employer].; [employer]. Ova and parasites identified Trichrome stain Nom (Stl) Normal [place] [employer]; [employer]. No Panel Informationon 12-19 Observation duration YES Normal [facility] [employer].; [employer]. PASS Normal [employer].; [employer]. Laboratory - Hematology and Cell countson 10-20-2015 Basophils (Bld) [#/Vol] 0.00 {3/UL} Normal 0.00 - 0.10 {3/UL} [facility].; [facility]. Basophils/100 WBC (Bld) 0.8 % Normal 0.0 - 2.0 % [facility].; [facility], [facility]. CBC W Auto Differential panel (Bld) CBC Normal [facility].; [facility], [facility]. Eosinophils (Bld) [#/Vol] 0.10 {3/UL} Normal 0.00 - 0.50 {3/UL} [facility].; [place] [employer], [facility]. Eosinophils/100 WBC (Bld) 2.5 % Normal 0.0 - 7.0 % [facility].; [place] [employer] [facility], [facility]. Erythrocyte distribution width (RBC) [Ratio] 12.4 % Normal 12.0 - 15.6 % [facility], [facility].; [place] [employer], [facility]. Hematocrit (Bld) [Volume fraction] 39.5 % Normal 34.0 - 46.0 % [facility].; [place] [employer], [facility]. Hemoglobin (Bld) [Mass/Vol] 13.5 g/dL Normal 12.0 - 16.0 g/dL [facility].; [facility], [facility]. Lymphocytes (Bld) [#/Vol] 1.40 {3/UL} Normal 0.80 - 2.80 {3/UL} [facility], [facility].; [place] [employer], [facility]. Lymphocytes/100 WBC (Bld) 27.2 % Normal 20.0 - 45.0 % [facility].; [place] [employer], [facility]. MCH (RBC) [Entitic mass] 28 pg Normal 27 - 33 pg [place] [employer] [facility] HospitalKey[facility].; [place] [employer], [facility]. MCHC (RBC) [Mass/Vol] 34 {X10_3} Normal 32 - 3 6 {X10_3} [facility], [facility].; [place] [employer] MCV (RBC) [Entitic vol] 82 fL Normal 80 - 99 fL [place] [employer] [facility], [facility].; [place] [employer], [facility]. Monocytes (Bld) [#/Vol] 0.50 {3/UL} Normal 0.20 - 1.00 {3/UL} [facility] [employer]less. Monocytes/100 WBC (Bld) 9.3 % Normal 0.0 - 10.0 % [employer].; [employer], [employer]. Neutrophils (Bld) [#/Vol] 3.20 {3/UL} Normal 1.50 - 7.10 {3/UL} [employer].; [employer]. Neutrophils/100 WBC (Bld) 60.2 % Normal 46.0 - 76.0 % [employer].; [employer]. Platelet mean volume (Bld) [Entitic vol] 8.3 fL Normal 6.6 - 10.5 fL [employer].; [employer], [employer]. Platelets (Bld) [#/Vol] 182 {3/UL} Normal 150 - 450 {3/UL} [employer].; [employer], [employer]. RBC (Bld) [#/Vol] 4.83 {6/UL} Normal 4.10 - 5.30 {6/UL} [employer].; [employer], [employer]. WBC (Bld) [#/Vol] 5.3 {3/UL} Normal 4.5 - 10.8 {3/UL} [employer].; [employer], [employer]. No Panel Informationon 10-19 N/A Normal [employer].; [employer]. Laboratory - Chemistry and C hemistry - challengeon 05-08-2014 Calcium [Mass/Vol] 8.7 mg/dL Normal 8.4 - 10. 6 mg/dL [employer].; [employer]. Chloride [Moles/Vol] 103 mmol/L Normal 98 - 11 0 mmol/L [employer].; [employer], [employer]. Cholesterol [Mass/Vol] 206 mg/dL Abnormal 0 - 200 mg/dL [employer].; [employer], [employer]. Cholesterol in HDL [Mass/Vol] 76 mg/dL Abnormal 40 - 60 mg/dL [employer].; [employer], [employer]. Cholesterol in LDL [Mass/Vol] 100 mg/dL Normal 50.0 - 130.0 mg/dL [facility].; [facility]. Cholesterol in VLDL [Mass/Vol] - Normal [facility] [place] [facility]; [facility], [facility]. Cholesterol.total/Cho lesterol in HDL [Mass ratio] 2.7 {ratio} Normal 0 - 5.0 [facility].; [place] [employer] [facility]. CO2 [Moles/Vol] 31.0 {wade/L} Normal 22.0 - 32.0 {wade/L} [facility].; [place] [employer], [facility]. Creatinine [Mass/Vol] 0.7 mg/dL Normal 0.5 - 1.2 mg/dL [facility].; [place] [employer] [facility], [facility]. Glucose [Mass/Vol] 86 mg/dL Normal 60 - 100 mg/dL [facility].; [place] [employer], [facility]. Magnesium [Mass/Vol] 1.8 mg/dL Normal 1.3 - 2 .7 mg/dL [facility].; [place] [employer] [facility], [facility]. Potassium [Moles/Vol] 4.0 mmol/L Normal 3.5 - 5.0 mmol/L [facility].; [place] [employer] [facility], [facility]. Sodium [Moles/Vol] 138 mmol/L Normal 136 - 145 mmol/L [facility].; [place] [employer] [facility], [facility]. Triglyceride [Mass/Vol] 151 mg/dL Abnormal 40 - 150 mg/dL [facility].; [place] [employer] [facility], [facility]. Urea nitrogen [Mass/Vol] 15 mg/dL Normal 8 - 22 mg/dL [facility].; [place] [employer], [facility]. Urea nitrogen/Creatinine [Mass ratio] - Normal 0 - 30 [facility].; [place] [employer] [facility] [place] [facility] No Panel Informationon 05-08 - Normal [facility]; [place] [employer] [place] [facility] >60 Normal [facility].; [employer], [employer] Laboratory - Chemistry and C hemistry - challengeon 12-15-2009 Bilirubin Ql (U) Negative Normal [facility].; [place] [employer] Ketones Ql (U) Negative Normal [employer].; [employer]. pH (U) 6.0 [pH] Normal 4.6 - 8.0 [employer].; [employer]. Specific gravity (U) [Rel density] >=1.030 Normal 1.001 - 1.025 [employer].; [employer]. Laboratory - Hematology and Cell countson 12-15-2009 Hemoglobin Ql (U) Negative Normal [employer].; [employer]. Laboratory - Specimen inform ationon 12-15-2009 Appearance (U) cloudy Abnormal [employer].; [employer]. Color (U) lt yellow Normal [employer].; [employer]. Laboratory - Urinalysison Glucose Test strip (U) [Mass/Vol] Negative Normal [employer].; [employer]. Leukocyte esterase Test strip Ql (U) trace Normal [employer].; [employer]. Nitrite Ql (U) Negative Normal [employer].; [employer]. Protein Ql (U) Negative Normal [employer].; [employer]. No Panel Informationon 12-15 1.0 mg/dL Normal [employer].; [employer]. Vital Signs Date Time Vital Sign Value Performing Clinician Néstor ortiz 08-30-2024 08:13-0400 Body height 165.1 cm Tenisha Akins mobli Work Phone: [facility] 08-30-2024 08:13-0400 Body mass index (BMI) [Ratio] 36.1 kg/m2 Tenisha Valverdeer PA Work Phone: [facility] 08-30-2024 08:13-0400 Body temperature 97.6 [degF] Tenisha Akins PA Work Phone: [facility] 08-30-2024 08:13-0400 Body weight 98.48 kg Tenisha Akins PA Work Phone: [facility] 08-30-2024 08:13-0400 Diastolic blood pressure 72 mm[Hg] Tenisha Valverdeer PA Work Phone: [facility] 08-30-2024 08:13-0400 Heart rate 68 /min Tenisha Akins PA Work Phone: [facility] 08-30-2024 08:13-0400 Respiratory rate 18 /min Tenisha Akins PA Work Phone: [facility] 08-30-2024 08:13-0400 SaO2% (BldA) [Mass fraction] 98 % Tenisha Akins PA Work Phone: [facility] 08-30-2024 08:13-0400 Systolic blood pressure 126 mm[Hg] Tenisha Akins PA Work Phone: [facility] 07-06-2024 08:03-0400 Body height 165.1 cm Tenisha Shelley Akins PA-C Work Phone: [employer]; [facility] [employer] 07-06-2024 08:03-0400 Body mass index (BMI) [Ratio] 35.28 kg/m2 Tenisha Shelley Akins PA-C Work Phone: [employer]; [employer]. 07-06-2024 08:03-0400 Body surface area Derived from formula 2.03 m2 Tenisha Shelley Akins PA-C Work Phone: [employer]; [facility]. 07-06-2024 08:03-0400 Body weight 96.16 kg Tenisha Shelley Akins PA-C Work Phone: [employer]; [facility] 07-06-2024 08:03-0400 Diastolic blood pressure 79 mm[Hg] Tenisha Shelley Akins PA-C Work Phone: [employer]; [employer]. 07-06-2024 08:03-0400 Heart rate 61 /min Tenisha Shelley Akins PA-C Work Phone: [employer]; [facility]. 07-06-2024 08:03-0400 Systolic blood pressure 133 mm[Hg] Tenisha Akins PA-C Work Phone: [facility].; [facility] 06-11-2024 08:22-0400 Body mass index (BMI) [Ratio] 34.9 kg/m2 Tenisha Akins PA Work Phone: [facility] 06-11-2024 08:22-0400 Body weight 95.42 kg Tenisha Akins PA Work Phone: [facility] 05-17-2024 08:14-0400 Body height 165.1 cm Tenisha Akins PA Work Phone: [facility] 05-17-2024 08:14-0400 Body mass index (BMI) [Ratio] 34.8 kg/m2 Tenisha Akins PA Work Phone: [facility] 05-17-2024 08:14-0400 Body weight 95.02 kg Tenisha Akins PA Work Phone: [facility] 05-17-2024 08:14-0400 Diastolic blood pressure 70 mm[Hg] Tenisha Akins PA Work Phone: [facility] 05-17-2024 08:14-0400 Heart rate 51 /min Tenisha Akins PA Work Phone: [facility] 05-17-2024 08:14-0400 Respiratory rate 18 /min Tenisha Akins PA Work Phone: [facility] 05-17-2024 08:14-0400 SaO2% (BldA) [Mass fraction] 98 % Tenisha Akins PA Work Phone: [facility] 05-17-2024 08:14-0400 Systolic blood pressure 117 mm[Hg] Tenisha Akins PA Work Phone: [facility] 03-15-2024 14:09-0500 Body height 165.1 cm Katherine Guaman [facility], [facility].; [facility], [facility]. 03-15-2024 14:09-0500 Body mass index (BMI) [Ratio] 34.28 kg/m2 Katherine Deniz [facility], [facility].; [facility] 03-15-2024 14:09-0500 Body surface area Derived from formula 2 m2 Katherine Deniz [facility], [facility].; [facility], [facility]. 03-15-2024 14:09-0500 Body weight 93.44 kg [facility], [facility].; [facility], [facility]. 03-15-2024 14:09-0500 Diastolic blood pressure 82 mm[Hg] [facility], [facility].; [facility], [facility]. 03-15-2024 14:09-0500 Heart rate 55 /min Katherine Guaman [facility], [facility].; [facility], [facility]. 03-15-2024 14:09-0500 Systolic blood pressure 147 mm[Hg] [facility], [facility].; [facility], [facility]. 03-15-2024 11:12-0500 Body height 165.1 cm Tenisha Akins PA Work Phone: [facility] 03-15-2024 11:12-0500 Body mass index (BMI) [Ratio] 34.3 kg/m2 Tenisha Akins PA Work Phone: [facility] 03-15-2024 11:12-0500 Body weight 93.61 kg Tenisha Akins PA Work Phone: [facility] 03-15-2024 11:12-0500 Diastolic blood pressure 80 mm[Hg] Tenisha Akins PA Work Phone: [facility] 03-15-2024 11:12-0500 Heart rate 56 /min Tenisha Akins PA Work Phone: [facility] 03-15-2024 11:12-0500 Respiratory rate 18 /min Tenisha Akins PA Work Phone: [facility] 01-23-2025 11:12-0500 SaO2% (BldA) [Mass fraction] 99 % Tenisha Akins PA Work Phone: [facility] 03-15-2024 11:12-0500 Systolic blood pressure 159 mm[Hg] Tenisha Akins PA Work Phone: [facility] 02-13-2024 10:35-0500 Body mass index (BMI) [Ratio] 33.8 kg/m2 Tenisha Akins PA Work Phone: [facility] 02-13-2024 10:35-0500 Body weight 92.3 kg Tenisha Akins PA Work Phone: [facility] 02-13-2024 10:35-0500 Diastolic blood pressure 78 mm[Hg] Tenisha Akins PA Work Phone: [facility] 02-13-2024 10:35-0500 Heart rate 72 /min Tenisha Akins PA Work Phone: [facility] 02-13-2024 10:35-0500 Respiratory rate 16 /min Tenisha Akins PA Work Phone: [facility] 02-13-2024 10:35-0500 SaO2% (BldA) [Mass fraction] 97 % Tenisha Akins PA Work Phone: [facility] 02-13-2024 10:35-0500 Systolic blood pressure 130 mm[Hg] Tenisha Akins PA Work Phone: [facility] 01-26-2024 11:40-0500 Body temperature 97.4 [degF] Tenisha Akins PA Work Phone: [facility] 01-26-2024 11:40-0500 Diastolic blood pressure 67 mm[Hg] Tenisha Akins PA Work Phone: [facility] 01-26-2024 11:40-0500 Heart rate 70 /min Tenisha Akins PA Work Phone: [facility] 01-26-2024 11:40-0500 Respiratory rate 16 /min Tenisha Akins PA Work Phone: [facility] 01-26-2024 11:40-0500 SaO2% (BldA) [Mass fraction] 100 % Tenisha Akins PA Work Phone: [facility] 01-26-2024 11:40-0500 Systolic blood pressure 127 mm[Hg] Tenisha Akins PA Work Phone: [facility] 01-26-2024 09:45-0500 Body mass index (BMI) [Ratio] 33.9 kg/m2 Tenisha Akins PA Work Phone: [facility] 01-26-2024 09:45-0500 Body weight 92.53 kg Tenisha Akins PA Work Phone: [facility] 01-25-2024 10:18-0500 Body weight 94.57 kg Tenisha Akins PA Work Phone: [facility] 01-25-2024 10:18-0500 Diastolic blood pressure 65 mm[Hg] Tenisha Akins PA Work Phone: [facility] 01-25-2024 10:18-0500 Heart rate 60 /min Tenisha Akins PA Work Phone: [facility] 01-25-2024 10:18-0500 Respiratory rate 18 /min Tenisha Akins PA Work Phone: [facility] 01-25-2024 10:18-0500 SaO2% (BldA) [Mass fraction] 98 % Tenisha Akins PA Work Phone: [facility] 01-25-2024 10:18-0500 Systolic blood pressure 125 mm[Hg] Tenisha Akins PA Work Phone: [facility] 01-05-2024 07:59-0500 Body height 165.1 cm Génesis Monet LPN [facility], [facility]. 01-05-2024 07:59-0500 Body mass index (BMI) [Ratio] 34.61 kg/m2 Génesis Monet MARISELA [facility].; [employer] [facility]. 01-05-2024 07:59-0500 Body surface area Derived from formula 2.01 m2 Génesis Adrianne Monet LPN [place] [employer] [facility], [facility].; [employer] [facility], [facility]. 01-05-2024 07:59-0500 Body weight 94.35 kg Génesis M Chiki ANTONIO [place] [employer] [facility], [facility].; [employer] [facility]. 01-05-2024 07:59-0500 Diastolic blood pressure 73 mm[Hg] Génesis Silver Chiki [facility] [employer] [facility] Hospital[facility].; [employer], [facility]. 01-05-2024 07:59-0500 Heart rate 64 /min [facility]is [facility] [employer] [facility], [facility].; [employer], [facility]. 01-05-2024 07:59-0500 Systolic blood pressure 125 mm[Hg] Génesis Adrianne [facility] [employer] [facility] [facility].; [employer] [facility]. 09-14-2023 14:53-0400 Body height 165.1 cm Génesis Adrianne Monet [facility] [employer] [facility] HospitalKey[facility].; [employer], [facility]. 09-14-2023 14:53-0400 Body temperature 98.5 [degF] Génesis M Chiki [employer] [place] [employer] [facility], [facility].; [employer], [employer] 09-14-2023 14:53-0400 Diastolic blood pressure 72 mm[Hg] Génesis Adrianne Monet LPN [place] [employer] [facility].; [employer], [facility]. 09-14-2023 14:53-0400 Heart rate 67 /min Génesis Silver Chiki ANTONIO [place] [employer] [facility] HospitalKey[facility].; [employer]. 09-14-2023 14:53-0400 Systolic blood pressure 136 mm[Hg] Génesis Adrianne Monet LPN [facility] HospitalKey[facility].; [employer] 07-27-2023 11:12-0400 Body height 165.1 cm Génesis Adrianne Monet [employer] [facility].; [employer]. 07-27-2023 11:12-0400 Body mass index (BMI) [Ratio] 35.94 kg/m2 Génesis Montanoach [employer] [facility], [facility]. 07-27-2023 11:12-0400 Body surface area Derived from formula 2.04 m2 Génesis Tsanglabach [employer] [facility], [facility].; [employer], [employer] 07-27-2023 11:12-0400 Body temperature 98.5 [degF] Génesis Montanoach [facility].; [employer] [facility]. 07-27-2023 11:12-0400 Body weight 97.98 kg Génesis Monet [facility] [employer] [facility], [facility].; [employer]. 07-27-2023 11:12-0400 Diastolic blood pressure 80 mm[Hg] Génesis Montanoach [facility].; [employer], [employer]. 07-27-2023 11:12-0400 Heart rate 84 /min Génesis Silver Chiki [facility] [employer] [facility], [facility].; [employer], [facility]. 07-27-2023 11:12-0400 Systolic blood pressure 135 mm[Hg] Génesis Montanoach [facility] [employer] [facility], [facility].; [employer] [facility]. 07-14-2023 07:58-0400 Body height 165.1 cm Génesis Tsanglabach [facility] [employer] [facility], [facility].; [employer] [facility]. 07-14-2023 07:58-0400 Body mass index (BMI) [Ratio] 36.78 kg/m2 Génesis Silver Chiki [employer] [place] [employer] [facility], [facility].; [employer], [facility]. 07-14-2023 07:58-0400 Body surface area Derived from formula 2.06 m2 Génesis Tsanglabach [employer] [place] [employer] [facility], [facility].; [employer] [facility]. 07-14-2023 07:58-0400 Body weight 100.25 kg Génesis Silver Chiki [facility] [employer] [facility], [facility].; [employer]. 07-14-2023 07:58-0400 Diastolic blood pressure 71 mm[Hg] Génesis Silver Chiki [facility] [employer] [facility], [facility].; [employer]. 07-14-2023 07:58-0400 Heart rate 56 /min Génesis Monet LPN [facility], [facility].; [facility] 07-14-2023 07:58-0400 Systolic blood pressure 109 mm[Hg] Génesis Monet LPN [facility], [facility].; [facility]. 05-10-2023 09:30-0400 Body height 165.1 cm PA-C [employer] PA Work Phone: [facility] 05-10-2023 09:30-0400 Body mass index (BMI) [Ratio] 36.8 kg/m2 PA-C [employer] PA Work Phone: [facility] 05-10-2023 09:30-0400 Body temperature 97.8 [degF] PA-C [employer] PA Work Phone: [facility] 05-10-2023 09:30-0400 Body weight 100.24 kg PA-C [employer] PA Work Phone: [facility] 05-10-2023 09:30-0400 Diastolic blood pressure 80 mm[Hg] PA-C Charla EnglishCentral PA Work Phone: [facility] 05-10-2023 09:30-0400 Heart rate 69 /min PA-C [employer] PA Work Phone: [facility] 05-10-2023 09:30-0400 Respiratory rate 14 /min PA-C Charla EnglishCentral PA Work Phone: [facility] 05-10-2023 09:30-0400 SaO2% (BldA) [Mass fraction] 98 % PA-C Charla EnglishCentral PA Work Phone: [facility] 05-10-2023 09:30-0400 Systolic blood pressure 128 mm[Hg] PA-C [employer] PA Work Phone: [facility] 10-29-2022 18:18-0400 Respiratory rate 16 /min [facility] 10-29-2022 15:52-0400 Body height 165.1 cm [facility] 10-29-2022 15:52-0400 Body mass index (BMI) [Ratio] 37.5 kg/m2 [facility] 10-29-2022 15:52-0400 Body temperature 96.6 [degF] [facility] 10-29-2022 15:52-0400 Body weight 102.33 kg [facility] 10-29-2022 15:52-0400 Diastolic blood pressure 68 mm[Hg] [facility] 10-29-2022 15:52-0400 Heart rate 72 /min [facility] 10-29-2022 15:52-0400 SaO2% (BldA) [Mass fraction] 100 % [facility] 10-29-2022 15:52-0400 Systolic blood pressure 165 mm[Hg] [facility] 12-10-2021 10:12-0400 Body height 165.1 cm Shannon Andrew MA [facility], [facility].; [facility]Or[employer] [facility] HospitalKey[facility]. 12-10-2021 10:12-0400 Body mass index (BMI) [Ratio] 37.94 kg/m2 Shannon Andrew MA [facility], [facility].; [facility], [facility]. 12-10-2021 10:12-0400 Body surface area Derived from formula 2.09 m2 Shannon Andrew MA [facility], [facility].; [facility], [facility]. 12-10-2021 10:12-0400 Body weight 103.42 kg Shannon Andrew MA [facility], [facility].; [facility], [facility]. 12-10-2021 10:12-0400 Diastolic blood pressure 81 mm[Hg] Shannon Andrew MA [facility], [facility].; [facility], [facility]. 12-10-2021 10:12-0400 Heart rate 54 /min Shannon Andrew MA [facility], [facility].; [facility], [facility]. 12-10-2021 10:12-0400 Systolic blood pressure 129 mm[Hg] Shannon Andrew MA [facility], [facility].; [facility], [facility]. 06-10-2021 10:02-0400 Body temperature 97.2 [degF] Génesis Silver Chiki [facility], [facility].; [employer] [facility] HospitalKey[facility] [facility]. 06-10-2021 10:02-0400 Body weight 100.7 kg Génesis Silver Chiki [facility], [facility].; [employer] [facility]. 06-10-2021 10:02-0400 Diastolic blood pressure 82 mm[Hg] Génesis Silver Chiki [facility], [facility].; [employer]. 06-10-2021 10:02-0400 Heart rate 62 /min Génesis Silver Chiki [facility], [facility].; [place] [employer] [facility] Hospital[facility]. 06-10-2021 10:02-0400 Inhaled oxygen concentration 21 % Génesis Silver Chiki [facility], [facility].; [employer]. 06-10-2021 10:02-0400 SaO2% (BldA) [Mass fraction] 100 % Génesis Silver Chiki [facility] [employer] [facility], [facility].; [employer]. 06-10-2021 10:02-0400 Systolic blood pressure 122 mm[Hg] Génesis Silver Chiki [facility], [facility].; [employer], [employer]. 03-16-2021 13:34-0500 Diastolic blood pressure 72 mm[Hg] [employer] [facility], [facility].; [employer]. 03-16-2021 13:34-0500 Systolic blood pressure 120 mm[Hg] [employer] [facility], [facility].; [employer]. 03-16-2021 13:28-0500 Body height 165.1 cm [employer] [facility], [facility].; [employer]. 03-16-2021 13:28-0500 Body mass index (BMI) [Ratio] 37.28 kg/m2 [employer] [facility], [facility].; [employer]. 03-16-2021 13:28-0500 Body surface area Derived from formula 2.08 m2 Emi [employer] [facility] [employer] [facility].; [employer]. 03-16-2021 13:28-0500 Body temperature 98.9 [degF] [facility].; [facility] [employer]. 03-16-2021 13:28-0500 Body weight 101.61 kg [employer] [facility] [employer] [facility].; [facility]. 03-16-2021 13:28-0500 Diastolic blood pressure 42 mm[Hg] [facility].; [facility] [employer]. 03-16-2021 13:28-0500 Heart rate 70 /min [facility].; [facility] [employer]. 03-16-2021 13:28-0500 Inhaled oxygen concentration 21 % [employer] [facility] [employer] [facility].; [facility]. 03-16-2021 13:28-0500 SaO2% (BldA) [Mass fraction] 98 % [employer] [facility] [employer] [facility].; [facility]. 03-16-2021 13:28-0500 Systolic blood pressure 87 mm[Hg] [facility].; [facility] [employer]. 01-28-2021 09:06-0500 Body height 165.1 cm [facility]nesis Monet [facility].; [facility]. 01-28-2021 09:06-0500 Body mass index (BMI) [Ratio] 36.61 kg/m2 Génesis Monet [facility] [employer] [facility].; [employer]. 01-28-2021 09:06-0500 Body surface area Derived from formula 2.06 m2 Génesis Monet LPN [facility] Hospital[facility].; [facility] [employer]. 01-28-2021 09:06-0500 Body temperature 97 [degF] Génesis Monet [facility] [employer] [facility].; [employer]. 01-28-2021 09:06-0500 Body weight 99.79 kg Génesis Monet [facility] [employer].; [employer]. 01-28-2021 09:06-0500 Diastolic blood pressure 75 mm[Hg] Génesis Monet LPN [facility].; [facility]. 01-28-2021 09:06-0500 Heart rate 64 /min Génesis Monet LPN [facility].; [employer] [facility]. 01-28-2021 09:06-0500 Systolic blood pressure 144 mm[Hg] Génesis Monet LPN [place] [employer] [facility] HospitalKey[facility].; [employer] [facility]. 09-03-2020 07:54-0400 Body height 165.1 cm [employer] PA-C Work Phone: [employer].; [employer] [facility]. 09-03-2020 07:54-0400 Body mass index (BMI) [Ratio] 35.94 kg/m2 [employer] PA-C Work Phone: [employer].; [employer] [facility]. 09-03-2020 07:54-0400 Body surface area Derived from formula 2.04 m2 [employer] PA-C Work Phone: [employer].; [employer] [facility]. 09-03-2020 07:54-0400 Body weight 97.98 kg [employer] PA-C Work Phone: [employer].; [employer] [facility]. 09-03-2020 07:54-0400 Diastolic blood pressure 80 mm[Hg] [employer] [place] PA-C Work Phone: [employer].; [employer]. 09-03-2020 07:54-0400 Heart rate 61 /min [employer] PA-C Work Phone: [employer].; [employer]. 09-03-2020 07:54-0400 Systolic blood pressure 123 mm[Hg] Charla D [place] PA-C Work Phone: [employer].; [facility] 08-26-2020 09:42-0400 Body height 165.1 cm Neilee L Vess [employer]ARM[employer] [facility].; [facility]. 08-26-2020 09:42-0400 Body mass index (BMI) [Ratio] 36.11 kg/m2 Neilee L Vess G[employer] FARMWORK[employer] [facility] Hospital[facility].; [facility]. 08-26-2020 09:42-0400 Body surface area Derived from formula 2.05 m2 Neilee L Vess [employer]ARMWORK[employer] [facility].; [facility] 08-26-2020 09:42-0400 Body weight 98.43 kg Neilee L Vess [employer] II FARMWORK[employer] [facility].; [facility]. 08-26-2020 09:42-0400 Diastolic blood pressure 92 mm[Hg] Neilee L Vess G[employer] II FARMWORKER [facility] Hospital[facility].; [place] [employer]. 08-26-2020 09:42-0400 Heart rate 66 /min Neilee L Vess G[employer] II FARMWORKER [facility].; [facility] 08-26-2020 09:42-0400 Systolic blood pressure 142 mm[Hg] Neilee L Vess GRA[employer] II FARMWORKER [facility].; [facility]. 06-03-2020 09:58-0400 Body height 165.1 cm Neilee L Vess [employer] FARMWORKER [facility].; [facility] 06-03-2020 09:58-0400 Body mass index (BMI) [Ratio] 35.44 kg/m2 Neilee L Vess [employer] FARMWORKER [facility].; [place] [employer] [facility]Key[facility]. 06-03-2020 09:58-0400 Body surface area Derived from formula 2.03 m2 Neilee L Vess G[employer] FARMWORKER [place] [employer] [facility] HospitalKey[facility].; [place] [employer] [facility] HospitalKey[facility]. 06-03-2020 09:58-0400 Body temperature 97 [degF] Neilee L Vess G[employer] II FARMWORKER [place] [employer] [facility] HospitalKey[facility].; [place] [employer] [facility] HospitalKey[facility]. 06-03-2020 09:58-0400 Body weight 96.62 kg Neilee L Vess G[employer] II FARMWORKER [place] [employer] [facility], Inc.; [employer], [facility]. 06-03-2020 09:58-0400 Diastolic blood pressure 81 mm[Hg] Nenoe L Vess GRA[employer] II FARMWORKER [place] [employer] [facility], Inc.; [employer], Inc. 06-03-2020 09:58-0400 Heart rate 67 /min Nenoe L Vess G[employer] II FARMWORKER [place] [employer] [facility], Inc.; [employer], [facility]. 06-03-2020 09:58-0400 Systolic blood pressure 147 mm[Hg] rAnele L Vess GRAIN II FARMWORKER [employer] [facility], Inc.; [employer], [facility]. 01-11-2020 11:38-0500 Body height 165.1 cm Génesis Monet [facility] [employer] [facility], Inc.; [employer], Inc. 01-11-2020 11:38-0500 Body mass index (BMI) [Ratio] 34.28 kg/m2 Génesis Monet [facility] [employer] [facility], Inc.; [employer], [facility]. 01-11-2020 11:38-0500 Body surface area Derived from formula 2 m2 Génesis Adrianne Monet [facility] [employer] [facility], [facility].; [employer], [facility]. 01-11-2020 11:38-0500 Body weight 93.44 kg Génesis M Chiki G[employer] II FARMWORKER [place] [employer] [facility], [facility].; [employer], Inc. 01-11-2020 11:38-0500 Diastolic blood pressure 78 mm[Hg] Génesis Adrianne Monet LPN [place] [employer] [facility], Inc.; [employer], [facility]. 01-11-2020 11:38-0500 Heart rate 59 /min Génesis Monet G[employer] FARMWORKER [facility], [facility].; [employer], [facility]. 01-11-2020 11:38-0500 Systolic blood pressure 123 mm[Hg] Génesis Adrianne Monet GRA[employer] II FARMWORKER [employer], Inc.; [employer], Inc. 11-07-2019 14:51-0400 Body height 165.1 cm Shannon Angelo LPN [employer], [facility].; [employer]MiNOW[employer]less. 11-07-2019 14:51-0400 Body mass index (BMI) [Ratio] 33.95 kg/m2 Shannon Angelo LPN [facility], [facility].; [employer], [employer]. 11-07-2019 14:51-0400 Body surface area Derived from formula 1.99 m2 Shannon Angelo LPN [employer] [facility], [facility].; [employer], [employer] 11-07-2019 14:51-0400 Body weight 92.53 kg Shannon Angelo GRAIN II FARMWORKER [facility], Inc.; [employer], [facility]. 11-07-2019 14:51-0400 Diastolic blood pressure 79 mm[Hg] Shannon Angelo LPN [facility], [facility].; [employer], [facility]. 11-07-2019 14:51-0400 Heart rate 50 /min Shannon Angelo GRAIN II FARMWORKER [facility], [facility].; [employer], [employer]. 11-07-2019 14:51-0400 Systolic blood pressure 130 mm[Hg] Shannon Angelo GRAIN II FARMWORKER [facility], Inc.; [employer], [employer]. 01-15-2019 08:54-0500 Body height 165.1 cm Neilee L Vess [facility], [facility].; [employer], [employer]. 01-15-2019 08:54-0500 Body mass index (BMI) [Ratio] 38.61 kg/m2 Neilee L Vess [facility], Inc.; [employer], [employer]. 01-15-2019 08:54-0500 Body surface area Derived from formula 2.11 m2 Neilee L Vess [employer] II FARMWORKER [employer], Inc.; [employer], [employer]. 01-15-2019 08:54-0500 Body temperature 98.3 [degF] Neilee L Vess G[employer] II FARMWORKER [facility], [facility].; [employer], [employer]. 01-15-2019 08:54-0500 Body weight 105.24 kg Neilee L Vess GRA[employer] II FARMWORKER [employer], Inc.; [employer], [employer]. 01-15-2019 08:54-0500 Diastolic blood pressure 74 mm[Hg] Neilee L Vess GRA[employer] II FARMWORKER [employer]P[employer], Inc.; [employer], [employer]. 01-15-2019 08:54-0500 Heart rate 83 /min Neilee L Vess [employer] FARMWORKER [employer].; [employer]. 01-15-2019 08:54-0500 Inhaled oxygen concentration 21 % Elroy Pérez Scotty ANTONIO [employer].; [employer]. 01-15-2019 08:54-0500 SaO2% (BldA) [Mass fraction] 94 % Arnele Elisa Scotty G[employer] FARMWORKER [employer].; [employer]. 01-15-2019 08:54-0500 Systolic blood pressure 171 mm[Hg] Arnele Elisa Fajardo GRA[employer] II FARMWORKER [employer].; [facility]. 12-20-2018 09:150400 Body height 165.1 cm Charito Barboza RN [facility].; [employer]. 12-20-2018 09:15-0400 Body mass index (BMI) [Ratio] 40.1 kg/m2 Charito Barboza RN [facility].; [facility]. 12-20-2018 09:150400 Body surface area Derived from formula 2.14 m2 Charito Barboza RN [facility].; [facility]. 12-20-2018 09:15-0400 Body temperature 98.3 [degF] Charito Barboza RN [facility] [employer].; [facility]. 12-20-2018 09:15-0400 Body weight 109.32 kg Charito Barboza RN [facility] [employer].; [facility] [employer]. 12-20-2018 09:15-0400 Diastolic blood pressure 68 mm[Hg] Charito Barboza RN [employer].; [facility]. 12-20-2018 09:15-0400 Heart rate 73 /min Charito Barboza RN [facility] [employer].; [facility]. 12-20-2018 09:15-0400 Systolic blood pressure 127 mm[Hg] Charito Barboza RN [facility] [employer].; [facility]. 08-23-2018 09:230400 Body height 165.1 cm Charito Barboza RN [facility] [employer].; [facility]. 08-23-2018 09:23-0400 Body mass index (BMI) [Ratio] 39.22 kg/m2 Charito Barboza RN [facility] [employer].; [facility]. 08-23-2018 09:23-0400 Body surface area Derived from formula 2.12 m2 Charito Barboza RN [employer].; [facility]. 08-23-2018 09:23-0400 Body temperature 98.4 [degF] Charito Barboza RN [employer].; [facility]. 08-23-2018 09:23-0400 Body weight 106.91 kg Charito Barboza RN [facility].; [facility]. 08-23-2018 09:23-0400 Diastolic blood pressure 79 mm[Hg] Charito Barboza RN [facility] [employer].; [facility]. 08-23-2018 09:23-0400 Heart rate 69 /min Charito Barboza RN [facility] [employer].; [facility]. 08-23-2018 09:23-0400 Inhaled oxygen concentration 21 % Charito Barboza RN [facility] [employer].; [facility]. 08-23-2018 09:23-0400 SaO2% (BldA) [Mass fraction] 97 % Charito Barboza RN [facility] [employer].; [facility] [employer]. 08-23-2018 09:23-0400 Systolic blood pressure 147 mm[Hg] Charito Barboza RN [employer].; [facility]. 03-15-2018 14:17-0500 Body height 165.1 cm Charito Barboza RN [facility].; [facility] [employer]. 03-15-2018 14:17-0500 Body mass index (BMI) [Ratio] 38.76 kg/m2 Charito Barboza RN [facility] [employer].; [facility] [employer]. 03-15-2018 14:17-0500 Body surface area Derived from formula 2.11 m2 Charito Barboza RN [facility] [employer].; [facility] [employer]. 03-15-2018 14:17-0500 Body temperature 98.3 [degF] Charito Barboza RN [facility].; [facility] [employer]. 03-15-2018 14:17-0500 Body weight 105.64 kg Charito Barboza RN [employer].; [facility]. 03-15-2018 14:17-0500 Diastolic blood pressure 74 mm[Hg] Charito Barboza RN [employer].; [facility]. 03-15-2018 14:17-0500 Heart rate 75 /min Charito Barboza RN [employer].; [facility]. 03-15-2018 14:17-0500 Inhaled oxygen concentration 21 % Charito Barboza RN [employer].; [facility]. 03-15-2018 14:17-0500 SaO2% (BldA) [Mass fraction] 99 % Charito Barboza RN [employer].; [facility]. 03-15-2018 14:17-0500 Systolic blood pressure 128 mm[Hg] Charito Barboza RN [facility] [employer].; [facility] [employer]. 02-20-2018 10:36-0500 Body height 165.1 cm Charito Barboza RN [facility].; [facility] [employer]. 02-20-2018 10:36-0500 Body mass index (BMI) [Ratio] 39.11 kg/m2 Charito Barboza RN [facility].; [facility] [employer]. 02-20-2018 10:36-0500 Body surface area Derived from formula 2.12 m2 Charito Barboza RN [facility] [employer].; [facility] [employer]. 02-20-2018 10:36-0500 Body temperature 98.2 [degF] Charito Barboza RN [facility].; [facility] [employer]. 02-20-2018 10:36-0500 Body weight 106.6 kg Charito Barboza RN [facility].; [facility] [employer]. 02-20-2018 10:36-0500 Diastolic blood pressure 77 mm[Hg] Charito Barboza RN [facility] [employer].; [facility] [employer]. 02-20-2018 10:36-0500 Heart rate 60 /min Charito Barboza RN [employer].; [facility] [employer]. 02-20-2018 10:36-0500 Inhaled oxygen concentration 21 % Charito Barboza RN [employer].; [facility]. 02-20-2018 10:36-0500 SaO2% (BldA) [Mass fraction] 98 % Charito Barboza RN [employer].; [facility] [employer]. 02-20-2018 10:36-0500 Systolic blood pressure 130 mm[Hg] Charito Barboza RN [employer].; [facility] [employer]. 2018 13:37-0500 Body height 165.1 cm Charito Barboza RN [employer].; [facility]. 2018 13:37-0500 Body mass index (BMI) [Ratio] 39.6 kg/m2 Charito Barboza RN [employer].; [facility]. 2018 13:37-0500 Body surface area Derived from formula 2.13 m2 Charito Barboza RN [facility] [employer].; [facility] [employer]. 2018 13:37-0500 Body temperature 98.2 [degF] Charito Barboza RN [facility].; [facility] [employer]. 2018 13:37-0500 Body weight 107.96 kg Charito Barboza RN [employer].; [facility] [employer]. 2018 13:37-0500 Diastolic blood pressure 61 mm[Hg] Charito Barboza RN [facility] [employer].; [facility] [employer]. 2018 13:37-0500 Heart rate 93 /min Charito Barboza RN [facility] [employer].; [facility] [employer]. 2018 13:37-0500 Inhaled oxygen concentration 21 % Charito Barboza RN [facility] [employer].; [facility] [employer]. 2018 13:37-0500 SaO2% (BldA) [Mass fraction] 93 % Charito Barboza RN [facility], [facility].; [employer]. 2018 13:37-0500 Systolic blood pressure 130 mm[Hg] Charito Barboza RN [facility], [facility].; [employer]. 01-02-2018 09:31-0500 Body height 165.1 cm Beulah Darryl Brownbaantonio GRAIN II FARMWORKER [place] [employer], [facility].; CardzoaMiNOWireless. 01-02-2018 09:31-0500 Body mass index (BMI) [Ratio] 38.77 kg/m2 Beulah K Mutersbaugh [facility].; [employer]. 01-02-2018 09:31-0500 Body surface area Derived from formula 2.11 m2 Beulah K Mutersbaugh [employer] FARMWORKER [place] [employer], [employer].; [employer]Mi[employer]. 01-02-2018 09:31-0500 Body temperature 99.6 [degF] Beulah Darryl Mutersbaugh GRA[employer] II FARMWORKER [place] [employer], [facility].; [facility]. 01-02-2018 09:31-0500 Body weight 105.69 kg Beulah K Mutersbaugh GRAIN II FARMWORKER [employer], [employer].; [employer]Mi[employer]less. 01-02-2018 09:31-0500 Diastolic blood pressure 82 mm[Hg] Beulah Darryl Mutersbaugh G[employer] II FARMWORKER [employer], [employer].; [employer]. 01-02-2018 09:31-0500 Heart rate 86 /min Beulah Darryl Mutersbaugh GRAIN II FARMWORKER [facility], [facility].; [facility] [employer]. 01-02-2018 09:31-0500 Inhaled oxygen concentration 21 % Beulah K Mutersbaugh GRAIN II FARMWORKER [employer]Plex[employer], [employer].; [employer]. 01-02-2018 09:31-0500 SaO2% (BldA) [Mass fraction] 96 % Beulah K Mutersbaugh GRAIN II FARMWORKER [employer], [employer].; [facility] [employer]. 01-02-2018 09:31-0500 Systolic blood pressure 126 mm[Hg] Beulah K Mutersbaugh GRAIN II FARMWORKER [place] [employer] [facility].; [facility] [employer]. 09-15-2017 13:40-0400 Body height 165.1 cm Charito Barboza RN [place] [employer].; [facility] [employer]. 09-15-2017 13:40-0400 Body mass index (BMI) [Ratio] 38.32 kg/m2 Charito Barboza RN [employer] [employer] [facility].; [facility] [employer]. 09-15-2017 13:40-0400 Body surface area Derived from formula 2.1 m2 Charito Barboza RN [employer].; [facility] [employer]. 09-15-2017 13:40-0400 Body temperature 98 [degF] Charito Barboza RN [employer].; [facility] [employer]. 09-15-2017 13:40-0400 Body weight 104.46 kg Charito Babroza RN [employer].; [facility] [employer]. 09-15-2017 13:40-0400 Diastolic blood pressure 74 mm[Hg] Charito Barboza RN [employer].; [facility] [employer]. 09-15-2017 13:40-0400 Heart rate 71 /min Chairto Barboza RN [employer].; [facility] [employer]. 09-15-2017 13:40-0400 Systolic blood pressure 139 mm[Hg] Charito Barboza RN [employer].; [facility] [employer]. 12-30-2016 09:37-0500 Body height 165.1 cm Charito Barboza RN [employer].; [facility] [employer]. 12-30-2016 09:37-0500 Body mass index (BMI) [Ratio] 40.32 kg/m2 Charito Barboza RN [employer].; [facility] [employer]. 12-30-2016 09:37-0500 Body surface area Derived from formula 2.15 m2 Charito Barboza RN [employer].; [facility] [employer]. 12-30-2016 09:37-0500 Body temperature 98.5 [degF] Charito Barboza RN [employer].; [facility] [employer]. 12-30-2016 09:37-0500 Body weight 109.91 kg Charito Barboza RN [employer].; [facility] [employer]. 12-30-2016 09:37-0500 Diastolic blood pressure 75 mm[Hg] Charito Barboza RN [employer] 12-30-2016 09:37-0500 Heart rate 68 /min Charito Barboza RN [employer].; [facility] [employer]. 12-30-2016 09:37-0500 Systolic blood pressure 130 mm[Hg] Charito Barboza RN [employer].; [facility] [employer]. 12-01-2016 09:50-0400 Body temperature 98.7 [degF] Charito Barboza RN [employer].; [facility] [employer]. 12-01-2016 09:50-0400 Body weight 111.18 kg Charito Barboza RN [employer].; [facility] [employer]. 12-01-2016 09:50-0400 Diastolic blood pressure 70 mm[Hg] Charito Barboza RN [employer].; [facility] [employer]. 12-01-2016 09:50-0400 Heart rate 68 /min Charito Barboza RN [employer].; [facility] [employer]. 12-01-2016 09:50-0400 Systolic blood pressure 141 mm[Hg] Charito Barboza RN [employer].; [facility] [employer]. 10-26-2016 08:26-0400 Body weight 111.13 kg Neilee L Vess GRAIN II FARMWORKER [facility] [employer].; [facility] [employer]. 10-26-2016 08:26-0400 Diastolic blood pressure 70 mm[Hg] Neilee L Vess GRAIN II FARMWORKER [facility] [employer].; [employer] 10-26-2016 08:26-0400 Heart rate 70 /min Neilee L Vess GRAIN II FARMWORKER [facility] [employer].; [facility] [employer]. 10-26-2016 08:26-0400 Systolic blood pressure 139 mm[Hg] Neilee L Vess GRAIN II FARMWORKER [employer].; [facility]. 05-12-2016 08:11-0400 Body height 165.1 cm Charito Barboza RN [employer].; [facility]. 05-12-2016 08:11-0400 Body mass index (BMI) [Ratio] 41.62 kg/m2 Charito Barboza RN [facility].; [facility] [employer]. 05-12-2016 08:11-0400 Body surface area Derived from formula 2.18 m2 Charito Barboza RN [employer].; [facility] [employer]. 05-12-2016 08:11-0400 Body weight 113.45 kg Charito Barboza RN [facility].; [facility] [employer]. 05-12-2016 08:11-0400 Diastolic blood pressure 68 mm[Hg] Charito Barboza RN [employer].; [facility] [employer]. 05-12-2016 08:11-0400 Heart rate 68 /min Charito Barboza RN [employer].; [facility]. 05-12-2016 08:11-0400 Systolic blood pressure 129 mm[Hg] Charito Barboza RN [facility].; [facility] [employer]. 04-12-2016 14:10-0500 Body height 165.1 cm Charito Barboza RN [facility].; [facility] [employer]. 04-12-2016 14:10-0500 Body mass index (BMI) [Ratio] 40.64 kg/m2 Charito Barboza RN [employer].; [facility] [employer]. 04-12-2016 14:100500 Body surface area Derived from formula 2.15 m2 Charito Barboza RN [facility].; [facility] [employer]. 04-12-2016 14:10-0500 Body temperature 97.8 [degF] Charito Barboza RN [facility].; [facility] [employer]. 04-12-2016 14:10-0500 Body weight 110.77 kg Charito Barboza RN [facility].; [facility] [employer]. 04-12-2016 14:10-0500 Diastolic blood pressure 83 mm[Hg] Charito Barboza RN [place] [employer] [facility].; [employer]. 04-12-2016 14:10-0500 Heart rate 70 /min Charito Barboza RN [place] [employer] [facility].; [employer]less. 04-12-2016 14:10-0500 Systolic blood pressure 160 mm[Hg] Charito Barboza RN [place] [employer] [facility].; [facility]. 02-12-2016 10:45-0500 Body height 165.1 cm Beulah K Mutersbaugh GRAIN II FARMWORKER [employer] [facility].; [facility] [employer]. 02-12-2016 10:45-0500 Body mass index (BMI) [Ratio] 40.27 kg/m2 Beulah K Mutersbaugh GRA[employer].; [employer]. 02-12-2016 10:45-0500 Body surface area Derived from formula 2.15 m2 Beulah K Mutersbaugh GRAIN II [employer]ARM[employer] [facility].; [facility] [employer]. 02-12-2016 10:45-0500 Body temperature 98.5 [degF] Beulah K Mutersbaugh GRA[employer] II [employer]ARM[employer].; [facility]. 02-12-2016 10:45-0500 Body weight 109.77 kg Beulah K Mutersbaugh GRA[employer] II [employer]ARM[employer].; [employer]. 02-12-2016 10:45-0500 Diastolic blood pressure 83 mm[Hg] Beulah K Mutersbaugh GRA[employer] II [employer]ARM[employer] [facility].; [facility]. 02-12-2016 10:45-0500 Heart rate 102 /min Beulah K Mutersbaugh G[employer]ARM[employer].; [facility]. 02-12-2016 10:45-0500 Systolic blood pressure 147 mm[Hg] Beulah K Mutersbaugh GRA[employer] II [employer]ARMWORK[employer].; [employer]. 12-17-2015 15:57-0400 Body height 165.1 cm Charito Barboza RN [employer].; [facility] [employer]. 12-17-2015 15:57-0400 Body mass index (BMI) [Ratio] 38.87 kg/m2 Charito Barboza RN [place] [employer].; [facility] [employer]. 12-17-2015 15:57-0400 Body surface area Derived from formula 2.11 m2 Charito Barboza RN [employer].; [facility]. 12-17-2015 15:57-0400 Body temperature 98.1 [degF] Charito Barboza RN [employer].; [facility]. 12-17-2015 15:57-0400 Body weight 105.96 kg Charito Barboza RN [employer].; [facility]. 12-17-2015 15:57-0400 Diastolic blood pressure 78 mm[Hg] Charito Barboza RN [employer].; [facility]. 12-17-2015 15:57-0400 Heart rate 72 /min Charito Barboza RN [employer].; [facility]. 12-17-2015 15:57-0400 Systolic blood pressure 143 mm[Hg] Charito Barboza RN [employer].; [facility]. 10-20-2015 13:05-0400 Body height 165.1 cm Beulah Willingham LPN [employer].; [facility] [employer]. 10-20-2015 13:05-0400 Body mass index (BMI) [Ratio] 22.63 kg/m2 Beulah K Mutersbaugh MARISELA [employer].; [facility]. 10-20-2015 13:05-0400 Body surface area Derived from formula 1.68 m2 Beulah K Mutersbaugh MARISELA [employer].; [facility] [employer]. 10-20-2015 13:05-0400 Body temperature 98 [degF] Beulah K Mutersbaugh MARISELA [employer].; [employer]. 10-20-2015 13:05-0400 Body weight 61.69 kg Beulah K Mutrosbaugh GRA[employer] II FARMWORKER [employer] [facility], Inc.; [employer], [employer] 10-20-2015 13:05-0400 Diastolic blood pressure 82 mm[Hg] Beulah K Mutersbaugh GRA[employer] II FARMWORKER [place] [employer] [facility], Inc.; [employer], Inc[employer] 10-20-2015 13:05-0400 Heart rate 78 /min Beulah Darryl Mutersbaugh GRA[employer] II [employer]ARMWORKER [place] [employer] [facility], Inc.; [employer], Inc[employer] 10-20-2015 13:05-0400 Systolic blood pressure 154 mm[Hg] Beulah K Mutersbaugh GRA[employer] II FARMWORKER [employer].; [employer], [employer] 05-07-2015 13:110400 Body height 165.1 cm Kenzie Coronado LPN [place] [employer] [facility], Inc.; [employer], [employer] 05-07-2015 13:11-0400 Body mass index (BMI) [Ratio] 41.97 kg/m2 Kenzie Coronado LPN [place] [employer], [employer].; [employer], [employer] 05-07-2015 13:11-0400 Body surface area Derived from formula 2.18 m2 Kenzie Coronado LPN [employer], [employer].; [employer], [employer] 05-07-2015 13:110400 Body weight 114.39 kg Kenzie Coronado LPN [employer], [employer].; [employer], [employer] 05-07-2015 13:11-0400 Diastolic blood pressure 76 mm[Hg] Kenzie Coronado LPN [employer], [employer].; [employer], [employer] 05-07-2015 13:11-0400 Heart rate 88 /min Kenzie Coronado LPN [employer], [employer].; [employer], [employer] 05-07-2015 13:11-0400 Systolic blood pressure 134 mm[Hg] Kenzie Coronado LPN [employer], [employer].; [employer], Inc[employer] 02-13-2015 09:10-0500 Body height 165.1 cm Kenzie Coronado LPN [employer], [employer].; [place] [employer] [facility], [facility]. 02-13-2015 09:10-0500 Body mass index (BMI) [Ratio] 42.43 kg/m2 Kenzie Weanisa ANTONIO [facility], [facility].; [place] [employer] [facility], Inc[facility] 02-13-2015 09:10-0500 Body surface area Derived from formula 2.19 m2 Kenzie Coronado LPN [facility], [facility].; [place] [employer] [facility], [facility]. 02-13-2015 09:10-0500 Body temperature 97.2 [degF] Kenzie Coron[facility] LPN [facility], [facility].; [place] [employer], [employer]. 02-13-2015 09:10-0500 Body weight 115.67 kg Kenzie Ivonne ANTONIO [facility] [employer] [facility], Inc.; [place] [employer], [employer]. 02-13-2015 09:10-0500 Diastolic blood pressure 68 mm[Hg] Kenzie Coronado [facility], Inc.; [place] [employer], [employer]. 02-13-2015 09:10-0500 Heart rate 88 /min Kenzie Coronado LPN [facility] [employer] [facility], Inc.; [place] [employer], [employer]. 02-13-2015 09:10-0500 Inhaled oxygen concentration 21 % Kenzie Octavianoanisa [facility], [facility].; [place] [employer], [employer]. 02-13-2015 09:10-0500 SaO2% (BldA) [Mass fraction] 98 % Kenzie Octavianoanisa [facility], [facility].; [place] [employer], [employer]. 02-13-2015 09:10-0500 Systolic blood pressure 106 mm[Hg] Kenzie Coronado LPN [place] [employer] [facility], [facility].; [place] [employer]. 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 12-24-2014 14:24-0500 Diastolic blood pressure 63 mm[Hg] Neilee L Vess GRA[employer] II FARMWORKER [place] [employer] [facility], Inc.; [place] [employer]. 12-24-2014 14:24-0500 Heart rate 92 /min Neilee L Vess GRA[employer] II [employer]ARMWORK[employer].; [facility]. 12-24-2014 14:24-0500 Systolic blood pressure 137 mm[Hg] Neilee L Vess GRA[employer] II [employer]ARM[employer].; [employer]. 12-12-2014 11:50-0400 Body height 165.1 cm Charito Barboza RN [employer].; [facility]. 12-12-2014 11:50-0400 Body mass index (BMI) [Ratio] 44.6 kg/m2 Charito Barboza RN [place] [employer].; [employer]. 12-12-2014 11:50-0400 Body surface area Derived from formula 2.24 m2 Charito Barboza RN [employer].; [employer]. 12-12-2014 11:50-0400 Body temperature 97.7 [degF] Charito Barboza RN [employer].; [employer]. 12-12-2014 11:50-0400 Body weight 121.56 kg Charito Barboza RN [employer].; [employer]. 12-12-2014 11:50-0400 Diastolic blood pressure 68 mm[Hg] Charito Barboza RN [place] [employer].; [employer]. 12-12-2014 11:50-0400 Heart rate 81 /min Charito Barboza RN [employer].; [employer]. 12-12-2014 11:50-0400 Systolic blood pressure 144 mm[Hg] Charito Barboza RN [employer].; [employer]. 06-18-2014 14:41-0400 Body temperature 98.4 [degF] Neilee L Vess GRA[employer] II FARM[employer].; [facility]. 06-18-2014 14:41-0400 Body weight 114.31 kg Neilee L Vess GRA[employer] II FARMWORK[employer].; [employer]. 06-18-2014 14:41-0400 Diastolic blood pressure 62 mm[Hg] Neilee L Vess GRA[employer] II FARMWORK[employer].; [employer]. 06-18-2014 14:41-0400 Heart rate 78 /min Neilee L Vess GRAIN II FARMWORKER [employer] [facility].; [employer]. 06-18-2014 14:41-0400 Systolic blood pressure 116 mm[Hg] Neilee L Vess GRA[employer] II FARMWORK[employer].; [employer]. 05-16-2014 10:11-0400 Body height 165.1 cm Charito Barboza RN [place] [employer] [facility].; [employer]. 05-16-2014 10:11-0400 Body mass index (BMI) [Ratio] 42.27 kg/m2 Charito Barboza RN [place] [employer].; [employer]. 05-16-2014 10:11-0400 Body surface area Derived from formula 2.19 m2 Charito Barboza RN [place] [employer].; [employer]. 05-16-2014 10:11-0400 Body temperature 97.6 [degF] Charito Barboza RN [place] [employer].; [facility]. 05-16-2014 10:11-0400 Body weight 115.21 kg Charito Barboza RN [place] [employer].; [employer]. 05-16-2014 10:11-0400 Diastolic blood pressure 70 mm[Hg] Charito Barboza RN [place] [employer].; [employer]. 05-16-2014 10:11-0400 Heart rate 88 /min Charito Barboza RN [place] [employer].; [employer]. 05-16-2014 10:11-0400 Systolic blood pressure 126 mm[Hg] Charito Barboza RN [place] [employer].; [employer]. 05-07-2014 13:140400 Body weight 113.4 kg Arnele L Vess GRA[employer] II FARMWORK[employer].; [employer]. 05-07-2014 13:14-0400 Diastolic blood pressure 77 mm[Hg] Neilee L Vess GRA[employer] II FARMWORK[employer].; [employer]. 05-07-2014 13:14-0400 Heart rate 80 /min [facility]nohattie [facility]ajardo [facility] [employer], [employer] 05-07-2014 13:14-0400 Systolic blood pressure 159 mm[Hg] Neilee Elisa [facility]ess [facility] [employer], [employer] 03-01-2014 15:04-0500 Body height 165.1 cm Jennifer [facility]isha [facility] [employer], [employer] 03-01-2014 15:04-0500 Body temperature 97 [degF] Jennifer [facility] [employer], [employer] 03-01-2014 15:04-0500 Diastolic blood pressure 79 mm[Hg] Jennifer [facility] [employer], [employer] 03-01-2014 15:04-0500 Heart rate 98 /min Jennifer Flores [facility] [employer], [employer] 03-01-2014 15:04-0500 Systolic blood pressure 137 mm[Hg] Jennifer Flores [facility] [employer], [employer] 09-28-2013 09:40-0400 Body height 165.1 cm Yari [facility]ey [facility] [employer], [employer] 09-28-2013 09:40-0400 Body mass index (BMI) [Ratio] 35.78 kg/m2 Yari [facility]ey [facility] [employer], [employer] 09-28-2013 09:40-0400 Body surface area Derived from formula 2.04 m2 Yari Jones Nya [facility] [employer].; [employer], [employer] 09-28-2013 09:40-0400 Body temperature 98 [degF] Elizabeth [facility]ya [facility] [employer], [employer] 09-28-2013 09:40-0400 Body weight 97.52 kg Yari [facility]ey [facility] [employer], [employer] 09-28-2013 09:40-0400 Diastolic blood pressure 86 mm[Hg] Yari Fay MARISELA [facility] [employer], [employer] 09-28-2013 09:40-0400 Heart rate 81 /min Yari Fay MARISELA [employer] [employer] [facility], Inc.; [employer], Inc[employer] 09-28-2013 09:40-0400 Systolic blood pressure 143 mm[Hg] Yari Fay MARISELA [employer], [employer].; [employer], [employer] 08-31-2013 13:35-0400 Body height 165.1 cm Kenzie Coronado LPN [employer] [facility], Inc.; [employer], [employer] 08-31-2013 13:35-0400 Body mass index (BMI) [Ratio] 35.78 kg/m2 Kenzie Coronado LPN [employer], [employer].; [employer], [employer] 08-31-2013 13:35-0400 Body surface area Derived from formula 2.04 m2 Kenzie Coronado LPN [employer], [employer].; [employer], [employer] 08-31-2013 13:35-0400 Body weight 97.52 kg Kenzie Coronado LPN [employer], [employer].; [employer], [employer] 08-31-2013 13:35-0400 Diastolic blood pressure 67 mm[Hg] Kenzie Coronado LPN [employer].; [employer], [employer] 08-31-2013 13:35-0400 Heart rate 80 /min Kenzie Coronado LPN [facility] [facility], Inc.; [employer], [employer] 08-31-2013 13:35-0400 Systolic blood pressure 125 mm[Hg] Kenzie Coronado LPN [employer], [employer].; [employer], [employer] 08-28-2013 09:26-0400 Body weight 97.52 kg Elroy Fajardo LPN [employer], [employer].; [employer], [employer] 08-28-2013 09:26-0400 Diastolic blood pressure 71 mm[Hg] Neilee L Vess MARISELA [employer], [employer].; [employer]. 08-28-2013 09:26-0400 Heart rate 95 /min Neilee L Vess GRAIN II FARM[employer] [facility].; [facility]. 08-28-2013 09:26-0400 Systolic blood pressure 126 mm[Hg] Neilee L Vess GRA[employer] II [employer]ARM[employer].; [facility]. 05-07-2013 13:06-0400 Body height 165.1 cm Charito Barboza RN [place] [employer].; [employer]. 05-07-2013 13:06-0400 Body mass index (BMI) [Ratio] 36.11 kg/m2 Charito Barboza RN [employer].; [employer]. 05-07-2013 13:06-0400 Body surface area Derived from formula 2.05 m2 Charito Barboza RN [employer].; [facility]. 05-07-2013 13:06-0400 Body temperature 97.9 [degF] Charito Barboza RN [employer].; [facility]. 05-07-2013 13:06-0400 Body weight 98.43 kg Charito Barboza RN [employer].; [facility]. 05-07-2013 13:06-0400 Diastolic blood pressure 76 mm[Hg] Charito Barboza RN [employer].; [employer]. 05-07-2013 13:06-0400 Heart rate 76 /min Charito Barboza RN [employer].; [employer]. 05-07-2013 13:06-0400 Systolic blood pressure 145 mm[Hg] Charito Barboza RN [employer].; [facility]. 08-08-2012 14:27-0400 Body weight 94.35 kg Neilee L Vess G[employer].; [facility]. 08-08-2012 14:27-0400 Diastolic blood pressure 76 mm[Hg] Neilee L Vess G[employer] II FARM[employer].; [employer]. 08-08-2012 14:27-0400 Heart rate 78 /min Neilee L Vess G[employer] II [employer]ARM[employer].; [employer]. 08-08-2012 14:27-0400 Systolic blood pressure 141 mm[Hg] Neilee L Vess GRA[employer] II FARMWORKER [employer] 05-01-2012 09:46-0400 Body temperature 96.4 [degF] Neilee L Vess GRA[employer] II FARMWORKER [employer].; [facility]. 05-01-2012 09:46-0400 Body weight 90.72 kg Neilee L Vess G[employer] II FARM[employer].; [employer]. 05-01-2012 09:46-0400 Diastolic blood pressure 65 mm[Hg] Neilee L Vess G[employer] II FARM[employer].; [employer]. 05-01-2012 09:46-0400 Heart rate 89 /min Neilee L Vess GRA[employer] II FARM[employer].; [employer]. 05-01-2012 09:46-0400 Systolic blood pressure 122 mm[Hg] Neilee L Vess GRA[employer] II FARMWORKER [employer].; [employer]. 04-17-2012 09:40-0500 Body height 165.1 cm Charito Barboza RN [employer].; [facility]. 04-17-2012 09:40-0500 Body mass index (BMI) [Ratio] 33.25 kg/m2 Charito Barboza RN [employer].; [employer]. 04-17-2012 09:40-0500 Body surface area Derived from formula 1.98 m2 Charito Barboza RN [employer].; [employer]. 04-17-2012 09:40-0500 Body temperature 98.5 [degF] Charito Barboza RN [employer].; [facility]. 04-17-2012 09:40-0500 Body weight 90.63 kg Charito Barboza RN [employer].; [employer]. 04-17-2012 09:40-0500 Diastolic blood pressure 81 mm[Hg] Charito Barboza RN [employer].; [employer] [employer] [facility], [employer]. 04-17-2012 09:40-0500 Heart rate 73 /min Charito Barboza RN [facility], [facility].; [place] [employer] [facility], [employer]. 04-17-2012 09:40-0500 Systolic blood pressure 133 mm[Hg] Charito Barboza RN [facility], [facility].; [employer], [employer]. 02-10-2012 09:38-0500 Body height 165.1 cm Elizabeth Nya GRA[employer] II FARMWORK[employer] [facility], [facility].; [employer], [employer]. 02-10-2012 09:38-0500 Body mass index (BMI) [Ratio] 34.45 kg/m2 [facility] Nya GRA[employer] II FARMWORKER [facility], [facility].; [employer] [facility], [employer]. 02-10-2012 09:38-0500 Body surface area Derived from formula 2.01 m2 [facility] Nya GRA[employer] FARMWORKER [facility], [facility].; [facility], [employer]. 02-10-2012 09:38-0500 Body temperature 98.2 [degF] ElizabethKaren Fay LPN [facility], [facility].; [employer], [employer]. 02-10-2012 09:38-0500 Body weight 93.9 kg Yari Vernonuckey MARISELA [facility], [facility].; [employer], [employer]. 02-10-2012 09:38-0500 Diastolic blood pressure 83 mm[Hg] ElizabethKaren Fay LPN [facility], Inc.; [employer] [employer] [facility], [employer]. 02-10-2012 09:38-0500 Heart rate 130 /min Elizabethalice Fay LPN [facility], [facility].; [employer], [employer]. 02-10-2012 09:38-0500 Inhaled oxygen concentration 21 % [facility] Nya G[employer] [facility], [facility].; [employer], [employer]. 02-10-2012 09:38-0500 SaO2% (BldA) [Mass fraction] 99 % [facility] Nya [employer] II [employer]ARM[employer] [facility], Inc.; [employer], [employer]. 02-10-2012 09:38-0500 Systolic blood pressure 130 mm[Hg] Yari Fay LPN [facility] Inc.; [employer], [employer]. 02-01-2012 16:09-0500 Body height 165.1 cm Jennifer Flores GRA[employer] II FARMWORKER [facility], Inc.; [employer], [employer] 02-01-2012 16:09-0500 Body mass index (BMI) [Ratio] 34.45 kg/m2 Jennifer Flores [facility] [employer] 02-01-2012 16:09-0500 Body surface area Derived from formula 2.01 m2 Jennifer Flores [facility] [employer], [employer]. 02-01-2012 16:09-0500 Body temperature 97.4 [degF] Jennifer Flores GRA[employer] II FARMWORK[employer] [facility].; [employer], [employer] 02-01-2012 16:09-0500 Body weight 93.9 kg Jennifer Flores GRA[employer] II FARMWORKER [facility].; [employer], [employer]. 02-01-2012 16:09-0500 Diastolic blood pressure 76 mm[Hg] Jennifer Flores [facility] [employer], [employer]. 02-01-2012 16:09-0500 Heart rate 77 /min Jennifer Flores G[employer] II FARMWORK[employer] [facility] [employer], [employer] 02-01-2012 16:09-0500 Systolic blood pressure 137 mm[Hg] Jennifer Flores [facility] [employer] 11-12-2011 10:16-0400 Body height 165.1 cm Génesis Monet GRAIN II FARMWORKER [facility], [facility].; [employer], [employer]. 11-12-2011 10:16-0400 Body mass index (BMI) [Ratio] 32.95 kg/m2 Génesis Monet GRA[employer] II FARMWORKER [facility].; [employer], [employer] 11-12-2011 10:16-0400 Body surface area Derived from formula 1.97 m2 Génesis Monet GRA[employer] II FARMWORKER [facility], Inc.; [employer], [employer]. 11-12-2011 10:16-0400 Body weight 89.81 kg Génesis Silver Chiki ANTONIO [facility].; [employer] 11-12-2011 10:16-0400 Diastolic blood pressure 88 mm[Hg] Génesis Silver Chiki ANTONIO [facility].; [employer], [employer] 11-12-2011 10:16-0400 Heart rate 102 /min Génesis Silver Chiki [facility] [employer] 11-12-2011 10:16-0400 Systolic blood pressure 145 mm[Hg] Génesis Silver Chiki ANTONIO [facility].; [employer], [employer] 09-28-2011 16:08-0400 Body height 165.1 cm Jennifer Flores LPN [facility] [employer] 09-28-2011 16:08-0400 Body mass index (BMI) [Ratio] 33.61 kg/m2 Jennifer Flores LPN [employer], [employer].; [employer], [employer]. 09-28-2011 16:08-0400 Body surface area Derived from formula 1.99 m2 Jennifer Flores LPN [employer] [employer].; [employer], [employer]. 09-28-2011 16:08-0400 Body weight 91.63 kg Jennifer Flores LPN [employer] [employer].; [employer], [employer]. 09-28-2011 16:08-0400 Diastolic blood pressure 67 mm[Hg] Jennifer Flores LPN [employer] [employer].; [employer]. 09-28-2011 16:08-0400 Heart rate 79 /min Jennifer Flores LPN [employer] [employer].; [employer]. 09-28-2011 16:08-0400 Systolic blood pressure 125 mm[Hg] Jennifer Flores LPN [employer] [employer].; [employer] 09-07-2011 14:25-0400 Body height 165.1 cm Tenisha Akins PA-C Work Phone: [employer].; [employer]. 09-07-2011 14:25-0400 Body mass index (BMI) [Ratio] 32.78 kg/m2 Tenisha Akins PA-C Work Phone: [employer].; [employer]. 09-07-2011 14:25-0400 Body surface area Derived from formula 1.97 m2 Tenisha Akins PA-C Work Phone: [employer].; [employer]. 09-07-2011 14:25-0400 Body weight 89.36 kg Tenisha Akins PA-C Work Phone: [employer].; [employer]. 09-07-2011 14:25-0400 Diastolic blood pressure 77 mm[Hg] Tenisha Akins PA-C Work Phone: [employer].; [employer]. 09-07-2011 14:25-0400 Heart rate 105 /min Tenisha Akins PA-C Work Phone: [employer].; [employer]. 09-07-2011 14:25-0400 Systolic blood pressure 137 mm[Hg] Tenisha Akins PA-C Work Phone: [employer].; [facility]. 08-24-2011 09:38-0400 Body height 165.1 cm Yari Fay [facility] [employer].; [employer]. 08-24-2011 09:38-0400 Body mass index (BMI) [Ratio] 33.61 kg/m2 Elizabeth Nya [employer].; [employer]. 08-24-2011 09:38-0400 Body surface area Derived from formula 1.99 m2 Yari Fay [employer].; [employer]. 08-24-2011 09:38-0400 Body weight 91.63 kg Elizabeth Nya [facility] [employer].; [employer]. 08-24-2011 09:38-0400 Diastolic blood pressure 72 mm[Hg] Yari Fay GRA[employer] II [employer]ARM[employer] [facility].; [employer] 08-24-2011 09:38-0400 Heart rate 98 /min Yari Fay [facility] [employer], [employer] 08-24-2011 09:38-0400 Systolic blood pressure 122 mm[Hg] Yari Fay [facility] [employer] 08-16-2011 09:46-0400 Body weight 91.63 kg Jaycee Villatoro [facility] [employer] 08-16-2011 09:46-0400 Diastolic blood pressure 83 mm[Hg] Jaycee [facility]atoro [facility] [employer] 08-16-2011 09:46-0400 Heart rate 79 /min Jaycee Villatoro [facility] [employer] 08-16-2011 09:46-0400 Systolic blood pressure 133 mm[Hg] Jaycee Hattie Irving [facility] [employer] 04-06-2011 10:45-0500 Body temperature 98.6 [degF] Berenice L Yogi [facility] [employer], [employer] 04-06-2011 10:45-0500 Body weight 90.54 kg Berenice L Richfrancy [facility] [employer], [employer]. 04-06-2011 10:45-0500 Diastolic blood pressure 77 mm[Hg] Berenice L Richert [facility] [facility] [employer], [employer]. 04-06-2011 10:45-0500 Heart rate 70 /min Berenice L Richert [facility] [employer]. 04-06-2011 10:45-0500 Systolic blood pressure 134 mm[Hg] Berenice L [facility]hert [facility] [employer], [employer]. 01-13-2011 08:22-0500 Body height 165.1 cm Charito Barboza RN [employer] [facility].; [employer]. 01-13-2011 08:22-0500 Body mass index (BMI) [Ratio] 32.32 kg/m2 Charito Barboza RN [employer].; [facility] [employer]. 01-13-2011 08:22-0500 Body surface area Derived from formula 1.95 m2 Charito Barboza RN [employer].; [employer]. 01-13-2011 08:22-0500 Body temperature 97.1 [degF] Charito Barboza RN [employer].; [employer]. 01-13-2011 08:22-0500 Body weight 88.09 kg Charito Barboza RN [employer].; [employer]. 01-13-2011 08:22-0500 Diastolic blood pressure 76 mm[Hg] Charito Barboza RN [employer].; [employer]. 01-13-2011 08:22-0500 Heart rate 77 /min Charito Barboza RN [employer].; [employer]. 01-13-2011 08:22-0500 Inhaled oxygen concentration 21 % Charito Barboza RN [employer].; [employer]. 01-13-2011 08:22-0500 SaO2% (BldA) [Mass fraction] 99 % Charito Barboza RN [employer].; [employer]. 01-13-2011 08:22-0500 Systolic blood pressure 127 mm[Hg] Charito Barboza RN [employer].; [employer]. 08-12-2010 11:57-0400 Body height 165.1 cm Charito Barboza RN [employer].; [employer]. 08-12-2010 11:57-0400 Body mass index (BMI) [Ratio] 32.92 kg/m2 Charito Barboza RN [employer].; [employer]. 08-12-2010 11:57-0400 Body surface area Derived from formula 1.97 m2 Charito Barboza RN [employer].; [employer]. 08-12-2010 11:57-0400 Body temperature 97.3 [degF] Charito Barboza RN [employer] [facility].; [facility]. 08-12-2010 11:57-0400 Body weight 89.72 kg Charito Barboza RN [place] [employer] [facility].; [employer]. 08-12-2010 11:57-0400 Diastolic blood pressure 75 mm[Hg] Charito Barboza RN [place] [employer] [facility].; [employer]. 08-12-2010 11:57-0400 Heart rate 66 /min Charito Barboza RN [employer].; [employer]. 08-12-2010 11:57-0400 Systolic blood pressure 137 mm[Hg] Charito Barboza RN [employer].; [employer]. 05-04-2010 14:33-0400 Body height 165.1 cm Charito Barboza RN [employer].; [employer]. 05-04-2010 14:33-0400 Body mass index (BMI) [Ratio] 32.65 kg/m2 Charito Barboza RN [employer].; [employer]. 05-04-2010 14:33-0400 Body surface area Derived from formula 1.96 m2 Charito Barboza RN [employer].; [facility]. 05-04-2010 14:33-0400 Body temperature 97.9 [degF] Charito Barboza RN [employer].; [employer]. 05-04-2010 14:33-0400 Body weight 89 kg Charito Barboza RN [employer].; [facility]. 05-04-2010 14:33-0400 Diastolic blood pressure 80 mm[Hg] Charito Barboza RN [employer].; [employer]. 05-04-2010 14:33-0400 Heart rate 86 /min Charito Barboza RN [employer].; [employer]. 05-04-2010 14:33-0400 Systolic blood pressure 149 mm[Hg] Charito Barboza RN [employer].; [facility]. 04-21-2010 09:53-0500 Body temperature 99.1 [degF] Neilee L Vess [employer] [facility], [facility].; [facility]. 04-21-2010 09:53-0500 Body weight 89.36 kg Neilee L Vess [employer] [facility], [facility].; [employer] [facility]. 04-21-2010 09:53-0500 Diastolic blood pressure 64 mm[Hg] Neilee L Vess [employer] [facility], [facility].; [place] [employer] [facility], [facility]. 04-21-2010 09:53-0500 Heart rate 98 /min Neilee L Vess [facility], [facility].; [employer] [facility]. 04-21-2010 09:53-0500 Systolic blood pressure 124 mm[Hg] Neilee L Vess [employer] [facility], [facility].; [employer] [facility], [facility]. 12-15-2009 10:44-0400 Body height 165.1 cm Rosalind C Nipomo [facility], [facility].; [employer], [facility]. 12-15-2009 10:44-0400 Body mass index (BMI) [Ratio] 32.68 kg/m2 Rosalind C Woody [facility] [employer] [facility], [facility].; [employer] [facility], [facility]. 12-15-2009 10:44-0400 Body surface area Derived from formula 1.96 m2 Rosalind C Nipomo [facility], [facility].; [place] [employer] [facility]. 12-15-2009 10:44-0400 Body temperature 98 [degF] Rosalind C Woody [facility].; [employer] [facility]. 12-15-2009 10:44-0400 Body weight 89.09 kg Rosalind C Woody [facility], [facility].; [employer] [facility]. 12-15-2009 10:44-0400 Diastolic blood pressure 70 mm[Hg] Rosalind C Woody [facility], [facility].; [employer], [facility]. 12-15-2009 10:44-0400 Heart rate 85 /min Rosalind C Woody [facility] [employer] [facility].; [facility]. 12-15-2009 [id number] Systolic blood pressure 130 mm[Hg] Rosalind Mckay LPN [employer].; [employer]. Encounters Encounter Date Encounter Type Care Provider Facility Start: 08-30-2024 End: 08-30-2024 Patient encounter procedure Kenzie TRINH -[facility] Work Phone: Start: 08-30-2024 End: 08-30-2024 ambulatory Tenisha Akins PA Work Phone: -[facility] Start: 08-17-2024 End: 08-17-2024 Tenisha Akins PA-C Work Phone: [facility] [employer]. Start: 07-09-2024 End: 07-09-2024 Tenisha Akins PA-C Work Phone: [employer]. Start: 07-06-2024 End: 07-06-2024 Office outpatient visit 25 minutes Tenisha Akins PA-C Work Phone: [employer]. Start: 06-11-2024 End: 06-11-[address] Dionicio Carey MD -[facility] Work Phone: Start: 06-11-2024 End: 06-11-2024 ambulatory Tenisha Akins PA Facility:[facility] Start: 06-04-2024 End: 06-04-2024 ambulatory Tenisha Akins PA Work Phone: [facility] Work Phone: Start: 06-04-2024 End: 06-04-[address] Boogie Millard MD -Radiology, [facility] Work Phone: Start: 06-04-2024 End: 06-04-2024 ambulatory Tenisha Akins PA Facility:[facility] Start: 05-17-2024 End: 05-17-2024 Patient encounter procedure Kenzie TRINH -[facility] Work Phone: Start: 05-17-2024 End: 05-17-2024 ambulatory Tenisha Akins PA Facility:[facility] Start: 04-18-2024 End: 04-18-2024 ambulatory Tenisha Akins PA Work Phone: [facility] Work Phone: Start: 04-18-2024 End: 04-18-[address] Boogie Millard MD -[facility] - [facility] Work Phone: Start: 04-18-2024 End: 04-18-2024 ambulatory Tenisha Akins PA Facility:[facility] Start: 04-10-2024 End: 09-21-2024 ambulatory Tenisha Akins PA Facility:[facility] Start: 04-10-[address] Boogie mann MD -Physical Therapy Work Phone: Start: 03-26-2024 End: 03-26-[address] Nikkie Osei MD -Laboratory, [place] Work Phone: Start: 03-26-2024 End: 03-26-2024 ambulatory Nikkie Osei Facility:[facility] Start: 03-16-2024 End: 03-16-2024 Tenisha Akins PA-C Work Phone: [facility] Start: 03-15-2024 End: 03-15-2024 Patient encounter procedure Tenisha LING -Radiology, [place] Work Phone: Start: 03-15-2024 ambulatory [facility] Start: 03-15-2024 End: 03-15-2024 Tenisha Akins PA-C Work Phone: [facility] Start: 03-15-2024 Tenisha Akins PA-C Work Phone: [facility] Start: 03-15-2024 End: 03-15-2024 Patient encounter procedure Kenzie TRINH -[facility] Work Phone: Start: 03-15-2024 End: 03-15-2024 ambulatory Tenisha Akins PA Facility:[facility] Start: 03-15-2024 End: 03-15-2024 ambulatory Tenisha Akins PA Facility:[facility] Start: 03-07-2024 End: 03-07-2024 Tenisha Akins PA-C Work Phone: [facility] Start: 02-20-2024 End: 02-20-2024 Patient encounter procedure Kenzie TRINH -Nuclear Medicine, [facility] Work Phone: Start: 02-20-2024 End: 02-20-2024 ambulatory Tenisha Akins PA Facility:[facility] Start: 02-13-2024 End: 02-13-2024 Patient encounter procedure Kenzie TRINH -[facility] Work Phone: Start: 02-13-2024 End: 02-13-2024 ambulatory Tenisha Valverdeer PA Facility:[facility] Start: 02-01-2024 End: 02-01-2024 Patient encounter procedure Kenzie TRINH -Laboratory Work Phone: Start: 02-01-2024 End: 02-01-2024 ambulatory Tenisha Valverdeer PA Facility:[facility] Start: 01-26-2024 Non-patient / Non-visit Jerman Garner DO -[facility] Start: 01-26-2024 End: 01-26-2024 Admission to same day surgery center Jerman Garner DO -Endoscopy Work Phone: Start: 01-26-2024 End: 01-26-2024 ambulatory Jerman Garner Facility:[facility] Start: 01-25-2024 End: 01-25-2024 Patient encounter procedure Kenzie TRINH -[facility] Work Phone: Start: 01-25-2024 End: 01-25-2024 ambulatory Tenisha Akins PA Facility:[facility] Start: 01-25-2024 End: 01-25-2024 ambulatory Tenisha Akins PA Facility:[facility] Start: 01-05-2024 End: 01-05-2024 Office outpatient visit 25 minutes Tenisha Akins PA-C Work Phone: [employer] [facility] Start: 01-05-2024 Tenisha Akins PA-C Work Phone: [facility] Start: 12-22-2023 End: 12-22-2023 ambulatory [facility] Facility:[facility] Start: 09-14-2023 End: 09-14-2023 Preprocedural examination done Tenisha Akins PA-C Work Phone: [facility]; [employer] [facility] Start: 09-14-2023 End: 09-14-2023 Tenisha Akins PA-C Work Phone: [facility] Start: 08-01-2023 End: 08-01-2023 ambulatory TENISHA AKINS [facility] Start: 07-27-2023 End: 07-27-2023 Office outpatient visit 25 minutes Tenisha Akins PA-C Work Phone: [employer] [facility] Start: 07-14-2023 End: 07-14-2023 Office outpatient visit 25 minutes Tenisha Akins PA-C Work Phone: [employer] Start: 05-23-2023 End: 05-23-2023 ambulatory PA-C Charla Armstrong PA Work Phone: [facility] Work Phone: Start: 05-23-2023 End: 05-23-2023 Patient encounter procedure PA-C Charla Armstrong PA Work Phone: [facility] Work Phone: Start: 05-11-2023 Registered Recurring PA-C Hal Armstrong PA Work Phone: [facility]-Physical Therapy Work Phone: Start: 05-10-2023 End: 05-10-2023 ambulatory PA-C Charla [place] PA Work Phone: [facility] Work Phone: Start: 05-10-2023 End: 05-10-2023 Patient encounter procedure CALI LING Work Phone: [facility] Work Phone: Start: 02-22-2023 End: 02-22-2023 ambulatory [facility] Work Phone: Start: 02-22-2023 End: 02-22-2023 Patient encounter procedure [facility] Work Phone: Start: 01-20-2023 End: 01-20-2023 ambulatory [facility] Work Phone: Start: 01-20-2023 End: 01-20-2023 Patient encounter procedure [facility]-Outpatient Breast Imaging Work Phone: Start: 10-29-2022 End: 10-29-2022 Emergency department patient visit [facility]-Emergency Department Work Phone: Start: 10-04-2022 End: 10-04-2022 Patient encounter procedure [facility]-Radiology, [facility] Work Phone: Start: 08-28-2022 End: 08-28-2022 ambulatory [facility] Work Phone: Start: 08-28-2022 End: 08-28-2022 [facility] Start: 03-09-2022 End: 03-09-2022 ambulatory [facility] Work Phone: Start: 03-09-2022 End: 03-09-2022 Patient encounter procedure [facility] Start: 02-10-2022 End: 02-10-2022 Tenisha Akins PA-C Work Phone: [facility]. Start: 01-11-2022 End: 01-11-2022 ambulatory [facility] Work Phone: Start: 01-11-2022 End: 01-11-2022 Patient encounter procedure [facility]-Outpatient Breast Imaging Start: 01-11-2022 End: 01-11-2022 ambulatory [facility] Work Phone: Start: 01-11-2022 End: 01-11-2022 Patient encounter procedure [facility] Start: 12-10-2021 End: 12-10-2021 Patient encounter status Tenisha Akins PA-C Work Phone: [employer]; [employer]. Start: 12-10-2021 End: 12-10-2021 Periodic preventive med est patient 40-64yrs Tenisha Akins PA-C Work Phone: [facility]. Start: 11-19-2021 End: 11-19-2021 Tenisha Akins PA-C Work Phone: [facility]. Start: 09-07-2021 End: 09-07-2021 Patient encounter procedure [facility] Start: 06-10-2021 End: 06-10-2021 Tenisha Akins PA-C Work Phone: [employer] Start: 04-23-2021 End: 04-23-2021 Tenisha Akins PA-C Work Phone: [employer] Start: 03-16-2021 End: 03-16-2021 Office outpatient visit 15 minutes Tenisha Akins PA-C Work Phone: [employer] Start: 02-16-2021 End: 02-17-2021 Tenisha Akins PA-C Work Phone: [employer] Start: 01-28-2021 End: 01-28-2021 Office outpatient visit 25 minutes Tenisha Akins PA-C Work Phone: [employer] Start: 01-20-2021 End: 01-22-2021 Tenisha Akins PA-C Work Phone: [facility]. Start: 12-15-2020 End: 12-15-2020 Tenisha Akins PA-C Work Phone: [facility] [employer]. Start: 11-17-2020 End: 11-17-2020 Tenisha Akins PA-C Work Phone: [facility] [employer]. Start: 10-20-2020 End: 10-20-2020 Tenisha Akins PA-C Work Phone: [facility] [employer]. Start: 09-16-2020 End: 09-17-2020 Tenisha Akins PA-C Work Phone: [facility]. Start: 09-03-2020 End: 09-03-2020 Office outpatient visit 25 minutes Tenisha Akins PA-C Work Phone: [facility]. Start: 08-26-2020 End: 08-26-2020 Office outpatient visit 15 minutes Tenisha Akins PA-C Work Phone: [facility] [employer]. Start: 08-19-2020 End: 08-19-2020 Tenisha Akins PA-C Work Phone: [facility] [employer]. Start: 08-12-2020 End: 08-12-2020 Tenisha Akins PA-C Work Phone: [facility] [employer]. Start: 07-22-2020 End: 07-23-2020 Tenisha Akins PA-C Work Phone: [facility] [employer]. Start: 06-23-2020 End: 06-23-2020 Tenisha Akins PA-C Work Phone: [facility] [employer]. Start: 06-03-2020 End: 06-03-2020 Office outpatient visit 15 minutes Tenisha Akins PA-C Work Phone: [facility]. Start: 05-26-2020 End: 05-26-2020 Tenisha Akins PA-C Work Phone: [facility] [employer]. Start: 04-24-2020 End: 04-24-2020 Tenisha Akins PA-C Work Phone: [facility] [employer]. Start: 03-26-2020 End: 03-26-2020 Tenisha Akins PA-C Work Phone: [facility] [employer]. Start: 02-27-2020 End: 02-27-2020 Tenisha Akins PA-C Work Phone: [facility] [employer]. Start: 01-30-2020 End: 01-30-2020 Tenisha Akins PA-C Work Phone: [facility] [employer]. Start: 01-11-2020 End: 01-11-2020 Tenisha Akins PA-C Work Phone: [facility] [employer]. Start: 01-02-2020 End: 01-02-2020 Tenisha Akins PA-C Work Phone: [facility] [employer]. Start: 12-05-2019 End: 12-05-2019 Tenisha Akins PA-C Work Phone: [facility] [employer]. Start: 11-07-2019 End: 11-07-2019 Office outpatient visit 15 minutes Tenisha Akins PA-C Work Phone: [facility] [employer]. Start: 10-10-2019 End: 10-10-2019 Tenisha Akins PA-C Work Phone: [employer] Start: 09-05-2019 End: 09-05-2019 Tenisha Akins PA-C Work Phone: [facility] [employer]. Start: 08-30-2019 End: 08-30-2019 Tenisha Akins PA-C Work Phone: [facility] [employer]. Start: 08-08-2019 End: 08-08-2019 Tenisha Akins PA-C Work Phone: [facility] [employer]. Start: 07-04-2019 End: 07-04-2019 Tenisha Akins PA-C Work Phone: [facility] [employer]. Start: 06-06-2019 End: 06-06-2019 Tenisha Akins PA-C Work Phone: [facility] [employer]. Start: 05-09-2019 End: 05-09-2019 Tenisha Akins PA-C Work Phone: [facility] [employer]. Start: 04-18-2019 End: 04-19-2019 Tenisha Akins PA-C Work Phone: [facility] [employer]. Start: 04-06-2019 End: 04-06-2019 Tenisha Akins PA-C Work Phone: [facility] [employer]. Start: 03-21-2019 End: 03-21-2019 Tenisha Akins PA-C Work Phone: [facility] [employer]. Start: 02-20-2019 End: 02-22-2019 Tenisha Akins PA-C Work Phone: [facility] [employer]. Start: 01-27-2019 End: 01-27-2019 Tenisha Akins PA-C Work Phone: [facility] [employer]. Start: 01-23-2019 End: 01-23-2019 Tenisha Akins PA-C Work Phone: [facility] [employer]. Start: 01-15-2019 End: 01-15-2019 Office outpatient visit 25 minutes Tenisha Akins PA-C Work Phone: [facility]. Start: 12-26-2018 End: 12-26-2018 Tenisha Akins PA-C Work Phone: [facility] [employer]. Start: 12-25-2018 End: 12-25-2018 Tenisha Akins PA-C Work Phone: [facility] [employer]. Start: 12-20-2018 End: 12-20-2018 Office outpatient visit 25 minutes Tenisha Akins PA-C Work Phone: [facility]. Start: 12-20-2018 End: 12-20-2018 Tenisha Akins PA-C Work Phone: [facility] [employer]. Start: 08-29-2018 End: 08-29-2018 Tenisha Akins PA-C Work Phone: [facility] [employer]. Start: 08-23-2018 End: 08-23-2018 Office outpatient visit 40 minutes Tenisha Akins PA-C Work Phone: [facility] [employer]. Start: 07-06-2018 End: 07-06-2018 Tenisha Akins PA-C Work Phone: [facility] [employer]. Start: 04-10-2018 End: 04-10-2018 Tenisha Akins PA-C Work Phone: [facility] [employer]. Start: 04-06-2018 End: 04-06-2018 Tenisha Akins PA-C Work Phone: [facility] [employer]. Start: 03-16-2018 End: 03-21-2018 Tenisha Akins PA-C Work Phone: [facility] [employer]. Start: 03-15-2018 End: 03-15-2018 Tenisha Akins PA-C Work Phone: [facility] [employer]. Start: 02-20-2018 End: 02-20-2018 Office outpatient visit 15 minutes Tenisha Akins PA-C Work Phone: [facility]. Start: 2018 End: 2018 Office outpatient visit 25 minutes Tenisha Akins PA-C Work Phone: [facility] [employer]. Start: 01-04-2018 End: 01-04-2018 Tenisha Akins PA-C Work Phone: [facility] [employer]. Start: 01-02-2018 End: 01-02-2018 Office outpatient visit 25 minutes Tenisha Akins PA-C Work Phone: [facility] [employer]. Start: 09-15-2017 End: 09-15-2017 Office outpatient visit 10 minutes Tenisha Akins PA-C Work Phone: [facility] [employer]. Start: 06-28-2017 End: 06-28-2017 Tenisha Akins PA-C Work Phone: [facility] [employer]. Start: 05-17-2017 End: 05-22-2017 [facility] Facility:[facility] Start: 01-27-2017 End: 01-27-2017 Tenisha Akins PA-C Work Phone: [facility] [employer]. Start: 01-25-2017 End: 01-25-2017 Tenisha Akins PA-C Work Phone: [facility] [employer]. Start: 01-10-2017 End: 01-10-2017 Tenisha Akins PA-C Work Phone: [facility] [employer]. Start: 12-30-2016 End: 12-30-2016 Office outpatient visit 25 minutes Tenisha Akins PA-C Work Phone: [facility] [employer]. Start: 12-07-2016 End: 12-07-2016 Tenisha Akins PA-C Work Phone: [facility] [employer]. Start: 12-01-2016 End: 12-01-2016 Office outpatient visit 10 minutes Tenisha Akins PA-C Work Phone: [facility] [employer]. Start: 10-26-2016 End: 10-26-2016 Office outpatient visit 15 minutes Tenisha Akins PA-C Work Phone: [facility] [employer]. Start: 10-04-2016 End: 10-04-2016 Tenisha Akins PA-C Work Phone: [facility] [employer]. Start: 10-01-2016 End: 10-01-2016 Tenisha Akins PA-C Work Phone: [facility] [employer]. Start: 05-12-2016 End: 05-12-2016 Office outpatient visit 25 minutes Tenisha Akins PA-C Work Phone: [facility] [employer]. Start: 04-12-2016 End: 04-12-2016 Tenisha Akins PA-C Work Phone: [facility] [employer]. Start: 02-12-2016 End: 02-12-2016 Tenisha Akins PA-C Work Phone: [facility] [employer]. Start: 02-12-2016 End: 02-12-2016 Tenisha Akins PA-C Work Phone: [facility] [employer]. Start: 12-17-2015 End: 12-17-2015 Tenisha Akins PA-C Work Phone: [facility] [employer]. Start: 11-13-2015 End: 11-16-2015 Tenisha Akins PA-C Work Phone: [facility] [employer]. Start: 10-20-2015 End: 10-20-2015 Tenisha Akins PA-C Work Phone: [facility] [employer]. Start: 05-19-2015 End: 05-19-2015 Tenisha Akins PA-C Work Phone: [facility] [employer]. Start: 05-09-2015 End: 05-12-2015 Tenisha Akins PA-C Work Phone: [facility] [employer]. Start: 05-07-2015 End: 05-07-2015 Tenisha Akins PA-C Work Phone: [facility] [employer]. Start: 02-13-2015 End: 02-13-2015 Tenisha Akins PA-C Work Phone: [facility] [employer]. Start: 01-08-2015 End: 01-08-2015 Tenisha Akins PA-C Work Phone: [facility] [employer]. Start: 01-07-2015 End: 01-07-2015 Tenisha Akins PA-C Work Phone: [facility] [employer]. Start: 12-26-2014 End: 12-30-2014 Tenisha Akins PA-C Work Phone: [facility] [employer]. Start: 12-24-2014 End: 12-24-2014 Tenisha Akins PA-C Work Phone: [facility] [employer]. Start: 12-12-2014 End: 12-12-2014 Tenisha Akins PA-C Work Phone: [facility] [employer]. Start: 08-12-2014 End: 08-12-2014 Tenisha Akins PA-C Work Phone: [facility] [employer]. Start: 06-18-2014 End: 06-18-2014 Tenisha Akins PA-C Work Phone: [facility] [employer]. Start: 06-13-2014 End: 06-13-2014 Laboratory examination ordered as part of a routine general medical examination Tenisha Akins PA-C Work Phone: [employer].; [employer]. Start: 06-13-2014 End: 06-13-2014 Tenisha Akins PA-C Work Phone: [facility] [employer]. Start: 05-16-2014 End: 05-16-2014 Tenisha Akins PA-C Work Phone: [facility] [employer]. Start: 05-07-2014 End: 05-07-2014 Tenisha Akins PA-C Work Phone: [facility] [employer]. Start: 03-01-2014 End: 03-01-2014 Office outpatient visit 15 minutes Tenisha Akins PA-C Work Phone: [facility]. Start: 12-21-2013 End: 12-21-2013 Tenisha Akins PA-C Work Phone: [facility] [employer]. Start: 10-05-2013 End: 10-05-2013 Tenisha Akins PA-C Work Phone: [facility] [employer]. Start: 09-28-2013 End: 09-28-2013 Tenisha Akins PA-C Work Phone: [facility] [employer]. Start: 08-31-2013 End: 08-31-2013 Tenisha Akins PA-C Work Phone: [facility] [employer]. Start: 08-28-2013 End: 08-28-2013 Tenisha Akins PA-C Work Phone: [facility] [employer]. Start: 05-14-2013 End: 05-14-2013 Tenisha Akins PA-C Work Phone: [facility] [employer]. Start: 05-07-2013 End: 05-07-2013 Tenisha Akins PA-C Work Phone: [facility]. Start: 11-07-2012 End: 11-07-2012 Tenisha Akins PA-C Work Phone: [facility]. Start: 10-17-2012 End: 10-17-2012 Tenisha Akins PA-C Work Phone: [facility]. Start: 08-21-2012 End: 08-21-2012 Tenisha Aknis PA-C Work Phone: [facility]. Start: 08-10-2012 End: 08-10-2012 Tenisha Akins PA-C Work Phone: [facility]. Start: 08-08-2012 End: 08-08-2012 Tenisha Akins PA-C Work Phone: [facility]. Start: 05-01-2012 End: 05-01-2012 Tenisha Akins PA-C Work Phone: [facility]. Start: 04-17-2012 End: 04-17-2012 Tenisha Akins PA-C Work Phone: [facility]. Start: 03-21-2012 End: 03-21-2012 Tenisha Akins PA-C Work Phone: [facility]. Start: 02-14-2012 End: 02-14-2012 Tenisha Akins PA-C Work Phone: [facility]. Start: 02-10-2012 End: 02-10-2012 Tenisha Akins PA-C Work Phone: [facility]. Start: 02-01-2012 End: 02-01-2012 Tenisha Akins PA-C Work Phone: Cardiovascular [facility]ulation. Start: 11-15-2011 End: 11-15-2011 Tenisha Akins PA-C Work Phone: Cardiovascular [facility]ulation. Start: 11-12-2011 End: 11-12-2011 Tenisha Akins PA-C Work Phone: Cardiovascular [facility]ulation. Start: 09-28-2011 End: 09-29-2011 Tenisha Akins PA-C Work Phone: Cardiovascular [facility]ulation. Start: 09-07-2011 End: 09-07-2011 Tenisha Akins PA-C Work Phone: Cardiovascular [facility]ulation. Start: 08-31-2011 End: 08-31-2011 Tenisha Akins PA-C Work Phone: Cardiovascular [facility]ulation. Start: 08-24-2011 End: 08-24-2011 Tenisha Akins PA-C Work Phone: [facility]. Start: 08-16-2011 End: 08-16-2011 Tenisha Akins PA-C Work Phone: [facility]. Start: 04-06-2011 End: 04-06-2011 Tenisha Akins PA-C Work Phone: [facility]. Start: 02-24-2011 End: 02-24-2011 Tenisha Akins PA-C Work Phone: Cardiovascular [facility]ulation. Start: 01-13-2011 End: 01-13-2011 Tenisha Akins PA-C Work Phone: Cardiovascular [facility]ulation. Start: 09-02-2010 End: 09-02-2010 Tenisha Akins PA-C Work Phone: [facility] [employer] Start: 08-12-2010 End: 08-12-2010 Tenisha Akins PA-C Work Phone: [facility] Start: 05-13-2010 End: 05-13-2010 Tenisha Akins PA-C Work Phone: [facility]. Start: 05-07-2010 End: 05-07-2010 Tenisha Akins PA-C Work Phone: [facility]. Start: 05-04-2010 End: 05-04-2010 Tenisha Akins PA-C Work Phone: [facility]. Start: 04-24-2010 End: 04-24-2010 Tenisha Akins PA-C Work Phone: [employer]. Start: 04-21-2010 End: 04-21-2010 Tenisha Akins PA-C Work Phone: [employer]. Start: 12-15-2009 End: 12-15-2009 Tenisha Akins PA-C Work Phone: [facility]. Patient encounter status Tenisha Shelley Akins PA-C Work Phone: [facility].; [facility] [employer] Patient encounter status Génesis Monet LPN [facility].; [facility] [employer] Patient encounter status Génesis Monet LPN [facility].; [facility], [facility]. Patient encounter status Kenzie Lau RN [facility].; [facility], [facility]. Patient encounter status Génesis Monet LPN [facility].; [facility], Inc[facility] Preprocedural examination done Génesis Monet LPN [facility].; [facility] Preprocedural examination done [facility] Guaman [facility]. Preprocedural examination done Sammie Vernon MA [facility].; [facility]. Procedures Date Procedure Procedure Detail Performing Clinician Start: 06-04-2024 Plain X-ray of shoulder Tenisha Akins SUSHIL Work Phone: Start: 04-18-2024 MRI of lumbar spine Kirti Akins PA Work Phone: Start: 03-15-2024 Plain x-ray of pelvi s and lower extremity Tenisha Akins PA Work Phone: Start: 03-15-2024 X-ray of lumbosacral spine Tenisha Akins PA Work Phone: Start: 03-15-2024 End: 03-16-2024 Radex spine lumbosacral 2/3 views Tenisha Valverdeer PA-C Work Phone: Start: 02-20-2024 Radionuclide gastric emptying study Tenisha Akins SUSHIL Work Phone: Start: 02-01-2024 Clostridium difficil e detection Tenisha Akins PA Work Phone: Start: 01-26-2024 End: 01-26-2024 Screening colonoscopy Tenisha Valverdeer PA- C Work Phone: Start: 01-25-2024 Screening mammography Adrianne Akins SUSHIL Work Phone: Start: 01-05-2024 End: 01-25-2024 Screening digital breast tomosynthesis bi Tenisha Valverdeer PA-C Work Phone: Start: 09-20-2023 End: 09-20-2023 Génesis Monet LP N Start: 09-14-2023 End: 09-29-2023 Ecg routine ecg w/least 12 lds w/i&r Tenisha Valverdeer PA-C Work Phone: Start: 07-27-2023 End: 08-01-2023 Ct abdomen & pelvis w/contrast material Tenisha Shelley Akins PA-C Work Phone: Start: 05-10-2023 Radiologic examinati on of knee PA-C Charla Hills PA Work Phone: Start: 01-20-2023 Screening mammography Start: 10-29-2022 CT of head without contrast Start: 10-04-2022 Plain X-ray of scapula Start: 10-04-2022 Plain X-ray of shoulder Start: 10-04-2022 X-ray of chest posteroanterior view Start: 01-11-2022 Screening mammography Start: 12-10-2021 End: 12-10-2021 Depression screening Tenisha Shelley Tashi PA -C Work Phone: Start: 12-10-2021 End: 12-10-2021 Scr dep neg, no plan reqd Tenisha Shelley Abram er PA-C Work Phone: Start: 12-10-2021 End: 01-18-2022 Screening digital breast tomosynthesis bi Tenisha Shelley Tashi PA-C Work Phone: Start: 03-16-2021 End: 03-16-2021 Vitamin b12 injection Tenisha Shelley Akins P A-C Work Phone: Start: 02-16-2021 End: 02-16-2021 Vitamin b12 injection FLOAT NURSE Start: 01-28-2021 End: 01-30-2021 Ct abdomen & pelvis w/contrast material Tenisha Shelley Akins PA-C Work Phone: Start: 01-20-2021 End: 01-20-2021 Vitamin b12 injection Tenisha Shelley Akins P A-C Work Phone: Start: 12-15-2020 End: 12-15-2020 Vitamin b12 injection Tenisha Shelley Akins P A-C Work Phone: Start: 11-17-2020 End: 11-17-2020 Vitamin b12 injection Tenisha Shelley Akins P A-C Work Phone: Start: 10-20-2020 End: 10-20-2020 Vitamin b12 injection Nelsysana Cooley PA- C Work Phone: Start: 09-16-2020 End: 09-16-2020 Vitamin b12 injection Charla D [place] P A-C Work Phone: Start: 08-26-2020 End: 08-26-2020 Radiologic exam knee complete 4/more views Charla D [place] PA-C Work Phone: Start: 08-19-2020 End: 08-19-2020 Vitamin b12 injection Charla D [place] P A-C Work Phone: Start: 07-22-2020 End: 07-22-2020 Vitamin b12 injection Charla D [place] P A-C Work Phone: Start: 06-23-2020 End: 06-23-2020 Vitamin b12 injection Charla D [place] P A-C Work Phone: Start: 05-26-2020 End: 05-26-2020 Vitamin b12 injection Charla D [place] P A-C Work Phone: Start: 04-24-2020 End: 04-24-2020 Vitamin b12 injection Charla D [place] P A-C Work Phone: Start: 03-26-2020 End: 03-26-2020 Vitamin b12 injection Charla D [place] P A-C Work Phone: Start: 02-27-2020 End: 02-27-2020 Vitamin b12 injection FLOAT NURSE Start: 01-30-2020 End: 01-30-2020 Vitamin b12 injection Charla D [place] P A-C Work Phone: Start: 01-02-2020 End: 01-02-2020 Vitamin b12 injection Charla D [place] P A-C Work Phone: Start: 12-05-2019 End: 12-05-2019 Vitamin b12 injection Charla D [place] P A-C Work Phone: Start: 11-07-2019 End: 11-07-2019 Vitamin b12 injection Charla D [place] P A-C Work Phone: Start: 11-07-2019 End: 11-07-2019 Lab findings surveillance Shannon Cash iris KEENAN Start: 11-07-2019 End: 11-07-2019 Most recent diastolic blood pressure < 80 mm hg Charla D [place] PA-C Work Phone: Start: 11-07-2019 End: 11-07-2019 Most recent systolic blood press 130-139mm hg Charla Roberson [place] PA-C Work Phone: Start: 10-10-2019 End: 10-10-2019 Vitamin b12 injection Charla D [place] P A-C Work Phone: Start: 09-05-2019 End: 09-05-2019 Vitamin b12 injection Charla D [place] P A-C Work Phone: Start: 08-08-2019 End: 08-08-2019 Vitamin b12 injection FLOAT NURSE Start: 07-04-2019 End: 07-04-2019 Vitamin b12 injection Charla D [place] P A-C Work Phone: Start: 06-06-2019 End: 06-06-2019 Vitamin b12 injection Charla D [place] P A-C Work Phone: Start: 05-09-2019 End: 05-09-2019 Vitamin b12 injection Charla D [place] P A-C Work Phone: Start: 04-18-2019 End: 04-18-2019 Vitamin b12 injection FLOAT NURSE Start: 03-21-2019 End: 03-21-2019 Vitamin b12 injection Charla D [place] P A-C Work Phone: Start: 02-20-2019 End: 02-20-2019 Vitamin b12 injection Charla D [place] P A-C Work Phone: Start: 01-23-2019 End: 01-23-2019 Vitamin b12 injection Charla D [place] P A-C Work Phone: Start: 01-15-2019 End: 01-16-2019 Pressurized/nonpressurized inhalation treatment Charla D [place] PA-C Work Phone: Start: 12-26-2018 End: 12-26-2018 Vitamin b12 injection Charla D [place] P A-C Work Phone: Start: 12-20-2018 End: 01-26-2019 Cardiac event recorder Charla Armstrong PA-C Work Phone: Start: 08-23-2018 End: 08-23-2018 Shannon Andrew MA Start: 03-16-2018 End: 04-10-2018 Brncdilat rspse spmtry pre&post-brncdilat admn Charla Armstrong PA-C Work Phone: Start: 03-16-2018 End: 03-23-2018 Echo tthrc r-t 2d w/wom-mode compl spec&colr d Charla Armstrong PA-C Work Phone: Start: 03-15-2018 End: 03-16-2018 Radiologic exam chest 2 views Charla Armstrong PA-C Work Phone: Start: 2018 End: 2018 Pressurized/nonpressurized inhalation treatment Charla Armstrong PA-C Work Phone: Start: 01-10-2017 End: 01-18-2017 Ct abdomen & pelvis w/contrast material Charla Armstrong PA-C Work Phone: Start: 12-30-2016 End: 12-30-2016 Body mass index documented Charla Muller lls PA-C Work Phone: Start: 04-12-2016 End: 04-19-2016 Ecg routine ecg w/least 12 lds i&r only Charla Armstrong PA-C Work Phone: Start: 03-24-2016 End: 03-24-2016 Ophthalmic examination and evaluation Shannon Andrew MA Start: 11-13-2015 End: 11-13-2015 Chest x-ray Charla Armstrong PA- C Work Phone: Start: 05-07-2015 End: 05-09-2015 Mri brain brain stem w/o contrast material Tenisha Akins PA-C Work Phone: Start: 01-29-2015 End: 01-29-2015 Cholecystectomy Shannon Vusander KEENAN Start: 12-26-2014 End: 01-06-2015 Hepatobiliary syst imaging including gallbladder Charla LING-C Work Phone: Start: 12-24-2014 End: 12-26-2014 Us abdominal real time w/image limited Charla Armstrong PA-C Work Phone: Start: 12-12-2014 End: 12-25-2014 Mri spinal canal lumbar w/o contrast material Charla Armstrong PA-C Work Phone: Start: 04-21-2014 End: 04-21-2014 Echocardiography Shannon Kamran KEENAN Start: 04-21-2014 End: 04-21-2014 Electrocardiogram with exercise test Shannon Vusander KEENAN Start: 03-01-2014 End: 03-01-2014 Radex ankle complete minimum 3 views Jose Tellez MD Work Phone: Start: 08-28-2013 End: 08-28-2013 Dup-scan xtr veins unilateral/limited study Charla Armstrong PA-C Work Phone: Start: 01-25-2013 End: 01-25-2013 Screening colonoscopy Shannon Kamran KEENAN Start: 08-08-2012 End: 08-10-2012 Mri any jt upper extremity w/o contrast matrl Charla Armstrong PA-C Work Phone: Start: 02-22-2012 End: 02-22-2012 Screening for malignant neoplasm of large intestine Génesis Monet LPN Start: 11-12-2011 End: 11-15-2011 X-ray exam of hip Dionicio Sifuentes MD Work Phone: Start: 08-24-2011 End: 08-30-2011 Ct lower extremity w/o contrast material Dionicio Sifuentes MD Work Phone: Start: 08-16-2011 End: 08-16-2011 Radex foot complete minimum 3 views Dionicio Sifuentes MD Work Phone: Start: 08-12-2010 End: 08-12-2010 Dexamethasone sodium phos Charla lerma PA-C Work Phone: Start: 05-07-2010 End: 05-11-2010 Myocardial spect multiple studies Charla Rboerson Nathaniel LEIVA Work Phone: Start: 05-04-2010 End: 05-05-2010 Ecg routine ecg w/least 12 lds i&r only Charla Roberson Nathaniel LEIVA Work Phone: Total hysterectomy Shannon aKmran KEENAN Total hysterectomy Tenisha Shelley Tashi LEIVA Work Phone: Plan of Treatment Date Care Activity Detail Author Start: 01-02-2025 [facility] Start: 09-21-2024 Comprehensive [facility] [employer]. Start: 09-21-2024 Lipid panel [facility].; [employer] Start: 07-06-2024 Cardiovascular Simulation. Start: 07-04-2024 [employer] Start: 03-15-2024 Radex hip unilateral with pelvis 2-3 views [employer] [facility]. Start: 03-15-2024 Radex spine lumbosacral 2/3 views [facility].; [facility] [employer]. Start: 01-26-2024 Colonoscopy w/biopsy single/multiple COLONOSCOPY AND BIOPSY [facility] Start: 01-26-2024 Egd transoral biopsy single/multiple EGD BIOPSY SINGLE/MULTIPLE [facility] Start: 01-26-2024 Patient discharge [facility] Start: 01-05-2024 Screening digital breast tomosynthesis bi [employer].; [facility] [employer]. Start: 01-05-2024 [facility] [employer]ulation. Start: 09-14-2023 Blood count complete auto&auto difrntl wbc [employer] [employer].; [employer] Start: 09-14-2023 Comprehensive metabolic panel [facility].; [employer] Start: 09-14-2023 [employer] Start: 09-14-2023 Ecg routine ecg w/least 12 lds w/i&r [employer] [employer] Start: 07-27-2023 Lactoferrin fecal qualitative [facility] [employer] Start: 07-27-2023 Ova&parasites direct smears concentration & id [facility] [employer] Start: 07-27-2023 Cul bact stool aerobic addl pathogens&id ea [facility] [employer] Start: 07-27-2023 Cul bact stool aerobic isol salmonella&shigell [place] [employer] Start: 07-27-2023 Iaad ia giardia [employer] [employer] Start: 07-27-2023 End: 07-27-2023 Ct abdomen & pelvis w/contrast material [employer] [employer] Start: 07-14-2023 Oncology colorectal screening kelly 10 dna markrs [facility] [employer] [employer] Start: 07-14-2023 Lipid panel [facility] [employer] Start: 05-10-2023 Patient referral [facility] Work Phone: Start: 08-23-2018 Fat/lipids feces qualitative [facility], [facility] Colonoscopy [facility] Patient Education ED Concussion [facility] Work Phone: Patient referral [facility] Work Phone: [employer].; [employer].; [employer], [employer].; [employer].; [employer], [employer].; [employer] [facility], [employer].; [employer].; [employer].; [employer], Inc.; [employer].; [employer].; [employer].; [employer].; [employer].; [employer].; [employer].; [employer].; [employer].; [employer].; [employer].; [employer].; [employer] [facility] Immunizations Immunization Date Immunization Notes Care Provider Kolby remy 11-19-2021 zoster vaccine recombinant Tenisha Akins PA-C Work Phone: [employer] 11-19-2021 Tenisha Akins PA-C Work Phone: [employer] 05-08-2020 Tenisha Akins PA-C Work Phone: [employer] 12-12-2018 influenza, injectabl e, quadrivalent, contains preservative Tenisha Akins PA-C Work Phone: [employer] 11-21-2013 influenza, seasonal, injectable Tenisha Akins PA-C Work Phone: [facility] [employer].; [facility] 11-21-2013 tetanus toxoid, redu cristel diphtheria toxoid, and acellular pertussis vaccine, adsorbed Tenisha Valverdeene LEIVA Work Phone: [facility]; [facility] 12-04-2009 influenza, seasonal, injectable Tenisha Valverdeene LEIVA Work Phone: [facility]; [facility] Payers Date Payer Category Payer Unknown [id number] 2024 Unknown [id number] 2023 Self-pay [id number] 2023 Unknown [id number] 2012 Unknown [id number] Unknown [id number] 2.16.8 [id number] Unknown [id number] Unknown [id number] Unknown Unknown [id number] 2.16.8 [id number] Unknown [id number] 2.16.8 [id number] Unknown [id number] 2.16.8 [id number] Unknown [id number] 2.16.8 40.1.093171.3.579.2.462 Unknown [id number] 2.16.8 40.1.194656.3.579.2.462 Unknown [id number] 2.16.8 40.1.706801.3.579.2.462 Unknown [id number] 2.16.8 40.1.212580.3.579.2.462 Unknown [id number] 2.16.8 40.1.223563.3.579.2.462 Unknown [id number] 2.16.8 40.1.300649.3.579.2.462 Unknown [id number] 2.16.8 40.1.344026.3.579.2.462 Unknown [id number] 2.16.8 40.1.489765.3.579.2.462 Unknown [id number] 2.16.8 40.1.013949.3.579.2.462 Unknown [id number] 2.16.8 40.1.155420.3.579.2.462 Unknown [id number] 2.16.8 40.1.915805.3.579.2.462 Unknown [id number] 2.16.8 40.1.128960.3.579.2.462 Unknown [id number] 2.16.8 40.1.155445.3.579.2.462 Unknown [id number] 2.16.8 [id number] Social History Date Type Detail Facility Start: 03-07-2019 End: 05-10-2023 Tobacco smoking status NYIS Unknown if ever smoked [facility] Start: 1960 Sex Assigned At Female W [facility] Occasional alcohol use. [facility], [employer].; [facility], [employer].; [facility] Never smoker. [facility] [employer] [facility].; [employer], [employer]. Start: 01-25-2024 End: 08-30-2024 Tobacco smoking status NHIS Never smoked tobacco (finding) [facility] Start: 04-30-2024 End: 06-08-2024 Sex Female (finding) [facility] Medical Equipment Procedure Code Equipment Code Equipment Origin al Text Equipment Identifier Dates ORIF, fracture, metatarsal bone 5.0MM COMPRESSION SCREW X 50MM FDA Start: 09-20-2023 ORIF, fracture, metatarsal bone 5.0MM COMPRESSION SCREW X 50MM FDA Start: 09-20-2023 ORIF, fracture, metatarsal bone 5.0MM COMPRESSION SCREW X 50MM FDA Start: 09-20-2023 ORIF, fracture, metatarsal bone 5.0MM COMPRESSION SCREW X 50MM FDA Start: 09-20-2023 Goals Date Patient Goal Desired Activity /State Mental Status Date Assessment Result Facility 01-26-2024 Cognitive function Voice/Name [facility] Work Phone: Clinical Notes 10-29-2020 to 06-11-2024 Note Date & Type Note Facility 06-11-2024 Evaluation note Diagnosis Onset Date Resolution Right shoulder pain acute June 11, 2024 8:11am Lymphocytic colitis acute August 30, 2024 8:02am [facility] Work Phone: 1(166) 589-491304-14-2025 Radiology Diagnostic study note [facility] Imaging Services [address], [place] [address] Shoulder min 2 Views MR#: [id number] Acct: [id number] Name: CHLOE CHOUDHARY Rep #: [id number] : 1960 F 64 From: Amador Babcock DO PCP: SUSHIL Crabtree Status: REG CLI Study:Shoulder min 2 Views Date of Exam: 06/04/24 Exam# [id number] Ordering Dr: Boogie Millard MD PROCEDURE: SHOULDER MIN 2 VIEWS 06/04/2024 REASON FOR EXAM: SHOULDER PAIN Patient fell 12 days ago. Bruising right shoulder. TECHNIQUE: Four views of the right shoulder COMPARISON: None FINDINGS: Four views of the right shoulder demonstrate the acromioclavicular joint to be widened measuring approximately 12 mm. The remaining joint spaces are well preserved. Lucencies in the right humeral head are noted, near the insertion site of the rotator cuff tendon. These are most compatible with benign bony cysts. A radiopaque anchoring device is project over the humeral head. There are no fractures. The visualized right ribs are clear. The visualized right lung is clear. RAD/Shoulder min 2 Views IMPRESSION: There is widening of the right acromioclavicular joint. Reading Location: [id number] CC: Dr. Boogie Millard MD; SUSHIL Crabtree ~ Lens Mold Setter: Signed [facility]03-27-2025 Evaluation note* Diagnosis Onset Date Resolution Status Admit Date Lymphocytic colitis acute May 17, 2024 8:04am Right shoulder pain acute June 11, 2024 8:11am [facility] Work Phone: 1(127) 278-900012-23-2024 Evaluation note* Diagnosis Onset Date Resolution Status Admit Date Early satiety acute February 122023 10:20am Lymphocytic colitis acute Decem maida 2023 10:20am Nausea acute February 13, 2024 10:20am Lymphocytic colitis acute Janua ry 2024 10:54am Lymphocytic colitis acute May 17, 2024 8:04am [facility] Work Phone: 1(306) 600-340812-05-2024 [facility] Medical Records Department [address] [place] [address] History Physical Exam 01/26/24 0941 MR#: [id number] Acct: [id number] Name: CHLOE CHOUDHARY Rep #: [id number] : 1960 63 From: Jerman Friend DO PCP: SUSHIL Crabtree Status:REG [facility] Location: [place] [address] History and Physical Date of Admission: 01/26/24 She was told by DR. Guido years ago that she had IBS with diarrhea. Recently it has gotten worse and has diarrhea constantly. Thinks she saw blood in her stool a couple of times but can't be sure. Has had a lower abd ache in the last several months. Last colonoscopy was 2018. Has a lot of nausea and decreased appetite. Has to carry a change of clothes with her everywhere she goes and can't eat when she goes out because it will just come right back out. [facility] Medical History (Updated 01/25/24 @ 10:41 by Kenzie Laurent NP-C) Colicky epigastric pain Chronic diarrhea Inflammatory polyarthropathy IBS (irritable bowel syndrome) GERD (gastroesophageal reflux disease) Hypertension Vitamin D deficiency Vitamin B12 deficiency Anxiety Wears dentures Post-menopausal Arthritis Easy bruising Restless legs History of IBS Non-smoker History of pain when walking History of echocardiogram Cardiology follow-up encounter Contusion of right knee Contusion of left knee Strain of left knee Essential (primary) hypertension BMI 39.0-39.9,adult MABEL (obstructive sleep apnea) Hypersomnia Acute bronchitis Insomnia Hyperlipidemia Surgical History (Updated 09/16/23 @ 14:01 by Candelaria Conley) History of esophagogastroduodenoscopy (EGD) Hx of colonoscopy Hx of shoulder surgery Hx of shoulder surgery History of left heart catheterization (05/25/10) History of tonsillectomy H/O: hysterectomy History of cholecystectomy Family History (Updated 01/23/24 @ 19:01 by Génesis Quintero) Mother , metastasis to brain Lung cancer ArthritisFather CAD (coronary artery disease) Diabetes Myocardial infarctionGrandfather CAD (coronary artery disease) AsthmaGrandfather CAD (coronary artery disease)Sister Cystic fibrosis Social History (Updated 01/23/24 @ 18:59 by Génesis Quintero) Smoking Status: Never smoker alcohol intake: current alcohol intake frequency: other details: occasional substance use type: does not use caffeine: Yes Type: carbonated beverages HPI HPI Chief Complaint: diarrhea Details: 63y/o female presents for consultation with complaints of diarrhea. CT A P 08/01/2023 unremarkable GIPCR, O P, Fecal Lactoferrin 07/29/2023 negative CBC and CMP 12/22/2023: WBC 3.4, K+ 3.4 COLON 2017 - per patient this was negative Lotronex - 1/2 tablet can slow things down but a whole binds her up and makes it worse - very expensive - took once in the past month - Imodium helps briefly - reports she has never been on cholestyramine or questran - always watery diarrhea - changed over the past year - much much worse - diarrhea can keep her up at night - she denies any h/o celiac disease or pancreatitis - denies any family h/o celiac disease, IBD or colon CA - she c/o intermittent LUQ aching or lower abdominal aching with diarrhea - she will have diarrhea before she ever leaves home - nausea x6 weeks - eating smaller meals - nausea prevents her from eating - weight loss >30lbs in the past year due to limiting PO intake - lower mid abdominal aching - nausea - decreased appetite - has to carry a change of clothes with her and does not eat when she leaves home - denies any new medications or dietary changes to change stools - denies any NSAIDS - denies any HB - she reports discontinuing Plaquenil earlier this year due to diarrhea - denies any heart or lung disease - denies any kidney disease - fall 1x in past year - foot fracture ROS Const Constitutional: Positive for fatigue and weight change; No fever(s) ENT ENT: No difficulty swallowing Gastro GI: Positive for abdominal pain, bloating, diarrhea and nausea/dyspepsia; No belching, change in bowel habits, change in stool character, coffee ground emesis, constipation, cramping, heartburn, difficulty swallowing, feeling full early, excessive flatus, incontinent of stools, Vomiting blood/hematemesis, Blood in stool, loose stools, Black,tarry stools, pain with swallowing, vomiting or other Musc Musculoskeletal: Positive for joint pain, joint swelling, numbness, stiffness, tingling, Arthritis and restless legs Skin Skin: No yellowing of the eye or itchy eyes Neuro Neurology: Positive for numbness, tingling and restless legs Psych Psychiatric: Positive for anxiety and No depression Endo Endocrine: Positive for fatigue and weight change Aller/Imm Allergy/Immunologic: No itchy eyes Scott/Lymp Hematologic/Lymphatic: Positive for easy (more content not included)...[facility]12-04-2024 Evaluation note* Diagnosis Onset Date Resolution Status Admit Date Abdominal cramping acute Decemb er 2023 9:53am Irritable bowel syndrome wit h diarrhea acute January 24 9:53am Nausea acute January 25, 2024 9:53am Weight loss acute January 25, 2024 9:53am Chronic diarrhea chronic January 25, 2024 9:53am Early satiety acute February 122023 10:20am Lymphocytic colitis acute Decem maida 2023 10:20am Nausea acute February 13, 2024 10:20am Lymphocytic colitis acute Janua ry 2024 10:54am [facility] Work Phone: [phone]) 109-329209-08-2021 NoteHNO ID: [id number] Author: Mira Akhtar Service: ? Author Type: Materials Management Manager Type: Progress Notes Filed: 10/29/2020 10:43 AM [...] BY: Mira Akhtar October 29, 2020 10:43 [facility]09-08-2021 NoteHNO ID: [id number] Author: Lorna Ya APRN.MOLDED GOODS CONTROLS OPERATOR Service: ? Author Type: Nurse Practitioner Type: Progress Notes Filed: 10/29/2020 11:04 AM Note Text: Theresa is a 60 year old who presents for an annual gynecologic exam without complaints. Retired 11/2019 and loving it - working outside and gardening. Has lost 10 lbs. 18 grandchildren ages to 17 yo. Postmenopausal:?TVH 2006, removal of ovaries in 2004 HRT use:?Yes,?oral estradiol??How lon years - discontinued use 2016 Last Pap:?2010?normal??vag vault HPV:?2010?negative Last mammogram:?today History [...] external genitalia normal, normal Bartholin's glands, urethra, Crestwood's glands, no vulvar lesions, physiologic discharge present, [...] one year or sooner as needed Lorna Ya APRN.[facility] CenterEvaluation noteNo assessment information availableWCleveland Clinic Hillcre[facility] Work Phone: Evaluation note* Diagnosis Onset Date Resolution Status Contusion of left knee acute Contusion of right knee acut e Strain of left knee acute [facility] Work Phone: Reason for referral (narrative)No reason for referral information availableWCleveland Clinic Hillcre[facility] Hospital Work Phone: Summary Purpose Family History No Family History Records Found Relationship Condition Age at Onset Recorded Date/T kely mother Malignant neoplasm of lung Unknown father Coronary artery disease Unknown grandfather Coronary artery disease Unknown Asthma Unknown sister Cystic fibrosis Unknown Coronary Artery Disease Status:Active Comments :Father. Maternal Grandfather. Paternal Grandfather. Father Still Living Status:Active Lung Cancer Status:Active Comments:Mother. Mother Status:Active Comments:canc er metastasis to brain Coronary Artery Disease Status:Active Comments :Father. Maternal Grandfather. Paternal Grandfather. Father Still Living Status:Active Lung Cancer Status:Active Comments:Mother. Mother Status:Active Comments:canc er metastasis to brain Coronary Artery Disease Status:Active Comments :Father. Maternal Grandfather. Paternal Grandfather. Father Still Living Status:Active Lung Cancer Status:Active Comments:Mother. Mother Status:Active Comments:canc er metastasis to brain Coronary Artery Disease Status:Active Comments :Father. Maternal Grandfather. Paternal Grandfather. Father Still Living Status:Active Lung Cancer Status:Active Comments:Mother. Mother Status:Active Comments:canc er metastasis to brain Coronary Artery Disease Status:Active Comments :Father. Maternal Grandfather. Paternal Grandfather. Father Still Living Status:Active Lung Cancer Status:Active Comments:Mother. Mother Status:Active Comments:canc er metastasis to brain Coronary Artery Disease Status:Active Comments :Father. Maternal Grandfather. Paternal Grandfather. Father Still Living Status:Active Lung Cancer Status:Active Comments:Mother. Mother Status:Active Comments:canc er metastasis to brain Coronary Artery Disease Status:Active Comments :Father. Maternal Grandfather. Paternal Grandfather. Father Still Living Status:Active Lung Cancer Status:Active Comments:Mother. Mother Status:Active Comments:canc er metastasis to brain Coronary Artery Disease Status:Active Comments :Father. Maternal Grandfather. Paternal Grandfather. Father Still Living Status:Active Lung Cancer Status:Active Comments:Mother. Mother Status:Active Comments:canc er metastasis to brain Coronary Artery Disease Status:Active Comments :Father. Maternal Grandfather. Paternal Grandfather. Father Still Living Status:Active Lung Cancer Status:Active Comments:Mother. Mother Status:Active Comments:canc er metastasis to brain Coronary Artery Disease Status:Active Comments :Father. Maternal Grandfather. Paternal Grandfather. Father Still Living Status:Active Lung Cancer Status:Active Comments:Mother. Mother Status:Active Comments:canc er metastasis to brain Coronary Artery Disease Status:Active Comments :Father. Maternal Grandfather. Paternal Grandfather. Father Still Living Status:Active Lung Cancer Status:Active Comments:Mother. Mother Status:Active Comments:canc er metastasis to brain Coronary Artery Disease Status:Active Comments :Father. Maternal Grandfather. Paternal Grandfather. Father Still Living Status:Active Lung Cancer Status:Active Comments:Mother. Mother Status:Active Comments:canc er metastasis to brain Coronary Artery Disease Status:Active Comments :Father. Maternal Grandfather. Paternal Grandfather. Father Still Living Status:Active Lung Cancer Status:Active Comments:Mother. Mother Status:Active Comments:canc er metastasis to brain Coronary Artery Disease Status:Active Comments :Father. Maternal Grandfather. Paternal Grandfather. Father Still Living Status:Active Lung Cancer Status:Active Comments:Mother. Mother Status:Active Comments:canc er metastasis to brain Coronary Artery Disease Status:Active Comments :Father. Maternal Grandfather. Paternal Grandfather. Father Still Living Status:Active Lung Cancer Status:Active Comments:Mother. Mother Status:Active Comments:canc er metastasis to brain Coronary Artery Disease Status:Active Comments :Father. Maternal Grandfather. Paternal Grandfather. Father Still Living Status:Active Lung Cancer Status:Active Comments:Mother. Mother Status:Active Comments:canc er metastasis to brain Coronary Artery Disease Status:Active Comments :Father. Maternal Grandfather. Paternal Grandfather. Father Still Living Status:Active Lung Cancer Status:Active Comments:Mother. Mother Status:Active Comments:canc er metastasis to brain Coronary Artery Disease Status:Active Comments :Father. Maternal Grandfather. Paternal Grandfather. Father Still Living Status:Active Lung Cancer Status:Active Comments:Mother. Mother Status:Active Comments:canc er metastasis to brain Coronary Artery Disease Status:Active Comments :Father. Maternal Grandfather. Paternal Grandfather. Father Still Living Status:Active Lung Cancer Status:Active Comments:Mother. Mother Status:Active Comments:canc er metastasis to brain Coronary Artery Disease Status:Active Comments :Father. Maternal Grandfather. Paternal Grandfather. Father Still Living Status:Active Lung Cancer Status:Active Comments:Mother. Mother Status:Active Comments:canc er metastasis to brain Coronary Artery Disease Status:Active Comments :Father. Maternal Grandfather. Paternal Grandfather. Father Still Living Status:Active Lung Cancer Status:Active Comments:Mother. Mother Status:Active Comments:canc er metastasis to brain Coronary Artery Disease Status:Active Comments :Father. Maternal Grandfather. Paternal Grandfather. Father Still Living Status:Active Lung Cancer Status:Active Comments:Mother. Mother Status:Active Comments:canc er metastasis to brain Coronary Artery Disease Status:Active Comments :Father. Maternal Grandfather. Paternal Grandfather. Father Still Living Status:Active Lung Cancer Status:Active Comments:Mother. Mother Status:Active Comments:canc er metastasis to brain Coronary Artery Disease Status:Active Comments :Father. Maternal Grandfather. Paternal Grandfather. Father Still Living Status:Active Lung Cancer Status:Active Comments:Mother. Mother Status:Active Comments:canc er metastasis to brain Coronary Artery Disease Status:Active Comments :Father. Maternal Grandfather. Paternal Grandfather. Father Still Living Status:Active Lung Cancer Status:Active Comments:Mother. Mother Status:Active Comments:canc er metastasis to brain Coronary Artery Disease Status:Active Comments :Father. Maternal Grandfather. Paternal Grandfather. Father Still Living Status:Active Lung Cancer Status:Active Comments:Mother. Mother Status:Active Comments:canc er metastasis to brain Coronary Artery Disease Status:Active Comments :Father. Maternal Grandfather. Paternal Grandfather. Father Still Living Status:Active Lung Cancer Status:Active Comments:Mother. Mother Status:Active Comments:canc er metastasis to brain Coronary Artery Disease Status:Active Comments :Father. Maternal Grandfather. Paternal Grandfather. Father Still Living Status:Active Lung Cancer Status:Active Comments:Mother. Mother Status:Active Comments:canc er metastasis to brain Coronary Artery Disease Status:Active Comments :Father. Maternal Grandfather. Paternal Grandfather. Father Still Living Status:Active Lung Cancer Status:Active Comments:Mother. Mother Status:Active Comments:canc er metastasis to brain Coronary Artery Disease Status:Active Comments :Father. Maternal Grandfather. Paternal Grandfather. Father Still Living Status:Active Lung Cancer Status:Active Comments:Mother. Mother Status:Active Comments:canc er metastasis to brain Coronary Artery Disease Status:Active Comments :Father. Maternal Grandfather. Paternal Grandfather. Father Still Living Status:Active Lung Cancer Status:Active Comments:Mother. Mother Status:Active Comments:canc er metastasis to brain Coronary Artery Disease Status:Active Comments :Father. Maternal Grandfather. Paternal Grandfather. Father Still Living Status:Active Lung Cancer Status:Active Comments:Mother. Mother Status:Active Comments:canc er metastasis to brain Coronary Artery Disease Status:Active Comments :Father. Maternal Grandfather. Paternal Grandfather. Father Still Living Status:Active Lung Cancer Status:Active Comments:Mother. Mother Status:Active Comments:canc er metastasis to brain Coronary Artery Disease Status:Active Comments :Father. Maternal Grandfather. Paternal Grandfather. Father Still Living Status:Active Lung Cancer Status:Active Comments:Mother. Mother Status:Active Comments:canc er metastasis to brain Coronary Artery Disease Status:Active Comments :Father. Maternal Grandfather. Paternal Grandfather. Father Still Living Status:Active Lung Cancer Status:Active Comments:Mother. Mother Status:Active Comments:canc er metastasis to brain Coronary Artery Disease Status:Active Comments :Father. Maternal Grandfather. Paternal Grandfather. Father Still Living Status:Active Lung Cancer Status:Active Comments:Mother. Mother Status:Active Comments:canc er metastasis to brain Coronary Artery Disease Status:Active Comments :Father. Maternal Grandfather. Paternal Grandfather. Father Still Living Status:Active Lung Cancer Status:Active Comments:Mother. Mother Status:Active Comments:canc er metastasis to brain Coronary Artery Disease Status:Active Comments :Father. Maternal Grandfather. Paternal Grandfather. Father Still Living Status:Active Lung Cancer Status:Active Comments:Mother. Mother Status:Active Comments:canc er metastasis to brain Coronary Artery Disease Status:Active Comments :Father. Maternal Grandfather. Paternal Grandfather. Father Still Living Status:Active Lung Cancer Status:Active Comments:Mother. Mother Status:Active Comments:canc er metastasis to brain Relationship Condition Age at Onset Recorded Date/T kely mother Malignant neoplasm of lung Unknown Arthritis Unknown father Coronary artery disease Unknown Diabetes mellitus Unknown Myocardial infarction Unknown grandfather Coronary artery disease Unknown Asthma Unknown sister Cystic fibrosis Unknown Coronary Artery Disease Status:Active Comments :Father. Maternal Grandfather. Paternal Grandfather. Father Still Living Status:Active Lung Cancer Status:Active Comments:Mother. Mother Status:Active Comments:canc er metastasis to brain Coronary Artery Disease Status:Active Comments :Father. Maternal Grandfather. Paternal Grandfather. Father Still Living Status:Active Lung Cancer Status:Active Comments:Mother. Mother Status:Active Comments:canc er metastasis to brain Coronary Artery Disease Status:Active Comments :Father. Maternal Grandfather. Paternal Grandfather. Father Still Living Status:Active Lung Cancer Status:Active Comments:Mother. Mother Status:Active Comments:canc er metastasis to brain Coronary Artery Disease Status:Active Comments :Father. Maternal Grandfather. Paternal Grandfather. Father Still Living Status:Active Lung Cancer Status:Active Comments:Mother. Mother Status:Active Comments:canc er metastasis to brain Advance Directives No Advanced Directives Records Found Advance Directive Response Recorded Date/ Time Advance Directives No January 27, 2015 9:57am Living Will No January 27 9:57am Power of Corn Husker Machine Operator No January 27, 2015 9:57am Advance Directive Response Recorded Date/ Time Advance Directives No January 27, 2015 8:57am Living Will No January 27 8:57am Power of Corn Husker Machine Operator No January 27, 2015 8:57am Advance Directive Response Recorded Date/ Time Advance Directives No January 27, 2015 9:57am Living Will No October 29, 2 023 4:19pm Power of Corn Husker Machine Operator No October 29, 2022 4:19pm Advance Directive Response Recorded Date/ Time Advance Directives No January 27, 2015 8:57am Living Will No October 29, 2 023 3:19pm Power of Corn Husker Machine Operator No October 29, 2022 3:19pm Advance Directive Response Recorded Date/ Time Living Will No January 24 4:37pm Power of Corn Husker Machine Operator No January 25, 2024 4:37pm Advance Directives No January 27, 2015 9:57am Advance Directive Response Recorded Date/ Time Advance Directives No January 27, 2015 9:57am Chief Complaint and Reason for Visit Chief Complaint SCREENING Chief Complaint SCREENING PAIN-COPY PCP Chief Complaint head injury Chief Complaint head injury SCREENING Chief Complaint head injury SCREENING PAIN- COPY PCP Chief Complaint SCREENING PAIN- COPY PCP L KNEE PAIN/POST FALL X5 DAYS injury- LEFT KNEE STRAIN MUSC TENDON, LT KN/RX HERE Reason for Visit Contusion of left kn ee Contusion of right knee Strain of left knee Chief Complaint PAIN- COPY PCP L KNEE PAIN/POST FALL X5 DAYS injury- LEFT KNEE STRAIN MUSC TENDON, LT KN/RX HERE Reason for Visit Contusion of left kn ee Contusion of right knee Strain of left knee Chief Complaint Admit Date CHRONIC DIARRHEA January 25, 2024 9 :53am SCREENING January 25, 2024 1 0:51am E-ORDER February 01, 2024 12:29pm Test Result February 13, 2024 10:20am NAUSEA February 20, 2024 9:05am 1 M FU March 15, 2024 1 0:54am PAIN- COPY PCP March 26, 2024 1 0:54am LBP RX HERE April 10, 2024 3:00pm LUMBAR RADICULOPATHY February 26th, 2025 10:01am Reason for Visit Admit Date Abdominal cramping January 25, 2024 9 :53am Irritable bowel syndrome with diarrhea D ec2023 9:53am Nausea January 25, 2024 9 :53am Weight loss January 25, 2024 9 :53am Chronic diarrhea January 25, 2024 9 :53am Early satiety February 13, 2024 10:20am Lymphocytic colitis February 13, 2024 10:20am Nausea February 13, 2024 10:20am Lymphocytic colitis March 15, 2024 1 0:54am Chief Complaint Admit Date Test Result February 13, 2024 10:20am NAUSEA February 20, 2024 9:05am 1 M FU March 15, 2024 1 0:54am PAIN- COPY PCP March 26, 2024 1 0:54am LBP RX HERE April 10, 2024 3:00pm LUMBAR RADICULOPATHY April 18, 2024 10:01am 3 M FU May 17, 2024 8:0 4am RIGHT SHOULDER PAIN June 04, 2024 8:4 8am Reason for Visit Admit Date Early satiety February 13, 2024 10:20am Lymphocytic colitis February 13, 2024 10:20am Nausea February 13, 2024 10:20am Lymphocytic colitis March 15, 2024 1 0:54am Lymphocytic colitis May 17, 2024 8:0 4am Chief Complaint Admit Date 3 M FU May 17, 2024 8:0 4am RIGHT SHOULDER PAIN June 04, 2024 8:4 8am RIGHT SHOULDER June 11, 2024 8:1 1am 4 M FU August 30, 2024 8:02 am Reason for Visit Admit Date Lymphocytic colitis May 17, 2024 8:0 4am Right shoulder pain June 11, 2024 8:1 1am Chief Complaint Admit Date RIGHT SHOULDER PAIN June 04, 2024 8:4 8am RIGHT SHOULDER June 11, 2024 8:1 1am 4 M FU August 30, 2024 8:02 am Reason for Visit Admit Date Right shoulder pain June 11, 2024 8:1 1am Lymphocytic colitis August 30, 2024 8:02 am Additional Source Comments INFORMATION SOURCE (unrecogn ized section and content) DATE CREATED AUTHOR 08/11/2017 [facility] DATE CREATED AUTHOR AUTHOR'S ORGANIZ ATION 05/21/2020 [facility] DATE CREATED AUTHOR AUTHOR'S ORGANIZ ATION 03/20/2021 [facility] DATE CREATED AUTHOR [facility] DATE CREATED AUTHOR AUTHOR'S ORGANIZ ATION 03/17/2024 [facility] DATE CREATED AUTHOR AUTHOR'S ORGANIZ ATION 07/08/2024 [facility] DATE CREATED AUTHOR AUTHOR'S ORGANIZ ATION 09/24/2024 [facility] Goals (unrecognized section and content) Goals may be documented in a n alternate sectionGoals may be documented in an alternate sectionGoals may be documented in an alternate sectionGoals may be documented in an alternate sectionGoals may be documented in an alternate sectionGoals may be documented in an alternate sectionGoals may be documented in an alternate sectionGoals may be documented in an alternate sectionGoals may be documented in an alternate sectionGoals may be documented in an alternate sectionGoals may be documented in an alternate sectionGoals may be documented in an alternate sectionGoals may be documented in an alternate section Care Teams (unrecognized sec tion and content) Team Status: Active Member Role Status Dates Charla Armstrong PA, PA-C Family Provider Active Tenisha LING PA Primary Care Provider Active Team Status: Inactive Member Role Status Dates Tenisha LING PA Primary Care Provi khloe, Attending Provider, Referring Provider Active Team Status: Inactive Member Role Status Dates Tenisha LING PA Primary Care Provider Active Dr. Nikkie Osei MD Attending Provider, Referring Provider Active Team Status: Active Member Role Status Dates Charlayris Armstrong PA, PA-C Family Provider Active Charla [place] PA, PA-C Primary Care Provider Active Team Status: Inactive Member Role Status Dates [facility] PA, PA-C Primary Care Provider Active Dr. Nikkie Osei MD Attending Provider, Referring Provider Active Team Status: Inactive Member Role Status Dates Charla [place] PA, PA-C Primary Care Pro vider, Attending Provider, Referring Provider Active Team Status: Inactive Member Role Status Dates Charla [place] PA, PA-C Primary Care Provider Active Dr. Benjamin Romero DO Emergency Provider Active Team Status: Inactive Member Role Status Dates Charla Armstrong PA, PA-C Primary Care Provider Active Dr. Benjamin Romero DO Attending Provider, Emergency Provider Active Team Status: Active Member Role Status Dates Charla [place] PA, PA-C Family Provider Active No Primary Care Physician Primary Care Provider Active Team Status: Inactive Member Role Status Dates Charlayris Armstrong PA, PA-C Primary Care Provider, Referri ng Provider Active Mathieu Kline PA, PA Attending Provider Active Team Status: Active Member Role Status Dates Mathieu Kline PA, PA Attending Provider, Referring Pr ovider Active No Primary Care Physician Primary Care Provider Active Team Status: Inactive Member Role Status Dates Charla [place] PA, PA-C Primary Care Provider Active Mathieu Kline PA, PA Attending Provider, Referring Pr ovider Active Team Status: Inactive Member Role Status Dates No Primary Care Physician Primary Care Provider Active Dr. Nikkie Osei MD Attending Provider, Referring Provider Active Team Status: Active Member Role Status Dates Tenisha Akins PA, PA Primary Care Provider Active Team Status: Inactive Member Role Status Dates Tenisha Akins PA, PA Primary Care Provider Active Start: January 25, 2024 End: January 25, 2024 Tenisha Akins PA, PA Referring Provider Active Start: January 25, 2024 End: January 25, 2024 ADA MontanezC Attending Provider Active Start: January 25, 2024 End: January 25, 2024 Team Status: Inactive Member Role Status Dates Tenisha Akins PA, PA Primary Care Provider Active Start: January 25, 2024 End: January 25, 2024 Tenisha Akins PA, PA Attending Provider Active Start: January 25, 2024 End: January 25, 2024 Kenzie Laurent NP-C Referring Provider Active Start: January 25, 2024 End: January 25, 2024 Team Status: Inactive Member Role Status Dates Tenisha Akins PA, PA Primary Care Provider Active Start: January 26, 2024 End: January 26, 2024 Tenisha Akins PA, PA Referring Provider Active Start: January 26, 2024 End: January 26, 2024 Dr. Jerman Garner DO Attending Provider Active Start: January 26, 2024 End: January 26, 2024 Team Status: Active Member Role Status Dates Tenisha Akins PA, PA Primary Care Provider Active Start: January 26, 2024 Tenisha LING, PA Referring Provider Active Start: January 26, 2024 Dr. Jerman Garner DO Attending Provider Active Start: January 26, 2024 Dr. Jerman Garner DO Other Provider Active St art: January 26, 2024 Team Status: Inactive Member Role Status Dates Tenisha Akins PA, PA Primary Care Provider Active Start: February 01, 2024 End: February 01, 2024 Kenzie Laurent DUAL RATE SUPERVISOR-C Attending Provider Active Start: February 01, 2024 End: February 01, 2024 Kenzie Laurent DUAL RATE SUPERVISOR-C Referring Provider Active Start: February 01, 2024 End: February 01, 2024 Team Status: Inactive Member Role Status Dates Tenisha Valverdeer PA, PA Referring Provider Active Start: February 13, 2024 End: February 13, 2024 Kenzie Laurent DUAL RATE SUPERVISOR-C Attending Provider Active Start: February 13, 2024 End: February 13, 2024 Team Status: Inactive Member Role Status Dates Kenzie Laurent DUAL RATE SUPERVISOR-C Attending Provider Active Start: February 20, 2024 End: February 20, 2024 Kenzie Laurent DUAL RATE SUPERVISOR-C Referring Provider Active Start: February 20, 2024 End: February 20, 2024 Tenisha Akins PA, PA Primary Care Provider Active Start: February 20, 2024 End: February 20, 2024 Team Status: Inactive Member Role Status Dates Kenzie Laurent DUAL RATE SUPERVISOR-C Attending Provider Active Start: March 15, 2024 End: March 15, 2024 Tenisha Akins PA, PA Primary Care Provider Active Start: March 15, 2024 End: March 15, 2024 Tenisha Akins PA, PA Referring Provider Active Start: March 15, 2024 End: March 15, 2024 Team Status: Inactive Member Role Status Dates Tenisha Akins PA, PA Primary Care Provider Active Start: March 15, 2024 End: March 15, 2024 Tenisha Akins PA, PA Attending Provider Active Start: March 15, 2024 End: March 15, 2024 Tenisha Akins PA, PA Referring Provider Active Start: March 15, 2024 End: March 15, 2024 Team Status: Inactive Member Role Status Dates Tenisha Akins PA, PA Primary Care Provider Active Start: March 26, 2024 End: March 26, 2024 Dr. Nikkie Osei MD Attending Provider Active Start: March 26, 2024 End: March 26, 2024 Dr. Nikkie Osei MD Referring Provider Active Start: March 26, 2024 End: March 26, 2024 Team Status: Active Member Role Status Dates Tenisha Akins PA, PA Primary Care Provider Active Start: April 10, 2024 Dr. Boogie Millard MD Attending Provider Active Start: April 10, 2024 Dr. Boogie Millard MD Referring Provider Active Start: April 10, 2024 Team Status: Inactive Member Role Status Dates Tenisha Akins PA, PA Primary Care Provider Active Start: April 18, 2024 End: April 18, 2024 Dr. Boogie Millard MD Attending Provider Active Start: April 18, 2024 End: April 18, 2024 Dr. Boogie Millard MD Referring Provider Active Start: April 18, 2024 End: April 18, 2024 Team Status: Inactive Member Role Status Dates Tenisha Akins PA, PA Primary Care Provider Active Start: May 17, 2024 End: May 17, 2024 Tenisha Akins PA, PA Referring Provider Active Start: May 17, 2024 End: May 17, 2024 ADA MontanezC Attending Provider Active Start: May 17, 2024 End: May 17, 2024 Team Status: Inactive Member Role Status Dates Tenisha Akins PA, PA Primary Care Provider Active Start: June 04, 2024 End: June 04, 2024 Dr. Boogie Millard MD Attending Provider Active Start: June 04, 2024 End: June 04, 2024 Dr. Boogie Millard MD Referring Provider Active Start: June 04, 2024 End: June 04, 2024 Team Status: Active Member Role/Relationship Status Dates Tenisha Akins PA, PA Primary Care Provider Active Team Status: Inactive Member Role/Relationship Status Dates Tenisha Akins PA, PA Primary Care Provider Active Start: May 17, 2024 End: May 17, 2024 Tenisha Akins PA, PA Referring Provider Active Start: May 17, 2024 End: May 17, 2024 Kenzie Laurent NP-C Attending Provider Active Start: May 17, 2024 End: May 17, 2024 Team Status: Inactive Member Role/Relationship Status Dates Tenisha Akins PA, PA Primary Care Provider Active Start: June 04, 2024 End: June 04, 2024 Dr. Boogie Millard MD Attending Provider Active Start: June 04, 2024 End: June 04, 2024 Dr. Boogie Millard MD Referring Provider Active Start: June 04, 2024 End: June 04, 2024 Team Status: Inactive Member Role/Relationship Status Dates Tenisha Akins PA, PA Primary Care Provider Active Start: June 11, 2024 End: June 11, 2024 Tenisha Akins PA, PA Referring Provider Active Start: June 11, 2024 End: June 11, 2024 Dionicio Carey MD Attending Provider Active St art: June 11, 2024 End: June 11, 2024 Team Status: Inactive Member Role/Relationship Status Dates Tenisha Akins PA, PA Primary Care Provider Active Start: August 30, 2024 End: August 30, 2024 Tenisha Akins PA, PA Referring Provider Active Start: August 30, 2024 End: August 30, 2024 GAYATHRI Montanez Attending Provider Active Start: August 30, 2024 End: August 30, 2024 Team Status: Inactive Member Role/Relationship Status Dates Tenisha Akins PA, PA Primary Care Provider Active Start: June 04, 2024 End: June 04, 2024 Dr. Boogie Millard MD Attending Provider Active Start: June 04, 2024 End: June 04, 2024 Dr. Boogie Millard MD Referring Provider Active Start: June 04, 2024 End: June 04, 2024 Team Status: Inactive Member Role/Relationship Status Dates Tenisha Akins PA, PA Primary Care Provider Active Start: June 11, 2024 End: June 11, 2024 Tenisha Akins PA, PA Referring Provider Active Start: June 11, 2024 End: June 11, 2024 Dionicio Carey MD Attending Provider Active St art: June 11, 2024 End: June 11, 2024 Team Status: Inactive Member Role/Relationship Status Dates Tenisha Akins PA, PA Primary Care Provider Active Start: August 30, 2024 End: August 30, 2024 Tenisha Akins PA, PA Referring Provider Active Start: August 30, 2024 End: August 30, 2024 GAYATHRI Montanez Attending Provider Active Start: August 30, 2024 End: August 30, 2024 FOR RECORDS PERTAINING TO PATIENTS WHO ARE [...] BE BASED ON THE PRIMARY CLINICAL RECORDS. [facility] [employer], [facility]. provides no warranty or guarantee of the accuracy or completeness of information in this document.
== END | disposition home or self-care (01) ==
LOC: RAD 10:40
PROVIDERS: PCP Physician Assistant; Referring Provider Physician Assistant; Visit Provider Physician Assistant
DX: R07.89 Other chest pain (principal)
CPT/HCPCS: 71101

== ENCOUNTER → 2024-12-31 | Outpatient (CLI) | payer BC, SELFPAY ==
[2024-12-31 10:36] LABS: Hematocrit 39.9 % (37-47); Hemoglobin 12.9 g/dL (12.0-15.0); Immature Granulocytes Count 0.010 X10^3/uL (0.0-0.0); Mean Corp Hgb Conc 32.3 g/dL (32-36); Mean Corpuscular Volume 83.6 fL (81-99); Mean Platelet Vol. 10.0 fl (6.2-12.0); NRBC Flagged by Analyzer 0 % (0-5); Platelet Count 158 K/mm3 (150-450); RBC Distribution Width CV 13.6 % (11.6-14.6); RBC Distribution Width SD 42.1 fl (35.1-43.9); Red Blood Count 4.77 M/mm3 (4.2-5.4); White Blood Count 4.4 K/mm3 (4.4-11.0)
[2024-12-31 10:51] LABS: AST(SGOT) 27 U/L (<=31); Alanine Aminotransfer ALT/SGPT 21 U/L (<=34); Albumin, Serum 3.9 g/dL (3.4-4.8); Alkaline Phosphatase 72 U/L (35-104); Anion Gap 10 (5-15); BUN 12 mg/dL (4-19); BUN/Creat Ratio 19.1 RATIO (10-20); Calcium,Total 9.4 mg/dL (7.6-11.0); Carbon Dioxide 28.0 mmol/L (21.0-32.0); Chloride 105 mmol/L (98-108); Globulin 2.0 g/dL (2.2-4.2); Glucose 91 mg/dL (70-99); Potassium 3.7 mmol/L (3.3-5.1)
== END | disposition home or self-care (01) ==
LOC: MTLAB 07:34
PROVIDERS: PCP Physician Assistant; Referring Provider Internal Medicine Rheumatology; Visit Provider Internal Medicine Rheumatology
DX: M06.4 Inflammatory polyarthropathy (principal); Z79.899 Other long term (current) drug therapy; M79.7 Fibromyalgia; M18.11 Unilateral primary osteoarthritis of first carpometacarpal joint, right hand
CPT/HCPCS: 36415; 80053; 85025